=== PATIENT | female | born 1960 | race Caucasian/White ===

== ENCOUNTER → 2018-03-29 | Outpatient (CLI) | payer MEDICARE, MEDICAID | LOC: M PAIN 11:15 | DX: M54.12 Radiculopathy, cervical region (principal); G89.29 Other chronic pain; M79.1 Myalgia; R25.2 Cramp and spasm; J44.9 Chronic obstructive pulmonary disease, unspecified; I10 Essential (primary) hypertension; F41.9 Anxiety disorder, unspecified; Z79.899 Other long term (current) drug therapy; Z86.79 Personal history of other diseases of the circulatory system; Z87.891 Personal history of nicotine dependence | CPT/HCPCS: G0463 ==

== ENCOUNTER → 2018-05-30 | Outpatient (CLI) | payer MEDICARE, MEDICAID | LOC: M PAIN 13:00 | DX: M54.12 Radiculopathy, cervical region (principal); M79.1 Myalgia; R25.2 Cramp and spasm; B02.22 Postherpetic trigeminal neuralgia; J44.9 Chronic obstructive pulmonary disease, unspecified; I10 Essential (primary) hypertension; F41.9 Anxiety disorder, unspecified; Z79.899 Other long term (current) drug therapy; Z88.5 Allergy status to narcotic agent; Z86.79 Personal history of other diseases of the circulatory system; Z87.891 Personal history of nicotine dependence | CPT/HCPCS: G0463 ==

== ENCOUNTER → 2018-08-19 | Outpatient (CLI) | payer MEDICARE, MEDICAID | LOC: M PAIN 13:15 | DX: M54.12 Radiculopathy, cervical region (principal); M79.18 Myalgia, other site; R25.2 Cramp and spasm; B02.22 Postherpetic trigeminal neuralgia; I10 Essential (primary) hypertension; F41.9 Anxiety disorder, unspecified; J44.9 Chronic obstructive pulmonary disease, unspecified; Z79.899 Other long term (current) drug therapy; Z88.5 Allergy status to narcotic agent; Z86.79 Personal history of other diseases of the circulatory system; Z87.891 Personal history of nicotine dependence | CPT/HCPCS: G0463 ==

== ENCOUNTER → 2019-03-29 | Outpatient (REF) ==
[2019-03-29 14:40] LABS: ALBUMIN 3.7 GM/DL (3.2-5.2); ALT/SGPT 302 U/L (12-78); AMYLASE 108 U/L (25-115); BILIRUBIN,TOTAL 0.5 MG/DL (0.2-1.0); BLOOD UREA NITROGEN 12 MG/DL (7-18); CALCIUM LEVEL 9.1 MG/DL (8.5-10.1); CARBON DIOXIDE LEVEL 27 MEQ/L (21-32); CHLORIDE LEVEL 103 MEQ/L (98-107); GLOMERULAR FILTRATION RATE > 60.0 (>51); GLUCOSE, FASTING 79 MG/DL (70-100); LIPASE 308 U/L (73-393); POTASSIUM SERUM 4.4 MEQ/L (3.5-5.1); SODIUM LEVEL 137 MEQ/L (136-145); TOTAL PROTEIN 6.9 GM/DL (6.4-8.2)
== END ==
LOC: M LAB REF 12:02
DX: Z00.00 Encounter for general adult medical examination without abnormal findings (principal)

== ENCOUNTER 2020-08-13 21:45 | Inpatient (IN) | payer MEDICARE, MEDICAID ==
[~2020-08-13] VITALS: Ht 165.1 cm; Wt 55.9 kg
[2020-08-13] MEDS ORDERED: HYDR-3719 PO (21:58)
[2020-08-13] MEDS ORDERED: IPRA2IN NEB (21:58)
[2020-08-13] MEDS ORDERED: FURO20TA2 PO (21:58)
[2020-08-13] MEDS ORDERED: OMEP-221 PO (21:58)
[2020-08-13] MEDS ORDERED: ALPR0.25 PO (21:58)
[2020-08-13] MEDS ORDERED: TREL1AER INH (21:58)
[2020-08-13] MEDS ORDERED: AMLO2.5T3 PO (21:58)
[2020-08-13] MEDS ORDERED: ALBU83IN INH (21:58)
[2020-08-13 22:56] LABS: CK-MB VALUE MASS 1.2 NG/ML (<3.6); CPK CREATINE PHOSPHOKINASE 68 U/L (26-192); MB/CK RELATIVE INDEX 1.76 (< OR =4); TROPONIN I < 0.02 NG/ML (< 0.10)
[2020-08-13 23:03] LABS: BASO # 0.1 10^3/uL (0.0-0.2); BASO % 0.8 % (0.0-1.0); EOS % 0.1 % (0.0-3.0); HEMATOCRIT 37.9 % (36.0-47.0); HEMOGLOBIN 12.3 g/dl (12.0-15.5); LYMPH # 3.8 10^3/uL (1.5-5.0); LYMPH % 31.9 % (24.0-44.0); MEAN CORPUSCULAR HEMOGLOBIN 30.8 pg (27.0-33.0); MEAN CORPUSCULAR HGB CONC 32.5 g/dl (32.0-36.5); MEAN CORPUSCULAR VOLUME 94.8 fl (80.0-96.0); MONO % 8.5 % (0.0-5.0); NEUTROPHILS # 6.8 10^3/uL (1.5-8.5); NEUTROPHILS % 58.1 % (36.0-66.0); PLATELET COUNT, AUTOMATED 252 10^3/uL (150-450); WHITE BLOOD COUNT 11.8 10^3/uL (4.0-10.0)
[2020-08-13] MEDS ORDERED: ISOVUE-370 76% 100ML VIAL As Ordered ONE (23:05)
--- NOTE | 2020-08-13 23:05 | REPVR ---
PROCEDURE INFORMATION: Exam: XR Chest, 1 View Exam date and time: 08/13/2020 10:30 PM Age: 60 years old Clinical indication: Other: Chest pain TECHNIQUE: Imaging protocol: XR of the chest Views: 1 view. COMPARISON: No relevant prior studies available. FINDINGS: Lungs: Dependent subsegmental pulmonary atelectasis. Pleural space: Unremarkable. No pleural effusion. No pneumothorax. Heart/Mediastinum: Unremarkable. No cardiomegaly. Vasculature: Aortic calcification. Bones/joints: Unremarkable. IMPRESSION: No acute findings. Electronically signed by: Alpesh Romero On 08/13/2020 23:05:04 PM
[2020-08-13 23:19] LABS: ALBUMIN 3.3 GM/DL (3.2-5.2); ALT/SGPT 92 U/L (12-78); BILIRUBIN,DIRECT 0.2 MG/DL (0.0-0.2); BILIRUBIN,TOTAL 0.4 MG/DL (0.2-1.0); BLOOD UREA NITROGEN 16 MG/DL (7-18); CARBON DIOXIDE LEVEL 30 MEQ/L (21-32); CHLORIDE LEVEL 97 MEQ/L (98-107); GLUCOSE, FASTING 101 MG/DL (70-100); LIPASE 141 U/L (73-393); POTASSIUM SERUM 3.4 MEQ/L (3.5-5.1); SODIUM LEVEL 138 MEQ/L (136-145); TOTAL PROTEIN 7.2 GM/DL (6.4-8.2)
[2020-08-14] MEDS ORDERED: MORPHINE 2 MG/ML 1ML VIAL (J2270) IV ONE
[2020-08-14] MEDS ORDERED: POTASSIUM CHLORIDE 10 MEQ SR TABLET PO ONE
[2020-08-14] MEDS ORDERED: ACETAMINOPHEN TAB 650MG DOSE (2X325MG) PO PRN (00:30)
[2020-08-14] MEDS ORDERED: MOM 30ML SUSPENSION UDC PO PRN (00:30)
--- NOTE | 2020-08-14 01:41 | HPEPDOC ---
[facility] Medical History & Physical Date of Admission Aug 14, 2020 Date of Service: Aug 14, 2020 History and Physical CHIEF COMPLAINT: Chest pain HISTORY OF PRESENT ILLNESS: 60-year-old female past medical history of hypertension, COPD on home oxygen, and CAD. Presents with atypical chest pain. Left AMA from [place] yesterday. CT showed pericardial effusion there. Dr Messina consulted form Ed agrees to admit and do echo which hell read in the am. Initial trop negative. Admitted to medical floor on telemetry monitoring to rule out ACS and for echo in the morning. Tells me her chest pain has lasted for the past 5 days and has been slowly getting progressively worse. Says the pain is constant all day long and does not radiate. Rates the pain as 4 out of 10 and as a general discomfort in the middle of her chest. Says that the pain is alleviated by taking Gas-X and made worse with stress. States that the pain feels like a worse version of her GERD. Tells me that sometimes her pain is producible on palpation. Tells me she's had a heart attack in 2004 and underwent catheterization and they told her the clot has moved and she did not require stenting. PAST MEDICAL HISTORY: Hypertension, COPD on home oxygen, history of diverticulitis PAST SURGICAL HISTORY: Tonsillectomy, small bowel resection 7 years ago after severe bout of diverticulitis. Actual carpal tunnel relief surgery. SOCIAL HISTORY: States she drinks beer about once a week with her friends Endorses smoking tobacco for 30 years and quit 13 years ago Denies illicit drug use ALLERGIES: Please see below. REVIEW OF SYSTEMS: Constitutional: No sweating or weight loss Eyes: No eye pain or acute blurred vision HENT: No complaints of headache or sore throat Cadiovascular: See HPI Pulm: No SOB or cough Gastrointestinal: No N/V, no abdominal pain. Genitourinary: No dysuria or hematuria Musculoskeletal: No back pain or joint pain Skin: No rash or jaundice Neurological: No weakness. HOME MEDICATIONS: Please see below. PHYSICAL EXAMINATION: Constitutional: Awake and alert, in no apparent distress ENT: Sclera are clear. Mucosa is moist. Respiratory: Lungs CTA bilaterally. No respiratory distress. No use of accessory muscles. Cardiovascular: RRR S1 and S2 are normal, no murmur Gastrointestinal: Abdomen is soft, non distended, non tender, BS present. Musculoskeletal: No edema. No joint deformities. RUE 5/5, LUE 5/5, BLE 5/5 Neurologic: No focal neurological deficit. Mental Status: A&O x3, normal affect Skin: Warm, dry LABORATORY DATA: See below. IMAGING: CT from [place] on disc in chart MICROBIOLOGY: Please see below. ASSESSMENT/PLAN 60-year-old female past medical history of hypertension, COPD on home oxygen, and CAD. Presents with atypical chest pain. Left AMA from [place] yesterday. CT showed pericardial effusion there. Dr Messina consulted form Ed agrees to admit and do echo which hell read in the am. Initial trop negative. Admitted to medical floor on telemetry monitoring to rule out ACS and for echo in the morning. # Chest pain: Rule out ACS. Tele. Atypical CP. CXR ok. Initial trop ok. EKG NSR. Trend troponins and EKG. Dr. Messina consulted - rec echo which he will read in the morning. A1c, lipid panel. # CAD: Cath done in 2004 no stenting was done. Aspirin, statin, started on low- dose metoprolol. # GERD: Her chest pain does have some symptoms that resemble GERD including improvement with Gas-X as well as association with stress and food. One-time IV Protonix followed by by mouth Protonix. # HTN: Hold home antihypertensives currently normotensive. Monitor and titrate # COPD: DU nebs PRN, O2 NC # HypoK: replace. Monitor. # DVT prophylaxis: Heparin A Yousef Hospitalist Vital Signs Vital Signs Date Time Temp Pulse Resp B/P (MAP) Pulse Ox O2 Delivery O2 Flow Rate FiO2 08/14/20 00:44 18 08/14/20 00:30 82 114/63 (80) 08/14/20 00:00 91 Nasal Cannula 2.0 Laboratory Data Labs 24H Laboratory Tests 2 08/13/20 22:23: Immature Granulocyte % (Auto) 0.6, Neutrophils (%) (Auto) 58.1, Lymphocytes (%) (Auto) 31.9, Monocytes (%) (Auto) 8.5H, Eosinophils (%) (Auto) 0.1, Basophils (%) (Auto) 0.8, Neutrophils # (Auto) 6.8, Lymphocytes # (Auto) 3.8, Monocytes # (Auto) 1.0H, Eosinophils # (Auto) 0.0, Basophils # (Auto) 0.1, Nucleated Red Blood Cells % (auto) 0.0, Anion Gap 11, Glomerular Filtration Rate 60.0, Calcium Level 8.0L, Total Bilirubin 0.4, Direct Bilirubin 0.2, Aspartate Amino Transf (AST/SGOT) 69H, Alanine Aminotransferase (ALT/SGPT) 92H, Alkaline Phosphatase 102, Total Creatine Kinase 68, Creatine Kinase MB 1.2, Creatine Kinase MB Relative Index 1.76, Troponin I < 0.02, Total Protein 7.2, Albumin 3.3, Alb umin/Globulin Ratio 0.8L, Lipase 141 CBC/BMP Laboratory Tests 08/13/20 22:23 Home Medications Scheduled Albuterol Sulf (Albuterol Sulfate) 2.5 Mg/3 Ml Vial.neb, 1 NEB INH PRN Alprazolam (Alprazolam) 0.25 Mg Tablet, 0.25 MG PO DAILY Amlodipine Besylate (Amlodipine Besylate) 2.5 Mg Tablet, 2.5 MG PO DAILY Fluticasone/Umeclidin/Vilanter (Trelegy Ellipta 100-62.5-25) 1 Each Blst.w.dev, 1 PUFF INH DAILY Furosemide (Furosemide) 20 Mg Tablet, 20 MG PO DAILY Omeprazole (Omeprazole) 40 Mg Capsule.dr, 40 MG PO DAILY Scheduled PRN Hydrocodone/Acetaminophen (Hydrocodone-Acetamin 10-325 mg) 1 Each Tablet, 1 TAB PO Q4H PRN for PAIN Ipratropium [place] (Ipratropium [place]) 0.2 Mg/1 Ml Solution, 1 DOSE NEB QID PRN for SHORTNESS OF BREATH Allergies Coded Allergies: diazepam (Verified Allergy, Mild, HIVES, 08/13/20) A-FIB/CHADSVASC A-FIB History Current/History of A-Fib/PAF?: No JAVIER MCCLURE MD Aug 14, 2020 01:41
[2020-08-14] MEDS ORDERED: PANTOPRAZOLE 40MG VIAL (C9113 PER 1) IV ONE (01:45)
[2020-08-14] MEDS ORDERED: IPRATROPIUM 0.5MG/ALBUTEROL 2.5MG INH SOL UD 3ML (DUONEB) NEB PRN (01:45)
[2020-08-14 02:35] VITALS: BP 132/73
[2020-08-14 04:13] LABS: HEMATOCRIT 36.3 % (36.0-47.0); HEMOGLOBIN 11.6 g/dl (12.0-15.5); MEAN CORPUSCULAR HEMOGLOBIN 30.5 pg (27.0-33.0); MEAN CORPUSCULAR VOLUME 95.5 fl (80.0-96.0); PLATELET COUNT, AUTOMATED 214 10^3/uL (150-450); WHITE BLOOD COUNT 9.7 10^3/uL (4.0-10.0)
[2020-08-14 04:30] LABS: HEMOGLOBIN A1c 5.5 %
[2020-08-14 04:50] LABS: BLOOD UREA NITROGEN 16 MG/DL (7-18); CALCIUM LEVEL 8.3 MG/DL (8.8-10.2); CARBON DIOXIDE LEVEL 31 MEQ/L (21-32); CHLORIDE LEVEL 101 MEQ/L (98-107); CHOLESTEROL LEVEL 211 MG/DL (<200); CREATININE FOR GFR 0.76 MG/DL (0.55-1.30); GLOMERULAR FILTRATION RATE > 60.0 (>45); GLUCOSE, FASTING 106 MG/DL (70-100); HDL CHOLESTEROL 96 MG/DL (>40); POTASSIUM SERUM 3.9 MEQ/L (3.5-5.1); SODIUM LEVEL 136 MEQ/L (136-145); TRIGLYCERIDES LEVEL 74 MG/DL (<150)
[2020-08-14 04:51] LABS: CHOLESTEROL RISK RATIO 2.197 (<5); LDL CHOLESTEROL 100 MG/DL (<100); MAGNESIUM LEVEL 2.3 MG/DL (1.8-2.4); NON-HDL-C 115 MG/DL; TROPONIN I < 0.02 NG/ML (< 0.10)
[2020-08-14] MEDS: HEPARIN SOD (PORCINE) 5000UNITS/ML 1ML VIAL/SYRINGE SQ SCH ×3 (06:41→21:53)
--- NOTE | 2020-08-14 06:48 | ECGEPIP ---
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
[2020-08-14] MEDS ORDERED: MAALOX 30 ML SUSP *UDC PO PRN (08:00)
[2020-08-14] MEDS: SYMBICORT 160/4.5MCG INHALER 6GM INH SCH ×2 (08:41→19:32)
[2020-08-14] MEDS: TIOTROPIUM INHALER/CAPSULE (SPIRIVA) INH SCH (08:41)
[2020-08-14] MEDS ORDERED: PANTOPRAZOLE 40MG TAB (PROTONIX) PO SCH (09:00)
[2020-08-14] MEDS ORDERED: ENOXAPARIN 40MG/0.4ML SYRINGE (J1650 PER 10MG) SC SCH (09:00)
[2020-08-14] MEDS: ALPRAZolam 0.25 MG TAB PO SCH (10:36)
[2020-08-14] MEDS: ASPIRIN 81 MG ENTERIC TAB PO SCH (10:36)
[2020-08-14] MEDS: PANTOPRAZOLE 40MG VIAL (C9113 PER 1) IV SCH (10:36)
[2020-08-14] MEDS: ATORVASTATIN 20 MG TAB PO SCH (10:37)
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
[2020-08-14] MEDS: SUCRALFATE SUSP 1GM/10ML UD PO SCH ×3 (13:12→21:53)
[2020-08-14] MEDS: METOPROLOL SUCC *XL* 12.5MG PER 1/2 TAB (TopROL *XL*) PO SCH (13:12)
[2020-08-14 16:00] VITALS: BP 122/66
[2020-08-14 17:45] VITALS: BP 125/82
--- NOTE | 2020-08-14 21:24 | ECGEPIP ---
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
--- NOTE | 2020-08-14 21:27 | ECGEPIP ---
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
--- NOTE | 2020-08-14 21:28 | ECGEPIP ---
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
[2020-08-14 22:00] VITALS: BP 98/69
[2020-08-15] MEDS: HEPARIN SOD (PORCINE) 5000UNITS/ML 1ML VIAL/SYRINGE SQ SCH ×2 (05:44→12:27)
[2020-08-15 06:00] VITALS: BP 120/73
[2020-08-15 07:00] LABS: BLOOD UREA NITROGEN 15 MG/DL (7-18); CALCIUM LEVEL 8.3 MG/DL (8.8-10.2); CARBON DIOXIDE LEVEL 28 MEQ/L (21-32); CHLORIDE LEVEL 107 MEQ/L (98-107); CREATININE FOR GFR 0.69 MG/DL (0.55-1.30); GLOMERULAR FILTRATION RATE > 60.0 (>45); GLUCOSE, FASTING 107 MG/DL (70-100); POTASSIUM SERUM 3.7 MEQ/L (3.5-5.1); SODIUM LEVEL 141 MEQ/L (136-145)
[2020-08-15] MEDS: SYMBICORT 160/4.5MCG INHALER 6GM INH SCH (07:22)
[2020-08-15] MEDS: TIOTROPIUM INHALER/CAPSULE (SPIRIVA) INH SCH (07:22)
[2020-08-15 08:12] VITALS: BP 120/73
[2020-08-15] MEDS: ATORVASTATIN 20 MG TAB PO SCH (08:12)
[2020-08-15] MEDS: ASPIRIN 81 MG ENTERIC TAB PO SCH (08:12)
[2020-08-15] MEDS: ALPRAZolam 0.25 MG TAB PO SCH (08:12)
[2020-08-15] MEDS: SUCRALFATE SUSP 1GM/10ML UD PO SCH ×2 (08:12→12:27)
[2020-08-15] MEDS: METOPROLOL SUCC *XL* 12.5MG PER 1/2 TAB (TopROL *XL*) PO SCH (08:12)
[2020-08-15] MEDS: PANTOPRAZOLE 40MG VIAL (C9113 PER 1) IV SCH (08:12)
[2020-08-15] MEDS ORDERED: BISACODYL 10 MG SUPP PR PRN (09:00)
[2020-08-15] MEDS ORDERED: NORCO, ANEXSIA 5/325MG TABLET (HYDROcodone/ACETAMINOPHEN) PO PRN ×2 (09:00)
[2020-08-15] MEDS ORDERED: MOM 30ML SUSPENSION UDC PO PRN (09:00)
[2020-08-15] MEDS ORDERED: BISACODYL 10 MG SUPP PR ONE (09:30)
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
[2020-08-15] MEDS ORDERED: FLEET ENEMA PR PRN (14:00)
[2020-08-15] MEDS ORDERED: DULC10SU2 PR (14:38)
[2020-08-15] MEDS ORDERED: FAMO40TA3 PO (14:38)
[2020-08-15] MEDS ORDERED: SUCR1TA PO (14:38)
[2020-08-15] MEDS ORDERED: SENN8.6T58 PO (14:40)
--- NOTE | 2020-08-16 06:43 | ECHO ---
DATE OF PROCEDURE: 08/15/2020 Age: 60 Gender: Female REFERRING PROVIDER: Karen Nava MD PATIENT LOCATION: Room 4205 REASON FOR STUDY: Chest pain, pericardial effusion. 2D MEASUREMENTS: IVS 0.87 cm LV 4.7 cm LVPW 1.1 cm LA 3.6 cm Aorta 2.6 cm IVC 1.95 cm DOPPLER MEASUREMENT Peak velocity across the aortic valve 1.6 m/s Peak velocity across the LVOT 1.1 m/s Peak gradient across the aortic valve 10 mmHg Mean gradient across the aortic valve 6 mmHg Mitral E 0.75 Mitral A 1.1 with a ratio of 0.7 Maximum tricuspid valve velocity 2.1 m/s 2D COMMENTS: 1. Normal left ventricular size, wall thickness, and normal global left ventricular systolic function. The estimated left ventricular systolic ejection fraction is 60% to 65%. 2. Normal left atrium. Normal right atrium and right ventricle. 3. The atrial septum appeared to be normal without evidence of defect or shunt. 4. Normal aortic root. 5. A small pericardial effusion was noted. No evidence of cardiac tamponade. 6. There was the presence of fibrinous material in the pericardial fluid. 7. Mildly calcified aortic valve with normal leaflet excursion. Mildly calcified mitral annulus with normal anterior mitral valve leaflet motion. Normal tricuspid valve. The pulmonic valve and proximal pulmonary artery branches were not well visualized. 8. The inferior vena cava was normal in size, central venous pressure normal. Doppler with only mild mitral regurgitation and mild tricuspid regurgitation detected. The calculated pulmonary artery systolic pressure was normal. Abnormal relaxation pattern was noted across the mitral valve leaflets, as well as the mitral valve annulus consistent with features of grade 1 left ventricular diastolic dysfunction. IMPRESSION: 1. Normal global left ventricular systolic function. There are features of grade 1 left ventricular diastolic dysfunction manifested by abnormal relaxation. 2. Aortic valve sclerosis with trivial aortic stenosis. No aortic regurgitation. 3. Mitral annulus calcification with mild mitral regurgitation. 4. Mild tricuspid regurgitation with a normal calculated pulmonary artery systolic pressure. 5. A small pericardial effusion was noted, no evidence of cardiac tamponade. As mentioned above, fibrinous material noted in the pericardial fluid. I recommend a 2D echocardiogram in about three to six months for further evaluation. She also may benefit from further evaluation for malignancy. 6. Not mentioned above, global longitudinal strain/GLS was normal at -17.7%. MTDD
== END 2020-08-15 15:23 | disposition home or self-care (01) | DRG 392 ==
LOC: M ED 21:45 → M ED INP 08-14 00:23 → ENRESERV 08-14 02:02 → M PCU 08-14 02:45 → M MSPAV 08-14 17:52
PROVIDERS: ADMIT Family Medicine; ATTEND Internal Medicine Nephrology
DX: K29.00 Acute gastritis without bleeding (principal); J96.11 Chronic respiratory failure with hypoxia; I25.10 Atherosclerotic heart disease of native coronary artery without angina pectoris; K21.9 Gastro-esophageal reflux disease without esophagitis; R07.89 Other chest pain; I10 Essential (primary) hypertension; J44.9 Chronic obstructive pulmonary disease, unspecified; E87.6 Hypokalemia; G89.29 Other chronic pain; Z99.81 Dependence on supplemental oxygen; Z90.49 Acquired absence of other specified parts of digestive tract; Z79.899 Other long term (current) drug therapy; Z88.8 Allergy status to other drugs, medicaments and biological substances; Z79.891 Long term (current) use of opiate analgesic

== ENCOUNTER 2021-09-07 10:40 | Emergency (ER) | payer MEDICARE, MEDICAID ==
[~2021-09-07] VITALS: Ht 165.1 cm; Wt 60.0 kg
[~2021-09-07 10:40] MED LIST: ALBU83IN INH; ALPR0.25 PO; AMLO2.5T3 PO; DULC10SU2 PR; FAMO40TA3 PO; FURO20TA2 PO; HYDR-3719 PO; IPRA2IN NEB; OMEP-221 PO; SENN8.6T58 PO; SUCR1TA PO; TREL1AER INH
[2021-09-07 10:41] VITALS: BP 159/89
[2021-09-07] MEDS ORDERED: AMOX1SUS19 (10:48)
[2021-09-07] MEDS ORDERED: TRAZ-252 (10:48)
--- OUTSIDE RECORDS SUMMARY | 2021-09-07 10:48 | CCD | Continuity of Care Document ---
Author Author Gissel BOSTON D.O. Organization Unknown Address [address] [place] [address] Phone [phone] Care Team Providers Care Public Aid Eligibility Assistant Name Role Phone Shahbaz Tee M.D. AUTM [phone] Riley Pereira M.D. AUTM [phone] Problems Active Problems Provider Date Chronic obstructive lung disease Onset: 07/10/2001 Gastroesophageal reflux disease Freeman Reynolds M.D. Onset: 11/26/2002 Diverticular disease of colon Freeman Reynolds M.D. 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 Onset: 02/04/2013 Social History Type Date Description Comments Sex Unknown Tobacco Use Start: Unknown End: Unknown Former Cigarette Smo ker 1 Pack Daily x 35 years, quit 2007 ETOH Use Intermittent alcohol use Beer - Twice a month Tobacco Use Start: Unknown End: Unknown Patient is a former smoker quit 2007 Recreational Drug Use Never Used Drugs Smoking Status Reviewed: 04/08/21 Patient is a former smoker qu it 2007 Allergies and adverse reactions Active Allergies Criticality Reaction | Severity Comments Date Lisinopril Unable to assess criticality throat const ricture 10/28/2019 Inactive Allergies NKDA Unable to assess criticality 02/05/2002 Medications Active Medications SIG Qnty Indications Ordering Provide r Date Omeprazole 40mg Capsules DR 1 by mouth every day 90caps Dallas Boston D.O., FAAFP Lubiprostone 8mcg Capsules Take One Capsule By Mouth Twice A Day 60caps Yuliana Nance, FAAFP 04/15/2021 Moderna Covid-19 Vaccine 100mcg/0.5ML Suspension pt recieved both Dallas Boston D.O., F AAFP 03/07/2021 Xanax 0.25mg Tablets 1 tab by mouth twice a day 60tabs [facility] Valacyclovir HCL 1gm Tablets 1 tab by mouth two times a day x 7 days 14tabs Dallas Boston D.O., FAAFP 01/22/2020 Amlodipine Besylate 2.5mg Tablets take one tablet by mouth every day 90tabs Dallas Boston D.O., FAAFP 11/12/2019 Mupirocin Calcium 2% Cream apply to the nose bid 15gm Dallas Boston D.O., FAAFP Ondansetron 4mg Tablets Dispers dissolve 1 tab on the tongue every 8 hours as needed for nausea 30tabs Dallas Boston D.O., FAAFP 04/24/2019 Trelegy Ellipta 100- 62.5-25mcg/Inh Aerosol Inhale One puff By Mouth Every Day 60units Gustabo Boston D.O., FAAFP 10/02/2018 Prevnar 13 Suspension as Directed Asthma /COPD QS Dallas Boston D.O., FAAFP Lidocaine 5% Patches apply in in the morning to most painful area, remove after 12 hours dx: b02.21 30units Dallas Boston D.O., FAAFP 04/25/2018 Triamcinolone Acetonide 0.025% Cre am apply three x daily to back prn 80gm Dallas Boston D.O., FAAFP 09/18/2017 Nebulizer Compressor/Dualfilter/7' Tubin g/Aerosol T/Mthpiece Kit use for albuterol neb treatments every 4 hours as needed for sob or wheezing 1units J44.9 Dallas Boston D.O., [facility] 02/15/2015 Montelukast Sodium 10mg Tablets take one tablet by mouth every day 30tabs [facility] 01/14/2013 Saline Nasal [place] 0.65% Solution use tid 2units [facility] 02/21/2011 Albuterol Sulfate (2 .5mg/3ML) 0.083% Nebulizer inhale contents of 1 vial in nebulizer every 4 hours if need ed 540units J44.9 [facility] 12/28/2008 R06.2 Ipratropium [place] 0.02% Solution mix with albuterol and inhale contents of 1 vial in nebulizer four times a day 450ml J44.9 [facility] 12/28/2008 R06.2 Tums Smoothies 750mg Chewtabs One Or 2 Weekly Unknown Medications Administered in Office Medication SIG Qnty Indications Ordering Provider Date Injection (SC)/(Im) Injection Maite Lindsay PA 04/28/2020 Injection (SC)/(Im) Injection Dallas Boston D.O., [facility] 08/28/2016 Injection (SC)/(Im) Injection Dallas Boston D.O., [facility] 04/09/2015 Injection (SC)/(Im) Injection Berenice Coe FNP-C 02/10/2015 Injection (SC)/(Im) Injection Leslie Jenkins FNP-BC 10/12/2009 Injection Subcutaneous Or Intramuscular Injection Jonas Travis [facility] 05/11/2008 Injection Subcutaneous Or Intramuscular Injection [facility] 06/13/2007 Injection Subcutaneous Or Intramuscular Injection Freeman Reynolds M.D. 2006 Injection Subcutaneous Or Intramuscular Injection Dallas Boston D.O., [facility] 12/07/2006 Injection Subcutaneous Or Intramuscular Injection Terence Garcia, RPA 11/02 Injection (SC)/(Im) Injection Terence Garcia, RPA 07/26/2006 Injection Subcutaneous Or Intramuscular Injection Terence Garcia, RPA 07/26 Injection Subcutaneous Or Intramuscular Injection [facility] 06/04/2006 Injection (SC)/(Im) Injection [facility] 10/04/2005 Injection (SC)/(Im) Injection Dallas Boston D.O., FAAFP 04/04/2005 Injection (SC)/(Im) Injection Leslie Jenkins [facility] 04/04/2005 Injection (SC)/(Im) Injection Jack Diaz M.D. 03/11/1997 Injection (SC)/(Im) Injection Mahesh Beck R.P.A. 03/06/1997 Immunizations CPT Code Status Date Vaccine Reaction Lot # [id number] Given 09/02/2020 Influenza Virus Vaccine, Quadrivalent, Slit Virus, Im Use 3Y & Up [id number] 43447 Given 04/28/2020 Tdap Tetanus,Dip htheria Toxoids/Acellular Pertussis 7Yrs Or Older [id number] 53491 Given 09/08/2019 Influenza Virus Vaccine, Quadrivalent, Slit Virus, Im Use 3Y & Up [id number] 56542 Given 09/03/2013 Pneumococcal Immunization [id number] 72682 Given 08/14/2012 Influenza Virus Vac. Split Virus Individuals 3 Years And Above [id number] [id number] Given 07/25/2011 Influenza Vaccin e (Fluzone) 3Yrs Of Age Or Older Medicare Plans 16760 Given 07/25/2011 Influenza Virus Vac. Split Virus Individuals 3 Years And Above [id number] 23945 Given 09/14/2009 Influenza Virus Vac. Split Virus Individuals 3 Years And Above [id number] 25032 Given 09/25/2008 Influenza Virus Vac. Split Virus Individuals 3 Years And Above [id number] 10456 Given 10/04/2005 Influenza Virus Vac. Split Virus Individuals 3 Years And Above 73025 Given 09/14/2004 Influenza Virus Vac. Split Virus Individuals 3 Years And Above 90245 Given 10/08/2002 Pneumococcal Immunization 55741 Given 10/08/2002 Influenza Virus Vac. Whole Virus [id number] Refused 08/23/2020 Influenza Virus Vaccine, Quadrivalent, Slit Virus, Im Use 3Y & Up Vital Signs Date Vital Result Comment 08/30/2021 11:05am BP Systolic 130 mmHg BP Diastolic 60 mmHg Body Temperature 97.7 F Heart Rate 93 /min Respiratory Rate 16 /min Height 66 inches 5'6" Weight 130.00 lb [place] Body Weight 130 lb BMI (Body Mass Index) 21.0 kg/m2 O2 % BldC Oximetry 96 % (AT Rest), (Room Air ) 06/07/2021 10:33am BP Systolic 110 mmHg BP Diastolic 60 mmHg Body Temperature 98.4 F Heart Rate 92 /min Respiratory Rate 16 /min Height 66 inches 5'6" Weight 128.00 lb [place] Body Weight 130 lb BMI (Body Mass Index) 20.7 kg/m2 O2 % BldC Oximetry 96 % Results Test Acquired Date Facility Test Result H/L Range Note CBC W/Automated Diff 04/08/2021 [place] [id number] [phone] CBC W/Automated Diff (SEE NOTE) 1 WBC 4.9 10^3/uL 4.2 - 11.0 RBC 4.24 10^6/uL 4.20 - 5.40 Hemoglobin 13.3 g/dL 12.0 - 16.0 Hematocrit 40.7 % 37.0 - 47.0 MCV 96.0 fL 81.0 - 101 MCH 31.4 pg 27.0 - 34.0 MCHC 32.7 g/dL 31.0 - 36.0 RDW 12.5 % 11.5 - 14.5 Platelets 141 10^3/uL Low 150 - 450 MPV 11.4 fL High 7.4 - 10.4 Neut 51.9 % 37.0 - 80.0 Lymph 30.8 % 25.0 - 40.0 Dunn 14.7 % High 3.0 - 8.0 Eos 1.0 % 0.0 - 7.0 Baso 1.4 % 0.0 - 2.5 %Ig 0.2 % High 0.0 - 0.0 %NRBC 0.0 % 0.0 - 0.0 #Neut 2.55 10^3/uL 2.00 - 6.90 #Lymph 1.51 10^3/uL 0.60 - 3.40 #Dunn 0.72 10^3/uL 0.00 - 0.90 #Eos 0.05 10^3/uL 0.00 - 0.70 #Baso 0.07 10^3/uL 0.00 - 0.20 #Ig 0.01 10^3/uL 0.00 - 0.10 #NRBC 0.00 10^3/uL 0.00 - 0.00 Manual Diff NOT INDICATED RBC Morph NOT INDICATED CBC W/Automated Diff 03/16/2021 [place] [id number] [phone] CBC W/Automated Diff (SEE NOTE) 2 WBC 6.2 10^3/uL 4.2 - 11.0 RBC 4.12 10^6/uL Low 4.20 - 5.40 Hemoglobin 13.2 g/dL 12.0 - 16.0 Hematocrit 38.9 % 37.0 - 47.0 MCV 94.4 fL 81.0 - 101 MCH 32.0 pg 27.0 - 34.0 MCHC 33.9 g/dL 31.0 - 36.0 RDW 12.1 % 11.5 - 14.5 Platelets 159 10^3/uL 150 - 450 MPV 12.0 fL High 7.4 - 10.4 Neut 51.3 % 37.0 - 80.0 Lymph 36.0 % 25.0 - 40.0 Dunn 9.3 % High 3.0 - 8.0 Eos 2.1 % 0.0 - 7.0 Baso 1.1 % 0.0 - 2.5 %Ig 0.2 % High 0.0 - 0.0 %NRBC 0.0 % 0.0 - 0.0 #Neut 3.20 10^3/uL 2.00 - 6.90 #Lymph 2.24 10^3/uL 0.60 - 3.40 #Dunn 0.58 10^3/uL 0.00 - 0.90 #Eos 0.13 10^3/uL 0.00 - 0.70 #Baso 0.07 10^3/uL 0.00 - 0.20 #Ig 0.01 10^3/uL 0.00 - 0.10 #NRBC 0.00 10^3/uL 0.00 - 0.00 Manual Diff NOT INDICATED RBC Morph NOT INDICATED Sedimentation Rate 03/16/2021 [facility] [place], [place] [id number] [phone] Sed Rate 43 mm/hr High 0 - 30 Sed Rate Reenter 43 Laboratory test finding 03/16/2021 [facility] [address] [phone] CRP (High Sensitivity) 0.26 mg/L Low 1.00 - 3. 00 3 CBC W/Automated Diff 03/07/2021 [facility] [place], [place] [id number] [phone] CBC W/Automated Diff (SEE NOTE) 4, 5 WBC 5.6 10^3/uL 4.2 - 11.0 RBC 4.38 10^6/uL 4.20 - 5.40 Hemoglobin 14.0 g/dL 12.0 - 16.0 Hematocrit 41.9 % 37.0 - 47.0 MCV 95.7 fL 81.0 - 101 MCH 32.0 pg 27.0 - 34.0 MCHC 33.4 g/dL 31.0 - 36.0 RDW 12.6 % 11.5 - 14.5 Platelets 83 10^3/uL Low 150 - 450 MPV 12.6 fL High 7.4 - 10.4 Neut 60.7 % 37.0 - 80.0 Lymph 26.9 % 25.0 - 40.0 Dunn 10.4 % High 3.0 - 8.0 Eos 0.9 % 0.0 - 7.0 Baso 0.9 % 0.0 - 2.5 %Ig 0.2 % High 0.0 - 0.0 %NRBC 0.0 % 0.0 - 0.0 #Neut 3.39 10^3/uL 2.00 - 6.90 #Lymph 1.50 10^3/uL 0.60 - 3.40 #Dunn 0.58 10^3/uL 0.00 - 0.90 #Eos 0.05 10^3/uL 0.00 - 0.70 #Baso 0.05 10^3/uL 0.00 - 0.20 #Ig 0.01 10^3/uL 0.00 - 0.10 #NRBC 0.00 10^3/uL 0.00 - 0.00 Manual Diff NOT INDICATED RBC Morph NOT INDICATED Comprehensive Metabolic Panel 03/07/2021 [place] [address] [phone] Comprehensive Metabo (SEE NOTE) 6 Sodium 140 mEq/L 134 - 153 Potassium 4.3 mEq/L 3.6 - 5.0 Chloride 103 mEq/L 98 - 107 Co2 28 mEq/L 22 - 30 Glucose 99 mg/dL 70 - 99 BUN 13 mg/dL 7 - 21 Creatinine 0.6 mg/dL Low 0.7 - 1.5 BUN/Creat 22 8 - 27 Total Protein 8.3 g/dL High 6.3 - 8.2 Albumin 4.6 g/dL 3.9 - 5.0 Globulin 3.7 GM/DL High 2.4 - 3.2 A/G Ratio 1.2 0.8 - 2.0 Calcium 10.0 mg/dL 8.4 - 10.2 Total Bili <0.7 mg/dL 0.2 - 1.3 Alkaline Phos 105 U/L 38 - 126 Sgot/Ast 82 U/L High 5 - 40 SGPT/Alt 94 U/L High 7 - 56 Anion Gap 9.0 mmol/L 8.0 - 16.0 Age 60 yrs Non-Aa GFR >60 mL/min Afr Amer GFR >60 7 Laboratory test finding 03/07/2021 [place] [address] [phone] CPK 96 U/L 30 - 170 1 COMPLETE BLOOD COUNT 2 COMPLETE BLOOD COUNT 3 CDC/S HS-CRP CUT-OFF: RELATIVE RISK: <1.0 mg/L Low 1.0 - 3.0 mg/L A verage >3.0 mg/L High Optimally, the average of HS-CRP results repeated two weeks apart should be used for risk assessment. 4 Is patient fasting? Y 5 COMPLETE BLOOD COUNT 6 COMPREHENSIVE METABOLIC PANE L 7 Male GFR Interprentation 20-49 yrs >60 mL/min Normal 50-59 yrs >56 mL/min Normal 60-69 yrs >49 mL/min Normal 70-79yrs >42 mL/min Normal 80 and above >35 mL/min Normal Female GFR Interpretation 20-39 yrs >60 mL/min Normal 40-49 yrs >58 mL/min Normal 50-59 yrs >51 mL/min Normal 60-69 yrs >45 mL/min Normal 70-79 yrs >39 mL/min Normal 80 and above >32 mL/min Normal Procedures Date Code Description Status 06/07/2021 80025 Office/Outpatient Established Mo d MDM 30-39 Min Completed 04/08/2021 77865 Office/Outpatient Established Lo w MDM 20-29 Min Completed 03/16/2021 38302 Office/Outpatient Established Mo d MDM 30-39 Min Completed 03/07/2021 30570 Office/Outpatient Established Mo d MDM 30-39 Min Completed 05/23/2016 61409813 Mammogram Completed Medical Devices Description No Information Available Encounters Type Date Location Provider Dx Diagnosis Office Visit 06/07/2021 10:45a [facility] [place] Boston D.O., FAAFP I10 Essential (primary) hypertension J44.9 Chronic obstructive pulmonar y disease, unspecified K21.9 Gastro-esophageal reflux dis ease without esophagitis F41.1 Generalized anxiety disorder Office Visit 04/08/2021 11:15a [facility] Sarahi Nance, FAAFP R04.0 Epistaxis Office Visit 03/16/2021 3:45p [facility] Sarahi Nance, FAAFP D69.6 Thrombocytopenia, unspecified M79.10 Myalgia, unspecified site Office Visit 03/07/2021 11:00a [facility] Sarahi Nance, FAAFP J44.9 Chronic obstructive pulmonary disease, u nspecified K21.9 Gastro-esophageal reflux dis ease without esophagitis F41.0 Panic disorder [episodic par oxysmal anxiety] F41.1 Generalized anxiety disorder K59.00 Constipation, unspecified Assessments Date Code Description Provider 06/07/2021 I10 Essential (primary) hypertension Dallas Boston D.O., FAAFP 06/07/2021 J44.9 Chronic obstructive pulmonary di sease, unspecified Dallas Boston D.O., FAAFP 06/07/2021 K21.9 Gastro-esophageal reflux disease without esophagitis Dallas Boston D.O., FAAFP 06/07/2021 F41.1 Generalized anxiety disorder Dada dawnah J. Fish, D.O., [facility] 04/08/2021 R04.0 Epistaxis [facility] 03/16/2021 D69.6 Thrombocytopenia, unspecified Ke nuvia Boston D.O., [facility] 03/16/2021 M79.10 Myalgia, unspecified site Gustabo [facility] D[facility] 03/07/2021 J44.9 Chronic obstructive pulmonary di sease, unspecified [facility] 03/07/2021 K21.9 Gastro-esophageal reflux disease without esophagitis Dallas Boston D.O., [facility] 03/07/2021 F41.0 Panic disorder [episodic paroxys mal anxiety] Dallas Boston D.O., [facility] 03/07/2021 F41.1 Generalized anxiety disorder Dada Boston D.O., [facility] 03/07/2021 K59.00 Constipation, unspecified Gustabo Boston D.O., FAAFP Plan of Treatment Future Appointment(s):* 09/07/2021 11:15 am - [place] Boston D.O., FAAFP at [facility] Functional Status Description No Information Available Mental Status Description No Information Available Referrals Refer to Dr Reason for Referral Status Appt Date [facility] ENT FOREIGN BODY SENSATION THROA T FORMER 1 TO TWO PACKS CIGARETTES X 30 YEARS Created [address] [place] [address] [phone]
--- OUTSIDE RECORDS SUMMARY | 2021-09-07 10:48 | CCD ---
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 Activ e confirmed 83378240 Problem Spasticity R25.2 Active confirmed 761770311 ALLERGIES Allergen (clinical drug ingredient) Drug/Non Drug Allergy do cumented on EMR Reaction Allergy Type Onset Date Status VALIUM Hives Non Drug Allergy Active ENCOUNTERS from 1959 to 2021-07-19 Encounter Location Date Provider Diagnosis [address] [phone] [place] [address] Jul, Veronica Foreman IMMUNIZATIONS No Information SOCIAL HISTORY Tobacco Use: Social History Observation Description Date Details (start date - stop date) Former Smoker Sex Assigned At : Social History Observation Description Sex Assigned At Unknown Language: Question Answer Notes Languages spoken: Senegalese Jain: Question Answer Notes Jain 21 Caodaism Tobacco Use: Question Answer Notes Are you a: former smoker How long has it been since you last smoked? > 10 years REASON FOR REFERRAL No Information VITAL SIGNS No information MEDICATIONS Medication SIG (Take, Route, Frequency, Duration) Notes Start Da te End Date Status ALPRAZolam 0.25 MG 1 tablet Orally Daily NEEDED Active Albuterol-Ipratropium 2.5-0.5 MG/3ML 3 ml Inhalation four ti mes daily AND NEEDED Active Lisinopril 20 MG 1 tablet Orally Once a day Active Advair Diskus 500-50 MCG/DOSE 1 puff Inhalation Twice a day Active Montelukast Sodium 10 MG 1 tablet in the evening Orally Once a day Active PROCEDURES No Information RESULTS No Results REASON FOR VISIT No Information MEDICAL (GENERAL) HISTORY Type Description Date Medical History asthma Medical History HTN Medical History diverticular disease Medical History anxiety Medical History rhinitis Medical History GERD Medical History COPD Medical History 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 Medical History HEART ATTACK Medical History SHINGLES Surgical History COLON RESECTION 2013 Surgical History TUBAL LIGATION 1993 Surgical History TONSILLECTOMY 1974 Surgical History EXPLORATORY LAP 1981 Surgical History COLONOSCOPY Hospitalization History DIVERTICULITIS 2013 Hospitalization History HEART ATTACK / HEART CATH 2008 Goals Section No Information Health Concerns No Information MEDICAL EQUIPMENT No Information MENTAL STATUS No Information FUNCTIONAL STATUS No Information ASSESSMENTS No Information PLAN OF TREATMENT No Information Insurance Providers Payer Name Payer Address Payer Phone Insured Name Patient Relati onship to Insured Coverage Start Date Coverage End Date SELF PAY - [employer]
--- OUTSIDE RECORDS SUMMARY | 2021-09-07 10:48 | CCD | Continuity of Care Document ---
Author Author Gissel BOSTON D.O. Organization Unknown Address [address] [place] [address] Phone [phone] Care Team Providers Care Archeology Professor Name Role Phone Shahbaz Tee M.D. AUTM [phone] Riley Pereira M.D. AUTM [phone] Problems Active Problems Provider Date Chronic obstructive [...] Asthma without status asthmaticus Berenice Coe F VP RESPIRATORY-C Onset: 02/04/2013 Social History Type Date Description Comments Sex Unknown Tobacco Use Start: Unknown End: Unknown Former Cigarette Smo ker 1 Pack Daily x 35 years, quit 2007 ETOH Use Intermittent alcohol use Beer - Twice a month Tobacco Use Start: Unknown End: Unknown Patient is a former smoker quit 2008 Recreational Drug Use Never Used Drugs Smoking Status Reviewed: 04/08/21 Patient is a former smoker qu it 2008 Allergies, Adverse Reactions, Alerts Active Allergies Reaction Severity Comments Date Lisinopril throat constricture 10/28/20 19 Inactive Allergies NKDA 02/05/2002 Medications Active Medications SIG Qnty Indications Ordering Provide r Date Lubiprostone 8mcg Capsules Take One Capsule By Mouth Twice A Day 60caps Yuliana Nance, FAAFP 04/15/2021 Moderna Covid-19 Vaccine 100mcg/0.5ML Suspension pt recieved both Dallas Boston D.O., F AAFP 03/07/2021 Xanax 0.25mg Tablets 1 tab by mouth twice a day 60tabs Dallas Boston D.O., FAAFP Valacyclovir HCL 1gm Tablets 1 tab by [...] or wheezing 1units J44.9 Dallas Boston D.O., [facility] 02/15/2015 Montelukast Sodium 10mg Tablets take one tablet by mouth every day 30tabs [facility] 01/14/2013 Saline Nasal [place] 0.65% Solution use tid 2units [facility] 02/21/2011 Albuterol Sulfate (2 .5mg/3ML) 0.083% Nebulizer inhale contents of 1 vial in nebulizer every 4 hours if need ed 540units J44.9 [place] [facility]., [facility] 12/28/2008 R06.2 Ipratropium [place] 0.02% Solution mix with albuterol and inhale contents of 1 vial in nebulizer four times a day 450ml J44.9 Dalals Boston D.O., [facility] 12/28/2008 R06.2 Tums Smoothies 750mg Chewtabs One Or 2 Weekly Unknown Medications Administered in Office Medication SIG Qnty Indications Ordering Provider Date Injection (SC)/(Im) Injection Maite Lindsay PA 04/28/2020 Injection (SC)/(Im) Injection Dallas Boston D.O., [facility] 08/28/2016 Injection (SC)/(Im) Injection Dallas Boston D.O., [facility] 04/09/2015 Injection (SC)/(Im) Injection Berenice Coe HOSPICE HOME CARE COORDINATOR-C 02/10/2015 Injection (SC)/(Im) Injection Leslie Jenkins [facility] 10/12/2009 Injection Subcutaneous Or Intramuscular Injection Jonas Travis [facility] 05/11/2008 Injection Subcutaneous Or Intramuscular Injection Dallas Boston D.O., [facility] 06/13/2007 Injection Subcutaneous Or Intramuscular Injection Freeman Reynolds M.D. 2006 Injection Subcutaneous Or Intramuscular Injection Dallas Boston D.O., [facility] 12/07/2006 Injection Subcutaneous Or Intramuscular Injection Terence Garcia, RPA 11/02 Injection (SC)/(Im) Injection Terence Garcia, RPA 07/26/2006 Injection Subcutaneous Or Intramuscular Injection Terence Garcia, [facility] 07/26 Injection Subcutaneous Or Intramuscular Injection Dallas Boston D.O., [facility] 06/04/2006 Injection (SC)/(Im) Injection Dallas Boston D.O., [facility] 10/04/2005 Injection (SC)/(Im) Injection Dallas Boston D.O., [facility] 04/04/2005 Injection (SC)/(Im) Injection Leslie Jenkins, [facility] 04/04/2005 Injection (SC)/(Im) Injection Jack Diaz M.D. 03/11/1997 Injection (SC)/(Im) Injection Mahesh Beck R.P.A. 03/06/1997 Immunizations CPT Code Status Date Vaccine Reaction Lot # [id number] Given 09/02/2020 Influenza Virus Vaccine, Quadrivalent, Slit Virus, Im Use 3Y & Up [id number] 68441 Given 04/28/2020 Tdap Tetanus,Dip htheria Toxoids/Acellular Pertussis 7Yrs Or Older [id number] 88876 Given 09/08/2019 Influenza Virus Vaccine, Quadrivalent, Slit Virus, Im Use 3Y & Up [id number] 61755 Given 09/03/2013 Pneumococcal Immunization [id number] 95256 Given 08/14/2012 Influenza Virus Vac. Split Virus Individuals 3 Years And Above [facility] [address] Given 07/25/2011 Influenza Vaccin e (Fluzone) 3Yrs Of Age Or Older Medicare Plans 96817 Given 07/25/2011 Influenza Virus Vac. Split Virus Individuals 3 Years And Above [id number] 96258 Given 09/14/2009 Influenza Virus Vac. Split Virus Individuals 3 Years And Above [id number] 65811 Given 09/25/2008 Influenza Virus Vac. Split Virus Individuals 3 Years And Above [id number] 66690 Given 10/04/2005 Influenza Virus Vac. Split Virus Individuals 3 Years And Above 40012 Given 09/14/2004 Influenza Virus Vac. Split Virus Individuals 3 Years And Above 44630 Given 10/08/2002 Pneumococcal Immunization 92285 Given 10/08/2002 Influenza Virus Vac. Whole Virus [id number] Refused 08/23/2020 Influenza Virus Vaccine, Quadrivalent, Slit Virus, Im Use 3Y & Up Vital Signs Date Vital Result Comment 06/07/2021 10:33am BP Systolic 110 mmHg BP Diastolic 60 mmHg Body Temperature 98.4 F Heart Rate 92 /min Respiratory Rate 16 /min Height 66 inches 5'6" Weight 128.00 lb [place] Body Weight 130 lb BMI (Body Mass Index) 20.7 kg/m2 O2 % BldC Oximetry 96 % 04/08/2021 11:25am BP Systolic 126 mmHg BP Diastolic 76 mmHg Body Temperature 98.8 F Heart Rate 80 /min Respiratory Rate 16 /min Height 66 inches 5'6" Weight 133.00 lb [place] Body Weight 130 lb BMI (Body Mass Index) 21.5 kg/m2 O2 % BldC Oximetry 95 % Results Test Acquired Date Facility Test Result H/L Range Note CBC W/Automated Diff 04/08/2021 [place], [place] [id number] [phone] CBC W/Automated Diff (SEE NOTE) 1 WBC [...] 80.0 Lymph 30.8 % 25.0 - 40.0 [place] 14.7 % High 3.0 - 8.0 Eos 1.0 % 0.0 - 7.0 Baso 1.4 % 0.0 - 2.5 %Ig 0.2 % High 0.0 - 0.0 %NRBC 0.0 % 0.0 - 0.0 #Neut 2.55 10^3/uL 2.00 - 6.90 #Lymph 1.51 10^3/uL 0.60 - 3.40 #[place] 0.72 10^3/uL 0.00 - 0.90 #Eos 0.05 10^3/uL 0.00 - 0.70 #Baso 0.07 10^3/uL 0.00 - 0.20 #Ig 0.01 10^3/uL 0.00 - 0.10 #NRBC 0.00 10^3/uL 0.00 - 0.00 Manual Diff NOT INDICATED RBC Morph NOT INDICATED CBC W/Automated Diff 03/16/2021 [facility] [place] [address] [phone] CBC W/Automated Diff (SEE NOTE) 2 WBC [...] 80.0 Lymph 36.0 % 25.0 - 40.0 [place] 9.3 % High 3.0 - 8.0 Eos 2.1 % 0.0 - 7.0 Baso 1.1 % 0.0 - 2.5 %Ig 0.2 % High 0.0 - 0.0 %NRBC 0.0 % 0.0 - 0.0 #Neut 3.20 10^3/uL 2.00 - 6.90 #Lymph 2.24 10^3/uL 0.60 - 3.40 #[place] 0.58 10^3/uL 0.00 - 0.90 #Eos 0.13 10^3/uL 0.00 - 0.70 #Baso 0.07 10^3/uL 0.00 - 0.20 #Ig 0.01 10^3/uL 0.00 - 0.10 #NRBC 0.00 10^3/uL 0.00 - 0.00 Manual Diff NOT INDICATED RBC Morph NOT INDICATED Sedimentation Rate 03/16/2021 [place] [address] [phone] Sed Rate 43 mm/hr High 0 - 30 Sed Rate Reenter 43 Laboratory test finding 03/16/2021 [facility] [place] [address] [phone] CRP (High Sensitivity) 0.26 mg/L Low 1.00 - 3. 00 3 CBC W/Automated Diff 03/07/2021 [facility] [place] [address] [phone] CBC W/Automated Diff (SEE NOTE) 4, 5 [...] 80.0 Lymph 26.9 % 25.0 - 40.0 [place] 10.4 % High 3.0 - 8.0 Eos 0.9 % 0.0 - 7.0 Baso 0.9 % 0.0 - 2.5 %Ig 0.2 % High 0.0 - 0.0 %NRBC 0.0 % 0.0 - 0.0 #Neut 3.39 10^3/uL 2.00 - 6.90 #Lymph 1.50 10^3/uL 0.60 - 3.40 #[place] 0.58 10^3/uL 0.00 - 0.90 #Eos 0.05 10^3/uL 0.00 - 0.70 #Baso 0.05 10^3/uL 0.00 - 0.20 #Ig 0.01 10^3/uL 0.00 - 0.10 #NRBC 0.00 10^3/uL 0.00 - 0.00 Manual Diff NOT INDICATED RBC Morph NOT INDICATED Comprehensive Metabolic Panel 03/07/2021 [place] [address] [phone] Comprehensive Metabo (SEE NOTE) 6 Sodium 140 [...] GFR >60 7 Laboratory test finding 03/07/2021 [place], [place] [address] [phone] CPK 96 U/L 30 - 170 Laboratory test finding 12/14/2020 [facility] [place] Sedimentation Rate-Westergren 33 mm/hr 0-40 Rheumatoid Arthritis Factor 12/14/2020 [facility] [place] Ra Latex Turbid. <10.0 IU/mL 0.0-13.9 Laboratory test finding 12/14/2020 [facility] [place] Antinuclear Antibodies, Ifa Negative 8 C-Reactive Protein, Quant <1 mg/L 0-10 1 COMPLETE BLOOD COUNT 2 COMPLETE BLOOD [...] Normal 80 and above >32 mL/min Normal 8 Negative <1:80 Borderline 1:80 Positive >1:80 Procedures Date Code Description Status 06/07/2021 25138 Office/Outpatient Established Mo d MDM 30-39 Min Completed 04/08/2021 84979 Office/Outpatient Established Lo w MDM 20-29 Min Completed 03/16/2021 05926 Office/Outpatient Established Mo d MDM 30-39 Min Completed 03/07/2021 32891 Office/Outpatient Established Mo d MDM 30-39 Min Completed 12/14/2020 70294 Office/Outpatient Established Mo d MDM 30-39 Min Completed 05/23/2016 [id number] Mammogram Completed Medical Devices Description No Information Available Encounters Type Date Location Provider Dx Diagnosis Office Visit 06/07/2021 10:45a [facility] Yuliana NanceO., FAAFP I10 Essential (primary) hypertension J44.9 Chronic obstructive pulmonar y disease, unspecified K21.9 Gastro-esophageal reflux dis ease without esophagitis F41.1 Generalized anxiety disorder Office Visit 04/08/2021 11:15a [facility] Dallas Boston D.O ., FAAFP R04.0 Epistaxis Office Visit 03/16/2021 3:45p [facility] Dallas Boston D.O ., FAAFP D69.6 Thrombocytopenia, unspecified M79.10 Myalgia, unspecified site Office Visit 03/07/2021 11:00a [facility] Dallas Boston D.O ., FAAFP J44.9 Chronic obstructive pulmonary disease, u nspecified K21.9 Gastro-esophageal reflux dis ease without esophagitis F41.0 Panic disorder [episodic par oxysmal anxiety] F41.1 Generalized anxiety disorder K59.00 Constipation, unspecified Office Visit 12/14/2020 2:00p [facility] Dallas Boston D.O ., FAAFP M25.512 Pain in left shoulder M79.10 Myalgia, unspecified site Assessments Date Code Description Provider 06/07/2021 I10 Essential (primary) hypertension Dallas Boston D.O., [facility] 06/07/2021 J44.9 Chronic obstructive pulmonary di sease, unspecified Dallas Boston D.O., FAAFP 06/07/2021 K21.9 Gastro-esophageal reflux disease without esophagitis Dallas Boston D.O., FAAFP 06/07/2021 F41.1 Generalized anxiety disorder Dada Boston D.O., [facility] 04/08/2021 R04.0 Epistaxis Dallas Boston D.O., [facility] 03/16/2021 D69.6 Thrombocytopenia, unspecified Ke nuvia Boston D.O., [facility] 03/16/2021 M79.10 Myalgia, unspecified site Gustabo Boston D.O., [facility] 03/07/2021 J44.9 Chronic obstructive pulmonary di sease, unspecified Dallas Boston D.O., FAAFP 03/07/2021 K21.9 Gastro-esophageal reflux disease without esophagitis Dallas Boston D.O., [facility] 03/07/2021 F41.0 Panic disorder [episodic paroxys mal anxiety] Dallas Boston D.O., [facility] 03/07/2021 F41.1 Generalized anxiety disorder Dada Boston D.O., [facility] 03/07/2021 K59.00 Constipation, unspecified Gustabo Boston D.O., FAA 12/14/2020 M25.512 Pain in left shoulder Dallas Boston D.O., [facility] 12/14/2020 M79.10 Myalgia, unspecified site Gustabo Boston D.O., [facility] Plan of Treatment No Information Available Functional Status Description No Information Available Mental Status Description No Information Available Referrals Refer to Dr Reason for Referral Status Appt Date Montana Pelaez eval and treat for upper L a rm and L shoulder pain. Seen recently by orthopedic, was believed to be nerve related. Sent 12/08/2020 [facility] [address] [place] [address] [phone]
--- OUTSIDE RECORDS SUMMARY | 2021-09-07 10:48 | CCD | Continuity of Care Document ---
Author Author Gissel BOSTON D.O. Organization Unknown Address [address] [place] [address] Phone [phone] Care Team Providers Care Urban Designer Name Role Phone Shahbaz Tee M.D. AUTM [phone] Riley Pereira M.D. AUTM [phone] Problems Active Problems Provider Date Chronic obstructive [...] Asthma without status asthmaticus Berenice Coe F DIVISION HEAD-C Onset: 02/04/2013 Social History Type Date Description [...] twice a day 60tabs [facility].O., [facility] Valacyclovir HCL 1gm Tablets 1 tab [...] or wheezing 1units J44.9 Dallas Boston D.O., [facility] 02/15/2015 Montelukast Sodium 10mg Tablets take one tablet by mouth every day 30tabs Dallas Boston D.O., [facility] 01/14/2013 Saline Nasal [place] 0.65% Solution use tid 2units Dallas Boston D.O., [facility] 02/21/2011 Albuterol Sulfate (2 .5mg/3ML) 0.083% Nebulizer inhale contents of 1 vial in nebulizer every 4 hours if need ed 540units J44.9 Dallas Boston D.O., [facility] 12/28/2008 R06.2 Ipratropium [place] 0.02% Solution mix with albuterol and inhale contents of 1 vial in nebulizer four times a day 450ml J44.9 Dallas Boston D.O., [facility] 12/28/2008 R06.2 Tums Smoothies 750mg Chewtabs One Or 2 Weekly Unknown Medications Administered in Office Medication SIG Qnty Indications Ordering Provider Date Injection (SC)/(Im) Injection Maite Lindsay PA 04/28/2020 Injection (SC)/(Im) Injection Dallas Boston D.O., [facility] 08/28/2016 Injection (SC)/(Im) Injection Dallas Boston D.O., [facility] 04/09/2015 Injection (SC)/(Im) Injection Berenice Coe FNP-C 02/10/2015 Injection (SC)/(Im) Injection Leslie Jenkins FNP-BC 10/12/2009 Injection Subcutaneous Or Intramuscular Injection Jonas Travis [facility] 05/11/2008 Injection Subcutaneous Or Intramuscular Injection [place] Boston D.O., [facility] 06/13/2007 Injection Subcutaneous Or Intramuscular Injection Freeman Reynolds M.D. 2006 Injection Subcutaneous Or Intramuscular Injection Dallas Boston D.O., [facility] 12/07/2006 Injection Subcutaneous Or Intramuscular Injection Terence Garcia, RPA 11/02 Injection (SC)/(Im) Injection Terence Garcia, RPA 07/26/2006 Injection Subcutaneous Or Intramuscular Injection Terence Garcia, RPA 07/26 Injection Subcutaneous Or Intramuscular Injection Dallas Boston D.O., [facility] 06/04/2006 Injection (SC)/(Im) Injection Dallas Boston D.O., [facility] 10/04/2005 Injection (SC)/(Im) Injection Dallas Boston D.O., FAAFP 04/04/2005 Injection (SC)/(Im) Injection Leslie Jenkins [facility] 04/04/2005 Injection (SC)/(Im) Injection Jack Diaz M.D. 03/11/1997 Injection (SC)/(Im) Injection Mahesh Beck R.P.A. 03/06/1997 Immunizations CPT Code Status Date Vaccine Reaction Lot # [id number] Given 09/02/2020 Influenza Virus Vaccine, Quadrivalent, Slit Virus, Im Use 3Y & Up [id number] [id number] Given 04/28/2020 Tdap Tetanus,Dip htheria Toxoids/Acellular Pertussis 7Yrs Or Older [id number] 04210 Given 09/08/2019 Influenza Virus Vaccine, Quadrivalent, Slit Virus, Im Use 3Y & Up [id number] 52780 Given 09/03/2013 Pneumococcal Immunization [id number] 14366 Given 08/14/2012 Influenza Virus Vac. Split Virus Individuals 3 Years And Above [facility] 25433 Given 07/25/2011 Influenza Vaccin e (Fluzone) 3Yrs Of Age Or Older Medicare Plans 75719 Given 07/25/2011 Influenza Virus Vac. Split Virus Individuals 3 Years And Above [id number] 93348 Given 09/14/2009 Influenza Virus Vac. Split Virus Individuals 3 Years And Above [id number] 74330 Given 09/25/2008 Influenza Virus Vac. Split Virus Individuals 3 Years And Above [id number] 40108 Given 10/04/2005 Influenza Virus Vac. Split Virus Individuals 3 Years And Above 68495 Given 09/14/2004 Influenza Virus Vac. Split Virus Individuals 3 Years And Above 20092 Given 10/08/2002 Pneumococcal Immunization 28564 Given 10/08/2002 Influenza Virus Vac. Whole Virus [id number] Refused 08/23/2020 Influenza Virus Vaccine, Quadrivalent, Slit Virus, Im Use 3Y & Up Vital Signs Date Vital Result Comment 08/30/2021 11:05am BP Systolic 130 mmHg BP Diastolic 60 mmHg Body Temperature 97.7 F Heart Rate 93 /min Respiratory Rate 16 /min Height 66 inches 5'6" Weight 130.00 lb [place] Body Weight 130 lb BMI (Body Mass Index) 21.0 kg/m2 O2 % BldC Oximetry 96 % (AT Rest), (Room Air ) 06/07/2021 10:33am BP Systolic 110 mmHg BP Diastolic 60 mmHg Body Temperature 98.4 F Heart Rate 92 /min Respiratory Rate 16 /min Height 66 inches 5'6" Weight 128.00 lb [place] Body Weight 130 lb BMI (Body Mass Index) 20.7 kg/m2 O2 % BldC Oximetry 96 % Results Test Acquired Date Facility Test Result H/L Range Note CBC W/Automated Diff 04/08/2021 [place] [id number] [phone] CBC W/Automated Diff (SEE NOTE) 1 WBC [...] 80.0 Lymph 30.8 % 25.0 - 40.0 [place] 14.7 % High 3.0 - 8.0 Eos 1.0 % 0.0 - 7.0 Baso 1.4 % 0.0 - 2.5 %Ig 0.2 % High 0.0 - 0.0 %NRBC 0.0 % 0.0 - 0.0 #Neut 2.55 10^3/uL 2.00 - 6.90 #Lymph 1.51 10^3/uL 0.60 - 3.40 #[place] 0.72 10^3/uL 0.00 - 0.90 #Eos 0.05 10^3/uL 0.00 - 0.70 #Baso 0.07 10^3/uL 0.00 - 0.20 #Ig 0.01 10^3/uL 0.00 - 0.10 #NRBC 0.00 10^3/uL 0.00 - 0.00 Manual Diff NOT INDICATED RBC Morph NOT INDICATED CBC W/Automated Diff 03/16/2021 [place] [id number] [phone] CBC W/Automated Diff (SEE NOTE) 2 WBC [...] 80.0 Lymph 36.0 % 25.0 - 40.0 [place] 9.3 % High 3.0 - 8.0 Eos 2.1 % 0.0 - 7.0 Baso 1.1 % 0.0 - 2.5 %Ig 0.2 % High 0.0 - 0.0 %NRBC 0.0 % 0.0 - 0.0 #Neut 3.20 10^3/uL 2.00 - 6.90 #Lymph 2.24 10^3/uL 0.60 - 3.40 #[place] 0.58 10^3/uL 0.00 - 0.90 #Eos 0.13 10^3/uL 0.00 - 0.70 #Baso 0.07 10^3/uL 0.00 - 0.20 #Ig 0.01 10^3/uL 0.00 - 0.10 #NRBC 0.00 10^3/uL 0.00 - 0.00 Manual Diff NOT INDICATED RBC Morph NOT INDICATED Sedimentation Rate 03/16/2021 [facility] [place], [place] [id number] [phone] Sed Rate 43 mm/hr High 0 - 30 Sed Rate Reenter 43 Laboratory test finding 03/16/2021 [facility] [place] [address] [phone] CRP (High Sensitivity) 0.26 mg/L Low 1.00 - 3. 00 3 CBC W/Automated Diff 03/07/2021 [facility] [place], [place] [id number] [phone] CBC W/Automated Diff (SEE NOTE) 4, 5 [...] 80.0 Lymph 26.9 % 25.0 - 40.0 [place] 10.4 % High 3.0 - 8.0 Eos 0.9 % 0.0 - 7.0 Baso 0.9 % 0.0 - 2.5 %Ig 0.2 % High 0.0 - 0.0 %NRBC 0.0 % 0.0 - 0.0 #Neut 3.39 10^3/uL 2.00 - 6.90 #Lymph 1.50 10^3/uL 0.60 - 3.40 #[place] 0.58 10^3/uL 0.00 - 0.90 #Eos 0.05 10^3/uL 0.00 - 0.70 #Baso 0.05 10^3/uL 0.00 - 0.20 #Ig 0.01 10^3/uL 0.00 - 0.10 #NRBC 0.00 10^3/uL 0.00 - 0.00 Manual Diff NOT INDICATED RBC Morph NOT INDICATED Comprehensive Metabolic Panel 03/07/2021 [place] [address] [phone] Comprehensive Metabo (SEE NOTE) 6 Sodium 140 [...] GFR >60 7 Laboratory test finding 03/07/2021 [place] [address] [phone] CPK 96 U/L 30 - 170 1 [...] mL/min Normal Procedures Date Code Description Status 08/30/2021 42615 Office/Outpatient Established Mo d MDM 30-39 Min Completed 06/07/2021 32263 Office/Outpatient Established Mo d MDM 30-39 Min Completed 04/08/2021 06831 Office/Outpatient Established Lo w MDM 20-29 Min Completed 03/16/2021 37319 Office/Outpatient Established Mo d MDM 30-39 Min Completed 03/07/2021 87330 Office/Outpatient Established Mo d MDM 30-39 Min Completed 05/23/2016 [id number] Mammogram Completed Medical Devices Description No Information Available Encounters Type Date Location Provider Dx Diagnosis Office Visit 08/30/2021 11:00a [place] [facility] Sarahi Nance, FAAFP R13.10 Dysphagia, unspecified J44.9 Chronic obstructive pulmonar y disease, unspecified F41.1 Generalized anxiety disorder Office Visit 06/07/2021 10:45a [place] [facility] Dallas Boston D.O., FAAFP I10 Essential (primary) hypertension J44.9 Chronic obstructive pulmonar y disease, unspecified K21.9 Gastro-esophageal reflux dis ease without esophagitis F41.1 Generalized anxiety disorder Office Visit 04/08/2021 11:15a [place] Louis Nance.Mateo ., FAAFP R04.0 Epistaxis Office Visit 03/16/2021 3:45p [facility] Dallas Boston D.O ., FAAFP D69.6 Thrombocytopenia, unspecified M79.10 Myalgia, unspecified site Office Visit 03/07/2021 11:00a [place] [facility] Dallas Boston D.O ., FAAFP J44.9 Chronic obstructive pulmonary disease, u nspecified K21.9 Gastro-esophageal reflux dis ease without esophagitis F41.0 Panic disorder [episodic par oxysmal anxiety] F41.1 Generalized anxiety disorder K59.00 Constipation, unspecified Assessments Date Code Description Provider 08/30/2021 R13.10 Dysphagia, unspecified Dallas Boston D.O., FAAFP 08/30/2021 J44.9 Chronic obstructive pulmonary di sease, unspecified Dallas Boston D.O., FAAFP 08/30/2021 F41.1 Generalized anxiety disorder Dada Boston D.O., FAAFP 06/07/2021 I10 Essential (primary) hypertension Dallas Boston D.O., FAAFP 06/07/2021 J44.9 Chronic obstructive pulmonary di sease, unspecified Dallas Boston D.O., FAAFP 06/07/2021 K21.9 Gastro-esophageal reflux disease without esophagitis Dallas Boston D.O., FAAFP 06/07/2021 F41.1 Generalized anxiety disorder Dada Boston D.O., FAAFP 04/08/2021 R04.0 Epistaxis [facility] 03/16/2021 D69.6 Thrombocytopenia, unspecified Ke nuvia Boston D.O., FAAFP 03/16/2021 M79.10 Myalgia, unspecified site Gustabo Boston D.O., FAAFP 03/07/2021 J44.9 Chronic obstructive pulmonary di sease, unspecified Dallas Boston D.O., FAAFP 03/07/2021 K21.9 Gastro-esophageal reflux disease without esophagitis Dallas Boston D.O., FAAFP 03/07/2021 F41.0 Panic disorder [episodic paroxys mal anxiety] Dallas Boston D.O., FAAFP 03/07/2021 F41.1 Generalized anxiety disorder Dada Boston D.O., [facility] 03/07/2021 K59.00 Constipation, unspecified Gustabo Boston D.O., [facility] Plan of Treatment Future Appointment(s):* 09/07/2021 11:15 am - Dallas Boston D.O., FAAFP at [facility] Functional Status Description No Information Available Mental Status Description No Information Available Referrals Refer to Reason for Referral Status Appt Date [facility] ENT FOREIGN BODY SENSATION THROA T FORMER 1 TO TWO PACKS CIGARETTES X 30 YEARS Sent [address] [place] [address] [phone]
--- OUTSIDE RECORDS SUMMARY | 2021-09-07 10:50 | CCD ---
Author Author [facility] Address Unknown Phone Unavailable Care Team Providers Care Interventional Radiology Technologist Name Role Phone Cesar Lindsay Unavailable Unavailable Cesar Lindsay PA Unavailable Unavailable Cesar Lindsay PA Unavailable Unavailable Angélica M Maite PA Unavailable Unavailable Angélica M Maite PA Unavailable Unavailable Angélica M Maite PA Unavailable Unavailable Cesar Lindsay PA Unavailable Unavailable Heike, Louis Ballesteros SEISMIC PLOTTER Unavailable Unavailable Heike, Louis Ballesteros SEISMIC PLOTTER Unavailable Unavailable Heike, Louis Ballesteros SEISMIC PLOTTER Unavailable Unavailable Heike, Louis Ballesteros SEISMIC PLOTTER Unavailable Unavailable Heike, Louis Ballesteros SEISMIC PLOTTER Unavailable Unavailable Heike, Louis Ballesteros SEISMIC PLOTTER Unavailable Unavailable Heike, Louis Ballesteros SEISMIC PLOTTER Unavailable Unavailable Heike, D Favian SEISMIC PLOTTER Unavailable Unavailable Heike, D Favian SEISMIC PLOTTER Unavailable Unavailable Heike, D Favian SEISMIC PLOTTER Unavailable Unavailable Heike, D Favian SEISMIC PLOTTER Unavailable Unavailable Heike, D Favian SEISMIC PLOTTER Unavailable Unavailable Heike, D Favian SEISMIC PLOTTER Unavailable Unavailable Heike, D Favian SEISMIC PLOTTER Unavailable Unavailable Heike, D Favian SEISMIC PLOTTER Unavailable Unavailable Heike, D Favian SEISMIC PLOTTER Unavailable Unavailable Heike, D Favian SEISMIC PLOTTER Unavailable Unavailable Heike, D Favian SEISMIC PLOTTER Unavailable Unavailable Heike, D Favian SEISMIC PLOTTER Unavailable Unavailable Heike, D Favian SEISMIC PLOTTER Unavailable Unavailable Heike, D Favian SEISMIC PLOTTER Unavailable Unavailable Heike, D Favian SEISMIC PLOTTER Unavailable Unavailable Heike, D Favian SEISMIC PLOTTER Unavailable Unavailable Heike, D Favian SEISMIC PLOTTER Unavailable Unavailable Heiek, D Favian SEISMIC PLOTTER Unavailable Unavailable Heike, D Favian SEISMIC PLOTTER Unavailable Unavailable Heike, D Favian SEISMIC PLOTTER Unavailable Unavailable Heike, D Favian SEISMIC PLOTTER Unavailable Unavailable Heike, D Favian SEISMIC PLOTTER Unavailable Unavailable Heike, D Favian SEISMIC PLOTTER Unavailable Unavailable Heike, D Favian SEISMIC PLOTTER Unavailable Unavailable Heike, D Favian SEISMIC PLOTTER Unavailable Unavailable Heike, D Favian SEISMIC PLOTTER Unavailable Unavailable Heike, D Favian SEISMIC PLOTTER Unavailable Unavailable Heike, D Favian SEISMIC PLOTTER Unavailable Unavailable Heike, D Favian SEISMIC PLOTTER Unavailable Unavailable BUMBANAC, A STAR SEISMIC PLOTTER Unavailable Unavailable BUMBANAC, A STAR SEISMIC PLOTTER Unavailable Unavailable BUMBANAC, A STAR SEISMIC PLOTTER Unavailable Unavailable BUMBANAC, A STAR SEISMIC PLOTTER Unavailable Unavailable BUMBANAC, A STAR SEISMIC PLOTTER Unavailable Unavailable BUMBANAC, A STAR SEISMIC PLOTTER Unavailable Unavailable BUMBANAC, A STAR SEISMIC PLOTTER Unavailable Unavailable BUMBANAC, A STAR SEISMIC PLOTTER Unavailable Unavailable BUMBANAC, A STAR SEISMIC PLOTTER Unavailable Unavailable BUMBANAC, A STAR SEISMIC PLOTTER Unavailable Unavailable BUMBANAC, A STAR SEISMIC PLOTTER Unavailable Unavailable BUMBANAC, A STAR SEISMIC PLOTTER Unavailable Unavailable BUMBANAC, A STAR SEISMIC PLOTTER Unavailable Unavailable BUMBANAC, A STAR SEISMIC PLOTTER Unavailable Unavailable BUMBANAC, A STAR SEISMIC PLOTTER Unavailable Unavailable BUMBANAC, A STAR SEISMIC PLOTTER Unavailable Unavailable BUMBANAC, A STAR SEISMIC PLOTTER Unavailable Unavailable BUMBANAC, A STAR SEISMIC PLOTTER Unavailable Unavailable BUMBANAC, A STAR SEISMIC PLOTTER Unavailable Unavailable BUMBANAC, A STAR SEISMIC PLOTTER Unavailable Unavailable BUMBANAC, A STAR SEISMIC PLOTTER Unavailable Unavailable BUMBANAC, A STAR SEISMIC PLOTTER Unavailable Unavailable BUMBANAC, A STAR SEISMIC PLOTTER Unavailable Unavailable BUMBANAC, A STAR SEISMIC PLOTTER Unavailable Unavailable BUMBANAC, A STAR SEISMIC PLOTTER Unavailable Unavailable BUMBANAC, A STAR SEISMIC PLOTTER Unavailable Unavailable BUMBANAC, A STAR SEISMIC PLOTTER Unavailable Unavailable BUMBANAC, A STAR SEISMIC PLOTTER Unavailable Unavailable BUMBANAC, A STAR SEISMIC PLOTTER Unavailable Unavailable BUMBANAC, A STAR SEISMIC PLOTTER Unavailable Unavailable BUMBANAC, A STAR SEISMIC PLOTTER Unavailable Unavailable Cesar ZAPATA MD Unavailable Unavailable Cesar ZAPATA MD Unavailable Unavailable Cesar ZAPATA MD Unavailable Unavailable Cesar ZAPATA MD Unavailable Unavailable Cesar ZAPATA MD Unavailable Unavailable Cesar ZAPATA MD Unavailable Unavailable Cesar ZAPATA MD Unavailable Unavailable Cesar ZAPATA MD Unavailable Unavailable Cesar ZAPATA MD Unavailable Unavailable Cesar ZAPATA MD Unavailable Unavailable Cesar ZAPATA MD Unavailable Unavailable Cesar ZAPATA MD Unavailable Unavailable Cesar ZAPATA MD Unavailable Unavailable Cesar ZAPATA MD Unavailable Unavailable Cesar ZAPATA MD Unavailable Unavailable Cesar ZAPATA MD Unavailable Unavailable Cesar ZAPATA MD Unavailable Unavailable Cesar ZAPATA MD Unavailable Unavailable Cesar ZAPATA MD Unavailable Unavailable Cesar ZAPATA MD Unavailable Unavailable Cesar ZAPATA MD Unavailable Unavailable Cesar ZAPATA MD Unavailable Unavailable Cesar ZAPATA MD Unavailable Unavailable Cesar ZAPATA MD Unavailable Unavailable Cesar ZAPATA MD Unavailable Unavailable Cesar ZAPATA MD Unavailable Unavailable BOSTON WYATT MD Unavailable Unavailable BOSTON WYATT MD Unavailable Unavailable BOSTON WYATT MD Unavailable Unavailable BOSTON WYATT MD Unavailable Unavailable BOSTON WYATT MD Unavailable Unavailable BOSTON WYATT MD Unavailable Unavailable BOSTON WYATT MD Unavailable Unavailable BOSTON WYATT MD Unavailable Unavailable BOSTON WYATT MD Unavailable Unavailable BOSTON WYATT MD Unavailable Unavailable BOSTON WYATT MD Unavailable Unavailable BOSTON WYATT MD Unavailable Unavailable BOSTON WYATT MD Unavailable Unavailable BOSTON WYATT MD Unavailable Unavailable BOSTON WYATT MD Unavailable Unavailable BOSTON WYATT MD Unavailable Unavailable BOSTON WYATT MD Unavailable Unavailable BOSTON WYATT MD Unavailable Unavailable BOSTON WYATT MD Unavailable Unavailable BOSTON WYATT MD Unavailable Unavailable BOSTON WYATT MD Unavailable Unavailable BOSTON WYATT MD Unavailable Unavailable BOSTON WYATT MD Unavailable Unavailable BOSTON WYATT MD Unavailable Unavailable BOSTON WYATT MD Unavailable Unavailable YOSELINBOSTON MD Unavailable Unavailable YOSELINBOSTON MD Unavailable Unavailable YOSELINBOSTON MD Unavailable Unavailable YOSELIN, BOSTON SALINAS Unavailable Unavailable YOSELIN, BOSTON SALINAS Unavailable Unavailable YOSELIN, BOSTON SALINAS Unavailable Unavailable YOSELIN, BOSTON SALINAS Unavailable Unavailable YOSELIN, BOSTON SALINAS Unavailable Unavailable YOSELIN, BOSTON SALINAS Unavailable Unavailable YOSELIN, BOSTON SALINAS Unavailable Unavailable YOSELIN, BOSTON SALINAS Unavailable Unavailable YOSELIN, BOSTON SALINAS Unavailable Unavailable YOSELIN, BOSTON SALINAS Unavailable Unavailable YOSELIN, BOSTON SALINAS Unavailable Unavailable YOSELIN, BOSTON SALINAS Unavailable Unavailable YOSELIN, BOSTON SALINAS Unavailable Unavailable YOSELIN, BOSTON SALINAS Unavailable Unavailable YOSELIN, BOSTON SALINAS Unavailable Unavailable YOSELIN, BOSTON SALINAS Unavailable Unavailable YOSELIN, BOSTON SALINAS Unavailable Unavailable YOSELIN, BOSTON SALINAS Unavailable Unavailable YOSELIN, BOSTON SALINAS Unavailable Unavailable YOSELIN, BOSTON SALINAS Unavailable Unavailable YOSELIN, BOSTON SALINAS Unavailable Unavailable YOSELIN, BOSTON SALINAS Unavailable Unavailable YOSELIN, BOSTON SALINAS Unavailable Unavailable YOSELIN, BOSTON SALINAS Unavailable Unavailable YOSELIN, BOSTON SALINAS Unavailable Unavailable YOSELIN, BOSTON SALINAS Unavailable Unavailable YOSELIN, BOSTON SALINAS Unavailable Unavailable TURRIN, LETA Unavailable Unavailable TURRIN, LETA Unavailable Unavailable TURRIN, LETA Unavailable Unavailable TURRIN, LETA Unavailable Unavailable PARNES Z DIANA MD Unavailable Unavailable PARNES, Z DIANA MD Unavailable Unavailable PARNES, Z DIANA MD Unavailable Unavailable PARNES Z DIANA MD Unavailable Unavailable PARNES Z DIANA MD Unavailable Unavailable PARNES Z DIANA MD Unavailable Unavailable PARNES, Z DIANA MD Unavailable Unavailable PARNES, Z DIANA MD Unavailable Unavailable PARNES, Z DIANA MD Unavailable Unavailable PARNES, Z DIANA MD Unavailable Unavailable PARNES, Z DIANA MD Unavailable Unavailable PARNES, Z DIANA MD Unavailable Unavailable PARNES, Z DIANA MD Unavailable Unavailable PARNES, Z DIANA MD Unavailable Unavailable PARNES, Z DIANA MD Unavailable Unavailable PARNES, Z DIANA MD Unavailable Unavailable PARNES, Z DIANA MD Unavailable Unavailable PARNES, Z DIANA MD Unavailable Unavailable PARNES, Z DIANA MD Unavailable Unavailable PARNES, Z DIANA MD Unavailable Unavailable PARNES, Z DIANA MD Unavailable Unavailable PARNES, Z DIANA MD Unavailable Unavailable PARNES, Z DIANA MD Unavailable Unavailable PARNES, Z DIANA MD Unavailable Unavailable PARNES, Z DIANA MD Unavailable Unavailable PARNES, Z DIANA MD Unavailable Unavailable PARNES, Z DIANA MD Unavailable Unavailable PARNES, Z DIANA MD Unavailable Unavailable PARNES, Z DIANA MD Unavailable Unavailable PARNES, Z DIANA MD Unavailable Unavailable PARNES, Z DIANA MD Unavailable Unavailable PARNES, Z DIANA MD Unavailable Unavailable PARNES, Z DIANA MD Unavailable Unavailable PARNES, Z DIANA MD Unavailable Unavailable PARNES, Z DIANA MD Unavailable Unavailable PARNES, Z DIANA MD Unavailable Unavailable PARNES, Z DIANA MD Unavailable Unavailable PARNES, Z DIANA MD Unavailable Unavailable PARNES, Z DIANA MD Unavailable Unavailable PARNES, Z DIANA MD Unavailable Unavailable PARNES, Z DIANA MD Unavailable Unavailable PARNES, Z DIANA MD Unavailable Unavailable Fish, J Dallas Unavailable Unavailable Fish, J Dallas Unavailable Unavailable Fish, J Dallas Unavailable Unavailable Fish, J Dallas Unavailable Unavailable Fish, J Dallas Unavailable Unavailable Fish, J Dallas Unavailable Unavailable Fish, J Dallas Unavailable Unavailable Fish, J Dallas Unavailable Unavailable Fish, J Dallas Unavailable Unavailable Fish, J Dallas Unavailable Unavailable Fish, J Dallas Unavailable Unavailable Fish, J Dallas Unavailable Unavailable Fish, J Dallas Unavailable Unavailable Fish, J Dallas Unavailable Unavailable Fish, J Dallas Unavailable Unavailable Fish, J Dallas Unavailable Unavailable Fish, J Dallas Unavailable Unavailable Fish, J Dallas Unavailable Unavailable Fish, J Dallas Unavailable Unavailable Fish, J Dallas Unavailable Unavailable Fish, J Dallas Unavailable Unavailable Fish, J Dallas Unavailable Unavailable Fish, J Dallas Unavailable Unavailable Fish, J Dallas Unavailable Unavailable Fish, J Dallas Unavailable Unavailable Fish, J Dallas Unavailable Unavailable Fish, J Dallas Unavailable Unavailable Fish, J Dallas Unavailable Unavailable Fish, J Dallas Unavailable Unavailable Fish, J Dallas Unavailable Unavailable Fish, J Dallas Unavailable Unavailable Fish, J Dallas Unavailable Unavailable Fish, J Dallas Unavailable Unavailable Fish, J Dallas Unavailable Unavailable Fish, J Dallas Unavailable Unavailable Fish, J Dallas Unavailable Unavailable Fish, J Dallas Unavailable Unavailable Fish, J Dallas Unavailable Unavailable Fish, J Dallas Unavailable Unavailable Fish, J Dallas Unavailable Unavailable Fish, J Dallas Unavailable Unavailable Fish, J Dallas Unavailable Unavailable Fish, J Dallas Unavailable Unavailable Fish, J Dallas Unavailable Unavailable Fish, J Dallas Unavailable Unavailable Fish, J Dallas Unavailable Unavailable Fish, J Dallas Unavailable Unavailable Fish, J Dallas Unavailable Unavailable Fish, J Dallas Unavailable Unavailable Fish, J Dallas Unavailable Unavailable Fish, J Dallas Unavailable Unavailable Fish, J Dallas Unavailable Unavailable Fish, J Dallas Unavailable Unavailable Fish, J Dallas Unavailable Unavailable Fish, J Dallas Unavailable Unavailable Fish, J Dallas Unavailable Unavailable Fish, J Dallas Unavailable Unavailable Fish, J Dallas Unavailable Unavailable Fish, J Dallas Unavailable Unavailable Fish, J Dallas Unavailable Unavailable Fish, J Dallas Unavailable Unavailable Fish, J Dallas Unavailable Unavailable Fish, J Dallas Unavailable Unavailable Fish, J Dallas Unavailable Unavailable Fish, J Dallas Unavailable Unavailable Fish, J Dallas Unavailable Unavailable Fish, J Dallas Unavailable Unavailable Fish, J Dallas Unavailable Unavailable Fish, J Dallas Unavailable Unavailable Fish, J Dallas Unavailable Unavailable Fish, J Dallas Unavailable Unavailable Fish, J Dallas Unavailable Unavailable Fish, J Dallas Unavailable Unavailable Fish, J Dallas Unavailable Unavailable Fish, J Dallas Unavailable Unavailable Fish, J Dallas Unavailable Unavailable Fish, J Dallas Unavailable Unavailable Fish, J Dallas Unavailable Unavailable Fish, J Dallas Unavailable Unavailable Fish, J Dallas Unavailable Unavailable Fish, J Dallas Unavailable Unavailable Fish, J Dallas Unavailable Unavailable Fish, J Dallas Unavailable Unavailable Fish, J Dallas Unavailable Unavailable Warren, J Tong PA-C Unavailable Unavailable Warren, J Tong PA-C Unavailable Unavailable Warren, Reji Fortune PA-C Unavailable Unavailable Warren, J Tong PA-C Unavailable Unavailable Warren, J Tong PA-C Unavailable Unavailable Warren, J Tong PA-C Unavailable Unavailable Warren, J Tong PA-C Unavailable Unavailable Warren, J Tong PA-C Unavailable Unavailable Warren, J Tong PA-C Unavailable Unavailable Warren, J Tong PA-C Unavailable Unavailable Fish, J Dallas Unavailable Unavailable Fish, J Dallas Unavailable Unavailable Fish, J Dallas Unavailable Unavailable Fish, J Dallas Unavailable Unavailable Fish, J Dallas Unavailable Unavailable Fish, J Dallas Unavailable Unavailable Fish, J Dallas Unavailable Unavailable Fish, J Dallas Unavailable Unavailable Fish, J Dallas Unavailable Unavailable Fish, J Dallas Unavailable Unavailable Fish, J Dallas Unavailable Unavailable Fish, J Dallas Unavailable Unavailable Fish, J Dallas Unavailable Unavailable Fish, J Dallas Unavailable Unavailable Fish, J Dallas Unavailable Unavailable Fish, J Dallas Unavailable Unavailable Fish, J Dallas Unavailable Unavailable Fish, J Dallas Unavailable Unavailable Fish, J Dallas Unavailable Unavailable Fish, J Dallas Unavailable Unavailable Fish, J Dallas Unavailable Unavailable Fish, J Dallas Unavailable Unavailable Fish, J Dallas Unavailable Unavailable Fish, J Dallas Unavailable Unavailable Fish, J Dallas Unavailable Unavailable Fish, J Dallas Unavailable Unavailable Fish, J Dallas Unavailable Unavailable Fish, J Dallas Unavailable Unavailable Fish, J Dallas Unavailable Unavailable Fish, J Dallas Unavailable Unavailable Fish, J Dallas Unavailable Unavailable Fish, J Dallas Unavailable Unavailable Fish, J Dallas Unavailable Unavailable Fish, J Dallas Unavailable Unavailable Fish, J Dallas Unavailable Unavailable Fish, J Dallas Unavailable Unavailable Fish, J Dallas Unavailable Unavailable Fish, J Dallas Unavailable Unavailable Fish, J Dallas Unavailable Unavailable Fish, J Dallas Unavailable Unavailable Fish, J Dallas Unavailable Unavailable Fish, J Dallas Unavailable Unavailable Fish, J Dallas Unavailable Unavailable Fish, J Dallas Unavailable Unavailable Fish, J Dallas Unavailable Unavailable Fish, J Dallas Unavailable Unavailable Fish, J Dallas Unavailable Unavailable Fish, J Dallas Unavailable Unavailable Fish, J Dallas Unavailable Unavailable Fish, J Dallas Unavailable Unavailable Fish, J Dallas Unavailable Unavailable Fish, J Dallas Unavailable Unavailable Fish, J Dallas Unavailable Unavailable Fish, J Dallas Unavailable Unavailable Fish, J Dallas Unavailable Unavailable Fish, J Dallas Unavailable Unavailable Fish, J Dallas Unavailable Unavailable Fish, J Dallas Unavailable Unavailable Fish, J Dallas Unavailable Unavailable Fish, J Dallas Unavailable Unavailable Fish, J Dallas Unavailable Unavailable Fish, J Dallas Unavailable Unavailable Fish, J Dallas Unavailable Unavailable Fish, J Dallas Unavailable Unavailable Fish, J Dallas Unavailable Unavailable Fish, J Dallas Unavailable Unavailable Fish, J Dallas Unavailable Unavailable Fish, J Dallas Unavailable Unavailable Fish, J Dallas Unavailable Unavailable Fish, J Dallas Unavailable Unavailable Fish, J Dallas Unavailable Unavailable Fish, J Dallas Unavailable Unavailable Fish, J Dallas Unavailable Unavailable Fish, J Dallas Unavailable Unavailable Fish, J Dallas Unavailable Unavailable Fish, J Dallas Unavailable Unavailable Fish, J Dallas Unavailable Unavailable Fish, J Dallas Unavailable Unavailable Fish, J Dallas Unavailable Unavailable Fish, J Dallas Unavailable Unavailable Fish, J Dallas Unavailable Unavailable Fish, J Dallas Unavailable Unavailable Fish, J Dallas Unavailable Unavailable Fish, J Dallas Unavailable Unavailable ALEXIS, Keisha KEBEDE MD Unavailable Unavailable ALEXIS, E YANDY MD Unavailable Unavailable ALEXIS, E YANDY MD Unavailable Unavailable ALEXIS, E YANDY MD Unavailable Unavailable [facility], YCHANG Unavailable Unavailable CHANLIECCO, C STEVIE MD Unavailable Unavailable CHANLIECCO, C STEVIE MD Unavailable Unavailable CHANLIECCO, C STEVIE MD Unavailable Unavailable CHANLIECCO, C STEVIE MD Unavailable Unavailable CHANLIECCO, C STEVIE MD Unavailable Unavailable CHANLIECCO, C STEVIE MD Unavailable Unavailable CHANLIECCO, C STEVIE MD Unavailable Unavailable CHANLIECCO, C STEVIE MD Unavailable Unavailable CHANLIECCO, C STEVIE MD Unavailable Unavailable CHANLIECCO, C STEVIE MD Unavailable Unavailable CHANLIECCO, C STEVIE MD Unavailable Unavailable Re-disclosure Warning The records that you are about to access may contain information from federally-assisted alcohol or drug abuse programs. If such information is present, then the following federally mandated warning applies: This information has been disclosed to you from records protected by federal confidentiality rules (42 CFR part 2). The federal rules prohibit you from making any further disclosure of this information unless further disclosure is expressly permitted by the written consent of the person to whom it pertains or as otherwise permitted by 42 CFR part 2. A general authorization for the release of medical or other information is NOT sufficient for this purpose. The Federal rules restrict any use of the information to criminally investigate or prosecute any alcohol or drug abuse patient.The records that you are about to access may contain highly sensitive health information, the redisclosure of which is protected by Article 27-F of the [facility] Public Health law. If you continue you may have access to information: Regarding HIV / AIDS; Provided by facilities licensed or operated by the [facility] Office of Mental Health; or Provided by the [facility] Office for People With Developmental Disabilities. If such information is present, then the following [facility] mandated warning applies: This information has been disclosed to you from confidential records which are protected by state law. State law prohibits you from making any further disclosure of this information without the specific written consent of the person to whom it pertains, or as otherwise permitted by law. Any unauthorized further disclosure in violation of state law may result in a fine or penitentiary sentence or both. A general authorization for the release of medical or other information is NOT sufficient authorization for further disc losure. Allergies and Adverse Reactions Type Description Substance Reaction Status Data Source(s ) No Known Environmental Allergies No Known Environmental Al [facility] No Known Food Allergies No Known Food Allergies [facility] Drug allergy CODEINE [facility] Family History Family Member Name Family Member Gender Family Member Status Date o f Status Description Data Source(s) Unknown Male Problem [facility] ([facility]) Encounters Encounter Providers Location Date Indications Data Source(s ) Emergency Attender: STEVIE COREA MDConsultant: Sergey Chun 09/04/2021 12:23:00 PM EDT - 09/04/2021 03:49:00 PM EDT [facility] Patient discharged. Emergency Attender: LETA KELSEYConsultant: Dallas Gunnar h 08/31/2021 08:35:00 PM EDT - 08/31/2021 09:58:00 PM EDT [facility] Patient discharged. Outpatient Attender: Dallas Chun [place] [facility] 08/30/2021 11:00:0 0 AM EDT [facility] ([facility] Unknown [address] [facility] [address] 07/18/2021 12:00:00 AM EDT eCW1 ([facility]) Outpatient Attender: Dallas Chun [place] [facility] 06/07/2021 10:45:0 0 AM EDT [facility] ([facility] Outpatient Attender: Dallas FishReferrer: Dallas FishConsultant: Dallas Fish 04/08/2021 05:49:00 PM EDT - 04/08/2021 05:59:00 PM EDT [facility] Outpatient Attender: Dallas Chun [place] [facility] 04/08/2021 11:15:0 0 AM EDT [facility] ([facility] Outpatient Attender: Dallas Chun [place] [facility] 03/16/2021 03:45:0 0 PM EDT [facility] ([facility] Outpatient Attender: Dallas ChunReferrer: Dallas ChunConsultant: Dallas Chun 03/16/2021 11:34:00 AM EDT - 03/16/2021 11:44:00 AM EDT [facility] Patient discharged. Outpatient Attender: Dallas ChunReferrer: Dallas ChunConsultant: Dallas Chun 03/07/2021 05:38:00 PM EDT - 03/07/2021 05:48:00 PM EDT [facility] Outpatient Attender: Dallas Chun [place] [facility] 03/07/2021 11:00:0 0 AM EDT [facility] ([facility] ([facility]) Cosmetic Procedure [address] [place] [address] 02/15/2021 12:00:00 AM EDT eCW1 ([facility]) Outpatient [facility] [id number] 02/10/2021 12:00:00 AM EDT [facility] Unknown [address] [place] [id number] 01/31/2021 12:00:00 AM EDT [facility]CW1 [facility]) Outpatient Attender: YANDY ESPINOZA MDConsultant: Dallas Jaimee enoch 01/26/2021 03:38:38 PM EDT - 01/31/2021 10:26:00 AM EDT [facility] Patient discharged. Outpatient Attender: YANDY ESPINOZA MDConsultant: Dallas [place] enoch 01/03/2021 01:45:00 PM EST - 01/03/2021 05:13:00 PM [facility] Patient discharged. Outpatient Attender: BEULAH BERRY NP 12/31 12:22:00 PM EST - 12/31/2020 12:22:00 PM [facility] Outpatient Attender: Dallas Fish [place] [facility] 12/14/2020 01:00:0 0 PM EST [facility] ([facility] Outpatient Attender: DIANA CHE MDConsultant: Dallas Fish 12/06/2020 10:39:00 AM EST - 12/06/2020 10:39:00 AM EST [facility] Outpatient Attender: Favian Burroughs NP [facility] 12/06/2020 0 9:40:00 AM EST [facility] ([facility]) Outpatient Attender: Dallas AdielConsultant: Dallas Fish 11/22/2020 11:38:00 AM EST - 11/22/2020 12:38:00 PM EST [facility] Outpatient Attender: Dallas Chun [place] [facility] 11/22/2020 09:00:0 0 AM EST [facility] ([facility] Outpatient Attender: Dallas AdielReferrer: Dallas ChunConsultant: Dallas Fish 09/02/2020 04:50:00 PM EDT - 09/02/2020 05:00:00 PM EDT [facility] Outpatient Attender: Maite GODOY [place] [facility] 09/02/2020 11:15:00 AM EDT [facility] ([facility] Outpatient Attender: BOSTON WYATT MD [email or web address] 0 12:00:00 AM EDT - 08/27/2020 09:08:38 AM EDT [facility] Outpatient Attender: Dallas Chun [place] [facility] 08/23/2020 10:00:0 0 AM EDT [facility] ([facility] Emergency Attender: Tong URIBECConsultant: Dallas Chun 08/12/2020 11:21:00 AM EDT - 08/12/2020 03:57:00 PM EDT [facility] Patient discharged. Outpatient Attender: [facility] 07/29/2020 02:39:00 PM ED T [facility] Outpatient Attender: [facility] 07/29/2020 02:25:01 PM ED T [facility] Outpatient Attender: [facility] 07/29/2020 02:23:00 PM ED T [facility] Attender: [facility] 07/27/2020 08:01:01 AM ED T [facility] Outpatient Attender: UGODEVIN ZAPATA MDConsultant: Dallas Chun 09/01/2019 08:28:34 PM EDT [facility] Immunizations Vaccine Date Status Description Data Source(s) COVID-19 VACCINE Moderna 01/31/2021 12:00:00 AM EDT completed [facility] Vaccine Series Complete: YESThis Data wa s Submitted to [facility] Via [employer]. COVID-19 VACCINE Moderna 01/03/2021 12:00:00 AM EST completed [facility] Vaccine Series Complete: NOThis Data was Submitted to [facility] [employer]. New in 2012. IIV4 09/02/2020 12:19:00 PM EDT completed [facility] ([facility] New in 2012. IIV4 08/23/2020 12:44:00 PM EDT completed [facility] ([facility] Medications Medication Brand Name Start Date Product Form Dose Route Admi nistrative Instructions Pharmacy Instructions Status Indications Reaction Description Data Source(s) Amoxicillin 120 MG/ML / Clavulanate 8.58 MG/ML Oral Ramirez spension 600-42.9 mg/5 mL AMOXICILLIN/POTASSIUM CLAV 09/05/2021 12:00:00 AM EDT suspension for reconstitution 200 TAKE 7.3ML (875MG) B Y MOUTH TWO TIMES A DAY FOR 10 DAYS - DISCARD ANY UNUSED PORTION TAKE 7.3ML (875MG) BY MOUTH TWO TIMES A DAY FOR 10 DAYS - DISCARD ANY UNUSED PORTION SOLD: 09/05/2021 [facility] Amoxicillin 875 MG / Clavulanate 125 MG Oral Tablet 87 5-125 mg AMOXICILLIN/POTASSIUM CLAV 09/04/2021 12:00:00 AM EDT tablet 20 TAKE ONE TABLET BY MOUTH TWICE A DAY FOR 10 DAYS FOR TONSILLITIS TAKE ONE TABLET BY MOUTH TWICE A DAY FOR 10 DAYS FOR TONSILLITIS SOLD: 09/04/2021 [facility] 40 mg 08/30/2021 12:00:00 AM EDT capsule,delayed release (DR/EC) 90 TAKE ONE CAPSULE BY MOUTH EVERY DAY TAKE ONE CAPSULE BY MOUTH EVERY DAY SOLD: 08/30/2021 [facility] Omeprazole 40 MG Delayed Release Oral Capsule Omeprazole 08/30/2021 12:00:00 AM EDT ORAL active MEDENT ([facility] Alprazolam 0.25 MG Oral Tablet ALPRAZOLAM 08/17/2021 12:00:00 AM EDT tablet 60 TAKE ONE TABLET BY MOUTH TWICE A DAY - MAXIMUM DAILY D OSE = 2 TAKE ONE TABLET BY MOUTH TWICE A DAY - MAXIMUM DAILY DOSE = 2 SOLD: 08/17/2021 [facility] Acetaminophen 325 MG / Hydrocodone Bitartrate 10 MG Or al Tablet 10-325 mg HYDROCODONE/ACETAMINOPHEN 08/10/2021 12:00:00 AM EDT tablet 180 TAKE ONE TABLET BY MOUTH EVERY 4 HOURS - MAXIMUM DAILY DOSE = 6 TAKE ONE TABLET BY MOUTH EVERY 4 HOURS - MAXIMUM DAILY DOSE = 6 SOLD: 08/10/2021 [facility] Alprazolam 0.25 MG Oral Tablet ALPRAZOLAM 07/18/2021 12:00:00 AM EDT tablet 60 TAKE ONE TABLET BY MOUTH TWICE A DAY MAXIMUM DAILY DOS E = 2 TAKE ONE TABLET BY MOUTH TWICE A DAY MAXIMUM DAILY DOSE = 2 SOLD: 07/18/2021 [facility] Alprazolam 0.25 MG Oral Tablet ALPRAZOLAM 06/19/2021 12:00:00 AM EDT tablet 60 TAKE ONE TABLET BY MOUTH TWICE A DAY MAXIMUM DAILY DOS E = 2 TAKE ONE TABLET BY MOUTH TWICE A DAY MAXIMUM DAILY DOSE = 2 SOLD: 06/19/2021 [facility] Alprazolam 0.25 MG Oral Tablet ALPRAZOLAM 05/21/2021 12:00:00 AM EDT tablet 60 TAKE ONE TABLET BY MOUTH TWICE A DAY - MAXIMUM DAILY D OSE = 2 TAKE ONE TABLET BY MOUTH TWICE A DAY - MAXIMUM DAILY DOSE = 2 SOLD: 05/21/2021 [facility] 30 ACTUAT fluticasone furoate 0.1 MG/ACT UAT / umeclidinium 0.0625 MG/ACTUAT / vilanterol 0.025 MG/ACTUAT Dry Powder Inhaler [Trelegy] 100-62.5-25 mcg FLUTICASONE/UMECLIDIN/VILANTER 05/12/2021 12:00:00 AM EDT blister with device 60 INHALE ONE PUFF BY MOUTH EVERY DAY INHALE ONE PU FF BY MOUTH EVERY DAY SOLD: 05/13/2021 [facility] 30 ACTUAT fluticasone furoate 0.1 MG/ACT UAT / umeclidinium 0.0625 MG/ACTUAT / vilanterol 0.025 MG/ACTUAT Dry Powder Inhaler [Trelegy] 100-62.5-25 mcg FLUTICASONE/UMECLIDIN/VILANTER 05/12/2021 12:00:00 AM EDT blister with device 60 INHALE ONE PUFF BY MOUTH EVERY DAY INHALE ONE PU FF BY MOUTH EVERY DAY SOLD: 07/12/2021 [facility] 30 ACTUAT fluticasone furoate 0.1 MG/ACT UAT / umeclidinium 0.0625 MG/ACTUAT / vilanterol 0.025 MG/ACTUAT Dry Powder Inhaler [Trelegy] 100-62.5-25 mcg FLUTICASONE/UMECLIDIN/VILANTER 05/12/2021 12:00:00 AM EDT blister with device 60 INHALE ONE PUFF BY MOUTH EVERY DAY INHALE ONE PU FF BY MOUTH EVERY DAY SOLD: 08/10/2021 [facility] 30 ACTUAT fluticasone furoate 0.1 MG/ACT UAT / umeclidinium 0.0625 MG/ACTUAT / vilanterol 0.025 MG/ACTUAT Dry Powder Inhaler [Trelegy] 100-62.5-25 mcg FLUTICASONE/UMECLIDIN/VILANTER 05/12/2021 12:00:00 AM EDT blister with device 60 INHALE ONE PUFF BY MOUTH EVERY DAY INHALE ONE PU FF BY MOUTH EVERY DAY SOLD: 06/10/2021 [facility] Alprazolam 0.25 MG Oral Tablet ALPRAZOLAM 04/20/2021 12:00:00 AM EDT tablet 60 TAKE ONE TABLET BY MOUTH TWICE A DAY MAXIMUM DAILY DOS E = 2 TAKE ONE TABLET BY MOUTH TWICE A DAY MAXIMUM DAILY DOSE = 2 SOLD: 04/20/2021 [facility] 8 mcg 04/15/2021 12:00:00 AM EDT capsule 60 TAKE ONE CAPSULE BY MOUTH TWICE A DAY * MAXIMUM DAILY DOSE = 2 TAKE ONE CAPSULE BY MOUTH TWICE A DAY * MAXIMUM DAILY DOSE = 2 SOLD: 04/16/2021 [facility] lubiprostone 0.008 MG Oral Capsule Lubiprostone 04/15/2021 12:00:00 A M EDT active MEDENT ([facility] 8 mcg 04/15/2021 12:00:00 AM EDT capsule 60 TAKE ONE CAPSULE BY MOUTH TWICE A DAY * MAXIMUM DAILY DOSE = 2 TAKE ONE CAPSULE BY MOUTH TWICE A DAY * MAXIMUM DAILY DOSE = 2 SOLD: 05/17/2021 [facility] 50 mg 04/14/2021 12:00:00 AM EDT tablet 60 TAKE TWO TABLETS BY MOUTH AT BEDTIME MAXIMUM DAILY DOSE = 2 TABLETS TAKE TWO TABLETS BY MOUTH AT BEDTIME MAXIMUM DAILY DOSE = 2 TABLETS SOLD: 07/12/2021 [facility] 50 mg 04/14/2021 12:00:00 AM EDT tablet 60 TAKE TWO TABLETS BY MOUTH AT BEDTIME MAXIMUM DAILY DOSE = 2 TABLETS TAKE TWO TABLETS BY MOUTH AT BEDTIME MAXIMUM DAILY DOSE = 2 TABLETS SOLD: 05/12/2021 [facility] Acetaminophen 325 MG / Hydrocodone Bitartrate 10 MG Or al Tablet 10-325 mg HYDROCODONE/ACETAMINOPHEN 04/14/2021 12:00:00 AM EDT tablet 180 TAKE ONE TABLET BY MOUTH EVERY 4 HOURS MAXIMUM DAILY DOSE = 6 TABLETS TAKE ONE TABLET BY MOUTH EVERY 4 HOURS MAXIMUM DAILY DOSE = 6 TABLETS SOLD: 04/14/2021 [facility] 50 mg 04/14/2021 12:00:00 AM EDT tablet 60 TAKE TWO TABLETS BY MOUTH AT BEDTIME MAXIMUM DAILY DOSE = 2 TABLETS TAKE TWO TABLETS BY MOUTH AT BEDTIME MAXIMUM DAILY DOSE = 2 TABLETS SOLD: 04/14/2021 [facility] 50 mg 04/14/2021 12:00:00 AM EDT tablet 60 TAKE TWO TABLETS BY MOUTH AT BEDTIME MAXIMUM DAILY DOSE = 2 TABLETS TAKE TWO TABLETS BY MOUTH AT BEDTIME MAXIMUM DAILY DOSE = 2 TABLETS SOLD: 06/10/2021 [facility] 50 mg 04/14/2021 12:00:00 AM EDT tablet 60 TAKE TWO TABLETS BY MOUTH AT BEDTIME MAXIMUM DAILY DOSE = 2 TABLETS TAKE TWO TABLETS BY MOUTH AT BEDTIME MAXIMUM DAILY DOSE = 2 TABLETS SOLD: 08/10/2021 [facility] 2.5 mg 03/28/2021 12:00:00 AM EDT tablet 90 TAKE ONE TABLET BY MOUTH ONCE DAILY TAKE ONE TABLET BY MOUTH ONCE DAILY SOLD: 03/28/2021 [facility] Alprazolam 0.25 MG Oral Tablet ALPRAZOLAM 03/18/2021 12:00:00 AM EDT tablet 60 TAKE ONE TABLET BY MOUTH TWICE A DAY MAXIMUM DAILY DOS E = 2 TAKE ONE TABLET BY MOUTH TWICE A DAY MAXIMUM DAILY DOSE = 2 SOLD: 03/19/2021 [facility] Acetaminophen 325 MG / Hydrocodone Bitartrate 10 MG Or al Tablet 10-325 mg HYDROCODONE/ACETAMINOPHEN 03/17/2021 12:00:00 AM EDT tablet 180 TAKE ONE TABLET BY MOUTH EVERY 4 HOURS - MAXIMUM DAILY DOSE = 6 TAKE ONE TABLET BY MOUTH EVERY 4 HOURS - MAXIMUM DAILY DOSE = 6 SOLD: 03/17/2021 [facility] Ondansetron 4 MG Disintegrating Oral Tablet ONDANSETRON 03/09/2021 12:00:00 AM EDT tablet,disintegrating 30 DISSOLVE 1 TABLET ON THE TONGUE EVERY 8 HOURS NEEDED FOR NAUSEA DISSOLVE 1 TABLET ON THE TONGUE EVERY 8 HOURS NEEDED FOR NAUSEA SOLD: 03/10/2021 [facility] Moderna Covid-19 Vaccine Moderna Covid-19 Vaccine 03/07/2021 12:00: 00 AM EDT active [facility] 8 mcg 02/18/2021 12:00:00 AM EDT capsule 60 TAKE ONE CAPSULE BY MOUTH TWICE A DAY TAKE ONE CAPSULE BY MOUTH TWICE A DAY SOLD: 03/19/2021 [facility] 8 mcg 02/18/2021 12:00:00 AM EDT capsule 60 TAKE ONE CAPSULE BY MOUTH TWICE A DAY TAKE ONE CAPSULE BY MOUTH TWICE A DAY SOLD: 02/18/2021 [facility] Acetaminophen 325 MG / Hydrocodone Bitartrate 10 MG Or al Tablet 10-325 mg HYDROCODONE/ACETAMINOPHEN 02/17/2021 12:00:00 AM EDT tablet 180 TAKE ONE TABLET BY MOUTH EVERY 4 HOURS - MAXIMUM DAILY DOSE = 6 TAKE ONE TABLET BY MOUTH EVERY 4 HOURS - MAXIMUM DAILY DOSE = 6 SOLD: 02/17/2021 [facility] Alprazolam 0.25 MG Oral Tablet ALPRAZOLAM 02/17/2021 12:00:00 AM EDT tablet 60 TAKE ONE TABLET BY MOUTH TWICE A DAY - M AXIMUM DAILY DOSE = 2 - (NEED TO MAKE AN APPOINTMENT) TAKE ONE TABLET BY MOUTH TWICE A DAY - M AXIMUM DAILY DOSE = 2 - (NEED TO MAKE AN APPOINTMENT) SOLD: 02/17/2021 [facility] 10-325 mg 01/18/2021 12:00:00 AM EDT tablet 180 TAKE ONE TABLET BY MOUTH EVERY 4 HOURS MAXIMUM DAILY DOSE = 6 TAKE ONE TABLET BY MOUTH EVERY 4 HOURS MAXIMUM DAILY DOSE = 6 SOLD: 01/18/2021 [facility] Alprazolam 0.25 MG Oral Tablet ALPRAZOLAM 01/18/2021 12:00:00 AM EDT tablet 60 TAKE ONE TABLET BY MOUTH TWICE A DAY, MAXIMUM DAILY DO SE = TWO TABLETS TAKE ONE TABLET BY MOUTH TWICE A DAY, MAXIMUM DAILY DOSE = TWO TABLETS SOLD: 01/18/2021 [facility] 300 mg 12/31/2020 12:00:00 AM EST capsule 30 TAKE ONE CAPSULE BY MOUTH THREE TIMES A DAY TAKE ONE CAPSULE BY MOUTH THREE TIMES A DAY SOLD: 12/31/2020 [facility] 10-325 mg 12/22/2020 12:00:00 AM EST tablet 180 TAKE ONE TABLET BY MOUTH EVERY 4 HOURS - MAXIMUM DAILY DOSE = 6 TAKE ONE TABLET BY MOUTH EVERY 4 HOURS - MAXIMUM DAILY DOSE = 6 SOLD: 12/22/2020 [facility] 30 ACTUAT fluticasone furoate 0.1 MG/ACT UAT / umeclidinium 0.0625 MG/ACTUAT / vilanterol 0.025 MG/ACTUAT Dry Powder Inhaler [Trelegy] 100-62.5-25 mcg FLUTICASONE/UMECLIDIN/VILANTER 12/22/2020 12:00:00 AM EST blister with device 60 INHALE ONE PUFF BY MOUTH EVERY DAY INHALE ONE PU FF BY MOUTH EVERY DAY SOLD: 03/10/2021 [facility] 100-62.5-25 mcg 12/22/2020 12:00:00 AM EST blister with braeden ce 60 INHALE ONE PUFF BY MOUTH EVERY DAY INHALE ONE PUFF BY MOUTH EVERY DAY SOLD: 02/08/2021 [facility] 30 ACTUAT fluticasone furoate 0.1 MG/ACT UAT / umeclidinium 0.0625 MG/ACTUAT / vilanterol 0.025 MG/ACTUAT Dry Powder Inhaler [Trelegy] 100-62.5-25 mcg FLUTICASONE/UMECLIDIN/VILANTER 12/22/2020 12:00:00 AM EST blister with device 60 INHALE ONE PUFF BY MOUTH EVERY DAY INHALE ONE PU FF BY MOUTH EVERY DAY SOLD: 04/14/2021 [facility] 100-62.5-25 mcg 12/22/2020 12:00:00 AM EST blister with braeden ce 60 INHALE ONE PUFF BY MOUTH EVERY DAY INHALE ONE PUFF BY MOUTH EVERY DAY SOLD: 12/25/2020 [facility] Alprazolam 0.25 MG Oral Tablet ALPRAZOLAM 12/21/2020 12:00:00 AM EST tablet 60 TAKE ONE TABLET BY MOUTH TWICE A DAY MAXIMUM DAILY DOS E = 2 TAKE ONE TABLET BY MOUTH TWICE A DAY MAXIMUM DAILY DOSE = 2 SOLD: 12/21/2020 [facility] 2.5 mg 11/29/2020 12:00:00 AM EST tablet 90 TAKE ONE TABLET BY MOUTH EVERY DAY TAKE ONE TABLET BY MOUTH EVERY DAY SOLD: 12/06/2020 [facility] Alprazolam 0.25 MG Oral Tablet ALPRAZOLAM 11/22/2020 12:00:00 AM EST tablet 60 TAKE ONE TABLET BY MOUTH TWICE A DAY MAXIMUM DAILY DOS E = 2 TAKE ONE TABLET BY MOUTH TWICE A DAY MAXIMUM DAILY DOSE = 2 SOLD: 11/22/2020 [facility] 10-325 mg 11/22/2020 12:00:00 AM EST tablet 180 TAKE ONE TABLET BY MOUTH EVERY 4 HOURS NEEDED FOR PAIN MAXIMUM DAILY DOSE = 6 TAKE ONE TABLET BY MOUTH EVERY 4 HOURS NEEDED FOR PAIN MAXIMUM DAILY DOSE = 6 SOLD: 11/22/2020 [facility] 4 mg 11/21/2020 12:00:00 AM EST tablet,disintegrating 3 0 DISSOVLE 1 TABLET ON THE TONGUE EVERY 8 HOURS NEEDED FOR NAUSEA DISSOVLE 1 TABLET ON THE TONGUE EVERY 8 HOURS NEEDED FOR NAUSEA SOLD: 11/22/2020 [facility] Alprazolam 0.25 MG Oral Tablet ALPRAZOLAM 10/22/2020 12:00:00 AM EST tablet 60 TAKE ONE TABLET BY MOUTH TWICE A DAY MAXIMUM DAILY DOS E = 2 TAKE ONE TABLET BY MOUTH TWICE A DAY MAXIMUM DAILY DOSE = 2 SOLD: 10/22/2020 [facility] 10-325 mg 10/22/2020 12:00:00 AM EST tablet 180 TAKE ONE TABLET BY MOUTH EVERY 4 HOURS MAXIMUM DAILY DOSE = 6 TAKE ONE TABLET BY MOUTH EVERY 4 HOURS MAXIMUM DAILY DOSE = 6 SOLD: 10/22/2020 [facility] Alprazolam 0.25 MG Oral Tablet ALPRAZOLAM 09/22/2020 12:00:00 AM EST tablet 60 TAKE ONE TABLET BY MOUTH TWICE A DAY, MAXIMUM DAILY DO SE = TWO TABLETS TAKE ONE TABLET BY MOUTH TWICE A DAY, MAXIMUM DAILY DOSE = TWO TABLETS SOLD: 09/23/2020 [facility] 8 mcg 09/14/2020 12:00:00 AM EST capsule 60 TAKE ONE CAPSULE BY MOUTH TWICE A DAY TAKE ONE CAPSULE BY MOUTH TWICE A DAY SOLD: 09/17/2020 [facility] 8 mcg 09/14/2020 12:00:00 AM EST capsule 60 TAKE ONE CAPSULE BY MOUTH TWICE A DAY TAKE ONE CAPSULE BY MOUTH TWICE A DAY SOLD: 10/22/2020 [facility] 8 mcg 09/02/2020 12:00:00 AM EDT capsule 30 TAKE ONE CAPSULE BY MOUTH TWICE A DAY MAXIMUM DAILY DOSE = 2 TAKE ONE CAPSULE BY MOUTH TWICE A DAY MA XIMUM DAILY DOSE = 2 SOLD: 09/02/2020 [facility] lubiprostone 0.008 MG Oral Capsule [Amitiza] Amitiza 12:00:00 AM EDT ORAL active [facility] ( [facility] 10-325 mg 08/27/2020 12:00:00 AM EDT tablet 180 TAKE ONE TABLET BY MOUTH EVERY 4 HOURS MAXIMUM DAILY DOSE = 6 TAKE ONE TABLET BY MOUTH EVERY 4 HOURS MAXIMUM DAILY DOSE = 6 SOLD: 08/27/2020 [facility] Alprazolam 0.25 MG Oral Tablet [Xanax] Xanax 08/23/2020 12:00:00 AM EDT ORAL active [facility] ([facility] 4 mg 08/23/2020 12:00:00 AM EDT tablet,disintegrating 3 0 DISSOLVE ONE TABLET ON TONGUE EVERY 8 HOURS NEEDED FOR NAUSEA DISSOLVE ONE TABLET ON TONGUE EVERY 8 HOURS NEEDED FOR NAUSEA SOLD: 08/23/2020 [facility] Alprazolam 0.25 MG Oral Tablet ALPRAZOLAM 08/23/2020 12:00:00 AM EDT tablet 60 TAKE ONE TABLET BY MOUTH TWICE A DAY - MAXIMUM DAILY D OSE = 2 TAKE ONE TABLET BY MOUTH TWICE A DAY - MAXIMUM DAILY DOSE = 2 SOLD: 08/23/2020 [facility] 40 mg 08/15/2020 12:00:00 AM EDT tablet 15 TAKE ONE TABLET BY MOUTH AT BEDTIME TAKE ONE TABLET BY MOUTH AT BEDTIME SOLD: 08/15/2020 [facility] 1 gram 08/15/2020 12:00:00 AM EDT tablet 42 TAKE ONE TABLET BY MOUTH BEFORE MEALS AT BEDTIME TAKE ONE TABLET BY MOUTH BEFORE MEALS AT BEDTIME SOLD: 08/15/2020 [facility] 20 mg 08/12/2020 12:00:00 AM EDT tablet 3 TAKE ONE TABLET BY MOUTH EVERY DAY TAKE ONE TABLET BY MOUTH EVERY DAY SOLD: 08/12/2020 [facility] Alprazolam 0.25 MG Oral Tablet ALPRAZOLAM 07/29/2020 12:00:00 AM EDT tablet 30 TAKE ONE TABLET BY MOUTH TWICE A DAY NEEDED MAXIMUM DAILY DOSE = 2 TABLETS TAKE ONE TABLET BY MOUTH TWICE A DAY NEEDED MAXIMUM DAILY DOSE = 2 TABLETS SOLD: 07/29/2020 [facility] 500 mg 07/29/2020 12:00:00 AM EDT tablet 28 TAKE ONE TABLET BY MOUTH FOUR TIMES A DAY UNTIL GONE TAKE ONE TABLET BY MOUTH FOUR TIMES A DAY UNTIL GONE SOLD: 07/29/2020 [facility] 10-325 mg 07/29/2020 12:00:00 AM EDT tablet 180 TAKE ONE TABLET BY MOUTH EVERY 4 HOURS - MAXIMUM DAILY DOSE = 6 TAKE ONE TABLET BY MOUTH EVERY 4 HOURS - MAXIMUM DAILY DOSE = 6 SOLD: 07/29/2020 [facility] 2.5 mg 06/03/2020 12:00:00 AM EDT tablet 90 TAKE ONE TABLET BY MOUTH EVERY DAY TAKE ONE TABLET BY MOUTH EVERY DAY SOLD: 09/02/2020 [facility] 100-62.5-25 mcg 05/27/2020 12:00:00 AM EDT blister with braeden ce 60 INHALE ONE PUFF BY MOUTH EVERY DAY INHALE ONE PUFF BY MOUTH EVERY DAY SOLD: 08/05/2020 [facility] 100-62.5-25 mcg 05/27/2020 12:00:00 AM EDT blister with braeden ce 60 INHALE ONE PUFF BY MOUTH EVERY DAY INHALE ONE PUFF BY MOUTH EVERY DAY SOLD: 09/02/2020 [facility] 50 mg 04/30/2020 12:00:00 AM EDT tablet 60 TAKE TWO TABLETS BY MOUTH EVERY DAY AT BEDTIME MAXIMUM DAILY DOSE = 2 TAKE TWO TABLETS BY MOUTH EVERY DAY AT BEDTIME MAXIMUM DAILY DOSE = 2 SOLD: 08/05/2020 [facility] 50 mg 04/30/2020 12:00:00 AM EDT tablet 60 TAKE TWO TABLETS BY MOUTH EVERY DAY AT BEDTIME MAXIMUM DAILY DOSE = 2 TAKE TWO TABLETS BY MOUTH EVERY DAY AT BEDTIME MAXIMUM DAILY DOSE = 2 SOLD: 10/22/2020 [facility] 50 mg 04/30/2020 12:00:00 AM EDT tablet 60 TAKE TWO TABLETS BY MOUTH EVERY DAY AT BEDTIME MAXIMUM DAILY DOSE = 2 TAKE TWO TABLETS BY MOUTH EVERY DAY AT BEDTIME MAXIMUM DAILY DOSE = 2 SOLD: 09/02/2020 [facility] Insurance Providers Payer name Policy type / Coverage type Policy ID Covered constitution party ID Covered constitution party's relationship to lopes Policy Lopes Plan Information Medicare Medicare Primary [id number] Self [id number] Medicare Medicare Primary [id number] Self [id number] Medicare Medicare Primary [id number] Self [id number] MEDICARE A [id number] Self [id number] A Medicare Medicare Primary [id number] Self [id number] Medicare Medicare Primary [id number] Self Medicare Medicare Primary [id number] Self [id number] MEDICARE A [id number] Self [id number] Medicare Medicare Primary [id number] Self [id number] MEDICARE [id number] SP [id number] A Medicare Medicare Primary [id number] Self [id number] Medicare [facility] Medigap Part B [id number] Self [id number] [place] Med[place] [id number] Self [id number] [place] E [id number] Self [id number] [place] [employer] [id number] Self MEDICAID [id number] Self [id number] Medicare Part A [place] Medicare Primary [id number] Self MEDICARE PART A [facility] [id number] 18 [id number] [facility] [id number] Self [id number] UHC UNITED MEDICARE DUAL [id number] Self [id number] Uhc Medicare Dual Complet Commercial [id number] Self [id number] UHC MEDICARE [id number] Sadie [id number] [facility] [id number] Self [id number] ANSI-Medicaid [id number] ANSI-Not a Secondary Insurance [id number] ANSI-Medicare Part B [id number] ANSI-Medicare Part B [id number] ANSI-Medicaid [id number] ANSI-Not a Secondary Insurance [id number] Medicaid [facility] Part B [id number] Self [id number] ANSI-Not a Secondary Insurance [id number] ANSI-Medicare Part B [id number] ANSI-Medicaid [id number] ANSI-Medicaid [id number] ANSI-Not a Secondary Insurance [id number] ANSI-Medicare Part B [id number] MEDICARE C [id number] S [id number] A ANSI-Medicaid [id number] ANSI-Medicare Part B [id number] ANSI-Not a Secondary Insurance [id number] ANSI-Medicaid [id number] ANSI-Medicare Part B [id number] ANSI-Not a Secondary Insurance [id number] [facility] DUAL COMP - FACILITY [id number] 18 [id number] ANSI-Medicaid [id number] ANSI-Medicare Part B [id number] ANSI-Not a Secondary Insurance [id number] MEDICARE PART A -O/P [id number] 18 [id number] ANSI-Not a Secondary Insurance [id number] ANSI-Medicaid [id number] ANSI-Medicare Part B [id number] [employer] MEDICARE O/P [id number] 18 [id number] [employer] MEDICARE O/P [id number] 18 [id number] [employer] MEDICARE O/P UNAVAILABLE UNAVAILABLE [facility] Susu/MCR Medigap Part B [id number] Self [id number] Medicare [place]/[facility] Medicare Primary [id number] Self [id number] Medicaid Medigap Part B [id number] Self [id number] [facility] DUAL COMPLET [place] [id number] S [id number] [facility] DUAL COMPLET [place] [id number] S [id number] [facility] DUAL COMPLET [place] [id number] S [id number] [facility] DUAL COMPLETE O [id number] S [id number] MEDICAID -RECURRING [id number] 1 [id number] MEDICARE -RECURRING [id number] 18 [id number] Medicaid Medigap Part B [id number] Self MEDICAID-O/P [id number] 18 [id number] MEDICARE -O/P [id number] 18 [id number] MEDICAID -CLINIC [id number] 18 [id number] MEDICARE PART A -CLINIC [id number] 18 [id number] [place] [id number] [place] [id number] 01 [id number] [place] E 1960 Self 1960 MEDICARE PART B -PHYSICIAN [id number] 18 [id number] Medicaid Medigap Part B [id number] Self [id number] MEDICAID-O/P [id number] 18 [id number] MEDICAID - O/P EMERGENCY ROOM [id number] 18 [id number] [facility] COMMUNTY PLAN [id number] 18 [id number] UN COMMUNITY PLAN XIX [id number] 18 [id number] MEDICARE [id number] SP [id number] EMED[place] [id number] SP [id number] [facility] [id number] SP [id number] [facility] Secure Horizons P [id number] S [id number] D [facility] Medicare Dental S [id number] S [id number] Managed Care - [facility] Community Plan P UNAVAILABLE S UNAVAILABLE UNHC CP DUAL COMP -PHYSICIAN [id number] 18 [id number] MEDICAID -PHYSICIAN [id number] 1 8 [id number] Medicaid Medigap Part B [id number] Self [id number] [facility] Commercial [id number] Self [id number] Medicaid Medigap Part B [id number] Self [id number] Medicaid Medigap Part B [id number] Self [id number] [facility](MCAID) O [id number] S [id number] MEDICAID M [id number] S [id number] MEDICAID [id number] SP [id number] MEDICARE [id number] SP [id number] A Problems, Conditions, and Diagnoses Code Display Name Description Problem Type Effective Dates Data Source(s) M46668 Personal history of nicotine dependence Personal history of nicotine dependence Diagnosis 08/31/2021 08:35:00 PM EDT [facility] Z955 Presence of coronary angioplasty implant and graft Presence of coronary angioplasty implant and graft Diagnosis 08/31/2021 08:35:00 PM EDT Health system I252 Old myocardial infarction Old myocardial infarction Di agnosis 08/31/2021 08:35:00 PM EDT [facility] I10 Essential (primary) hypertension Essential (primary) h ypertension Diagnosis 08/31/2021 08:35:00 PM EDT [facility] J439 Emphysema, unspecified Emphysema, unspecified Diagnosi s 08/31/2021 08:35:00 PM EDT [facility] F411 Generalized anxiety disorder Generalized anxiety disor alfredito Diagnosis 08/31/2021 08:35:00 PM EDT [facility] 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 Diagnosis 08/31/2021 08:35:00 PM EDT [facility] R0989 Other specified symptoms and signs involving the circulatory and respiratory systems Other specified symptoms and signs invol ving the circulatory and respiratory systems Diagnosis 08/31/2021 08:35:00 PM EDT [facility] J312 Chronic pharyngitis Chronic pharyngitis Diagnosis 1 08:35:00 PM EDT [facility] J029 Acute pharyngitis, unspecified Acute pharyngitis, unsp ecified Diagnosis 08/31/2021 08:35:00 PM EDT [facility] R040 Epistaxis Epistaxis Diagnosis 04/08/2021 05:49:00 PM ED T [facility] K219 Gastro-esophageal reflux disease without esophagitis Gastro-esophageal reflux disease without esophagitis Diagnosis 03/16/2021 11:34:00 AM ED T [facility] J449 Chronic obstructive pulmonary disease, u nspecified Chronic obstructive pulmonary disease, unspecified Diagnosis 03/16/2021 11:34:00 AM EDT [facility] K5900 Constipation, unspecified Constipation, unspecified Di agnosis 03/07/2021 05:38:00 PM EDT [facility] F410 Panic disorder [episodic paroxysmal anxi ety] Panic disorder [episodic paroxysmal anxiety] Diagnosis 03/07/2021 05:38:00 PM EDT [facility] Z23 Encounter for immunization Encounter for immunization Diagnosis 01/31/2021 10:02:00 AM EDT [facility] M5412 Radiculopathy, cervical region Radiculopathy, cervical region Diagnosis 12/06/2020 10:39:00 AM [facility] [id number] Pain in left shoulder Pain in left shoulder Diagnosis 11/22/2020 11:38:00 AM [facility] [id number] Pain in left upper arm Pain in left upper arm Diagnosi s 11/22/2020 11:38:00 AM [facility] R109 Unspecified abdominal pain Unspecified abdominal pain Diagnosis 09/02/2020 04:50:00 PM EDT [facility] M19.90 Unspecified osteoarthritis, unspecified site Unspecified osteoarthritis, unspecified Diagnosis 08/27/2020 08:12:08 AM EDT [facility] K21.9 Gastro-esophageal reflux disease without esophagitis Gastro-esophageal reflux disease without Diagnosis 08/27/2020 08:12:[address] 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 J9811 Atelectasis Atelectasis Diagnosis 08/12/2020 11:21:00 AM EDT [facility] R160 Hepatomegaly, not elsewhere classified H epatomegaly, not elsewhere classified Diagnosis 08/12/2020 11:21:00 AM EDT [facility] K760 Fatty (change of) liver, not elsewhere c lassified Fatty (change of) liver, not elsewhere classified Diagnosis 08/12/2020 11:21:00 AM EDT [facility] I313 Pericardial effusion (noninflammatory) P ericardial effusion (noninflammatory) Diagnosis 08/12/2020 11:21:00 AM EDT [facility] R0789 Other chest pain Other chest pain Diagnosis 08/12/2020 11 :21:00 AM EDT [facility] M54.2 Neck pain Neck pain Problem 12/06/2020 12:00:00 AM ES T [facility] ([facility]) Surgeries/Procedures Procedure Description Date Indications Data Source(s) OFFICE OUTPATIENT VISIT 25 MINUTES 08/30/2021 12:00:00 AM EDT [facility] ([facility] OFFICE OUTPATIENT VISIT 25 MINUTES 06/07/2021 12:00:00 AM EDT [facility] ([facility] OFFICE OUTPATIENT VISIT 15 MINUTES 04/08/2021 12:00:00 AM EDT [facility] ([facility] OFFICE OUTPATIENT VISIT 25 MINUTES 03/16/2021 12:00:00 AM EDT [facility] ([facility] OFFICE OUTPATIENT VISIT 25 MINUTES 03/07/2021 12:00:00 AM EDT [facility] ([facility] Medication: Botox Cosmetic IM 02/15/2021 12:00:00 AM E DT eCW1 ([facility]) OFFICE OUTPATIENT VISIT 25 MINUTES 12/14/2020 12:00:00 AM EST [facility] ([facility] Results ID Date Data Source [id number] 09/05/2021 11:46:00 PM EDT [facility] [address] [place] [address] PHONE: [phone] FAX: [phone] Name .................. : GRSI Valdes Acct Number.................. : [id number] ROOM. ................. : VA-10 MR Number ................... : [id number] Stay type ............. : E/R Discharge Date......... ... : 09/04/21 Admit Date .... ..... : 09/04/21 [facility] ....... : 1960 Family Phys ................... : [place] Phone .................. : [phone] Age ................................ : 61 Film# .................. .:[id number] Sex ................................. : F Unsigned transcriptions are preliminary reports and do not represent a medical or legal document CT ST NECK W/CONTRAST [id number] COMPLETE:09/04/21 18:23 MISSY [id number] Reason(s): worsening FB s ensation with swallowing CT NECK WITH IV CONTRAST INDICATION: Worsening foreign body sensation when swallowing COMPARISON: Radiograph 08/31/21. Cervical spine CT 05/02/2018. CONTRAST: Dose not specified Preliminary report for this exam was provided by [facility] . FINDINGS: BRAIN/POSTERIOR FOSSA: Posterior fossa structures are within normal limits. To the extent included orbits and supratentorial brain are within normal limits. SALIVARY/THYROID: Normal parotid and submandibular glands. Thyroid gland is within normal limits. PHARYNX/LARYNX: Preliminary report questions enlarged palatine tonsil with central hypo- attenuating area 10 x 7 mm. The precise volume of palatine tonsil is difficult to assess as it is in contact with the lingual tissues. It does not appear definitively larger than the prior CT. It is possible that the central low-attenuation area could represent infection in the appropriate clinical scenario such as phlegmon or developing abscess but there is no rim enhancement or soft tissue gas. Neoplastic etiology cannot be excluded definitively although the lack of interval enlargement is atypical. Correlate clinically for location of symptoms of foreign body swallowing sensation. No laryngeal mass is identified. LYMPH NODES: No cervical adenopathy. SPINE/SOFT TISSUES: Mild degenerative disc change C5-6 and anterior C1-C2 articulation. Sinuses are clear. Page 1 of 2 [facility] [address] [place] [address] PHONE: [phone] FAX: [phone] Name ........ .......... : GRIS Valdes Acct Number.................. : [id number] [facility] Number [facility]... : [id number] Stay type ............. : E/R Discharge Date......... ... : 09/04/21 Admit Date ......... : 09/04/21 Admit Phys .................... : NAHOMY Date of ....... : 1960 Family Phys ................... : ADIEL QUILES Phone .................. : [phone] Age ................................ : 61 Film# .................. .:[id number] Sex ................................. : F Unsigned transcriptions are preliminary reports and do not represent a medical or legal document CT ST NECK W/CONTRAST [id number] COMPLETE:09/04/21 18:23 MISSY 21097 Reason(s): worsening FB sensation with swallowing Punctate right and left upper lobe nodules unchanged in CT chest 08/12/2020 IMPRESSION: Slight prominence to palatine tonsillar tissues with ill-defined central low- attenuation. Infection not excluded but the volume does not appear definitively increased from prior cervical spine CT. Consider whether direct visualization is warranted clinically to exclude any underlying lesion in the absence of infectious symptoms. Correlate clinically for any infectious symptoms. No foreig n body is identified. Potential neoplastic etiology is a change from preliminary report. Report placed in result notification protocol. Electronically Reviewed and Signed By Devin Albert MD , 09/05/21 23:46, SCB Transcribe Initials: JUVE , Transcribe Date: 09/04/21 20:27, Dictation Date: Copy for: WARREN Mendoza via fax Copy for: ADIEL NEGRON via fax Copy for: EMERGENCY DEPT via modem Copy for: 710 MED REC DISCHARGED Page 2 of 2 Name Value Range Interpretation Code Description Data Mona rce(s) Supporting Document(s) ID Date Data Source [id number] 09/04/2021 12:23:00 PM EDT [facility] 1 OrderSheet [facility] Emergency Department [address] [place] [address] Phone #: ext- [phone] 09/04/2021 12:23 Patient: ZOILA HOLGUIN Sex: F : 1960 Age: 61yWEIGHT:59.8 kg (S) HEIGHT:65 inches (S) BMI:22.0ALLERGIES: ValiumDIAGNOSIS: Tonsillitis, Peritonsillar abscess, Liver function tests abnormal, HypokalemiaLAB ORDERSOrder Description Priority Entered Acknowledged InitialedCBC w Diff STAT 12:53 09/04/2021 13:00 Tong Hinojosa; Farida reagan R.N.CMP STAT 12:53 09/04/2021 13:00 Tong Hinojosa; Zoraida rWightDIAGNOSTIC STUDY ORDERSOrder Description Priority Entered Acknowledged InitialedCT Neck Soft STAT 12:53 09/04/2021 14:20 Ashish,Tissue W/ Cont Tong GODOY; Zoraida Wright(Oxygen? (Yes))(IV?(Yes)) Reason for Study: worsening FB sensation with swallowingMEDICATION/IV/DRIP/FLUID ORDERSOrder Description Priority Entered Acknowledged InitialedAtropine IVP 1 mg 12:51 09/04/2021 Cancelled: Other 12:53 Tong GODOY; PABenadryl IVP 25 mg 12:51 09/04/2021 12:59 Tong Hinojosa; Zoraida WrightNS IV : Bolus 1000 12:53 09/04/2021 13:00 Ashish,mL, then 100 mL/hr Tong GODOY; Zoraida Wright(NOW x1)Ativan IVP 1 mg 12:53 09/04/2021 13:00 Ashish,(NOW x1, HIGH Tong GODOY; Zoraida WrightALERTMEDICATION) Reason for ordering with alerts: Clinical consideration given -- 12:53 09/04/2021 Tong Kelley PARocephin 14:54 09/04/2021 15:04 Ashish,(1gm/50mL) IVPB Tong GODOY; Zoraida Wright1000 mg withDextrose 50 mlspike bag (D5W) 2 OrderSheet [facility] Emergency Department [address] [place] [address] Phone #: ext- [phone] 09/04/2021 12:23 Patient: ZOILA HOLGUIN Sex: F : 1960 Age: 61yPotassium Chloride 14:55 09/04/2021 15:04 Arianna Hinojosa PO 30 meq Tong GODOY; Zoraida Wright(NOW x1)GENERAL ORDERSOrder Description Priority Entered Acknowledged Initialed[Electronically signed by Zoraida Hinojosa R.N. (15:49 09/04/2021)][Electronically signed by Tong Kelley (16:06 09/04/2021)][Electronically locked by Zoraida Hinojosa R.N. (15:49 09/04/2021)] Name Value Range Interpretation Code Description Data Mona rce(s) Supporting Document(s) ID Date Data Source [id number] 09/04/2021 12:23:00 PM EDT [facility] 1 Medication Reconciliation Report [facility] Emergency Department [address] [place] [address] Phone #: ext- [phone] 09/04/2021 12:23 Patient: ZOILA HOLGUIN Sex: F : 1960 Age: 61yWeight: 59.8 kgHeight/Length: 65 in.BMI: 22.0ALLERGIES: ValiumThe patient's Home Medications are listed below:CONTINUE TAKING THE FOLLOWING MEDICATIONS: BP medication DuoNeb Spiriva HandiHaler Inhalation Xanax OralThe source(s) of the original Home Medication information:patientThe following Medications were given to the patient in the Emergency Department:Benadryl [IVP] IVP 25 mg, administered: 12:59 1Ativan [IVP] IVP 1 mg, administered: 13:00 09/04/2021NS [IV] IV Fluids bolus 1000 mL wide open, administered: 13:00 1ROCEPHIN (1GM/50ML) [IVPB] IVPB bolus 0, then 1 gm 100 mL/hr, administered: 15:04 09/04/2021OTASSIUM CHLORIDE LIQUID PO PO 30 meq, administered: 15:04 09/04/2021The following Medications were prescribed to the patient:Augmentin 875 mg-125 mg tablet Take 1 tablet twice a day as directed for 10 days -- for tonsillitis.Dispense 20 tablet. Refills: 0. Substitution permitted.Pharmacy - [id number] [phone] [facility] ; [place], [place] [id number]. . -- JAYNE Lim 2 Medication Reconciliation Report [facility] Emergency Department [address] [place] [address] Phone #: ext- [phone] 09/04/2021 12:23 Patient: ZOILA HOLGUIN Sex: F : 1960 Age: 61y Name Value Range Interpretation Code Description Data Mona rce(s) Supporting Document(s) ID Date Data Source [id number] 09/04/2021 12:23:00 PM EDT [facility] 1 Medication Administration Record [facility] Emergency Department [address] [place] [address] Phone #: [phone]- [phone] 09/04/2021 12:23 Patient: ZOILA HOLGUIN Sex: F : 1960 Age: 61yWeight: 59.8 kgHeight/Length: 65 inBMI: 22ALLERGIES: Valium Date/Time Medication Administered Medication OrderedGiven BENADRYL [IVP] (DIPHENHYDRAMINE Benadryl IVP 25 mg12:59 09/04/2021 HCL)Zoraida Hinojosa R.N. Dose: 25 mg IVP Site: #1 right ACStart NS [IV] NS IV : Bolus 1000 mL, then 43160:00 09/04/2021 Dose: IV Fluids mL/hr (NOW x1)Zoraida Hinojosa R.N. Bolus: 1000 mL wide open---- Dispensed: 1000 mL bagStop Site: #1 right AC14:10 09/04/2021Zoraida Hinojosa R.N.Given ATIVAN [IVP] (LORAZEPAM) Ativan IVP 1 mg (NOW x1, HIGH13:00 09/04/2021 Dose: 1 mg IVP ALERT MEDICATION)Zoraida Hinojosa R.N. Site: #1 right ACStart ROCEPHIN (1GM/50ML) [IVPB] Rocephin (1gm/50mL) IVPB 305051:04 09/04/2021 (CEFTRIAXONE SODIUM) mg with Dextrose 50 ml spike bagZoraida Hinojosa R.N. Dose: 1 gm IVPB (D5W)---- Rate: 100 mL/hr over 30 minute(s)Stop Dispensed: 50 mL bag15:47 09/04/2021 Site: #1 right ACZoraida Hinojosa R.N.Given POTASSIUM CHLORIDE LIQUID PO Potassium Chloride Liquid PO 3015:04 09/04/2021 Dose: 30 meq PO meq (NOW x1)Zoraida Hinojosa R.N. Name Value Range Interpretation Code Description Data Mona rce(s) Supporting Document(s) ID Date Data Source [id number] 09/04/2021 12:23:00 PM EDT [facility] 1 General Instructions [facility] Emergency Department [address] [place] [address] Phone #: ext- [phone] 09/04/2021 12:23 [id number] Sex: F : 1960 Age: 61yAcute tonsillitis.Peritonsillar abscess. No airway obstruction.Abnormal liver function test: AST/SGOT and ALT/SGPT.Hypokalemia.INSTRUCTIONSNo strenuous activity until better. Do not work for three days. Rest at home today.Drink plenty of fluids for the next 48 hours. Do not smoke. No alcohol.(eat 1/2 of a banana a day for 5 days for low potassium).Warnings: Further evaluation is necessary in order to conduct further tests. It is very important to follow upwith a healthcare provider.SEDATIVE MEDICATION: You were given sedative medication during your visit. Do not drive or operatedangerous machinery for 12 hours.GENERAL WARNINGS: Return or contact your physician immediately if your condition worsens orchanges unexpectedly, if not improving as expected, or if other problems arise. Specifically return if pain,vomiting, bleeding, breathing difficulty or fever.Your Current Medications: Your current home medications have been reviewed.CONTINUE TAKING THE FOLLOWING MEDICATIONS:BP medication*.DuoNeb*.Spiriva HandiHaler Inhalation.Xanax Oral.Prescription Medications:Augmentin 875 mg-125 mg tablet Take 1 tablet twice a day as directed for 10 days -- for tonsillitis.Dispense 20 tablet. Refills: 0. Substitution permitted.Pharmacy - [phone] - [phone] [facility] ; [place], [place] [id number]. .Follow-up:Follow up with your healthcare provider in three days even if well. Call for the next available appointment.Reason for referral: evaluation and recommend contrast enhanced MRI neck and ENT referral for FBsenstaion with swallowing and ? peritonsillar abscess on CT soft tissue neck. Recommend repeatLFT's/potassium level x 2 weeks.. Summary of care provided to patient via paper. 2 General Instructions [facility] Emergency Department [address] [place] [address] Phone #: ext- [phone] 09/04/2021 12:23 Patient: ZOILA HOLGUIN Sex: F : 1960 Age: 61yUnderstanding of the discharge instructions verbalized by patient. Expected course of illness, dischargeinstructions, activity level, prescriptions x1, follow-up appointment and risks and benefits of treatmentreviewed with patient and understanding verbalized. Agrees to plan of care. ADDITIONAL INFORMATIONPeritonsillar AbscessYou (or your child) has an abscess (collection of pus) around the tonsils. This abscess can causesevere sore throat, pain with swallowing, fever, drooling, and trouble opening the mouth.The abscess is treated with antibiotics. These may be started using an IV (intravenous line), thencontinued by mouth. In most cases, the abscess will also be drained.Home care All of the antibiotics should be taken as prescribed until they are gone. This is true even if symp toms start to get better. This is very important to ensure that the infection goes away. This infection can lead to serious complications. Pain medicines should be taken as directed. To help ease pain, children older than 6 years and adults can gargle with warm salt water four times a day for the first 2 days. Dissolve 1/2 teaspoon of salt in 1 glass of hot water. Gargle with the solution then spit it out. (Ensure that children do not swallow the salt water.) Cool liquids and soft foods may make eating easier for the first few days.Follow-up careFollow up with a healthcare provider or as advised within 1-2 days.When to seek medical adviceCall the healthcare provider right away if any of the following occur: Fever of 100.4F (38C) or higher after 3 days of treatment Symptoms that get worse Symptoms that go away and come back Trouble swallowing liquids or taking medicine Trouble breathing 3 General Instructions [facility] Emergency Department [address] [place] [address] Phone #: [phone]- [phone] 09/04/2021 12:23 Patient: ZOILA HOLGUIN Sex: F : 1960 Age: 61y Neck stiffness Bleeding Rash Swelling or bumps in the neck [employer]. [address] [place] [address], [place] [address]. All rights reserved. This information is not intended as asubstitute for professional medical care. Always follow your healthcare professional's instructions. You have been given the following additional information: Peritonsillar Abscess No strenuous activity until b francisco. Do not work for three days. Rest at home today.(Electronically signed by JAYNE Lim 09/04/2021 16:06) Name Value Range Interpretation Code Description Data Mona rce(s) Supporting Document(s) ID Date Data Source [id number] 09/04/2021 12:23:00 PM EDT [facility] 1 Clinical Report - Nurses [facility] Emergency Department [address] [place] [address] Phone #: ext- [phone] 09/04/2021 12:23 Patient: ZOILA HOLGUIN Sex: F : 1960 Age: 61yTRIAGEArrived by private vehicle. Historian: patient. ( presents with c/o throat feeling like its closing off, difficultto swallow but breathing is ok, recently seen here for same thing. started this am).Triage time: 12:30 09/04/2021. Acuity: LEVEL 3.Chief Complaint: (throat tighting).Alert. No acute distress.This started today.Treatment DATA EXAMINATION CLERK:Took Benadryl. Seen within the last 30 days in a medical facility; seen for similar symptoms. (hour ago).SEPSIS SCREEN: SIRS SCREEN NEGATIVE. SEPSIS SCREEN NEGATIVE. No suspected or confirmedsigns of infection present. --12:36 09/04/21 Tiff Stone RN12:30 09/04/21. BP: 158/108. MAP: 124. HR: 109. RR: 20. O2 saturation: 98%. Pain level now: 04/14.--12:36 09/04/21 Tiff Stone RN15:48 09/04/21. Temp: 98.7 F. --15:48 09/04/21 Zoraida Hinojosa R.N.Weight: 59.8 kg stated. Height/Length: 65 inches Per Patient. BMI: 22. --12:31 09/04/21 Tiff Stone RN.MedicationsBP medication. DuoNeb. Spiriva HandiHaler Inhalation. Xanax Oral. --12:32 09/04/21 Tiff Stone RN.AllergiesValium. --12:32 09/04/21 Tiff Stone RN.PROBLEMS:Chest Wall Pain.Bowel Obstruction.Anxiety Reaction.Myocardial Infarction: Onset 2004.Sepsis (disorder).Heart Disease. 2 [facility] [address] [place] [address] Phone #: ext- [phone] 09/04/2021 12:23 [facility]: [id number] Sex: F : 1960 Age: 61y Gastroesophageal Reflux Disease. Emphysema. --12:33 09/04/21 Tiff Stone RN The following entry was modified by Tiff Stone RN, 12:33 09/04/21 Asthma. --12:33 09/04/21 Tiff Stone RN The following entry was modified by Tiff Stone RN, 12:33 09/04/21 COPD - Chronic Obstructive Pulmonary Disease. --12:33 09/04/21 Tiff Stone RN The following entry was modified by Tiff Stone RN, 12:33 09/04/21 Hypertension. --12:32 09/04/21 Tiff Stone RN. Medication/allergy information source: the patient. --12:36 09/04/21 Tiff Stone RN. ADDITIONAL SURGERIES: Bowel Surgery. Carpal Tunnel Surgery (Bilateral). Tonsillectomy. Tubal Ligation. --12:33 09/04/21 Tiff Stone RN. History PAST MEDICAL HX: Immunizations: (covid vaccine). SOCIAL HX: Former smoker. Occasional alcohol use. No drug use. She was offered HIV testing but declined and hepatitis C testing but declined. She has not traveled outside the [place] Infectious disease exposure: No infectious disease exposure. SELF HARM ASSESSMENT: Self harm assessment was performed. The patient answered "no" to the question(s) "Have you recently felt down, depressed, or hopeless?". ABUSE ASSESSMENT: No report of abuse. NUTRITIONAL RISK ASSESSMENT: The nutritional risk assessment revealed no deficiencies. FUNCTIONAL ASSESSMENT: Functional assessment: no impairments noted. LEARNING NEEDS ASSESSMENT: The learning needs assessment revealed no barriers. FALL RISK ASSESSMENT: Fall risk assessment completed. No risk factors identified. SKIN INTEGRITY ASSESSMENT: Skin integrity risk assessment completed. No skin integrity risk identified. --12:36 09/04/21 Tiff Stone RN.PHYSICAL ASSESSMENTAmbulatory to room.GENERAL / NEURO / PSYCH: Alert. Oriented X 4. Appears anxious.HEENT: Pupils equal, round and reactive to light. No facial asymmetry noted. Mucous membranes are 3 Clinical Report - Nurses [facility] Emergency Department [address] [place] [address] Phone #: ext- [phone] 09/04/2021 12:23 Patient: ZOILA HOLGUIN Sex: F : 1960 Age: 61y pink. RESPIRATORY: Respirations not labored. Chest nontender. Breath sounds within normal limits. ( Pt reports feeling like there is a lump in her throat.). CVS: Capillary refill less than 2 seconds. Pulses within normal limits. GI / : Abdomen soft and nontender and normal bowel sounds. SKIN: Skin intact. Skin is warm and dry. Normal skin turgor. --13:04 09/04/21 Zoraida Hinojosa R.N.NURSING PROGRESS NOTES12:49 09/04/2021 Site #1 started via IV in the right antecubital space with an 20g angiocath; one attempt.Saline lock flushed with 5 mL saline. --12:59 09/04/21 Zoraida Hinojosa R.N. 12:59 09/04/2021 Benadryl (diphenhydrAMINE HCl) IVP 25 mg given via site #1. Allergies verified and confirmed 5 rights. IV patency established. IV site checked: no pain, redness, or swelling. IV flushed thoroughly pre- and post- medication administration. IVP given by RN. Information reviewed with patient including reason for taking this medication and sedative warning. Verbalizes understanding. --12:59 09/04/21 Zoraida Hinojosa R.N. 13:00 09/04/2021 Ativan (LORazepam) IVP 1 mg given via site #1. Allergies verified and confirmed 5 rights. IV patency established. IV site checked: no pain, redness, or swelling. IV flushed thoroughly pre- and post-medication administration. IVP given by RN. Information reviewed with patient including reason for taking this medication and sedative warning. Verbalizes understanding. --13:00 09/04/21 Zoraida Hinojosa R.N. 13:00 09/04/2021 Started bag #1 1000 mL IV Fluids NS; bolus of 1000 mL wide open via site #1 via IV pump. Allergies verified and confirmed 5 rights. IV patency established. IV site checked: no pain, redness, or swelling. IV flushed thoroughly pre- and post-medication administration. Information reviewed with patient including reason for taking this medication. Verbalizes understanding. --13:00 09/04/21 Zoraida Hinojosa R.N. 14:10 09/04/2021 IV Fluids NS via IV site #1 Discontinued: bag #1 infused. Total amount infused: 1000 mL. IV patency established. IV site checked: no pain, redness, or swelling. IV flushed thoroughly. --14:10 09/04/21 Zoraida Hinojosa R.N. Reassessment after medication administered. Respiratory distress gone now. Two patient identifiers checked. --14:10 09/04/21 Zoraida Hinojosa R.N. 15:04 09/04/2021 Started 1 gm of ROCEPHIN (1GM/50ML) (cefTRIAXone Sodium) IVPB in bag #1 50 mL; at 100 mL/hr over 30 minute(s) via site #1. via IV pump. Allergies verified and confirmed 5 rights. IV patency established. IV site checked: no pain, redness, or swelling. IV flushed thoroughly pre- and post-medication administration. Information reviewed with patient including reason for taking this medication. Verbalizes understanding. --15:04 09/04/21 Zoraida Hinojosa R.N. 15:04 09/04/2021 POTASSIUM CHLORIDE LIQUID PO PO 30 meq given. Allergies verified and confirmed 5 rights. Information reviewed with patient including reason for taking this medication. Verbalizes 4 Clinical Report - Nurses [facility] Emergency Department [address] [place] [address] Phone #: ext- [phone] 09/04/2021 12:23 Patient: ZOILA HOLGUIN Sex: F : 1960 Age: 61y understanding. --15:04 09/04/21 Zoraida Hinojosa R.N. 15:47 09/04/2021 Site #1 removed upon discharge. Catheter intact. Manual pressure and bandage applied. --15:47 09/04/21 Zoraida Hinojosa R.N. 15:47 09/04/2021 ROCEPHIN (1GM/50ML) IVPB via IV site #1 Discontinued: bag #1 completed. Total amount infused: 50 mL. IV patency established. IV site checked: no pain, redness, or swelling. IV flushed thoroughly. --15:47 09/04/21 Zoraida Hinojosa R.N.DISPOSITION / DISCHARGE 15:29 09/04/21. BP: 144/85. MAP: 104. HR: 77. RR: 16. O2 saturation: 96%. Temp: 98.7 F. --15:30 09/04/21 [place] Condition at departure: improved and stable. No learning barriers present. Discharge instructions provided and reviewed with the patient. Reviewed medication(s) information. Prescription(s) sent electronically to pharmacy. Work note given. Patient verbalized understanding. Written instructions provided in [place]. The patient was discharged by the physician assistant office manager. She was discharged home and accompanied by family. She left ambulatory and via private vehicle. Family member driving. --15:48 09/04/21 Zoraida Hinojosa R.N. 15:48 09/04/21. Pain level now 0/10. --15:48 09/04/21 Zoraida Hinojosa R.N.Locked/Released at 09/04/2021 15:49 by Zoraida Hinojosa R.N. Name Value Range Interpretation Code Description Data Mona rce(s) Supporting Document(s) ID Date Data Source [id number] 09/04/2021 12:23:00 PM EDT [facility] 1 Clinical Report - Physicians/Mid Levels [facility] Emergency Department [address] [place] [address] Phone #: ext- [phone] 09/04/2021 12:23 [id number] Sex: F : 1960 Age: 61y Time Seen: 12:40 09/04/2021. Arrived- By private vehicle. Historian- patient. RETURN VISIT: recently seen in this ED by another ED physician within past 72 hours. Disposition decision: 15:25 09/04/2021.HISTORY OF PRESENT ILLNESS Chief Complaint: FB sensation in throat. This started today Pt states she feels like "something is stuck" in her throat, has had same FB sensation several times over past yr, seen here AUG 25 and given ativan and decadron and had normal cxr and soft tissue neck x-ray done. Chromo better after meds but today sensation started today again. Has upcoming appt with Dr Alanis for ? upper endoscopy. No difficulty breathing, no SOB, no facial tongue or throat swelling. Pain described as moderate. The patient has had a sore throat (FB sensation). No mouth sores, nasal discharge or congestion, ear pain or toothache. No swollen jaw, jaw pain or facial pain. Similar symptoms previously. Patient has had similar symptoms several times. Recent medical care: The patient was seen recently at this facility in the emergency department.REVIEW OF SYSTEMSNo fever, eye discomfort, cough, difficulty breathing or chest pain. No abnormal bleeding, nausea,diarrhea, abdominal pain or difficulty with urination. No headache, fainting episodes, joint pain, skin rashor enlarged lymph nodes. No vomiting.PAST HISTORYSee nurses notes. Problems: Abnormal Test. Contusion. Abnormal Liver Function Test. Asthma. COPD - Chronic Obstructive Pulmonary Disease. Pharyngitis. Recent Travel. Pneumonia. Hypertension. Herpes Zoster. Chest Wall Pain. Bowel Obstruction. Anxiety Reaction. Myocardial Infarction. 2 Clinical Report - Physicians/Mid [facility] Emergency Department [address] [place] [address] Phone #: ext- [phone] 09/04/2021 12:23 Patient: ZOILA HOLGUIN Sex: F : 1960 Age: 61y Sepsis (disorder). Heart Disease. Gastroesophageal Reflux Disease. Emphysema. Angioedema [RuleOut]. Pharyngitis [RuleOut]. Additional Surgeries: Bowel resection. Bowel Surgery. Carpal Tunnel Surgery. (Bilateral) Laparoscopy. PTCA - Percutaneous Transluminal Coronary Angioplasty [2005]. Tonsillectomy. Tubal Ligation. Medications: BP medication. DuoNeb. Spiriva HandiHaler Inhalation. Xanax Oral. Allergies: Valium.SOCIAL HISTORYFormer smoker. Alcohol use. No drug use. No recent travel.ADDITIONAL NOTESThe nursing notes have been reviewed with agreement regarding the chief complaint, HPI, ROS, PMH andpatient medications and allergies.PHYSICAL EXAMVital Signs: 09/04/2021 12:30 BP: 158/108. MAP: 124. HR: 109. RR: 20. O2 saturation: 98%. Pain levelnow: 6/10. Have been reviewed as abnormal. Hypertensive. Mean arterial pressure- high.Tachycardic. Respiratory rate normal. Temperature normal. Oxygen saturation normal.Appearance: Alert. No acute distress.Head: Normal external inspection.Eyes: Pupils equal, round and reactive to light. Conjunctivae and eyelids normal.ENT: Ears normal. Nose normal. Pharynx normal. Lips normal. Gums normal. No trismus present.Uvula midline.Neck: Normal inspection. Trachea midline. No adenopathy. Thyroid normal. Neck supple.CVS: Normal heart rate and rhythm. Heart sounds normal. Pulses normal.Respiratory: No respiratory distress. Breath sounds normal. Chest nontender.Abdomen: Soft and nontender. No organomegaly. 3 Clinical Report - Physicians/Mid Levels [facility] Emergency Department [address] [place] [address] Phone #: ext- [phone] 09/04/2021 12:23 Patient: ZOILA HOLGUIN Sex: F : 1960 Age: 61y Skin: Normal skin color. No rash. Normal skin turgor. Extremities: Extremities exhibit normal ROM. Extremities nontender. Neuro: Oriented X 3. No motor deficit. No sensory deficit. Reflexes normal.LABS, X- RAYS, AND EKGCT Neck - Soft Tissue: (enlarged palatine tonsillar tissue within the oropharynx c/w tonsillitis. Potentialsmall abscess forming near the midline. could consider contrast enhanced MRI for for further assessment ifindicated clinic.). Neck CT (soft tissue) performed with contrast. The study was independently viewed byme and interpreted by the radiologist and contemporaneously by me. Interpretation time: 14:5509/04/2021.Laboratory Tests: Laboratory tests have been ordered, with results reviewed and considered in themedical decision making process. CBC w Diff: (ANUP: 09/04/2021 12:59) ( MsgRcvd 09/04/2021 13:09) Final results Test Result Flag Units (Reference) CBC W/AUTOMATED DIFF COMPLETE BLOOD COUNT WBC 5.7 10/uL (4.2 - 11.0) RBC 4.61 10/uL (4.20 - 5.40) HEMOGLOBIN 14.7 g/dL (12.0 - 16.0) HEMATOCRIT 43.8 % (37.0 - 47.0) MCV 95.0 fL (81.0 - 101) MCH 31.9 pg (27.0 - 34.0) MCHC 33.6 g/dL (31.0 - 36.0) RDW 12.3 % (11.5 - 14.5) PLATELETS 187 10/uL (150 - 450) MPV 9.5 fL (7.4 - 10.4) NEUT 59.4 % (37.0 - 80.0) LYMPH 27.7 % (25.0 - 40.0) MONO 8.8 H % (3.0 - 8.0) EOS 2.8 % (0.0 - 7.0) BASO 1.1 % (0.0 - 2.5) %IG 0.2 H % (0.0 - 0.0) %NRBC 0.0 % (0.0 - 0.0) #NEUT 3.37 10/uL (2.00 - 6.90) #LYMPH 1.57 10/uL (0.60 - 3.40) #MONO 0.50 10/uL (0.00 - 0.90) #EOS 0.16 10/uL (0.00 - 0.70) #BASO 0.06 10/uL (0.00 - 0.20) #IG 0.01 10/uL (0.00 - 0.10) #NRBC 0.00 10/uL (0.00 - 0.00) MANUAL DIFF NOT INDICATED RBC MORPH NOT INDICATED CMP: (ANUP: 09/04/2021 12:59) ( MsgRcvd 09/04/2021 13:33) Final results Test Result Flag Units (Reference) COMPREHENSIVE METABOLIC PANEL COMPREHENSIVE METABOLIC PANEL SODIUM 145 mEq/L (134 - 153) POTASSIUM 3.2 L mEq/L (3.6 - 5.0) CHLORIDE 106 mEq/L (98 - 107) CO2 25 MEQ/L (22 - 30) GLUCOSE 102 H MG/DL (70 - 99) BUN 12 MG/DL (7 - 21) 4 Clinical Report - Physicians/Mid Levels [facility] Emergency Department [address] [place] [address] Phone #: ext- [phone] 09/04/2021 12:23 Patient: ZOILA HOLGUIN Sex: F : 1960 Age: 61y CREATININE 0.7 MG/DL (0.7 - 1.5) BUN/CREAT 17 (8 - 27) TOTAL PROTEIN 8.1 G/DL (6.3 - 8.2) ALBUMIN 4.3 G/DL (3.9 - 5.0) GLOBULIN 3.8 H GM/DL (2.4 - 3.2) A/G RATIO 1.1 (0.8 - 2.0) CALCIUM 9.3 MG/DL (8.4 - 10.2) TOTAL BILI <0.7 MG/DL (0.2 - 1.3) ALKALINE PHOS 98 U/L (38 - 126) SGOT/AST 100 H U/L (5 - 40) SGPT/ALT 117 H U/L (7 - 56) ANION GAP 14.0 mmol/L (8.0 - 16.0) AGE 61 yrs NON-AA GFR >60 mL/min AFR AMER GFR >60 Male GFR Interprentation 20-49 yrs >60 mL/min Normal 50-59 yrs >56 mL/min Normal 60-69 yrs >49 mL/min Normal 70-79yrs >42 mL/min Normal 80 and above >35 mL/min Normal Female GFR Interpretation 20-39 yrs >60 mL/min Normal 40-49 yrs >58 mL/min Normal 50-59 yrs >51 mL/min Normal 60-69 yrs >45 mL/min Normal 70-79 yrs >39 mL/min Normal 80 and above >32 mL/min Normal.PROGRESS AND PROCEDURESCourse of Care: 13:11 Sep [address] soft tissue neck results. Disposition: Discharged home in good and improved condition. Discharge decision based on the following: patient's condition is stable; patient is ambulatory; patient is active; patient's exam is stable; moderately abnormal test results; stable condition on repeat evaluation; social support is adequate; transportation is available; follow-up is available; clinical impression is consistent with outpatient treatment.CLINICAL IMPRESSION Acute tonsillitis. Peritonsillar abscess. No airway obstruction. Abnormal liver function test: AST/SGOT and ALT/SGPT. Hypokalemia.INSTRUCTIONS No strenuous activity until better. Do not work for three days. Rest at home today. Drink plenty of fluids for the next 48 hours. Do not smoke. No alcohol. (eat 1/2 of a banana a day for 5 days for low potassium). Warnings: Further evaluation is necessary in order to conduct further tests. It is very important to follow up 5 Clinical Report - Physicians/Mid Levels [facility] Emergency Department [address] [place] [address] Phone #: ext- [phone] 09/04/2021 12:23 Patient: [id number] Sex: F : 1960 Age: 61y with a healthcare provider. SEDATIVE MEDICATION: You were given sedative medication during your visit. Do not drive or operate dangerous machinery for 12 hours. GENERAL WARNINGS: Return or contact your physician immediately if your condition worsens or changes unexpectedly, if not improving as expected, or if other problems arise. Specifically return if pain, vomiting, bleeding, breathing difficulty or fever. Your Current Medications: Your current home medications have been reviewed. CONTINUE TAKING THE FOLLOWING MEDICATIONS: BP medication*. DuoNeb*. Spiriva HandiHaler Inhalation. Xanax Oral. Prescription Medications: Augmentin 875 mg-125 mg tablet Take 1 tablet twice a day as directed for 10 days -- for tonsillitis. Dispense 20 tablet. Refills: 0. Substitution permitted. Pharmacy - [id number] - [address] [facility] ; [place], [place] [id number]. . Follow-up: Follow up with your healthcare provider in three days even if well. Call for the next available appointment. Reason for referral: evaluation and recommend contrast enhanced MRI neck and ENT referral for FB senstaion with swallowing and ? peritonsillar abscess on CT soft tissue neck. Recommend repeat LFT's/potassium level x 2 weeks.. Summary of care provided to patient via paper. Understanding of the discharge instructions verbalized by patient. Expected course of illness, discharge instructions, activity level, prescriptions x1, follow-up appointment and risks and benefits of treatment reviewed with patient and understanding verbalized. Agrees to plan of care.(Electronically signed by JAYNE Lim 09/04/2021 16:06) Name Value Range Interpretation Code Description Data Mona rce(s) Supporting Document(s) ID Date Data Source [id number] 09/04/2021 01:33:00 PM EDT [facility] Name Value Range Interpretation Code Description Data Mona rce(s) Supporting Document(s) COMPREHENSIVE METABOLIC PANEL [facility] COMPREHENSIVE METABOLIC PANEL Sodium [Moles/volume] in Serum or Plasma 145 mEq/L 134 - 153 [facility] Potassium [Moles/volume] in Serum or Plasma 3.2 mEq/L 3.6 - 5.0 L [facility] Chloride [Moles/volume] in Serum or Plasma 106 mEq/L 98 - 107 [facility] Carbon dioxide, total [Moles/volume] in Serum or Plasma 25 MEQ/L 22 - 30 [facility] Glucose [Mass/volume] in Serum or Plasma 102 MG/DL 70 - 99 H [facility] BUN 12 MG/DL 7 - 21 [facility] al Creatinine [Mass/volume] in Serum or Plasma 0.7 MG/DL 0.7 - 1.5 [facility] BUN/CREAT 17 8 - 27 [facility] al Protein [Mass/volume] in Serum or Plasma 8.1 G/DL 6.3 - 8.2 [facility] Albumin [Mass/volume] in Serum or Plasma 4.3 G/DL 3.9 - 5.0 [facility] Globulin [Mass/volume] in Serum by calculation 3.8 GM/DL 2.4 - 3.2 H [facility] A/G RATIO 1.1 0.8 - 2.0 [facility] Calcium [Mass/volume] in Serum or Plasma 9.3 MG/DL 8.4 - 10.2 [facility] Bilirubin.total [Mass/volume] in Serum or Plasma <0.7 MG/DL 0.2 - 1.3 [facility] Alkaline phosphatase [Enzymatic activity/volume] in Serum or Plasma 98 U/L 38 - 126 [facility] Aspartate aminotransferase [Enzymatic activity/volume] in Serum or Plasma 100 U/L 5 - 40 H [facility] Alanine aminotransferase [Enzymatic activity/volume] in Seru m or Plasma 117 U/L 7 - 56 H [facility] Anion gap 3 in Serum or Plasma 14.0 mmol/L 8.0 - 16.0 [facility] AGE 61 yrs [facility] al NON-AA GFR >60 mL/min [facility] ital AFR AMER GFR >60 [facility] Male GFR In terprentation 20-49 yrs >60 mL/min Normal 50-59 yrs >56 mL/min Normal 60-69 yrs >49 mL/min Normal 70-79yrs >42 mL/min Normal 80 and above >35 mL/min Normal Female GFR Interpretation 20-39 yrs >60 mL/min Normal 40-49 yrs >58 mL/min Normal 50-59 yrs >51 mL/min Normal 60-69 yrs >45 mL/min Normal 70-79 yrs >39 mL/min Normal 80 and above >32 mL/min Normal ID Date Data Source [id number] 09/04/2021 01:09:00 PM EDT [facility] Name Value Range Interpretation Code Description Data Mona rce(s) Supporting Document(s) CBC W/AUTOMATED DIFF [facility] COMPLETE BLOOD COUNT Leukocytes [#/volume] in Blood by Automated count 5.7 10^3/uL 4.2 - 1 1.0 [facility] Erythrocytes [#/volume] in Blood by Automated count 4.61 10^6/uL 4. 20 - 5.40 [facility] Hemoglobin [Mass/volume] in Blood 14.7 g/dL 12.0 - 16.0 [facility] Hematocrit [Volume Fraction] of Blood by Automated count 43.8 % 3 7.0 - 47.0 [facility] Erythrocyte mean corpuscular volume [Entitic volume] by Auto mated count 95.0 fL 81.0 - 101 [facility] Erythrocyte mean corpuscular hemoglobin [Entitic mass] by Automated count 31.9 pg 27.0 - 34.0 [facility] Erythrocyte mean corpuscular hemoglobin concentration [Mass/volume] by Automated count 33.6 g/dL 31.0 - 36.0 [facility] Erythrocyte distribution width [Ratio] by Automated count 12.3 % 11.5 - 14.5 [facility] Platelets [#/volume] in Blood by Automated count 187 10^3/uL 150 - 45 0 [facility] Platelet mean volume [Entitic volume] in Blood by Automated count 9.5 fL 7.4 - 10.4 [facility] Neutrophils/100 leukocytes in Blood by Automated count 59.4 % 37. 0 - 80.0 [facility] Lymphocytes/100 leukocytes in Blood by Manual count 27.7 % 25.0 - 40.0 [facility] Monocytes/100 leukocytes in Blood by Automated count 8.8 % 3.0 - 8.0 H [facility] Eosinophils/100 leukocytes in Blood by Automated count 2.8 % 0.0 - 7.0 [facility] Basophils/100 leukocytes in Blood by Automated count 1.1 % 0.0 - 2.5 [facility] %IG 0.2 % 0.0 - 0.0 [facility] %NRBC 0.0 % 0.0 - 0.0 [facility] Neutrophils [#/volume] in Blood by Automated count 3.37 10^3/uL 2.00 - 6.90 [facility] Lymphocytes [#/volume] in Blood by Automated count 1.57 10^3/uL 0.60 - 3.40 [facility] Monocytes [#/volume] in Blood by Automated count 0.50 10^3/uL 0.00 - 0.90 [facility] Eosinophils [#/volume] in Blood by Automated count 0.16 10^3/uL 0.00 - 0.70 [facility] Basophils [#/volume] in Blood by Automated count 0.06 10^3/uL 0.00 - 0.20 [facility] #IG 0.01 10^3/uL 0.00 - 0.10 [facility] #NRBC 0.00 10^3/uL 0.00 - 0.00 [facility] MANUAL DIFF NOT INDICATED [facility] RBC MORPH NOT INDICATED [facility] spital ID Date Data Source [id number] 09/01/2021 11:19:00 AM EDT [facility] [address] [place] [address] PHONE: [phone] FAX: [phone] Name .................. : GRIS CUMMINGS Keisha Acct Number.................. : [id number] ROOM. ................. : VT-26 Number ................... : [id number] Stay type ............. : E/R Discharge Date......... ... : 08/31/21 Admit Date ......... : 08/31/21 Admit Phys .................... : LOW PATE Date of ....... : 1960 Family Phys ................... : ADIEL QUILES Phone .................. : [phone] Age ................................ : 61 Film# .................. .:[id number] Sex ................................. : F Unsigned transcriptions are preliminary reports and do not represent a medical or legal document CHEST 2 VIEWS [id number] COMPLETE:09/01/21 02:58 AML [id number] Reason(s): foreign body sensation in throat x 4 weeks FRONTAL AND LATERAL CHEST 2 VIEWS INDICATION: Foreign body sensation in the throat 4 weeks COMPARISON: 03/29/2019 FINDINGS: Mediastinal and hilar structures are normal. Cardiac silhouette is unremarkable. The lungs are mildly hyperinflated, unchanged. Lung volumes are symmetric. No focal consolidation. No pleural effusions or pneumothorax. Skeletal structures appear intact. No radiopaque foreign bodies. IMPRESSION: COPD. No acute disease. Electronically Reviewed and Signed By Fareed Salter MD , 09/01/21 11:19, JWS Transcribe Initials: JUVE , Transcribe Date: 09/01/21 10:12, Dictation Date: Copy for: ADIEL NEGRON via fax Copy for: EMERGENCY DEPT via modem Copy for: 710 MED REC DISCHARGED Page 1 of 1 Name Value Range Interpretation Code Description Data Mona rce(s) Supporting Document(s) ID Date Data Source [id number] 09/01/2021 11:19:00 AM EDT [facility] [address] [place] [address] PHONE: [phone] FAX: [phone] Name .................. : GRIS Valdes Acct Number.................. : [id number] ROOM. ................. : [facility] MR Number ................... : [id number] Stay type ............. : E/R Discharge Date......... ... : 08/31/21 Admit Date ......... : 08/31/21 Admit Phys .................... : LOW JOLLY Date of ....... : 1960 Family Phys ................... : Waddle Phone . ................. : [phone] Age ................................ : 61 Film# .................. .:[id number] Sex ................................. : F Unsigned transcriptions are preliminary reports and do not represent a medical or legal document NECK SOFT TISSUE [id number] COMPLETE:09/01/21 02:58 [facility] [id number] Reason(s): Pain RADIOGRAPHS SOFT TISSUE OF THE NECK 2 VIEWS HISTORY: Pain. Patient feels something stuck in her throat. COMPARISON: 10/27/2019 FINDINGS: No radiopaque foreign body. No prevertebral soft tissue swelling. No swelling of the epiglottis. Subglottic trachea appears normal. Moderately extensive carotid calcification. Mild disc space narrowing and endplate osteophytes C5-6. IMPRESSION: 1. No foreign body identified. 2. Moderately extensive carotid calcification unchanged. 3. Mild degenerative disc disease C5-6 unchanged. Electronically Reviewed and Signed By Fareed Salter MD , 09/01/21 11:19, JWCatherine Transcribe Initials: JUVE , Transcribe Date: 09/01/21 10:10, Dictation Date: Copy for: ADIEL NEGRON via fax Copy for: EMERGENCY DEPT via modem Copy for: 710 MED REC DISCHARGED Page 1 of 1 Name Value Range Interpretation Code Description Data Mona rce(s) Supporting Document(s) ID Date Data Source [id number] 08/31/2021 08:35:00 PM EDT [facility] 1 OrderSheet [facility] Emergency Department [address] [place] [address] Phone #: [phone] ktk- [phone] 08/31/2021 20:33 Patient: ZOILA HOLGUIN Sex: F : 1960 Age: 61yWEIGHT:59.8 kg HEIGHT:65 inches BMI:22.0ALLERGIES: ValiumCHIEF COMPLAINT: sore throatDIAGNOSIS: Pharyngitis, AnxietyLAB ORDERSOrder Description Priority Entered Acknowledged InitialedDIAGNOSTIC STUDY ORDERSOrder Description Priority Entered Acknowledged InitialedNeck Soft Tissue STAT 21:04 08/31/2021 Ack'd: 21:10 21:25 Alfredo(Oxygen?(No)) Leta Kelsey Ryan Ryan M.D.; Reason for Study: PainChest 2 View STAT 21:04 08/31/2021 Ack'd: 21:10 21:25 Alfredo(Oxygen?(No)) Leta Kelsey Ryan Ryan M.D.; Reason for Study: foreign body sensation in throat x 4 weeksMEDICATION/IV/DRIP/FLUID ORDERSOrder Description Priority Entered Acknowledged InitialedDexamethasone IM 21:04 08/31/2021 21:25 Alfredo10 mg Leta Kelsey M.D.; Reason for ordering with alerts: Clinical consideration given -- 21:04 08/31/2021 Leta Kelsey M.D.Ativan IM 1 mg 21:36 08/31/2021 21:55 Alfredo(HIGH ALERT Leta KelseyMEDICATDIONTE Sandoval; Reason for ordering with alerts: Clinical consideration given -- 21:36 08/31/2021 Leta Kelsey M.D.GENERAL ORDERSOrder Description Priority Entered Acknowledged Initialed[Electronically signed by Jean Fuentes (21:58 08/31/2021)][Electronically signed by Leta Kelsey M.D. (22:42 08/31/2021)][Electronically locked by Jean Fuentes (21:58 08/31/2021)] 2 OrderSheet [facility] Emergency Department [address] [place] [address] Phone #: ext- [phone] 08/31/2021 20:33 Patient: ZOILA HOLGUIN Sex: F : 0 1960 Age: 61y Name Value Range Interpretation Code Description Data Mona rce(s) Supporting Document(s) ID Date Data Source [id number] 08/31/2021 08:35:00 PM EDT [facility] 1 Medication Reconciliation Report [facility] Emergency Department [address] [place] [address] Phone #: ext- [phone] 08/31/2021 20:33 Patient: ZOILA HOLGUIN Sex: F : 1960 Age: 61yWeight: 59.8 kgHeight/Length: 65 in.BMI: 22.0ALLERGIES: ValiumThe patient's Home Medications are listed below:CONTINUE TAKING THE FOLLOWING MEDICATIONS: BP medication DuoNeb Spiriva HandiHaler Inhalation Xanax OralThe source(s) of the original Home Medication information:Not obtained.The following Medications were given to the patient in the Emergency Department:Dexamethasone [IM] IM 10 mg, administered: 21:25 08/31/2021tivan [IM] IM 1 mg, administered: 21:55 08/31/2021The following Medications were prescribed to the patient:None. Name Value Range Interpretation Code Description Data Mona rce(s) Supporting Document(s) ID Date Data Source [id number] 08/31/2021 08:35:00 PM EDT [place] [address] Medication Administration Record [facility] Emergency Department [address] [place] [address] Phone #: ext- [phone] 08/31/2021 20:33 Patient: ZOILA HOLGUIN Sex: F : 1960 Age: 61yWeight: 59.8 kgHeight/Length: 65 inBMI: 22ALLERGIES: Valium Date/Time Medication Administered Medication OrderedGiven DEXAMETHASONE [IM] Dexamethasone IM 10 mg21:25 08/31/2021 Dose: 10 mg Jean Spencer,Given ATIVAN [IM] (LORAZEPAM) Ativan IM 1 mg (HIGH ALERT21:55 08/31/2021 Dose: 1 mg IM MEDICATION)Jean Fuentes, Name Value Range Interpretation Code Description Data Mona rce(s) Supporting Document(s) ID Date Data Source [id number] 08/31/2021 08:35:00 PM EDT [facility] 1 General Instructions [facility] Emergency Department [address] [place] [address] Phone #: ext- [phone] 08/31/2021 20:33 Patient: ZOILA HOLGUIN Sex: F : 1960 Age: 61yChronic pharyngitis.No streptococcal pharyngitis or viral pharyngitis.Anxiety reaction with hyperventilation.Chronic foreign body sensation in throat.INSTRUCTIONS Drink plenty of fluids. Do not smoke. No alcohol. (PLEASE CALL [facility] ENT TOMORROW TO BE SEEN FOR ENDOSCOPY KENNY; MEANWHILE GARGLE WITH SALT WATER OR LISTERINE OR CEPACOL AND USE COOL MIST OFTEN).Warnings: Further evaluation is necessary in order to conduct further tests (ENT).CONTROLLED SUBSTANCE WARNINGS.GENERAL WARNINGS: Return or contact your physician immediately if your condition worsens orchanges unexpectedly, if not improving as expected, or if other problems arise. Specifically return if pa in,vomiting, bleeding, breathing difficulty or fever greater than 102 degrees F and not controlled byacetaminophen or ibuprofen.Your Current Medications: Your current home medications have been reviewed.CONTINUE TAKING THE FOLLOWING MEDICATIONS:BP medication*.DuoNeb*.Spiriva HandiHaler Inhalation.Xanax Oral.Follow-up:Return to the emergency department as needed. Follow up with an ear, nose and throat physician (anotolaryngologist) in two days. Call for an appointment. Reason for referral: evaluation and treatment.Summary of care provided to patient via paper.Understanding of the discharge instructions verbalized by patient. Expected course of illness, dischargeinstructions, activity level, diet, follow-up appointment and risks and benefits of treatment reviewed withpatient and understanding verbalized. Agrees to plan of care.Follow-up with: E[facility], , [id number], [address] [place] [address], ,[place], [address] Follow up in three days even if well. Call for an appointment. Reason for referral: evaluation andtreatment. Summary of care provided to patient via paper. 2 General Instructions [facility] Emergency Department [address] [place] [address] Phone #: ext- [phone] 08/31/2021 20:33 Patient: ZOILA HOLGUIN Sex: F : 1960 Age: 61y ADDITIONAL INFORMATIONAnxiety ReactionAnxiety is the feeling we all get when we think something bad might happen. It is a normal responseto stress and usual ly causes only a mild reaction. When anxiety becomes more severe, itcan interfere with daily life. In some cases, you may not even be aware of what it is you're anxiousabout. There may also be a genetic link or it may be a learned behavior in the home.Both psychological and physical triggers cause stress reaction. It's often a response to fear oremotional stress, real or imagined. This stress may come from home, family, work, or socialrelationships.During an anxiety reaction, you may feel: Helpless Nervous Depressed IrritableYour body may show signs of anxiety in many ways. You may experience: Dry mouth Shakiness Dizziness Weakness Trouble breathing Breathing fast (hyperventilating) Chest pressure Sweating Headache Nausea Diarrhea Tiredness 3 General Instructions [facility] Emergency Department [address] [place] [address] Phone #: ext- [phone] 08/31/2021 20:33 Patient: ZOILA HOLGUIN Sex: F : 1960 Age: 61y Inability to sleep Sexual problemsHome care Try to locate the sources of stress in your life. They may not be obvious. These may include: o Daily hassles of life (such as traffic jams, missed appointments, or car troubles) o Major life changes, both good (new baby or job promotion) and bad (loss of job or loss of loved one) o Overload: feeling that you have too many responsibilities and can't take care of all of them at once o Feeling helpless or feeling that your problems are beyond what you're able to solve Notice how your body reacts to stress. Learn to listen to your body signals. This will help you take action before the stress becomes severe. When you can, do something about the source of your stress. (Avoid hassles, limit the amount of change that happens in your life at one time and take a break when you feel overloaded). Unfortunately, many stressful situations can't be avoided. It is necessary to learn how to better manage stress. There are many proven methods that will reduce your anxiety. These include simple things like exercise, good nutrition, and adequate rest. Also, there are certain techniques that are helpful: o Relaxation o Breathing exercises o Visualization o Biofeedback o MeditationFor more information about this, consult your healthcare provider or go to a local bookstore andreview the many books and tapes available on this subject.Follow-up careIf you feel that your anxiety is not responding to self-help measures, contact your healthcare provideror make an appointment with a counselor. You may need short- term psychological counseling andtemporary medicine to help you manage stress. 4 General Instructions [facility] Emergency Department [address] [place] [address] Phone #: ext- [phone] 08/31/2021 20:33 Patient: ZOILA HOLGUIN Sex: F : 1960 Age: 61yCall 911Call 911 if any of these happen: Trouble breathing Confusion Drowsiness or trouble wakening Fainting or loss of consciousness Rapid heart rate Seizure New chest pain that becomes more severe, lasts longer, or spreads into your shoulder, arm, neck, jaw, or backWhen to seek medical adviceCall your healthcare provider right away if any of these happen: Your symptoms get worse Severe headache not relieved by rest and mild pain reliever [phone] [employer]. [address] [place] [address], [place] [address]. All rights reserved. This information is not intended as asubstitute for professional medical care. Always follow your healthcare professional's instructions. You have been given the following additional information: Anxiety Reaction(Electronically signed by Leta Kelsey M.D. 08/31/2021 22:42) Name Value Range Interpretation Code Description Data Mona rce(s) Supporting Document(s) ID Date Data Source [id number] 08/31/2021 08:35:00 PM EDT [facility] 1 Clinical Report - Nurses [facility] Emergency Department [address] [place] [address] Phone #: ext- [phone] 08/31/2021 20:33 Patient: ZOILA HOLGUIN Sex: F : 1960 Age: 61yTRIAGEArrived by private vehicle. Historian: patient.Acuity: LEVEL 4.Chief Complaint: FORIEGN BODY SENSATION IN THROAT.Onset. (4 weeks). ( Saw PCP Dr. Chun yesterday for FB sensation in throat x4 weeks. Hasn't seen ENTyet.). She has had sinus pain. No enlarged lymph nodes. --20:44 08/31/21 Queta Roe R.N.20:44 08/31/21. BP: 156/94. MAP: 114. HR: 95. RR: 20. O2 saturation: 96%. Temp: 98.5 F. Pain levelnow: 0/10. --20:45 08/31/21 Queta Roe R.N.Weight: 59.8 kg. Height/Length: 65 inches. BMI: 22. --20:42 08/31/21 Queta Roe R.N.MedicationsDuoNeb. --20:43 08/31/21 Queta Roe R.N. Spiriva HandiHaler Inhalation. --20:43 08/31/21 Queta Roe R.N. BP medication. --20:43 08/31/21 Queta Roe R.N. Xanax Oral. --21:37 08/31/21 Leta Kelsey M.D.AllergiesValium. --20:41 08/31/21 Queta Roe R.N.PROBLEMS:Emphysema.Herpes Zoster.Anxiety Reaction.Pneumonia.Heart Disease.Gastroesophageal Reflux Disease. --20:43 08/31/21 Queta Roe R.N.The following entry was modified by Queta Roe R.N., 20:43 08/31/21Asthma. --20:42 08/31/21 Queta Roe R.N.The following entry was modified by Queta Roe R.N., 20:43 08/31/21Hypertension. --20:42 08/31/21 Queta Roe R.N.The following entry was modified by Queta Roe R.N., 20:43 08/31/21COPD - Chronic Obstructive Pulmonary Disease. --20:41 08/31/21 Queta Roe R.N..ADDITIONAL SURGERIES:Bowel resection. 2 Clinical Report - Nurses [facility] Emergency Department [address] [place] [address] Phone #: ext- [phone] 08/31/2021 20:33 Patient: ZOILA HOLGUIN Sex: F : 1960 Age: 61y Bowel Surgery. Carpal Tunnel Surgery (Bilateral). Laparoscopy. Tonsillectomy. Tubal Ligation. --20:43 08/31/21 Queta Roe R.N. History SOCIAL HX: Former smoker. Occasional alcohol use. No drug use. Recent travel- ([place] 2 weeks ago). She was offered HIV testing but declined and hepatitis C testing but declined. She has not traveled outside the [place] Infectious disease exposure: No infectious disease exposure. The patient was not exposed to Coronavirus. SELF HARM ASSESSMENT: Self harm assessment was performed. The patient answered "no" to the question(s) "Have you recently felt down, depressed, or hopeless?" and "Have you recently had thoughts about harming or killing others?". ABUSE ASSESSMENT: Abuse history: reports abuse. NUTRITIONAL RISK ASSESSMENT: The nutritional risk assessment revealed no deficiencies. FUNCTIONAL ASSESSMENT: Functional assessment: no impairments noted. LEARNING NEEDS ASSESSMENT: The learning needs assessment revealed no barriers. FALL RISK ASSESSMENT: Fall risk assessment completed. No risk factors identified. SKIN INTEGRITY ASSESSMENT: Skin integrity risk assessment completed. No skin integrity risk identified. --20:08/31/21 Queta Roe, RPhuN. Interventions Identification band on patient. To treatment room. --:08/31/21 Queta Roe RPhuNPhuPHYSICAL ASSESSMENTGENERAL / NEURO / PSYCH: Alert. Oriented X 4. Appears anxious.HEENT: Generalized pharyngeal erythema. Voice within normal limits. No tonsillar exudate. No troublehandling secretions. Mouth within normal limits upon inspection. No dental injury noted. Mucousmembranes are pink.RESPIRATORY: Respirations not labored.CVS: Capillary refill less than 2 seconds.SKIN: Skin is warm and dry. Normal skin turgor. --21:03 08/31/21 Jean Fuentes.NURSING PROGRESS NOTES21:25 08/31/2021 Dexamethasone IM 10 mg given. Given in the right ventral gluteus. --21:25 08/31/21Jean Fuentes 3 Clinical Report - Nurses [facility] Emergency Department [address] [place] [address] Phone #: ext- [phone] 08/31/2021 20:33 Patient: ZOILA HOLGUIN Sex: F : 1960 Age: 61y 21:55 08/31/2021 Ativan (LORazepam) IM 1 mg given. Given in the right ventral gluteus. Allergies verified and confirmed 5 rights. Information reviewed with jayne lees including reason for taking this medication, signs of allergic reaction, precautions and sedative warning. Verbalizes understanding. --21:55 08/31/21 Jean Fuentes.DISPOSITION / DISCHARGE Departure time: 21:58 08/31/2021. Condition at departure: unchanged and stable. No learning barriers present. Discharge instructions provided and reviewed with the patient. Reviewed referral to an ear, nose, and throat specialist (administrative law judge) and a primary care physician for followup. Reviewed need for increased fluid intake. Patient verbalized understanding. Written instructions provided in [place]. No warning instructions, medication instructions, treatment instructions, activity restrictions or note given. No follow up contact number given or stop smoking instructions. The patient was discharged by the physician. She was discharged home and accompanied by family. She left ambulatory and via private vehicle. Family member driving. --21:58 08/31/21 Jean Fuentes 21:57 08/31/21. BP: deferred. HR: deferred. RR: deferred. O2 saturation: deferred. Temp: deferred. Pain level now deferred. --21:58 08/31/21 Jean Fuentes.Locked/Released at 08/31/2021 21:58 by Jean Fuentes Name Value Range Interpretation Code Description Data Mona rce(s) Supporting Document(s) ID Date Data Source [id number] 08/31/2021 08:35:00 PM EDT [facility] 1 Clinical Report - Physicians/Mid Levels [facility] Emergency Department [address] [place] [address] Phone #: ext- [phone] 08/31/2021 20:33 Patient: ZOILA HOLGUIN Sex: F : 1960 Age: 61y Time Seen: 20:49 08/31/2021; initial patient contact. Arrived- By private vehicle. Historian- patient. Disposition decision: 21:41 08/31/2021.HISTORY OF PRESENT ILLNESS Chief Complaint: SORE THROAT. foreign body sensation in throat. This started x 3-4 weeks and is still present. It was gradual in onset and has been constant. Pain described as moderate. The patient has had a sore throat. No mouth sores, nasal discharge or congestion, ear pain or toothache. No swollen jaw or face, jaw pain or facial pain. (pt had foreign body sensation in throat 3-4 weeks ago while in [place]; went to local ER; pt has been taking benadryl every day; pt saw her [employer] SUPERVISOR today and has referral to ENT; pt requesting imaging studies and is convinced she has cancer; pt has no voice change; pt points to the trachea as source of problem). Similar symptoms previously. Recent medical care: The patient was seen recently in the office. ( today).REVIEW OF SYSTEMSNo fever, eye discomfort, cough, difficulty breathing or chest pain. No nausea, diarrhea, abdominal pain,difficulty with urination or headache. No fainting episodes, joint pain, skin rash, enlarged lymph nodes orvomiting. All other systems reviewed and are negative.PAST HISTORYSee nurses notes. Problems: Myocardial Infarction. Asthma. Hypertension. Recent Travel. Emphysema. Herpes Zoster. Anxiety Reaction. Pneumonia. Heart Disease. Gastroesophageal Reflux Disease. 2 Clinical Report - Physicians/Mid Levels [facility] Emergency Department [address] [place] [address] Phone #: ext- [phone] 08/31/2021 20:33 Patient: ZOILA HOLGUIN Sex: F : 1960 Age: 61y Additional Surgeries: Bowel resection. Bowel Surgery. Carpal Tunnel Surgery. (Bilateral) Laparoscopy. PTCA - Percutaneous Transluminal Coronary Angioplasty [2005]. Tonsillectomy. Tubal Ligation. Medications: Xanax Oral. BP medication. Spiriva HandiHaler Inhalation. DuoNeb. Allergies: Valium.SOCIAL HISTORYFormer smoker, end date 2004. Occasional alcohol use. No drug use. No recent travel.ADDITIONAL NOTESThe nursing notes have been reviewed with agreement regarding the chief complaint, HPI, ROS, PMH andpatient medications and allergies.PHYSICAL EXAMVital Signs: 08/31/2021 20:44 BP: 156/94. MAP: 114. HR: 95. RR: 20. O2 saturation: 96%. Temp: 98.5 F.Pain level now: 0/10. Have been reviewed. Oxygen saturation normal.Appearance: Alert. No acute distress. Anxious.Head: Normal external inspection.Eyes: Pupils equal, round and reactive to light. Conjunctivae and eyelids normal.ENT: Ears normal. Nose normal. Pharynx normal. Lips normal. Gums normal. No trismus present.Uvula midline.Neck: Normal inspection. Trachea midline. No adenopathy. Thyroid normal. Neck supple. Nolymphadenopathy.CVS: Normal heart rate and rhythm. Heart sounds normal. Pulses normal.Respiratory: No respiratory distress. Painless inspiration. Breath sounds normal. Chest nontender.Abdomen: Soft and nontender. No organomegaly.Skin: Normal skin color. No rash. Normal skin turgor.Extremities: Extremities exhibit normal ROM. Extremities nontender.Neuro: Oriented X 3. No motor deficit. No sensory deficit.LABS, X-RAYS, AND EKGSoft Tissue Neck X-rays: No acute findings. Views: lateral and bev-posterior. Technique: good. 3 Clinical Report - Physicians/Mid Levels [facility] Emergency Department [address] [place] [address] Phone #: ext- [phone] 08/31/2021 20:33 Patient: ZOILA HOLGUIN Sex: F : 1960 Age: 61y The X-rays were interpreted contemporaneously by me. Interpretation time: 21:38 08/31/2021. Chest X-ray: No acute disease. (COPD). Views: PA and lateral. Technique: good. The X-rays were interpreted contemporaneously by me. Interpretation time: 21:37 08/31/2021.PROGRESS AND PROCEDURESCourse of Care: 21:38 08/31/21. CXR and ST neck x-rays are nml, no mass noted; pt has had this throatirritation, FB sensation x 4 weeks, pt is very anxious, will give dexamethasone and ativan im in ER; ptknows she needs to see ENT KENNY for endoscopy; pt will call tomorrow; d/c instructions given, ptunderstands and agrees. Patient counseled in person regarding the patient's stable condition, test results, diagnosis and need for follow-up. Patient agrees with plan of care. Disposition: Condition: good and stable. Discharge decision based on the following: patient's condition is stable; patient's condition is improved; patient is ambulatory; patient is active; patient drinking fluids; patient eating; patient's pain is controlled; patient's exam is improved; improving condition on repeat evaluation; social support is good; transportation is available; follow-up is available; clinical impression is consistent with outpatient treatment.CLINICAL IMPRESSION Chronic pharyngitis.No streptococcal pharyngitis or viral pharyngitis. Anxiety reaction with hyperventilation. Chronic foreign body sensation in throat.INSTRUCTIONS Drink plenty of fluids. Do not smoke. No alcohol. (PLEASE CALL [facility] ENT TOMORROW TO BE SEEN FOR ENDOSCOPY KENNY; MEANWHILE GARGLE WITH SALT WATER OR LISTERINE OR CEPACOL AND USE COOL MIST OFTEN). Warnings: Further evaluation is necessary in order to conduct further tests (ENT). CONTROLLED SUBSTANCE WARNINGS. GENERAL WARNINGS: Return or contact your physician immediately if your condition worsens or changes unexpectedly, if not improving as expected, or if other problems arise. Specifically return if pain, vomiting, bleeding, breathing difficulty or fever greater than 102 degrees F and not controlled by acetaminophen or ibuprofen. Your Current Medications: Your current home medications have been reviewed. CONTINUE TAKING THE FOLLOWING MEDICATIONS: BP medication*. 4 Clinical Report - Physicians/Mid Levels [facility] Emergency Department [address] [place] [address] Phone #: ext- [phone] 08/31/2021 20:33 Patient: ZOILA HOLGUIN [facility]#: [id number] Sex: F : 1960 Age: 61y DuoNeb*. Spiriva HandiHaler Inhalation. Xanax Oral. Follow-up: Return to the emergency department as needed. Follow up with an ear, nose and throat physician (an administrative law judge) in two days. Call for an appointment. Reason for referral: evaluation and treatment. Summary of care provided to patient via paper. Understanding of the discharge instructions verbalized by patient. Expected course of illness, discharge instructions, activity level, diet, follow-up appointment and risks and benefits of treatment reviewed with patient and understanding verbalized. Agrees to plan of care. Follow-up with: [facility], , [id number], [address] [place] [address], [id number] Follow up in three days even if well. Call for an appointment. Reason for referral: evaluation and treatment. Summary of care provided to patient via paper.(Electronically signed by Leta Kelsey M.D. 08/31/2021 22:42) Name Value Range Interpretation Code Description Data [facility](s) Supporting Document(s) ID Date Data Source [id number] 04/08/2021 11:52:00 AM EDT [facility] Name Value Range Interpretation Code Description Data [facility](s) Supporting Document(s) RBC 4.24 10^6/uL 4.20-5.40 [facility] CBC W/Automated Diff Laboratory test result [facility] ([facility] COMPLETE BLOOD COUNT WBC 4.9 10^3/uL 4.2-11.0 [facility] Hematocrit 40.7 % 37.0-47.0 [facility] ([facility] Hemoglobin 13.3 g/dL 12.0-16.0 [facility] MCH 31.4 pg 27.0-34.0 [facility] MCV 96.0 fL 81.0-101 [facility] RDW 12.5 % 11.5-14.5 [facility] MCHC 32.7 g/dL 31.0-36.0 [facility] Neut 51.9 % 37.0-80.0 [facility] Platelets 141 10^3/uL 150-450 Below low normal [facility] MPV 11.4 fL 7.4-10.4 Above high normal [facility] ([facility] Eos 1.0 % 0.0-7.0 [facility] Lymph 30.8 % 25.0-40.0 [facility] [place] 14.7 % 3.0-8.0 Above high normal [facility] ([facility] Baso 1.4 % 0.0-2.5 [facility] %Ig 0.2 % 0.0-0.0 Above high normal [facility] ([facility] #Lymph 1.51 10^3/uL 0.60-3.40 [facility] %NRBC 0.0 % 0.0-0.0 [facility] #Neut 2.55 10^3/uL 2.00-6.90 [facility] #Eos 0.05 10^3/uL 0.00-0.70 [facility] #Baso 0.07 10^3/uL 0.00-0.20 [facility] #[place] 0.72 10^3/uL 0.00-0.90 [facility] ([facility] #Ig 0.01 10^3/uL 0.00-0.10 [facility] ([facility] #NRBC 0.00 10^3/uL 0.00-0.00 [facility] ([facility] Manual Diff Laboratory test result M JUAN C ([facility] RBC Morph Laboratory test result ME DORY ([facility] ID Date Data Source [id number] 04/08/2021 06:46:00 PM EDT [facility] Name Value Range Interpretation Code Description Data Mona rce(s) Supporting Document(s) CBC W/AUTOMATED DIFF [facility] COMPLETE BLOOD COUNT Leukocytes [#/volume] in Blood by Automated count 4.9 10^3/uL 4.2 - 1 1.0 [facility] Erythrocytes [#/volume] in Blood by Automated count 4.24 10^6/uL 4. 20 - 5.40 [facility] Hemoglobin [Mass/volume] in Blood 13.3 g/dL 12.0 - 16.0 [facility] Hematocrit [Volume Fraction] of Blood by Automated count 40.7 % 3 7.0 - 47.0 [facility] Erythrocyte mean corpuscular volume [Entitic volume] by Auto mated count 96.0 fL 81.0 - 101 [facility] Erythrocyte mean corpuscular hemoglobin [Entitic mass] by Automated count 31.4 pg 27.0 - 34.0 [facility] Erythrocyte mean corpuscular hemoglobin concentration [Mass/volume] by Automated count 32.7 g/dL 31.0 - 36.0 [facility] Erythrocyte distribution width [Ratio] by Automated count 12.5 % 11.5 - 14.5 [facility] Platelets [#/volume] in Blood by Automated count 141 10^3/uL 150 - 45 0 L [facility] Platelet mean volume [Entitic volume] in Blood by Automated count 11.4 fL 7.4 - 10.4 H [facility] Neutrophils/100 leukocytes in Blood by Automated count 51.9 % 37. 0 - 80.0 [facility] Lymphocytes/100 leukocytes in Blood by Manual count 30.8 % 25.0 - 40.0 [facility] Monocytes/100 leukocytes in Blood by Automated count 14.7 % 3.0 - 8.0 H [facility] Eosinophils/100 leukocytes in Blood by Automated count 1.0 % 0.0 - 7.0 [facility] Basophils/100 leukocytes in Blood by Automated count 1.4 % 0.0 - 2.5 [facility] %IG 0.2 % 0.0 - 0.0 H [facility] %NRBC 0.0 % 0.0 - 0.0 [facility] Neutrophils [#/volume] in Blood by Automated count 2.55 10^3/uL 2.00 - 6.90 [facility] Lymphocytes [#/volume] in Blood by Automated count 1.51 10^3/uL 0.60 - 3.40 [facility] Monocytes [#/volume] in Blood by Automated count 0.72 10^3/uL 0.00 - 0.90 [facility] Eosinophils [#/volume] in Blood by Automated count 0.05 10^3/uL 0.00 - 0.70 [facility] Basophils [#/volume] in Blood by Automated count 0.07 10^3/uL 0.00 - 0.20 [facility] #IG 0.01 10^3/uL 0.00 - 0.10 [facility] #NRBC 0.00 10^3/uL 0.00 - 0.00 [facility] MANUAL DIFF NOT INDICATED [facility] RBC MORPH NOT INDICATED [facility] spital ID Date Data Source [id number] 03/16/2021 04:21:00 PM EDT [facility] ([facility] Name Value Range Interpretation Code Description Data Mona rce(s) Supporting Document(s) CRP (High Sensitivity) 0.26 mg/L 1.00-3.00 Below low normal [facility] ([facility] <content>CDC/S HS-CRP CUT-OFF: RELATIVE RISK:</content>
<content><1.0 mg/L Low</content>
<content>1.0 - 3.0 mg/L Average</karlie nt>
<content>>3.0 mg/L High</content>
<content>Optimally, the average of HS-CRP results repeated</content>
<content>two weeks apart should be used for risk assessment.</content>
<content></content> ID Date Data Source [id number] 03/16/2021 04:21:00 PM EDT [facility] ([facility] Name Value Range Interpretation Code Description Data Mona rce(s) Supporting Document(s) Sed Rate 43 mm/hr 0-30 Above high normal [facility] ([facility] Sed Rate Reenter 43 [facility] ([facility] ID Date Data Source [id number] 03/16/2021 04:21:00 PM EDT [facility] ([facility] Name Value Range Interpretation Code Description Data Mona rce(s) Supporting Document(s) CBC W/Automated Diff Laboratory test result [facility] ([facility] COMPLETE BLOOD COUNT WBC 6.2 10^3/uL 4.2-11.0 [facility] (Count includes the [facility] RBC 4.12 10^6/uL 4.20-5.40 Below low normal [facility] ([facility] Hemoglobin 13.2 g/dL 12.0-16.0 [facility] ([facility] Hematocrit 38.9 % 37.0-47.0 [facility] ([facility] MCV 94.4 fL 81.0-101 [facility] ([facility] RDW 12.1 % 11.5-14.5 [facility] ([facility] MCH 32.0 pg 27.0-34.0 [facility] ([facility] MCHC 33.9 g/dL 31.0-36.0 [facility] ([facility] MPV 12.0 fL 7.4-10.4 Above high normal [facility] ([facility] Platelets 159 10^3/uL 150-450 [facility] Lymph 36.0 % 25.0-40.0 [facility] Neut 51.3 % 37.0-80.0 [facility] Baso 1.1 % 0.0-2.5 [facility] [place] 9.3 % 3.0-8.0 Above high normal [facility] ([facility] Eos 2.1 % 0.0-7.0 [facility] ([facility] %NRBC 0.0 % 0.0-0.0 [facility] %Ig 0.2 % 0.0-0.0 Above high normal [facility] ([facility] #Neut 3.20 10^3/uL 2.00-6.90 [facility] #[place] 0.58 10^3/uL 0.00-0.90 [facility] #Eos 0.13 10^3/uL 0.00-0.70 [facility] #Lymph 2.24 10^3/uL 0.60-3.40 [facility] ([facility] #NRBC 0.00 10^3/uL 0.00-0.00 [facility] #Baso 0.07 10^3/uL 0.00-0.20 [facility] ([facility] #Ig 0.01 10^3/uL 0.00-0.10 [facility] Manual Diff Laboratory test result M JUAN C ([facility] RBC Morph Laboratory test result ME DORY ([facility] ID Date Data Source [id number] 03/17/2021 01:00:00 PM EDT [facility] Name Value Range Interpretation Code Description Data Mona rce(s) Supporting Document(s) C reactive protein [Mass/volume] in Serum or Plasma by High sensitivity method 0.26 MG/L 1.00 - 3.00 L [facility]/S HS-CRP CUT-OFF: RELATIVE RISK: <1.0 mg/L Low 1.0 - 3.0 mg/L Average >3.0 mg/L High Optimally, the average of HS-CRP results repeated two weeks apart should be used for risk assessment. ID Date Data Source [id number] 03/17/2021 12:56:00 PM EDT [facility] Name Value Range Interpretation Code Description Data Mona rce(s) Supporting Document(s) Erythrocyte sedimentation rate by Westergren method 43 mm/hr 0 - 30 H [facility] SED RATE REENTER 43 [facility] ID Date Data Source [id number] 03/17/2021 12:25:00 PM EDT [facility] Name Value Range Interpretation Code Description Data Mona rce(s) Supporting Document(s) CBC W/AUTOMATED DIFF [facility] COMPLETE BLOOD COUNT Leukocytes [#/volume] in Blood by Automated count 6.2 10^3/uL 4.2 - 1 1.0 [facility] Erythrocytes [#/volume] in Blood by Automated count 4.12 10^6/uL 4. 20 - 5.40 L [facility] Hemoglobin [Mass/volume] in Blood 13.2 g/dL 12.0 - 16.0 [facility] Hematocrit [Volume Fraction] of Blood by Automated count 38.9 % 3 7.0 - 47.0 [facility] Erythrocyte mean corpuscular volume [Entitic volume] by Auto mated count 94.4 fL 81.0 - 101 [facility] Erythrocyte mean corpuscular hemoglobin [Entitic mass] by Automated count 32.0 pg 27.0 - 34.0 [facility] Erythrocyte mean corpuscular hemoglobin concentration [Mass/volume] by Automated count 33.9 g/dL 31.0 - 36.0 [facility] Erythrocyte distribution width [Ratio] by Automated count 12.1 % 11.5 - 14.5 [facility] Platelets [#/volume] in Blood by Automated count 159 10^3/uL 150 - 45 0 [facility] Platelet mean volume [Entitic volume] in Blood by Automated count 12.0 fL 7.4 - 10.4 H [facility] Neutrophils/100 leukocytes in Blood by Automated count 51.3 % 37. 0 - 80.0 [facility] Lymphocytes/100 leukocytes in Blood by Manual count 36.0 % 25.0 - 40.0 [facility] Monocytes/100 leukocytes in Blood by Automated count 9.3 % 3.0 - 8.0 H [facility] Eosinophils/100 leukocytes in Blood by Automated count 2.1 % 0.0 - 7.0 [facility] Basophils/100 leukocytes in Blood by Automated count 1.1 % 0.0 - 2.5 [facility] %IG 0.2 % 0.0 - 0.0 H [facility] %NRBC 0.0 % 0.0 - 0.0 [facility] al Neutrophils [#/volume] in Blood by Automated count 3.20 10^3/uL 2.00 - 6.90 [facility] Lymphocytes [#/volume] in Blood by Automated count 2.24 10^3/uL 0.60 - 3.40 [facility] Monocytes [#/volume] in Blood by Automated count 0.58 10^3/uL 0.00 - 0.90 [facility] Eosinophils [#/volume] in Blood by Automated count 0.13 10^3/uL 0.00 - 0.70 [facility] Basophils [#/volume] in Blood by Automated count 0.07 10^3/uL 0.00 - 0.20 [facility] #IG 0.01 10^3/uL 0.00 - 0.10 [facility] #NRBC 0.00 10^3/uL 0.00 - 0.00 [facility] MANUAL DIFF NOT INDICATED [facility] RBC MORPH NOT INDICATED [facility] spital ID Date Data Source [id number] 03/16/2021 04:21:00 PM EDT [facility] ([facility] Name Value Range Interpretation Code Description Data Mona rce(s) Supporting Document(s) Erythrocyte sedimentation rate by Westergren method Laboratory test result [facility] ([facility] C reactive protein [Mass/volume] in Serum or Plasma Laboratory test result [facility] ([facility] ID Date Data Source [id number] 03/07/2021 11:20:00 AM EDT [facility] ([facility] Name Value Range Interpretation Code Description Data Mona rce(s) Supporting Document(s) Creatine kinase [Enzymatic activity/volume] in Serum or Plasma 96 U /L 30-170 [facility] ([facility] Is patient fasting? Y ID Date Data Source [id number] 03/07/2021 11:20:00 AM EDT [facility] ([facility] Name Value Range Interpretation Code Description Data Mona rce(s) Supporting Document(s) Comprehensive Metabo Laboratory test result [facility] ([facility] Is patient fasting? Y Sodium 140 meq/L 134-153 [facility] ([facility] Is patient fasting? Y Potassium 4.3 meq/L 3.6-5.0 [facility] ([facility] Is patient fasting? Y Glucose 99 mg/dL 70-99 [facility] ([facility] Is patient fasting? Y Co2 28 meq/L 22-30 [facility] ([facility] Is patient fasting? Y Chloride 103 meq/L 98-107 [facility] Is patient fasting? Y Creatinine 0.6 mg/dL 0.7-1.5 Below low normal [facility] ( [facility] Is patient fasting? Y BUN 13 mg/dL 7-21 [facility] ([facility] Is patient fasting? Y Total Protein 8.3 g/dL 6.3-8.2 Above high normal MEDE NT ([facility] Is patient fasting? Y Albumin 4.6 g/dL 3.9-5.0 [facility] ([facility] Is patient fasting? Y BUN/Creat 22 8-27 [facility] ([facility] Is patient fasting? Y A/G Ratio 1.2 0.8-2.0 [facility] ([facility] Is patient fasting? Y Calcium 10.0 mg/dL 8.4-10.2 [facility] ([facility] Is patient fasting? Y Globulin 3.7 GM/DL 2.4-3.2 Above high normal [facility] ([facility] Is patient fasting? Y Alkaline Phos 105 U/L 38-126 [facility] Is patient fasting? Y Sgot/Ast 82 U/L 5-40 Above high normal [facility] ([facility] Is patient fasting? Y Total Bili Laboratory test result 0.2-1.3 ME CONNORS ([facility] Is patient fasting? Y SGPT/Alt 94 U/L 7-56 Above high normal [facility] ([facility] Is patient fasting? Y Anion Gap 9.0 mmol/L 8.0-16.0 [facility] ([facility] Is patient fasting? Y Age 60 yrs [facility] ([facility] Is patient fasting? Y Non-Aa GFR Laboratory test result ME DENT ([facility] Is patient fasting? Y Afr Amer GFR Laboratory test result [facility] ([facility] Is patient fasting? Y ID Date Data Source [id number] 03/07/2021 11:20:00 AM EDT [facility] ([facility] Name Value Range Interpretation Code Description Data Mona rce(s) Supporting Document(s) CBC W/Automated Diff Laboratory test result [facility] ([facility] Is patient fasting? Y WBC 5.6 10^3/uL 4.2-11.0 [facility] Is patient fasting? Y RBC 4.38 10^6/uL 4.20-5.40 [facility] ([facility] Is patient fasting? Y Hemoglobin 14.0 g/dL 12.0-16.0 [facility] ([facility] Is patient fasting? Y Hematocrit 41.9 % 37.0-47.0 [facility] ([facility] Is patient fasting? Y MCV 95.7 fL 81.0-101 [facility] ([facility] Is patient fasting? Y MCH 32.0 pg 27.0-34.0 [facility] ([facility] Is patient fasting? Y MCHC 33.4 g/dL 31.0-36.0 [facility] ([facility] Is patient fasting? Y RDW 12.6 % 11.5-14.5 [facility] ([facility] Is patient fasting? Y MPV 12.6 fL 7.4-10.4 Above high normal [facility] ([facility] Is patient fasting? Y Neut 60.7 % 37.0-80.0 [facility] ([facility] Is patient fasting? Y Platelets 83 10^3/uL 150-450 Below low normal [facility] ( [facility] Is patient fasting? Y [place] 10.4 % 3.0-8.0 Above high normal [facility] ([facility] Is patient fasting? Y Eos 0.9 % 0.0-7.0 [facility] ([facility] Is patient fasting? Y Lymph 26.9 % 25.0-40.0 [facility] ([facility] Is patient fasting? Y Baso 0.9 % 0.0-2.5 [facility] ([facility] Is patient fasting? Y %Ig 0.2 % 0.0-0.0 Above high normal [facility] ([facility] Is patient fasting? Y #Neut 3.39 10^3/uL 2.00-6.90 [facility] Is patient fasting? Y #Lymph 1.50 10^3/uL 0.60-3.40 [facility] Is patient fasting? Y %NRBC 0.0 % 0.0-0.0 [facility] Is patient fasting? Y #Eos 0.05 10^3/uL 0.00-0.70 [facility] ([facility] Is patient fasting? Y #[place] 0.58 10^3/uL 0.00-0.90 [facility] ([facility] Is patient fasting? Y #Baso 0.05 10^3/uL 0.00-0.20 [facility] Is patient fasting? Y #NRBC 0.00 10^3/uL 0.00-0.00 [facility] ([facility] Is patient fasting? Y #Ig 0.01 10^3/uL 0.00-0.10 [facility] Is patient fasting? Y Manual Diff Laboratory test result M EDENT ([facility] Is patient fasting? Y RBC Morph Laboratory test result ME DENT ([facility] Is patient fasting? Y ID Date Data Source [id number] 03/07/2021 06:45:00 PM EDT [facility] Name Value Range Interpretation Code Description Data Mona rce(s) Supporting Document(s) COMPREHENSIVE METABOLIC PANEL [facility] COMPREHENSIVE METABOLIC PANEL Sodium [Moles/volume] in Serum or Plasma 140 mEq/L 134 - 153 [facility] Potassium [Moles/volume] in Serum or Plasma 4.3 mEq/L 3.6 - 5.0 [facility] Chloride [Moles/volume] in Serum or Plasma 103 mEq/L 98 - 107 [facility] Carbon dioxide, total [Moles/volume] in Serum or Plasma 28 MEQ/L 22 - 30 [facility] Glucose [Mass/volume] in Serum or Plasma 99 MG/DL 70 - 99 [facility] BUN 13 MG/DL 7 - 21 [facility] Creatinine [Mass/volume] in Serum or Plasma 0.6 MG/DL 0.7 - 1.5 L [facility] BUN/CREAT 22 8 - 27 [facility] al Protein [Mass/volume] in Serum or Plasma 8.3 G/DL 6.3 - 8.2 H [facility] Albumin [Mass/volume] in Serum or Plasma 4.6 G/DL 3.9 - 5.0 [facility] Globulin [Mass/volume] in Serum by calculation 3.7 GM/DL 2.4 - 3.2 H [facility] A/G RATIO 1.2 0.8 - 2.0 [facility] Calcium [Mass/volume] in Serum or Plasma 10.0 MG/DL 8.4 - 10.2 [facility] Bilirubin.total [Mass/volume] in Serum or Plasma <0.7 MG/DL 0.2 - 1.3 [facility] Alkaline phosphatase [Enzymatic activity/volume] in Serum or Plasma 105 U/L 38 - 126 [facility] Aspartate aminotransferase [Enzymatic activity/volume] in Serum or Plasma 82 U/L 5 - 40 H [facility] Alanine aminotransferase [Enzymatic activity/volume] in Seru m or Plasma 94 U/L 7 - 56 H [facility] Anion gap 3 in Serum or Plasma 9.0 mmol/L 8.0 - 16.0 [facility] AGE 60 yrs [facility] al NON-AA GFR >60 mL/min [facility] ital AFR AMER GFR >60 [facility] Male GFR In terprentation 20-49 yrs >60 mL/min Normal 50-59 yrs >56 mL/min Normal 60-69 yrs >49 mL/min Normal 70-79yrs >42 mL/min Normal 80 and above >35 mL/min Normal Female GFR Interpretation 20-39 yrs >60 mL/min Normal 40-49 yrs >58 mL/min Normal 50-59 yrs >51 mL/min Normal 60-69 yrs >45 mL/min Normal 70-79 yrs >39 mL/min Normal 80 and above >32 mL/min Normal ID Date Data Source [id number] 03/07/2021 06:43:00 PM EDT [facility] Name Value Range Interpretation Code Description Data Mona rce(s) Supporting Document(s) CBC W/AUTOMATED DIFF [facility] COMPLETE BLOOD COUNT Leukocytes [#/volume] in Blood by Automated count 5.6 10^3/uL 4.2 - 1 1.0 [facility] Erythrocytes [#/volume] in Blood by Automated count 4.38 10^6/uL 4. 20 - 5.40 [facility] Hemoglobin [Mass/volume] in Blood 14.0 g/dL 12.0 - 16.0 [facility] Hematocrit [Volume Fraction] of Blood by Automated count 41.9 % 3 7.0 - 47.0 [facility] Erythrocyte mean corpuscular volume [Entitic volume] by Auto mated count 95.7 fL 81.0 - 101 [facility] Erythrocyte mean corpuscular hemoglobin [Entitic mass] by Automated count 32.0 pg 27.0 - 34.0 [facility] Erythrocyte mean corpuscular hemoglobin concentration [Mass/volume] by Automated count 33.4 g/dL 31.0 - 36.0 [facility] Erythrocyte distribution width [Ratio] by Automated count 12.6 % 11.5 - 14.5 [facility] Platelets [#/volume] in Blood by Automated count 83 10^3/uL 150 - 450 L [facility] Platelet mean volume [Entitic volume] in Blood by Automated count 12.6 fL 7.4 - 10.4 H [facility] Neutrophils/100 leukocytes in Blood by Automated count 60.7 % 37. 0 - 80.0 [facility] Lymphocytes/100 leukocytes in Blood by Manual count 26.9 % 25.0 - 40.0 [facility] Monocytes/100 leukocytes in Blood by Automated count 10.4 % 3.0 - 8.0 H [facility] Eosinophils/100 leukocytes in Blood by Automated count 0.9 % 0.0 - 7.0 [facility] Basophils/100 leukocytes in Blood by Automated count 0.9 % 0.0 - 2.5 [facility] %IG 0.2 % 0.0 - 0.0 [facility] %[facility] 0.0 % 0.0 - 0.0 [facility] al Neutrophils [#/volume] in Blood by Automated count 3.39 10^3/uL 2.00 - 6.90 [facility] Lymphocytes [#/volume] in Blood by Automated count 1.50 10^3/uL 0.60 - 3.40 [facility] Monocytes [#/volume] in Blood by Automated count 0.58 10^3/uL 0.00 - 0.90 [facility] Eosinophils [#/volume] in Blood by Automated count 0.05 10^3/uL 0.00 - 0.70 [facility] Basophils [#/volume] in Blood by Automated count 0.05 10^3/uL 0.00 - 0.20 [facility] #IG 0.01 10^3/uL 0.00 - 0.10 [facility] #NRBC 0.00 10^3/uL 0.00 - 0.00 [facility] MANUAL DIFF NOT INDICATED [facility] RBC MORPH NOT INDICATED [facility] spital ID Date Data Source [id number] 03/07/2021 06:38:00 PM EDT [facility] Name Value Range Interpretation Code Description Data Mona rce(s) Supporting Document(s) Creatine kinase [Enzymatic activity/volume] in Serum or Plasma 9 6 U/L 30 - 170 [facility] ID Date Data Source [id number] 12/14/2020 02:41:00 PM EST [facility] ([facility] Name Value Range Interpretation Code Description Data Mona rce(s) Supporting Document(s) Nuclear Ab [Titer] in Serum by Immunofluorescence Laboratory test res ult [facility] ([facility] <content>Negative <1:80</content>
<content>Borderline 1:80</content>
<content>Positive >1:80</content>
<content></content> C reactive protein [Mass/volume] in Serum or Plasma Laboratory t est result 0-10 [facility] ([facility] ID Date Data Source [id number] 12/14/2020 02:41:00 PM EST [facility] Name Value Range Interpretation Code Description Data Mona rce(s) Supporting Document(s) Rheumatoid factor [Units/volume] in Serum or Plasma Laborato ry test result 0.0-13.9 [facility] ID Date Data Source [id number] 12/14/2020 02:41:00 PM EST [facility] ([facility] Name Value Range Interpretation Code Description Data Mona rce(s) Supporting Document(s) Erythrocyte sedimentation rate by Westergren method 33 mm/hr 0-40 [facility] ([facility] ID Date Data Source [id number] 11/23/2020 09:13:00 [place] [address] PHONE: [phone] FAX: [phone] Name .................. : HOLGUIN ZOILA Valdes Acct Number.................. : [id number] ROOM. ................. : MR Number ................... : [id number] Stay type ............. : O/P Discharge Date......... ... : 11/22/20 Admit Date ......... : 11/22/20 Admit Phys .................... : ADIEL QUILES Date of ....... : 1960 Family Phys ................... : ADIEL QUILES Phone .................. : [phone] Age ................................ : 60 Film# .................. .:[id number] Sex ................................. : F Unsigned transcriptions are preliminary reports and do not represent a medical or legal document SHOULDER COMP-2 OR MORE [facility] L [id number] COMPLETE:11/22/20 11:43 2440 (REASON FOR PROCESS: PAIN LEFT SHOULDER THREE VIEWS, 11/22/20: INDICATION: Pain. FINDINGS: There is normal alignment and position of the bones of the left shoulder. No evidence for acute bony injury is identified. The soft tissues also appear normal. IMPRESSION: Negative left shoulder. Electronically Reviewed and Signed By Daniel Dick MD , 11/23/20 09:13, SHARLENE Transcribe Initials: GLORIA, Transcribe Date: 11/22/20 14:46, Dictation Date: Copy for: ADIEL NEGRON via fax Copy for: [address] [place] [address] REC Page 1 of 1 Name Value Range Interpretation Code Description Data Mona rce(s) Supporting Document(s) ID Date Data Source [id number] 11/23/2020 09:12:00 [place] [address] PHONE: [phone] FAX: [phone] Name .................. : GRIS Valdes Acct Number.................. : [id number] ROOM. ................. : MR Number ................... : [id number] Stay type ............. : O/P Discharge Date......... ... : 11/22/20 Admit Date ......... : 11/22/20 Admit Phys .................... : ADIEL QUILES Date of ....... : 1960 Family Phys ................... : ADIEL QUILES Phone . ................. : [phone] Age ................................ : 60 Film# .................. .:[id number] Sex ................................. : F Unsigned transcriptions are preliminary reports and do not represent a medical or legal document [facility] [place] [id number] COMPLETE:11/22/20 11:43 2439 (REASON FOR PROCESS: PAIN LEFT HUMERUS, 11/22/20: INDICATION: Pain. FINDINGS: There is normal alignment and position of the bones of the left arm. No evidence for fracture or any other abnormalities are noted. IMPRESSION: Negative left humerus. Electronically Reviewed and Signed By Daniel Dick MD , 11/23/20 09:12, SHARLENE Transcribe Initials: SSR, Transcribe Date: 11/22/20 14:42, Dictation Date: Copy for: ADIEL NEGRON via fax Copy for: 710 MED REC Page 1 of 1 Name Value Range Interpretation Code Description Data Mona rce(s) Supporting Document(s) ID Date Data Source [id number] 11/22/2020 10:23:00 AM EST [facility] ([facility] Name Value Range Interpretation Code Description Data Mona rce(s) Supporting Document(s) Protein [Mass/volume] in Serum or Plasma 7.8 g/dL 6.0-8.5 [facility] ([facility] Albumin [Mass/volume] in Serum or Plasma 4.3 g/dL 3.8-4.8 [facility] ([facility] Alkaline phosphatase [Enzymatic activity/volume] in Serum or Plasma 92 IU/L 39-117 [facility] Bilirubin.total [Mass/volume] in Serum or Plasma 0.4 mg/dL 0.0-1.2 [facility] ([facility] Bilirubin.conjugated [Mass/volume] in Serum or Plasma 0.13 mg/dL 0.00 -0.40 [facility] ([facility] Alanine aminotransferase [Enzymatic activity/volume] in Seru m or Plasma 58 IU/L 0-32 Above high normal [facility] ([facility] Aspartate aminotransferase [Enzymatic activity/volume] in Serum or Plasma 59 IU/L 0-40 Above high normal [facility] ([facility] ID Date Data Source [id number] 11/22/2020 10:23:00 AM EST [facility] ([facility] Name Value Range Interpretation Code Description Data Mona rce(s) Supporting Document(s) BUN 12 mg/dL 8-27 [facility] ([facility] Creatinine [Mass/volume] in Serum or Plasma 0.70 mg/dL 0.57-1.00 [facility] ([facility] Glucose [Mass/volume] in Serum or Plasma 110 mg/dL 65-99 Above high normal [facility] ([facility] eGFR If NonAfricn Am 94 mL/min/1.73 [facility] ([facility] eGFR If Africn Am 108 mL/min/1.73 ME DENT ([facility] Potassium [Moles/volume] in Serum or Plasma 3.9 mmol/L 3.5-5.2 [facility] ([facility] [facility] Urea nitrogen/Creatinine [Mass Ratio] in Serum or Plasma 17 1 2-28 [facility] ([facility] Sodium [Moles/volume] in Serum or Plasma 142 mmol/L 134-144 [facility] ([facility] Carbon dioxide, total [Moles/volume] in Serum or Plasma 22 mmol/L 20 -29 [facility] ([facility] Calcium [Mass/volume] in Serum or Plasma 9.4 mg/dL 8.7-10.3 [facility] ([facility] Chloride [Moles/volume] in Serum or Plasma 104 mmol/L 96-106 [facility] ([facility] ID Date Data Source [id number] 11/22/2020 10:23:00 AM EST [facility] Name Value Range Interpretation Code Description Data Mona rce(s) Supporting Document(s) Leukocytes [#/volume] in Blood by Automated count 5.3 x10E3/uL 3.4-10 .8 [facility] ([facility] Erythrocytes [#/volume] in Blood by Automated count 4.43 x10E6/uL 3.7 7-5.28 [facility] ([facility] Hemoglobin [Mass/volume] in Blood 13.7 g/dL 11.1-15.9 [facility] ([facility] Hematocrit [Volume Fraction] of Blood by Automated count 40.7 % 3 4.0-46.6 [facility] ([facility] Erythrocyte mean corpuscular hemoglobin [Entitic mass] by Automated count 30.9 pg 26.6-33.0 [facility] Erythrocyte mean corpuscular volume [Entitic volume] by Auto mated count 92 fL 79-97 [facility] ([facility] Erythrocyte mean corpuscular hemoglobin concentration [Mass/volume] by Automated count 33.7 g/dL 31.5-35.7 [facility] ([facility] Erythrocyte distribution width [Ratio] by Automated count 12.1 % 11.7-15.4 [facility] ([facility] Neutrophils 55 % [facility] ([facility] Lymphs 32 % [facility] ([facility] Platelets [#/volume] in Blood by Automated count 175 x10E3/uL 150-450 [facility] ([facility] Monocytes/100 leukocytes in Blood by Automated count 12 % [facility] ([facility] Eosinophils/100 leukocytes in Blood by Automated count 0 % [facility] ([facility] Basophils/100 leukocytes in Blood by Automated count 1 % [facility] ([facility] Neutrophils [#/volume] in Blood by Automated count 2.9 x10E3/uL 1.4-7 .0 [facility] ([facility] Immature cells [#/volume] in Blood Laboratory test result [facility] ([facility] Monocytes [#/volume] in Blood 0.7 x10E3/uL 0.1-0.9 [facility] ([facility] Lymphocytes [#/volume] in Blood 1.7 x10E3/uL 0.7-3.1 [facility] ([facility] Eosinophils [#/volume] in Blood by Automated count 0.0 x10E3/uL 0.0-0 .4 [facility] ([facility] Immature granulocytes/100 leukocytes in Blood by Automated count 0 % [facility] ([facility] Basophils [#/volume] in Blood by Automated count 0.1 x10E3/uL 0.0-0.2 [facility] ([facility] Immature granulocytes [#/volume] in Blood by Automated count 0.0 x10E3/uL 0.0-0.1 [facility] ([facility] Morphology [Interpretation] in Blood Narrative Laboratory test result [facility] ([facility] Nucleated erythrocytes/100 leukocytes [Ratio] in Blood by Automated count Laboratory test result [facility] ID Date Data Source [id number] 09/02/2020 12:28:00 PM EDT [facility] ([facility] Name Value Range Interpretation Code Description Data Mona rce(s) Supporting Document(s) Sodium 142 meq/L 134-153 [facility] Is patient fasting? N Comprehensive Metabo Laboratory test result [facility] ([facility] Is patient fasting? N Potassium 4.2 meq/L 3.6-5.0 [facility] Is patient fasting? N Chloride 104 meq/L 98-107 [facility] ([facility] Is patient fasting? N Co2 28 meq/L 22-30 [facility] ([facility] Is patient fasting? N Creatinine 0.7 mg/dL 0.7-1.5 [facility] ([facility] Is patient fasting? N BUN 11 mg/dL 7-21 [facility] ([facility] Is patient fasting? N Glucose 108 mg/dL 65-110 [facility] ([facility] Is patient fasting? N Total Protein 8.2 g/dL 6.3-8.2 [facility] ([facility] Is patient fasting? N Albumin 4.6 g/dL 3.9-5.0 [facility] ([facility] Is patient fasting? N BUN/Creat 16 8-27 [facility] ([facility] Is patient fasting? N Globulin 3.6 GM/DL 2.4-3.2 Above high normal [facility] ([facility] Is patient fasting? N Calcium 10.0 mg/dL 8.4-10.2 [facility] ([facility] Is patient fasting? N A/G Ratio 1.3 0.8-2.0 [facility] ([facility] Is patient fasting? N Alkaline Phos 96 U/L 38-126 [facility] ([facility] Is patient fasting? N Total Bili Laboratory test result 0.2-1.3 ME DENT ([facility] Is patient fasting? N SGPT/Alt 69 U/L 7-56 Above high normal [facility] ([facility] Is patient fasting? N Anion Gap 10.0 mmol/L 8.0-16.0 [facility] ([facility] Is patient fasting? N Sgot/Ast 79 U/L 5-40 Above high normal [facility] ([facility] Is patient fasting? N Age 60 yrs [facility] ([facility] Is patient fasting? N Afr Amer GFR Laboratory test result [facility] ([facility] Is patient fasting? N Non-Aa GFR Laboratory test result ME DENT ([facility] Is patient fasting? N ID Date Data Source [id number] 09/02/2020 12:28:00 PM EDT [facility] ([facility] Name Value Range Interpretation Code Description Data Mona rce(s) Supporting Document(s) WBC 5.6 10^3/uL 4.2-11.0 [facility] ([facility] Is patient fasting? N CBC W/Automated Diff Laboratory test result [facility] ([facility] Is patient fasting? N Hemoglobin 13.9 g/dL 12.0-16.0 [facility] ([facility] Is patient fasting? N RBC 4.39 10^6/uL 4.20-5.40 [facility] ([facility] Is patient fasting? N Hematocrit 42.5 % 37.0-47.0 [facility] ([facility] Is patient fasting? N MCH 31.7 pg 27.0-34.0 [facility] ([facility] Is patient fasting? N MCHC 32.7 g/dL 31.0-36.0 [facility] ([facility] Is patient fasting? N MCV 96.8 fL 81.0-101 [facility] ([facility] Is patient fasting? N Platelets 265 10^3/uL 150-450 [facility] ([facility] Is patient fasting? N RDW 13.0 % 11.5-14.5 [facility] ([facility] Is patient fasting? N Neut 64.2 % 37.0-80.0 [facility] ([facility] Is patient fasting? N Lymph 22.1 % 25.0-40.0 Below low normal [facility] ( [facility] Is patient fasting? N MPV 11.1 fL 7.4-10.4 Above high normal [facility] ([facility] Is patient fasting? N [place] 9.6 % 3.0-8.0 Above high normal [facility] ([facility] Is patient fasting? N Eos 2.8 % 0.0-7.0 [facility] ([facility] Is patient fasting? N Baso 0.9 % 0.0-2.5 [facility] ([facility] Is patient fasting? N #Neut 3.61 10^3/uL 2.00-6.90 [facility] ([facility] Is patient fasting? N %Ig 0.4 % 0.0-0.0 Above high normal [facility] ([facility] Is patient fasting? N %NRBC 0.0 % 0.0-0.0 [facility] ([facility] Is patient fasting? N #[place] 0.54 10^3/uL 0.00-0.90 [facility] ([facility] Is patient fasting? N #Lymph 1.24 10^3/uL 0.60-3.40 [facility] ([facility] Is patient fasting? N #Eos 0.16 10^3/uL 0.00-0.70 [facility] ([facility] Is patient fasting? N #Baso 0.05 10^3/uL 0.00-0.20 [facility] ([facility] Is patient fasting? N #Ig 0.02 10^3/uL 0.00-0.10 [facility] ([facility] Is patient fasting? N #NRBC 0.00 10^3/uL 0.00-0.00 [facility] ([facility] Is patient fasting? N RBC Morph Laboratory test result ME DENT ([facility] Is patient fasting? N Manual Diff Laboratory test result M EDENT ([facility] Is patient fasting? N ID Date Data Source [id number] 09/02/2020 06:04:00 PM EDT [facility] Name Value Range Interpretation Code Description Data Mona rce(s) Supporting Document(s) COMPREHENSIVE METABOLIC PANEL [facility] COMPREHENSIVE METABOLIC PANEL Sodium [Moles/volume] in Serum or Plasma 142 mEq/L 134 - 153 [facility] Potassium [Moles/volume] in Serum or Plasma 4.2 mEq/L 3.6 - 5.0 [facility] Chloride [Moles/volume] in Serum or Plasma 104 mEq/L 98 - 107 [facility] Carbon dioxide, total [Moles/volume] in Serum or Plasma 28 MEQ/L 22 - 30 [facility] Glucose [Mass/volume] in Serum or Plasma 108 MG/DL 65 - 110 [facility] BUN 11 MG/DL 7 - 21 [facility] al Creatinine [Mass/volume] in Serum or Plasma 0.7 MG/DL 0.7 - 1.5 [facility] BUN/CREAT 16 8 - 27 [facility] Protein [Mass/volume] in Serum or Plasma 8.2 G/DL 6.3 - 8.2 [facility] Albumin [Mass/volume] in Serum or Plasma 4.6 G/DL 3.9 - 5.0 [facility] Globulin [Mass/volume] in Serum by calculation 3.6 GM/DL 2.4 - 3.2 H [facility] A/G RATIO 1.3 0.8 - 2.0 [facility] Calcium [Mass/volume] in Serum or Plasma 10.0 MG/DL 8.4 - 10.2 [facility] Bilirubin.total [Mass/volume] in Serum or Plasma <0.7 MG/DL 0.2 - 1.3 [facility] Alkaline phosphatase [Enzymatic activity/volume] in Serum or Plasma 96 U/L 38 - 126 [facility] Aspartate aminotransferase [Enzymatic activity/volume] in Serum or Plasma 79 U/L 5 - 40 H [facility] Alanine aminotransferase [Enzymatic activity/volume] in Seru m or Plasma 69 U/L 7 - 56 H [facility] Anion gap 3 in Serum or Plasma 10.0 mmol/L 8.0 - 16.0 [facility] 60 [facility]60 [facility]/min [facility] ital AFR AMER GFR >60 [facility] Male GFR In terprentation 20-49 yrs >60 mL/min Normal 50-59 yrs >56 mL/min Normal 60-69 yrs >49 mL/min Normal 70-79yrs >42 mL/min Normal 80 and above >35 mL/min Normal Female GFR Interpretation 20-39 yrs >60 mL/min Normal 40-49 yrs >58 mL/min Normal 50-59 yrs >51 mL/min Normal 60-69 yrs >45 mL/min Normal 70-79 yrs >39 mL/min Normal 80 and above >32 mL/min Normal ID Date Data Source [id number] 09/02/2020 05:28:00 PM EDT [facility] Name Value Range Interpretation Code Description Data Mona rce(s) Supporting Document(s) CBC W/AUTOMATED DIFF [facility] COMPLETE BLOOD COUNT Leukocytes [#/volume] in Blood by Automated count 5.6 10^3/uL 4.2 - 1 1.0 [facility] Erythrocytes [#/volume] in Blood by Automated count 4.39 10^6/uL 4. 20 - 5.40 [facility] Hemoglobin [Mass/volume] in Blood 13.9 g/dL 12.0 - 16.0 [facility] Hematocrit [Volume Fraction] of Blood by Automated count 42.5 % 3 7.0 - 47.0 [facility] Erythrocyte mean corpuscular volume [Entitic volume] by Auto mated count 96.8 fL 81.0 - 101 [facility] Erythrocyte mean corpuscular hemoglobin [Entitic mass] by Automated count 31.7 pg 27.0 - 34.0 [facility] Erythrocyte mean corpuscular hemoglobin concentration [Mass/volume] by Automated count 32.7 g/dL 31.0 - 36.0 [facility] Erythrocyte distribution width [Ratio] by Automated count 13.0 % 11.5 - 14.5 [facility] Platelets [#/volume] in Blood by Automated count 265 10^3/uL 150 - 45 0 [facility] Platelet mean volume [Entitic volume] in Blood by Automated count 11.1 fL 7.4 - 10.4 H [facility] Neutrophils/100 leukocytes in Blood by Automated count 64.2 % 37. 0 - 80.0 [facility] Lymphocytes/100 leukocytes in Blood by Manual count 22.1 % 25.0 - 40.0 L [facility] Monocytes/100 leukocytes in Blood by Automated count 9.6 % 3.0 - 8.0 H [facility] Eosinophils/100 leukocytes in Blood by Automated count 2.8 % 0.0 - 7.0 [facility] Basophils/100 leukocytes in Blood by Automated count 0.9 % 0.0 - 2.5 [facility] %IG 0.4 % 0.0 - 0.0 H [facility] %NRBC 0.0 % 0.0 - 0.0 [facility] al Neutrophils [#/volume] in Blood by Automated count 3.61 10^3/uL 2.00 - 6.90 [facility] Lymphocytes [#/volume] in Blood by Automated count 1.24 10^3/uL 0.60 - 3.40 [facility] Monocytes [#/volume] in Blood by Automated count 0.54 10^3/uL 0.00 - 0.90 [facility] Eosinophils [#/volume] in Blood by Automated count 0.16 10^3/uL 0.00 - 0.70 [facility] Basophils [#/volume] in Blood by Automated count 0.05 10^3/uL 0.00 - 0.20 [facility] #IG 0.02 10^3/uL 0.00 - 0.10 [facility] #NRBC 0.00 10^3/uL 0.00 - 0.00 [facility] MANUAL DIFF NOT INDICATED [facility] RBC MORPH NOT INDICATED [facility] ID Date Data Source [id number] 08/13/2020 10:23:00 PM EDT RA[facility] ([facility] Name Value Range Interpretation Code Description Data Mona rce(s) Supporting Document(s) CPK Creatine Phosphokinase 68 U/L 26-192 Yoli l (applies to non-numeric results) [facility] ([facility] CK-MB Value Mass 1.2 ng/mL Normal (applies to non-numeric results) [facility] ([facility] MB/CK Relative Index 1.76 Normal (applies to non-num arley results) [facility] ([facility] <content>DIAGNOSIS CRITERIA</content>
<content>MMB ng/ml Relative Index (RI)</content>
<content>NON-AMI < or = 5 N/A</content>
<content>DAILEY ZONE > 5 < or = 4</content>
<content>AMI > 5 > 4</content>
<content></content> Troponin I Laboratory test result Normal (applies to non-n umeric results) [facility] <content>Troponin I Reference Interval f or Siemens Curran LOCI:</content>
<content></content>
<content>99th Percentile= 0.00-0.045 ng/ml</content>
<content></content>
<content>Risk Stratification:</content>
<content><= 0.10 ng/ml Decreased Risk for Adverse Clinical</content>
<content>Events.</content>
<content>0.10-1.50 ng/ml Increased Risk for Adverse Clinical</content>
<content>Events. Evaluation of additional</content>
<content>criterion and/or repeat testing in 2-6</content>
<content>hours is suggested to rule out myocardial</content>
<content>damage.</content>
<content>>= 1.50 ng/ml Indicative of Myocardial Injury.</content>
<content></content> ID Date Data Source [id number] 08/13/2020 10:23:00 PM EDT [facility] ([facility] Name Value Range Interpretation Code Description Data Mona rce(s) Supporting Document(s) White Blood Count 11.8 10 4.0-10.0 Above high normal [facility] ( [facility] Red Blood Count 4.00 10 4.00-5.40 Normal (applies to non-numeric results) [facility] ([facility] Hemoglobin 12.3 g/dL 12.0-15.5 Normal (applies to non-numeric resul ts) [facility] ([facility] Mean Corpuscular Volume 94.8 fl 80.0-96.0 Normal ( applies to non-numeric results) [facility] ([facility] Mean Corpuscular Hemoglobin 30.8 pg 27.0-33.0 Norm al (applies to non-numeric results) [facility] ([facility] Hematocrit 37.9 % 36.0-47.0 Normal (applies to non-numeric resul ts) [facility] ([facility] Red Cell Distribution Width 12.6 % 11.5-14.5 Norm al (applies to non-numeric results) [facility] ([facility] Mean Corpuscular HGB Conc 32.5 g/dL 32.0-36.5 Normal (applies to non-numeric results) [facility] ([facility] Platelet Count, Automated 252 10 150-450 Normal (applies to non-numeric results) [facility] ([facility] Neutrophils % 58.1 % 36.0-66.0 Normal (applies to non-numeric re sults) [facility] ([facility] Lymph % 31.9 % 24.0-44.0 Normal (applies to non-numeric resul ts) [facility] ([facility] [place] % 8.5 % 0.0-5.0 Above high normal [facility] ([facility] Baso % 0.8 % 0.0-1.0 Normal (applies to non-numeric resul ts) [facility] ([facility] Eos % 0.1 % 0.0-3.0 Normal (applies to non-numeric resul ts) [facility] ([facility] Immature Granulocyte % 0.6 % 0-3.0 Normal (applies to non-n umeric results) [facility] ([facility] Nucleated Red Blood Cell % 0.0 % 0-0 Normal (applies to n on-numeric results) [facility] ([facility] Lymph # 3.8 10 1.5-5.0 Normal (applies to non-numeric resul ts) [facility] ([facility] [place] # 1.0 10 0.0-0.8 Above high normal [facility] ([facility] Neutrophils # 6.8 10 1.5-8.5 Normal (applies to non-numeric re sults) [facility] ([facility] Eos # 0.0 10 0.0-0.5 Normal (applies to non-numeric resul ts) [facility] ([facility] Baso # 0.1 10 0.0-0.2 Normal (applies to non-numeric resul ts) [facility] ([facility] ID Date Data Source [id number] 08/13/2020 10:23:00 PM EDT [facility] ([facility] Name Value Range Interpretation Code Description Data Mona rce(s) Supporting Document(s) Ast/Sgot 69 U/L 7-37 Above high normal [facility] ([facility] Alkaline Phosphatase 102 U/L 45-117 Normal (applies to non-num arley results) [facility] ([facility] Alt/SGPT 92 U/L 12-78 Above high normal [facility] ([facility] Bilirubin,Total 0.4 mg/dL 0.2-1.0 Normal (applies to non-numeric results) [facility] ([facility] Total Protein 7.2 GM/DL 6.4-8.2 Normal (applies to non-numeric re sults) [facility] ([facility] Bilirubin,Direct 0.2 mg/dL 0.0-0.2 Normal (applies to non-numeric results) [facility] ([facility] Albumin 3.3 GM/DL 3.2-5.2 Normal (applies to non-numeric resul ts) [facility] ([facility] Albumin/Globulin Ratio 0.8 1.2-2.2 Below low normal [facility] ([facility] ID Date Data Source [id number] 08/13/2020 10:23:00 PM EDT [facility] ([facility] Name Value Range Interpretation Code Description Data Mona rce(s) Supporting Document(s) Blood Urea Nitrogen 16 mg/dL 7-18 Normal (applies to non-nume jolly results) [facility] ([facility] Glucose, Fasting 101 mg/dL 70-100 Above high normal M EDENT ([facility] Sodium Level 138 meq/L 136-145 Normal (applies to non-numeric res ults) [facility] ([facility] Creatinine For GFR 1.00 mg/dL 0.55-1.30 Normal (applies to non -numeric results) [facility] ([facility] Glomerular Filtration Rate 60.0 Normal (applies to n on-numeric results) [facility] <content>Units are mL/min/1.73 m2</content>
<content></content>
<content>Chronic Kidney Disease Staging per NKF:</content>
<content></content>
<content>Stage I & II GFR >=60 Normal to Mildly Decreased</content>
<content>Stage III GFR 30- 59 Moderately Decreased</content>
<content>Stage IV GFR 15-29 Severely Decreased</content>
<content>Stage V GFR <15 Very Little GFR Left</content>
<content>ESRD GFR <15 on STRIP CATCHER</content>
<content></content> Carbon Dioxide Level 30 meq/L 21-32 Normal (applies to non-num arley results) [facility] ([facility] Chloride Level 97 meq/L 98-107 Below low normal [facility] ([facility] Potassium Serum 3.4 meq/L 3.5-5.1 Below low normal [facility] ([facility] Anion Gap 11 meq/L 8-16 Normal (applies to non-numeric resul ts) [facility] ([facility] Calcium Level 8.0 mg/dL 8.8-10.2 Below low normal [facility] ([facility] ID Date Data Source [id number] 08/13/2020 10:23:00 PM EDT [facility] ([facility] Name Value Range Interpretation Code Description Data Mona rce(s) Supporting Document(s) Lipoprotein lipase [Enzymatic activity/volume] in Serum or P lasma 141 U/L 73-393 Normal (applies to non-numeric results) [facility] <content>note:<nlbl:demographic_changed> </content>
<content></content> ID Date Data Source [id number] 08/13/2020 01:55:00 [place] [address] PHONE: [phone] FAX: [phone] Name .................. : GRIS Valdes Acct Number.................. : [id number] ROOM. ................. : TR-03 MR Number ................... : [id number] Stay type ............. : E/R Discharge Date......... ... : 08/12/20 Admit Date .... ..... : 08/12/20 Admit Phys .................... : WARREN DAWOOD Date of ....... : 1960 Family Phys ................... : ADIEL QUILES Phone .................. : [phone] Age ................................ : 60 Film# .................. .:[id number] Sex ................................. : F Unsigned transcriptions are preliminary reports and do not represent a medical or legal document CT ABD & PELVIS W/ IV ONLY [id number] COMPLETE:08/12/20 13:24 MISSY [id number] Reason(s): abd pain CT OF THE ABDOMEN AND PELVIS WITH CONTRAST: FINDINGS: Fatty infiltration of the liver and hepatomegaly are noted. Hepatic mass or biliary dilatation is not seen. The aorta is normal in caliber. There is no aortic dissection. The spleen is homogeneous and not enlarged. Pancreatic mass or pancreatitis is not seen. The gallbladder and adrenal glands are unremarkable. A cystic structure is seen in the left kidney that has maximal dimensions of 3.5 x 3.0 cm. Renal mass or hydronephrosis is not seen. The aorta is normal in caliber. There is no acute bowel pathology, abscess, ascites or pneumoperitoneum. The uterus, adnexa and urinary bladder are unremarkable. There is no acute osseous abnormality. IMPRESSION: Fatty liver. Hepatomegaly. Cystic structure in the left kidney. Otherwise unremarkable CT scan of the abdomen and pelvis with IV contrast. While performing the above CT examination, radiation dose reduction was accomplished utilizing automated exposure control, adjusting of the mA and kV based on the patient's body size and/or the use of imperative reconstructive techniques. CT dose: 525.6 mGycm Contrast agent in mL: 75 Isovue 370 Method of administration: Intravenous Electronically Reviewed and Signed By Howard Justice MD , 08/13/20 13:55, [facility] [address] [place] [address] PHONE: [phone] FAX: [phone] Name .................. : GRIS Valdes Acct Number.................. : [id number] ROOM. ................. : TR-03 MR Number ................... : [id number] Stay type ............. : E/R Discharge Date......... ... : 08/12/20 Admit Date ......... : 08/12/20 Admit Phys .................... : WARREN DAWOOD Date of ....... : 1960 Family Phys ................... : ADIEL QUILES Phone .................. : [phone] Age ................................ : 60 Film# .................. .:[id number] Sex ................................. : F Unsigned transcriptions are preliminary reports and do not represent a medical or legal document CT ABD & PELVIS W/ IV ONLY 32500 COMPLETE:08/12/20 13:24 MISSY [id number] Reason(s): abd pain Transcribe Initials: JUVE , Transcribe Date: 08/12/20 22:38, Dictation Date: Copy for: MONISHA FLORES via fax Copy for: WARREN Mendoza via fax Copy for: ADIEL NEGRON via fax Copy for: EMERGENCY DEPT via mode Copy for: 710 MED REC DISCHARGED Page 2 of 2 Name Value Range Interpretation Code Description Data Mona rce(s) Supporting Document(s) ID Date Data Source [id number] 08/13/2020 01:53:00 PM EDT [facility] [address] [place] [address] PHONE: [phone] FAX: [phone] Name .................. : GRIS Valdes Acct Number.................. : [id number] ROOM. ................. : TR-03 MR Number ................... : [id number] Stay type ............. : E/R Discharge Date......... ... : 08/12/20 Admit Date .... ..... : 08/12/20 Admit Phys .................... : WARREN DAWOOD Date of ....... : 1960 Family Phys ................... : ADIEL QUILES Phone .................. : [phone] Age ................................ : 60 Film# .................. .:[id number] Sex ................................. : F Unsigned transcriptions are preliminary reports and do not represent a medical or legal document CT CTA CHEST NON-CORONARY W C 30136 COMPLETE:08/12/20 13:24 MISSY [id number] Reason(s): PENDING CMP: lower ch est pain w/ elevated d-dimer CTA CHEST WITH CONTRAST: COMPARISON: None. FINDINGS: Pulmonary embolism, aortic aneurysm or aortic dissection is not seen. A medium-side pericardial effusion is seen. There is no pleural effusion. There is no hilar or mediastinal lymphadenopathy. There is bibasilar platelike atelectasis. IMPRESSION: Pulmonary embolism, aortic aneurysm or aortic dissection is not seen. Hyperinflated lung arreaga suggest emphysematous changes. Bibasilar atelectasis. Pneumonic infiltrate or pulmonic mass is not seen. The heart is not enlarged, however there is a moderate size pericardial effusion. Pericardial effusion is of indeterminant clinical significance. While performing the above CT examination, radiation dose reduction was accomplished utilizing automated exposure control, adjusting of the mA and kV based on the patient's body size and/or the use of imperative reconstructive techniques. CT dose: 322.7 mGycm Contrast agent in mL: 75 Isovue 370 Method of administration : Intravenous Electronically Reviewed and Signed By Howard Justice MD , 08/13/20 13:53, KGG Page 1 of 2 [facility] [address] [place] [address] [place] [address] PHONE: [phone] FAX: [phone] Name .................. : GRIS Valdes Acct Number.................. : [id number] ROOM. ................. : TR-03 MR Number ................... : [id number] Stay type ............. : E/R Discharge Date......... ... : 08/12/20 Admit Date ......... : 08/12/20 Admit Phys .................... : WARREN DAWOOD Date of ....... : 1960 Family Phys ................... : ADIEL QUILES Phone .................. : [phone] Age ................................ : 60 Film# .................. .:[id number] Sex .......... ....................... : F Unsigned transcriptions are preliminary reports and do not represent a medical or legal document CT CTA CHEST NON-CORONARY W C 38382 COMPLETE:08/12/20 13:24 MISSY [id number] Reason(s): PENDING CMP: lower chest pain w/ elevated d-dimer Transcribe Initials: JUVE , Transcribe Date: 08/12/20 22:35, Dictation Date: Copy for: MONISHA FLORES via fax Copy for: WARREN Mendoza via fax Copy for: ADIEL NEGRON via fax Copy for: EMERGENCY DEPT via modem Copy for: 710 MED REC DISCHARGED Page 2 of 2 Name Value Range Interpretation Code Description Data Mona rce(s) Supporting Document(s) ID Date Data Source [id number] 08/13/2020 01:49:00 PM EDT [facility] [address] [place] [address] PHONE: [phone] FAX: [phone] Name .................. : GRIS CUMMINGS Keisha Acct Number.................. : [id number] ROOM. ................. : TR-03 MR Number ................... : [id number] Stay type ............. : E/R Discharge Date......... ... : Admit Date ......... : 1 Admit Phys .................... : WARREN DAWOOD Date of ....... : 1960 Family Phys ................... : ADIEL QUILES Phone .................. : [phone] Age ................................ : 60 Film# .................. .:[id number] Sex ................................. : F Unsigned transcriptions are preliminary reports and do not represent a medical or legal document CHEST PORTABLE 13945 COMPLETE:08/12/20 11:46 16165 Reason(s): Chest Pain PORTABLE CHEST X-RAY: INDICATION: Chest pain. COMPARISON: Prior study from 09/01/19. FINDINGS: Lung arreaga are hyperinflated. Mild atelectasis is identified at the bases. No focal infiltrate or consolidation is identified. The previously noted infiltrates at the right lung base are now resolved. The cardiac silhouette appears unremarkable. Atherosclerotic disease is identified in the aorta. The osseous structures show degenerative changes. IMPRESSION: Hyperinflation and no acute pulmonary findings. Examination dictated by JAYNE Monae. Examination was reviewed with Howard Justice MD, radiologist at the time of this dictation. Electronically Reviewed and Signed By Howard Justice MD , 08/13/20 13:49, KGG Transcribe Initials: DZ , Transcribe Date: 08/12/20 13:49, Dictation Date: Copy for: MONISHA FLORES via fax Copy for: WARREN Mendoza via fax Copy for: ADIEL NEGRON via fax Copy for: EMERGENCY DEPT via modem Copy for: 710 MED REC DISCHARGED Page 1 of 1 Name Value Range Interpretation Code Description Data Mona rce(s) Supporting Document(s) ID Date Data Source [id number] 08/13/2020 09:42:00 AM EDT [address] [place] [address] RESPIRATORY CARE REPORT ==== ---------NAME------- NUMBER SEX AGE ADMIT DISC. XRAY# F/C NIKOLE Valdes [id number] F 60 08/12/20 08/12/20 [id number] MBZ E/R DATE OF : 1960 M/R# [id number] PH#: [phone] TR-03 LOCATION: EMERGENCY DEPT EKG 75851 COMPLE TE:08/13/20 00:10 [place] [address] PHYSICIAN: WARREN LINDSEY CH Name Value Range Interpretation Code Description Data Mona rce(s) Supporting Document(s) ID Date Data Source [id number] 08/12/2020 11:21:00 AM EDT [facility] 1 OrderSheet [facility] Emergency Department [address] [place] [address] Phone #: ext- [phone] 08/12/2020 11:19 Patient: ZOILA HOLGUIN Sex: F : 1960 Age: 60yWEIGHT:55.6 kg (S)ALLERGIES: Codeine Sulfate, Seasonal, ValiumCHIEF COMPLAINT: chest pain, discomfortDIAGNOSIS: Atypical chest pain, ProblemLAB ORDERSOrder Description Priority Entered Acknowledged InitialedCBC w Diff STAT 11:46 08/12/2020 11:54 Jatin Langston R.N., P.A.-C; Reason for ordering with alerts: Benefits outweigh risks -- 11:46 08/12/2020 Jatin Palmer-CCMP STAT 11:46 08/12/2020 11:54 Jatin Langston R.N., P.A.-C; Reason for ordering with alerts: Benefits outweigh risks -- 11:46 08/12/2020 Jatin Palmer-CLipase STAT 11:46 08/12/2020 11:54 Jatin Langston R.N.; Reason for ordering with alerts: Benefits outweigh risks -- 11:46 08/12/2020 Jatin Palmer-CPT/PTT STAT 11:46 08/12/2020 11:54 Jatin Langston R.N., P.A.-C; Reason for ordering with alerts: Benefits outweigh risks -- 11:46 08/12/2020 Jatin Palmer-CTroponin-T STAT 11:46 08/12/2020 11:54 Jatin Langston R.N., P.A.-C; Reason for ordering with alerts: Benefits outweigh risks -- 11:46 08/12/2020 Jatin Palmer-CBNP STAT 11:46 08/12/2020 11:54 Jatin Langston R.N., P.A.-C; Reason for ordering with alerts: Benefits outweigh risks -- 11:46 08/12/2020 Jatin Palmer-CMagnesium STAT 11:46 08/12/2020 11:54 Kian, 2 OrderSheet [facility] Emergency Department [address] [place] [address] Phone #: ext- [phone] 08/12/2020 11:19 Patient: ZOILA HOLGUIN Sex: F : 1960 Age: 60y Jatin Iniguez R.N., P.A.-C; Reason for ordering with alerts: Benefits outweigh risks -- 11:46 08/12/2020 Jatin Palmer-CTSH STAT 11:46 08/12/2020 11:54 Jatin Langston R.N., P.A.-C; Reason for ordering with alerts: Benefits outweigh risks -- 11:46 08/12/2020 Jatin Palmer-CUrinalysis (Clean STAT 11:46 08/12/2020CatchHumberto Lindsey P.A.-C; Reason for ordering with alerts: Benefits outweigh risks -- 11:46 08/12/2020 Jatin Palmer-CLactic Acid STAT 11:46 08/12/2020 11:54 Jatin Langston R.N.A.-C; Reason for ordering with alerts: Benefits outweigh risks -- 11:46 08/12/2020 Jatin Palmer-CD-Dimer STAT 11:46 08/12/2020 11:54 Jatin Langston R.N.A.-C; Reason for ordering with alerts: Benefits outweigh risks -- 11:46 08/12/2020 Jatin Palmer-CHCG Serum Qual STAT 11:47 08/12/2020 11:54 Jatin Langston R.N.APhu-C;Troponin-T STAT 14:40 08/12/2020 14:57 Jatin Langston R.N.A.- C; NOTES: 3hr REPEATDIAGNOSTIC STUDY ORDERSOrder Description Priority Entered Acknowledged InitialedChest Portable 1 STAT 11:46 08/12/2020 11:54 Ryder Langston R.N.(Oxygen?(No)) P.APhu-C; Reason for ordering with alerts: Benefits outweigh risks -- 11:46 08/12/2020 Jatin AngelaA.-C Reason for Study: Chest PainCT CTA CHEST STAT 12:44 08/12/2020 13:30 Kian(NONCOR) Ga Iniguez R.N.INC PP P.A.-C; 3 OrderSheet [facility] Emergency Department [address] [place] [address] Phone #: udn- [phone] 08/12/2020 11:19 Patient: ZOILA HOLGUIN Sex: F : 1960 Age: 60y(Oxygen?(No))(IV?(Yes)) Reason for St udy: PENDING CMP: lower chest pain w/ elevated d-dimerCT Abd PEL W/ IV STAT 12:44 08/12/2020 13:30 Kian,Contrast Only Jatin Iniguez R.N.(Oxygen?(No)) P.A.-C;(IV?(Yes)) Reason for Study: abd painMEDICATION/IV/DRIP/FLUID ORDERSOrder Description Priority Entered Acknowledged InitialedAspirin PO 11:46 08/12/2020 11:57 Lurdes Gibbonswable 81 mg Jatin Lindsey R.N.324 mg P.A.-C; Reason for ordering with alerts: Benefits outweigh risks -- 11:46 08/12/2020 Jatin Palmer-CNitroGLYCERIN 11:46 08/12/2020 11:57 Tam GibbonsieTopical Ointment Jatin JudgeNPhu0.5 in. P.A.-C; Reason for ordering with alerts: Benefits outweigh risks -- 11:46 08/12/2020 Jatin Palmer-CIV NS : Bolus 500 11:46 08/12/2020 11:57 Zelda Gibbons, then 75 mL/hr Jatin JudgeN. P.A.- C; Reason for ordering with alerts: Benefits outweigh risks -- 11:46 08/12/2020 Jatin Palmer-CMaalox PO 30 mL 14:37 08/12/2020 14:41 Jatin Langston R.N. P.A.-C;GENERAL ORDERSOrder Desc ription Priority Entered Acknowledged InitialedBlood Pressure 11:46 08/12/2020 11:54 Kian,Monitor Jatin Iniguez R.N. P.A.-C; Reason for ordering with alerts: Benefits outweigh risks -- 11:46 08/12/2020 Jatin Palmer-CCardiac Monitor 11:46 08/12/2020 11:54 Kian,(continuous) Jatin Iniguez R.N. P.A.-C; Reason for ordering with alerts: Benefits outweigh risks -- 11:46 08/12/2020 Jatin Palmer-CEKG 11:46 08/12/2020 11:54 Kian, Gretchen OrderSheet [facility] Emergency Department [address] [place] [address] Phone #: ext- [phone] 08/12/2020 11:19 Patient: ZOILA HOLGUIN Sex: F : 1960 Age: 60y Jatin Iniguez R.N., P.A.-C; Reason for ordering with alerts: Benefits outweigh risks -- 11:46 08/12/2020 Jatin HainesCNPO 11:46 08/12/2020 11:54 Jatin Langston R.N., P.A.-C; Reason for ordering with alerts: Benefits outweigh risks -- 11:46 08/12/2020 Jatin Palmer-COblaila Old EKG 11:46 12:30 Jatin Langston R.N., P.A.-C; Reason for ordering with alerts: Benefits outweigh risks -- 11:46 08/12/2020 Jatin HainesCObtain Old Records 11:46 08/12/2020 12:30 Jatin Langston R.N., P.A.-C; Reason for ordering with alerts: Benefits outweigh risks -- 11:46 08/12/2020 Jatin HainesCPulse oximeter 11:46 08/12/2020 11:54 Kian(Continuous) Jatin Iniguez R.N., P.A.-C; Reason for ordering with alerts: Benefits outweigh risks -- 11:46 08/12/2020 Jatin Palmer-CSaline Lock 11:46 08/12/2020 11:54 Jatin Langston R.N., P.A.-C; Reason for ordering with alerts: Benefits outweigh risks -- 11:46 08/12/2020 Jatin YUENitals 11:46 08/12/2020 11:54 Jatin Langston R.N., P.A.-C; Reason for ordering with alerts: Benefits outweigh risks -- 11:46 08/12/2020 Jatin Lindsey P.A.-C[Electronically signed by Hira Langston R.N. (15:57 08/12/2020)][Electronically signed by Jatin Lindsey P.A.-C (21:28 08/12/2020)][Electronically locked by Hira Langston R.N. (15:57 08/12/2020)] Name Value Range Interpretation Code Description Data Mona rce(s) Supporting Document(s) ID Date Data Source [id number] 08/12/2020 11:21:00 AM EDT [facility] 1 Medication Reconciliation Report [facility] Emergency Department [address] [place] [address] Phone #: ext- [phone] 08/12/2020 11:19 Patient: ZOILA HOLGUIN Sex: F : 1960 Age: 60yWeight: 55.6 kgHeight/Length: 65 in.BMI: 20.4ALLERGIES: Codeine Sulfate, Seasonal, ValiumThe patient's Home Medications are listed below:THE FOLLOWING MEDICATIONS NEED TO BE RECONCILED: aMILoride HCl Oral Ipratropium-Albuterol Inhalation, prn Mucinex nasal spray Omeprazole Oral 40 mg, daily predniSONE Oral Singulair Oral 10 mg, daily Trelegy Ellipta Inhalation (100-62.5-25 mcg/inh) 1 puff, daily Vicodin Oral Xanax Oral, prnThe source(s) of the original Home Medication information:Not obtained.The following Medications were given to the patient in the Emergency Department:ASPIRIN CHEWABLE 81 MG [PO] PO 324 mg, administered: 08/12/2020 11:57:00 AMNITROGLYCERIN [TOPICAL OINTMENT] Topical 0.5 in., administered: 08/12/2020 11:57:00 AMIV NS IV Fluids bolus 500 mL over 1 hour(s), then 75 mL/hr, administered: 08/12/2020 11:57:00 AM 2 Medication Reconciliation Report [facility] Emergency Department [address] [place] [address] Phone #: ext- [phone] 08/12/2020 11:19 Patient: ZOILA HOLGUIN Sex: F : 1960 Age: 60yMaalox [PO] PO 30 mL, administered: 08/12/2020 2:41:00 PMThe following Medications were prescribed to the patient:Lasix 20 mg tablet Take 1 tablet once a day for 3 days -- Dispense 3 tablet. Refills: 0. Substitutionpermitted.Pharmacy - [id number] - [address] [place] [address] ; [place], [place] [id number]. . -- Jatin Lindsey P.A.-C Name Value Range Interpretation Code Description Data Mona rce(s) Supporting Document(s) ID Date Data Source [id number] 08/12/2020 11:21:00 AM EDT [facility] 1 Medication Administration Record [facility] Emergency Department [address] [place] [address] Phone #: ext- [phone] 08/12/2020 11:19 Patient: ZOILA HOLGUIN Sex: F : 1960 Age: 60yWeight: 55.6 kgHeight/Length: 65 inBMI: 20.4ALLERGIES: Codeine Sulfate, Valium, Seasonal Date/Time Medication Administered Medication OrderedGiven ASPIRIN CHEWABLE 81 MG [PO] Aspirin PO Chewable 81 mg 52641:57 08/12/2020 Dose: 324 mg Tablets PO mgSuly Gibbons R.N.Given NITROGLYCERIN [TOPICAL OINTMENT] NitroGLYCERIN Rzbpuhv31:57 08/12/2020 Dose: 0.5 in. Ointment Topical Ointment 0.5 in.ShaiSuly villafana R.N.Start IV NS IV NS : Bolus 500 mL, then 7511:57 08/12/2020 Dose: IV Fluids mL/hrSuly Gibbons R.N. Rate: 75 mL/hr over 4 hour(s)---- Bolus: 500 mL over 1 hour(s)Stop Dispensed: 1000 mL bag15:50 08/12/2020 Site: #1 Hira Blackburn R.N.Given MAALOX [PO] (CALCIUM CARBONATE Maalox PO 30 mL14:41 08/12/2020 ANTACID)Hira Langston R.N. Dose: 30 mL Oral Suspension PO Name Value Range Interpretation Code Description Data Mona rce(s) Supporting Document(s) ID Date Data Source [id number] 08/12/2020 11:21:00 AM EDT [facility] 1 General Instructions [facility] Emergency Department [address] [place] [address] Phone #: ext- [phone] 08/12/2020 11:19 Patient: ZOILA HOLGUIN Sex: F : 1960 Age: 60yAtypical chest pain ;abnormal CT of the abdomen and pelvis. (Fatty liver with mild hepatomegaly).(Bibasilar atelectasis).(Pericardial effusion).INSTRUCTIONS(Recommend to utilize OTC Motrin and Tylenol to control inflammation and pain management.Recommend to follow the instructions on the bottle and not to exceed.).Prescription Medications:Lasix 20 mg tablet Take 1 tablet once a day for 3 days -- Dispense 3 tablet. Refills: 0. Substitutionpermitted.Pharmacy - [id number] - [address] [facility] ; [place], [place] [id number]. .Follow-up:Return to the emergency department as needed. Follow up with your healthcare provider today. Followup with a energy operations vice president. Call for the next available appointment.AMA warnings: Oriented to person, place, and time. Gives appropriate answers and rational explanationof refusal of care. Speaks coherently. No signs of psychosis, auditory hallucinations, delusional thinking,suicidal ideations or slurred speech. No tangential thinking, visual hallucinations or homicidal ideations.Clinical Impression: the patient has the capacity to make decisions regarding the medical care offered.Relevant issues reviewed and discussed with the patient. The suspected diagnosis, based upon theinitiated medical screening exam, is Atypical Chest pain, pericardial effusion. Acknowledgesunderstanding of the reasons for recommendations regarding medical treatment, admission to facility andfurther observation. The recommended medical care being refused is Admission for eval and has beendiscussed with the patient. The risks of refusing recommended care that were disclosed are .Discharge instructions were provided. Patient refused discharge instructions.REFUSAL OF CARE STATEMENT (patient to review and sign in discharge instructions):I have read this paragraph. I understand that a doctor at this hospital wants to give me certain medicalcare. The doctor explained that care to me, and I understand what that care is. The doctor also explainedto me what could happen to me if I leave here without having that care, and I unde rstand what he said. Iwant to leave this hospital without receiving the recommended care. I know that I am welcome to return [facility] at any time to receive the recommended care or any other care that I may need at any time,regardless of my ability to pay for such care. 2 General Instructions [facility] Emergency Department [address] [place] [address] Phone #: ext- [phone] 08/12/2020 11:19 Patient: ZOILA HOLGUIN Sex: F : 1960 Age: 60y ADDITIONAL INFORMATIONUncertain Causes of Chest PainChest pain can happen for a number of reasons. Sometimes the cause can't be determined. Ifyour condition does not seem serious, and your pain does not appear to be coming from your heart,your healthcare provider may recommend watching it closely. Sometimes the signs of a seriousproblem take more time to appear. Many problems not related to your heart can cause chest pain.These include: Musculoskeletal. Costochondritis is an inflammation of the tissues around the ribs that can occur from trauma or overuse injuries, or a strain of the muscles of the chest wall Respiratory. Pneumonia, collapsed lung (pneumothorax), or inflammation of the lining of the chest and lungs (pleurisy) Gastrointestinal. Esophageal reflux, heartburn, ulcers, or gallbladder disease Anxiety and panic disorders Nerve compression and inflammation Rare miscellaneous problems such as aortic aneurysm (a swelling of the large artery coming 3 [facility] Emergency Department [address] [place] [address] Phone #: ext- [phone] 08/12/2020 11:19 Patient: ZOILA HOLGUIN Sex: F : 1960 Age: 60y out of the heart) or pulmonary embolism (a blood clot in the lungs)Home careAfter your visit, follow these recommendations: Rest today and avoid strenuous activity. Take any prescribed medicine as directed. Be aware of any recurrent chest pain and notice any changesFollow-up careFollow up with your healthcare provider if you do not start to feel better within 24 hours, or as advised.Call [phone] if any of these occur: A change in the type of pain: if it feels different, becomes more severe, lasts longer, or begins to spread into your shoulder, arm, neck, jaw or back Shortness of breath or increased pain with breathing Weakness, dizziness, or fainting Rapid heart beat Crushing sensation in your chestWhen to seek medical adviceCall your healthcare provider right away if any of the following occur: Cough with dark colored sputum (phlegm) or blood Fever of 100.4F (38C) or higher, or as directed by your healthcare provider Swelling, pain or redness in one leg [phone] [employer]. [address] [place] [address]. All rights reserved. This information is not intended as asubstitute for professional medical care. Always follow your healthcare professional's instructions. You have been given the following additional information: Chest Pain, Uncertain Cause 4 General Instructions [facility] Emergency Department [address] [place] [address] Phone #: ext- [phone] 08/12/2020 11:19 Patient: ZOILA HOLGUIN Sex: F : 1960 Age: 60y(Electronically signed by Jatin Lindsey P.A.-C 08/12/2020 21:28) Name Value Range Interpretation Code Description Data Mona rce(s) Supporting Document(s) ID Date Data Source [id number] 08/12/2020 11:21:00 AM EDT [facility] 1 Clinical Report - Nurses [facility] Emergency Department [address] [place] [address] Phone #: ext- [phone] 08/12/2020 11:19 Patient: ZOILA HOLGUIN Sex: F : 1960 Age: 60yTRIAGEArrived by private vehicle. Historian: patient. ( c/o heart pain).Triage time: 11:22 08/12/2020. Acuity: LEVEL 3.Chief Complaint: CHEST PAIN.Alert. No acute distress.Onset. (4 days ago). No difficulty breathing, nausea or vomiting.Treatment DATA EXAMINATION CLERK:Seen within the last 90 days in the office. --11:29 08/12/20 Freeman Clifton R.N.11:22 08/12/20. BP: 149/94. MAP: 112. HR: 97. RR: 16. O2 saturation: 97%. Temp: 98.7 F. Pain levelnow: 07/15. --11:29 08/12/20 Freeman Clifton R.N.Height/Length: 65 inches Per Patient. --11:21 08/12/20 Freeman Clifton R.N.. Weight: 58.9 kg stated. BMI: 21.6. Correction --11:08/12/20 Freeman Clifton R.N..Weight: 55.6 kg stated. BMI: 20.4. --11:21 08/12/20 Freeman Clifton R.N.MedicationsIpratropium-Albuterol Inhalation, as needed. Mucinex nasal spray. Omeprazole Oral 40 mg, daily. Singulair Oral 10 mg, daily. Trelegy Ellipta Inhalation (Aerosol Powder Breath A ctivated 100-62.5-25 mcg/inh) 1 puff, daily. Xanax Oral, as needed. --11:26 08/12/20 Freeman Clifton R.N. predniSONE Oral. --11:46 08/12/20 Hira Langston R.N. aMILoride HCl Oral. --11:47 08/12/20 Hira Langston R.N. Vicodin Oral. --11:47 08/12/20 Hira Langston R.N.The following entry was struck by Hira Langston R.N., 11:45 (08/12/20) Reason - wrong value. Lisinopril Oral 5 mg, daily. --11:26 08/12/20 Sorbero, Freeman, R.N. .AllergiesSeasonal. --1108/12/20 Freeman Clifton R.N.Codeine Sulfate.Valium. --08/12/20 Freeman Clifton R.N.PROBLEMS:Chest Wall Pain.Bowel Obstruction. 2 Clinical Report - Nurses [facility] Emergency Department [address] [place] [address] Phone #: ext- [phone] 08/12/2020 11:19 Patient: ZOILA HOLGUIN Sex: F : 1960 Age: 60yContusion.Abnormal Test.Abnormal Liver Function Test.Asthma.Anxiety Reaction.Sepsis (disorder).Pneumonia.Emphysema.Gastroesophageal Reflux Disease.Herpes Zoster.Heart Disease. --08/12/20 Freeman Clifton R.N.The following entry was modified by Freeman Clifton R.N., 08/12/20Hypertension. --08/12/20 Freeman Clifton R.N.The following entry was modified by Freeman Clifton R.N., 08/12/20COPD - Chronic Obstructive Pulmonary Disease. --08/12/20 Freeman Clifton R.N..ADDITIONAL SURGERIES:Bowel resection.Bowel Surgery.Carpal Tunnel Surgery (Bilateral).Laparoscopy.Tonsillectomy.Tubal Ligation. --08/12/20 Freeman Clifton R.N.HistorySOCIAL HX: Former smoker, end date 2007. Occasional alcohol use; consumes beer occasionally. Shewas offered HIV testing but declined and hepatitis C testing but declined. She has not traveled outside the.[place]Infectious disease exposure: No infectious disease exposure. Mask placed on patient. Precautions taken.Patient is not a known carrier of tuberculosis, hepatitis, HIV, MRSA or VRE. Patient is not a known carrierof CRE.SELF HARM ASSESSMENT: Self harm assessment was performed. The patient answered "no" to thequestion(s) "Have you recently felt down, depressed, or hopeless?", "Do you have thoughts of harming orkilling yourself?", "Do you have a plan for harming or killing yourself?" and "Have you recently had thoughtsabout harming or killing others?".ABUSE ASSESSMENT: No report of abuse.NUTRITIONAL RISK ASSESSMENT: The nutritional risk assessment revealed no deficiencies.FUNCTIONAL ASSESSMENT: Functional assessment: no impairments noted. 3 Clinical Report - Nurses [facility] Emergency Department [address] [place] [address] Phone #: ext- [phone] 08/12/2020 11:19 Patient: ZOILA HOLGUIN Sex: F : 1960 Age: 60y LEARNING NEEDS ASSESSMENT: The learning needs assessment revealed no barriers. FALL RISK ASSESSMENT: Fall risk assessment completed. No risk factors identified. SKIN INTEGRITY ASSESSMENT: Skin integrity risk assessment completed. No skin integrity risk identified. --11:08/12/20 Freeman Clifton R.N. Assessment The patient states feels the same. --08/12/20 Freeman Clifton R.N. Interventions Identification band on patient. To treatment room. --11:08/12/20 Freeman Clifton R.N.PHYSICAL [id number]:08/12/20. Ambulatory to room.GENERAL / NEURO / PSYCH: Alert. Oriented X 4. Appears anxious.HEENT: Mucous membranes are pink.RESPIRATORY: Respirations not labored. Lower sternal tenderness. The tenderness reproduces thepatient's subjective complaint. Breath sounds within normal limits.CVS: Cardiac rhythm: normal sinus rhythm. Heart sounds within normal limits. Pulses within normallimits. Capillary refill less than 2 seconds.GI / : Abdomen soft and nontender. ( hx of GERD).EXTREMITIES: No lower extremity edema.SKIN: Skin is warm and dry. Normal skin turgor. Skin is non-tender. --14:30 08/12/20 Hira Langston R.N.NURSING PROGRESS NOTES11:30 08/12/20. conveyor monitor, NIBP monitor and pulse oximeter placed on patient; monitor alarms on;monitor strip added to paper chart. Patient gowned. Head of bed elevated 45 degrees. Reassurancegiven. Two patient identifiers checked. Call light placed in reach. Safety measures: (refused rails up).Bed placed in lowest position. Brakes of bed on. Patient ready for evaluation- PA notified. --11: Freeman Clifton R.N. 11:51 08/12/2020 Site #1 started via IV in the left with an 20g angiocath, with aseptic technique and good blood return; three attempts. Blood drawn: rainbow set and green tube(s). Labeled in the presence of the patient and sent to the lab. Saline lock flushed with 10 mL saline. --11:51 08/12/20 Hira Langston R.N. Cardiac rhythm: normal sinus rhythm. Checked patient name, birthdate and medical record number. Blood samples drawn from the left forearm peripheral IV site with Vacutainer by nurse per protocol: rainbow set and green top; cardiac enzymes (1st set). Line flushed with with (10 units / mL) heparin post blood draw. Reassessment acuity: LEVEL 3. The patient reports no complaints, she is resting quietly and she has had no adverse reaction. Overall patient status is t he same- she states feels the same. RESPIRATORY: No respiratory distress. Breath sounds normal. CVS: The patient reports central chest pain is still present and currently moderate in severity and described 4 Clinical Report - Nurses [facility] Emergency Department [address] [place] [address] Phone #: ext- [phone] 08/12/2020 11:19 Patient: ZOILA HOLGUIN Sex: F : 1960 Age: 60yas pressure-like. Normal sinus rhythm noted.SKIN: Skin is warm and dry. Skin color within normal limits. Two patient identifiers checked. Call lightplaced in reach. Side rails up x 2. Bed placed in lowest position. Brakes of bed on. --11:53 08/12/20Hira zarco R.N.11:50 08/12/20. BP: 149/94. MAP: 112. HR: 85. RR: 20. O2 saturation: 94%. Temp: 98.4 F. Pain levelnow: 08/14. --11:53 08/12/20 Hira Langston R.N.11:57 08/12/2020 ASPIRIN CHEWABLE 81 MG PO Tablets 324 mg given. Allergies verified and confirmed5 rights. Information reviewed with patient including reason for taking this medication, signs of allergicreaction and precautions. Verbalizes understanding. --11:57 08/12/20 Suly Gibbons R.N.11:57 08/12/2020 NITROGLYCERIN Topical Ointment 0.5 inch given. Applied to the affected area.Allergies verified and confirmed 5 rights. Information reviewed with patient including reason for taking thismedication, signs of allergic reaction and precautions. Verbalizes understanding. --11:57 08/12/20 Suly Gibbons R.N.11:57 08/12/2020 Started bag #1 1000 mL IV Fluids IV NS; bolus of 500 mL over 1 hour(s) then at 75mL/hr over 4 hour(s) via site #1 via IV pump. Allergies verified and confirmed 5 rights. IV patencyestablished. IV site checked: no pain, redness, or swelling. IV flushed thoroughly pre- and post- medicationadministration. Information reviewed with patient including reason for taking this medication, signs ofallergic reaction and precautions. Verbalizes understanding. --11:57 08/12/20 Suly Gibbons R.N.12:23 08/12/2020 NITROGLYCERIN Topical Response: no adverse reaction pain is improving. Symptomshave improved the patient feels better. --12:23 08/12/20 Hira Langston R.N.Two patient id entifiers checked. Call light placed in reach. Side rails up x 2. --12:23 08/12/20 Hira Langston R.N.12:28 08/12/20. BP: 128/78. MAP: 94. HR: 65. RR: 13. O2 saturation: 98%. Temp: 98.4 F. Pain level now:03/14. Describes the quality as pressure. --12:29 08/12/20 Hira Langston R.N.Cardiac rhythm: normal sinus rhythm. Reassessment acuity: LEVEL 3. The patient reports nocomplaints, she is calm and resting quietly and she has had no adverse reaction. Overall patient status isimproved- she states feels better.RESPIRATORY: No respiratory distress. Breath sounds normal.CVS: The patient reports central chest pain is still present but improving and currently mild in severity anddescribed as pressure- like. Normal sinus rhythm noted.SKIN: Skin is warm and dry. Skin color within normal limits. Two patient identifiers checked. Call lightplaced in reach. Side rails up x 2. Bed placed in lowest position. Brakes of bed on. --12:08/12/20Hira zarco R.N.12:32 08/12/20. Call light placed in reach. --14:33 08/12/20 Hira Langston R.N. 5 Clinical Report - Nurses [facility] Emergency Department [address] [place] [address] Phone #: ext- [phone] 08/12/2020 11:19 Patient: ZOILA HOLGUIN [facility]#: [id number] Sex: F : 1960 Age: 60y 14:32 08/12/20. BP: 142/85. MAP: 104. HR: 65. RR: 16. O2 saturation: 99%. Temp: 98.4 F. Pain level now: 03/14. --14:33 08/12/20 Hira Langston R.N. 14:00 08/12/20. BP: 160/93. MAP: 115. HR: 66. RR: 16. O2 saturation: 97%. Temp: 98.3 F . Pain level now: 04/14. --14:40 08/12/20 Hira Langston R.N. Two patient identifiers checked. Call light placed in reach. Side rails up x 2. Bed placed in lowest position. Brakes of bed on. --14:40 08/12/20 Hira Langston R.N. 14:41 08/12/2020 Maalox (Calcium Carbonate Antacid) PO Oral Suspension 30 mL given. Allergies verified and confirmed 5 rights. Information reviewed with patient including reason for taking this medication, signs of allergic reaction and precautions. Verbalizes understanding. --14:41 08/12/20 Hira Langston R.N.DISPOSITION / DISCHARGE 15:50 08/12/2020 Site #1 removed upon discharge. Pressure dressing and bandaid applied. --15:50 08/12/20 Hira Langston R.N. 15:50 08/12/2020 IV Fluids IV NS via IV site #1 Discontinued: bag #1 infused upon discharge. Total amount infused: 650 mL. IV patency established. IV site checked: no pain, redness, or swelling. IV flushed thoroughly. --15:50 08/12/20 Hira Langston R.N. 15:51 08/12/2020 Maalox PO Response: no adverse reaction pain is gone now. Symptoms have improved the patient feels better. Physician assistant office manager notified. --15:51 08/12/20 Hira Langston R.N. Condition at departure: improved. No learning barriers present. Discharge instructions provided and reviewed with the patient. Reviewed warnings. Reviewed medication(s). Treatments reviewed. Reviewed referrals. Patient verbalized understanding. Written instructions provided in [place]. The patient left the Emergency Department against medical advice and without completion of treatment; patient was unaccompanied. The patient appears to be alert, oriented x4 and in no acute distress. The patient notified staff prior to leaving the department and stated is leaving due to personal reasons and to go to their primary care physician. Notified the ED physician of patient departure. Prior to leaving, she was advised to stay for completion of treatment and return if needed. She was informed of the risks of leaving and verbalized understanding of these risks. Patient signed form prior to leaving. She left the Emergency Department ambulatory and via private vehicle. The patient was discharged by the physician assistant office manager. She was discharged home. She left ambulatory and via private vehicle. Patient driving. Patient has no belongings. --15:57 08/12/20 Hira Langston R.N. 15:47 08/12/20. BP: 148/95. MAP: 112. HR: 66. RR: 16. O2 saturation: 97% on room air. Temp: 98.4 F. Pain level now: 02/12. --15:57 08/12/20 Hira Langston R.N. Departure time: 15:57 08/12/2020. --15:57 08/12/20 Hira Langston R.N. 6 Clinical Report - Nurses [facility] Emergency Department [address] [place] [address] Phone #: ext- [phone] 08/12/2020 11:19 Patient: ZOILA HOLGUIN Sex: F : 1960 Age: 60yLoc ked/Released at 08/12/2020 15:57 by Hira Langston R.N. Name Value Range Interpretation Code Description Data Mona rce(s) Supporting Document(s) ID Date Data Source [id number] 0001 08/12/2020 11:21:00 AM EDT [facility] 1 Clinical Report - Physicians/Mid Levels [facility] Emergency Department [address] [place] [address] Phone #: ext- [phone] 08/12/2020 11:19 Patient: ZOILA HOLGUIN Sex: F : 1960 Age: 60y Time Seen: 11:44 08/12/2020; initial patient contact, initial documentation. Arrived- By private vehicle. Historian- patient.HISTORY OF PRESENT ILLNESS Chief Complaint: CHEST PAIN and DISCOMFORT. This started about 2 days ago. It is described as pressure, indigestion and dull and it is described as located in other area and the epigastric area. No nausea, vomiting, difficulty breathing or diaphoresis. (Pt sts taht she noted the CP on sunday, called her PCP and was infomred to come to the ER; she chose not too. Sts that the pain has improved, but still present and decided to come to the ER today for further eval. Pt has a hx of UT (2004), but no stents. Has hx of SBO that resulted in resection. Sts she ahd "fluid around heart" and discovered last year. Saw a energy operations vice president, but feels she was being treated wrong, asked PCP for new cardiology referral and then COVID hit and has not had a f/u. Sts she completed a prednisone taper today from a old rx. Pt wanted to be checked out as the pain has not improved.). Similar symptoms previously. None. Recent medical care: Not recently seen/assessed.REVIEW OF SYSTEMSNo fever, chills, cough, pedal edema or calf pain. No abnormal bleeding, fainting episodes, headache,sore throat or blurred vision. No abdominal pain, black stools, difficulty with urination, skin rash orenlarged lymph nodes. No joint pain or bloody stools. All other systems reviewed and are negative.PAST HISTORYSee nurses notes. Problems: Hypertension. Chest Wall Pain. Bowel Obstruction. Contusion. COPD - Chronic Obstructive Pulmonary Disease. Abnormal Test. Abnormal Liver Function Test. Asthma. Anxiety Reaction. Sepsis (disorder). Pneumonia. Emphysema. Gastroesophageal Reflux Disease. 2 Clinical Report - Physicians/Mid Levels [facility] Emergency Department [address] [place] [address] Phone #: ext- [phone] 08/12/2020 11:19 Patient: ZOILA HOLGUIN Sex: F : 1960 Age: 60y Herpes Zoster. Heart Disease. Pharyngitis [RuleOut]. Angioedema [RuleOut]. Additional Surgeries: Bowel resection. Bowel Surgery. Carpal Tunnel Surgery. Laparoscopy. Tonsillectomy. Tubal Ligation. Medications: Vicodin Oral. aMILoride HCl Oral. predniSONE Oral. Ipratropium-Albuterol Inhalation, as needed. Mucinex nasal spray. Omeprazole Oral 40 mg, daily. Singulair Oral 10 mg, daily. Trelegy Ellipta Inhalation (Aerosol Powder Breath Activated 100-62.5-25 mcg/inh) 1 puff, daily. Xanax Oral, as needed. Allergies: Codeine Sulfate. Seasonal. Valium.SOCIAL HISTORYFormer smoker. Occasional alcohol use. No drug use.ADDITIONAL NOTESThe nursing notes have been reviewed.PHYSICAL EXAMVital Signs: 08/12/2020 11:22 BP: 149/94. MAP: 112. HR: 97. RR: 16. O2 saturation: 97%. Temp: 98.7 F.Pain level now: 07/15. Have been reviewed. Oxygen saturation normal.Appearance: Alert. Oriented X3. No acute distress.ENT: Normal ENT inspection. Airway intact. TM's normal. Ears normal. Nose normal. Nares normal.Pharynx normal. Moist mucous membranes. Uvula midline. Voice normal.Neck: Normal inspection. Neck supple.CVS: Normal heart rate and rhythm. No JVD present. Pulses normal. Capillary refill normal. Strongperipheral pulses. Heart sounds normal. Pulses: right radial 2+; left radial 2+; right dorsalis pedis 2+; leftdorsalis pedis 2+; right posterior tibial 2+; left posterior tibial 2+. 3 Clinical Report - Physicians/Mid Levels [facility] Emergency Department [address] [place] [address] Phone #: ext- [phone] 08/12/2020 11:19 Patient: ZOILA HOLGUIN Sex: F : 1960 Age: 60y Respiratory: Chest normal on inspection. No respiratory distress. Unla bored respirations. Mild rhonchi present bilaterally. Good chest movement. Breath sounds equal. Chest nontender. Abdomen: Normal inspection. Soft and nontender. Bowel sounds normal. No distention. Skin: Skin warm and dry. Extremities: Extremities exhibit normal ROM. No lower extremity edema. No calf tenderness. No lower extremity edema. Neuro: Awake. Alert. Oriented X 3. Mood/affect normal. Speech normal. No motor deficit. No sensory deficit. Psych: Cognition normal. Thought process and content normal. Insight and judgement normal.LABS, X-RAYS, AND EKGEKG: Normal sinus rhythm. Rate: 84. NSR; Nonspecific ST abnormality, abnormal ecg. Discussed and reviewed with/by attending. Chest X-ray: (PORTABLE: Cesar howard Mike - 08/12/2020 12:05:13 PM hyperinflation, nad ella/debbie). The X-rays were interpreted by the radiologist. CT Abdomen - Pelvis: Ella judd Kirwin - 08/12/2020 2:39:29 PM fatty liver an mild hepatomegaly.. bibasilar atel. o/w nad. CTA Pulmonary Arteries: bostonElla graff Kirwin - 08/12/2020 2:42:53 PM Pulmonary embolism, aortic aneurysm aortic dissection not seen. Heart not enlarged. Moderate-sized pericardial effusion is seen of indeterminate clinical significance. Emphysematous changes. Bibasilar atelectasis. Otherwise unremarkable CTA chest. The study was interpreted by the radiologist. Laboratory Tests: Beta-HCG, Qual Serum: (ANUP: 08/12/2020 11:43) ( [facility] 08/12/2020 12:22) Final results Test Result Flag Units (Reference) HCG SERUM QUAL NEGATIVE (NORMAL: NEGAT HCG SERUM QL REENTER NEGATIVE (NORMAL: NEGAT { KIT LOT # [id number] ){ KIT EXP DATE 08.10.21 ){ PROCEDURAL CONTROL VALID ) CBC w Diff: (ANUP: 08/12/2020 11:43) ( KsgRcvd 08/12/2020 12:05) Final results Test Result Flag Units (Reference) CBC W/AUTOMATED DIFF COMPLETE BLOOD COUNT WBC 9.5 10/uL (4.2 - 11.0) RBC 4.07 L 10/uL (4.20 - 5.40) HEMOGLOBIN 12.6 g/dL (12.0 - 16.0) HEMATOCRIT 37.8 % (37.0 - 47.0) MCV 92.9 fL (81.0 - 101) MCH 31.0 pg (27.0 - 34.0) MCHC 33.3 g/dL (31.0 - 36.0) RDW 12.9 % (11.5 - 14.5) PLATELETS 240 10/uL (150 - 450) MPV 9.8 fL (7.4 - 10.4) NEUT 71.2 % (37.0 - 80.0) LYMPH 19.8 L % (25.0 - 40.0) 4 Clinical Report - Physicians/Mid Levels [facility] Emergency Department [address] [place] [address] Phone #: ext- [phone] 08/12/2020 11:19 Patient: ZOILA HOLGUIN Sex: F : 1960 Age: 60y MONO 7.8 % (3.0 - 8.0) EOS 0.0 % (0.0 - 7.0) BASO 0.4 % (0.0 - 2.5) %IG 0.8 H % (0.0 - 0.0) %NRBC 0.0 % (0.0 - 0.0) #NEUT 6.78 10/uL (2.00 - 6.90) #LYMPH 1.89 10/uL (0.60 - 3.40) #MONO 0.74 10/uL (0.00 - 0.90) #EOS 0.00 10/uL (0.00 - 0.70) #BASO 0.04 10/uL (0.00 - 0.20) #IG 0.08 10/uL (0.00 - 0.10) #NRBC 0.00 10/uL (0.00 - 0.00) MANUAL DIFF NOT INDICATED RBC MORPH NOT INDICATEDCMP: (ANUP: 08/12/2020 11:43) ( MsgRcvd 08/12/2020 12:43) Final results Test Result Flag Units (Reference) COMPREHENSIVE METABOLIC PANEL COMPREHENSIVE METABOLIC PANEL SODIUM 140 mEq/L (134 - 153) POTASSIUM 3.8 mEq/L (3.6 - 5.0) CHLORIDE 101 mEq/L (98 - 107) CO2 29 MEQ/L (22 - 30) GLUCOSE 145 H MG/DL (65 - 110) BUN 16 MG/DL (7 - 21) CREATININE 0.6 L MG/DL (0.7 - 1.5) BUN/CREAT 27 (8 - 27) TOTAL PROTEIN 7.4 G/DL (6.3 - 8.2) ALBUMIN 4.4 G/DL (3.9 - 5.0) GLOBULIN 3.0 GM/DL (2.4 - 3.2) A/G RATIO 1.5 (0.8 - 2.0) CALCIUM 9.5 MG/DL (8.4 - 10.2) TOTAL BILI <0.7 MG/DL (0.2 - 1.3) ALKALINE PHOS 106 U/L (38 - 126) SGOT/AST 63 H U/L (5 - 40) SGPT/ALT 72 H U/L (7 - 56) ANION GAP 10.0 mmol/L (8.0 - 16.0) AGE 60 yrs NON-AA GFR >60 mL/min AFR AMER GFR >60 Male GFR Interprentation 20-49 yrs >60 mL/min [id number] yrs >56 mL/min Normal 60-69 yrs >49 mL/min Normal 70-79yrs>42 mL/min Normal 80 and above >35 mL/min Normal Female GFRInterpretation 20-39 yrs >60 mL/min Normal 40-49 yrs >58 mL/minNormal 50-59 yrs >51 mL/min Normal 60-69 yrs >45 mL/min Hddygt09-47 yrs >39 mL/min Normal 80 and above >32 mL/min NormalLipase: (ANUP: 08/12/2020 11:43) ( [facility] 08/12/2020 12:38) Final results Test Result Flag Units (Reference) LIPASE 35 U/L (13 - 60)PT/PTT: (ANUP: 08/12/2020 11:43) ( [facility] 08/12/2020 12:19) Final results Test Result Flag Units (Reference) PROTIME 11.9 SECONDS (11.0 - 15.5) INR 0.87 L (0.93 - 1.23) PTT 25.8 SECONDS (24.8 - 36.7) \\BLDo\\INR INTERPRETATION\\BLDx\\ Therapeutic range for Coumadin and 5 Clinical Report - Physicians/Mid Levels [facility] Emergency Department [address] [place] [address] Phone #: ext- [phone] 08/12/2020 11:19 Patient: ZOILA HOLGUIN Sex: F : 1960 Age: 60y related oral anticoagulants. -International Normalized Ratio (INR): 2.0 - 3.0 for Venous Thrombosis, Pulmonary Embolus, Tissue heart valves, Acute UT Atrial Fibrillation, Valvular heart dis ease and recurrent Systemic Embolism. -International Normalized Ratio (INR): 2.5 - 3.5 for Mechanical Prosthetic valve. Troponin-T: (ANUP: 08/12/2020 11:43) ( [facility] 08/12/2020 12:24) Final results Test Result Flag Units (Reference) TROPONIN T <0.01 NG/ML (0.00 - 0.10) TROPONIN T0.1 ng/ml Recommended as the clinical threshold value forTroponin T. BNP: (ANUP: 08/12/2020 11:43) ( [facility] 08/12/2020 12:43) Final results Test Result Flag Units (Reference) BNP 285 H PG/ML (0 - 125) Magnesium: (ANUP: 08/12/2020 11:43) ( [facility] 08/12/2020 12:38) Final results Test Result Flag Units (Reference) MAGNESIUM 2.1 MG/DL (1.7 - 2.2) TSH: (ANUP: 08/12/2020 11:43) ( MsgRcvd 08/12/2020 12:38) Final results Test Result Flag Units (Reference) TSH 1.40 uIU/mL (0.47 - 5.01) Lactic Acid: (ANUP: 08/12/2020 11:43) ( [facility] 08/12/2020 12:04) Final results Test Result Flag Units (Reference) LACTIC ACID 1.6 MMOL/L (0.2 - 2.2) D-Dimer: (ANUP: 08/12/2020 11:43) ( [facility] 08/12/2020 12:19) Final results Test Result Flag Units (Reference) D-DIMER QUANT 2.08 H ug/mL (0.27 - 0.50).PROGRESS AND PROCEDURESCourse of Care: VSS, NAD, AOx3, interacting well and appropriately, no use of accessory muscle, able tospeak full sentences, stable, non-toxic looking. Enter room and pt lying peacefully in bed in NAD. Patient stable. Denies any new issues, concerns, or complaints. PE dmeos NV intact b/l UE and LE. Pt has cardiac hx and abd hx. Will obtian labs and imaigng for furhter eval. PEnding results. Nurse informs me that pts chest pain improved with nitro paste. ? cardiac etiology due to improvement with nitro. Initial troponin was negative. Reviewed results. Noted pericardial effusion, this is chronic, but not followed in 2020. Enter room and patient lying peacefully in bed in NAD. Patient stable. Denies any new issues, concerns, or complaints. 6 Clinical Report - Physicians/Mid Levels [facility] Emergency Department [address] [place] [address] Phone #: ext- [phone] 08/12/2020 11:19 Patient: ZOILA HOLGUIN Sex: F : 1960 Age: 60y Infomred pt to be admitted for further eval/observation. Pt denies mulitple times. Sts he will not be admitted and will f/u with PCP and new caridolgoy. Stressed negative outcomes, but pt deneis and wants to elave. Discussed results with pt. Discussed tx plan with pt. Discussed importance of a f/u with PCP. Discussed return to ER criteria. Answered their questions. Indicates and verbalizes that they understand, agree, and will comply with above. Denies any new questions or concerns. Patient has capacity to understand. Pt sts that this was maintained with observation and medicaiton, but due to COVID not seen new energy operations vice president. Pt wishes to leave and not be admited. Pt agrees to AMA. Feel that pain is 2/2 pericardial effusion and nitro helped but feel it will return. Pt will need to f/u with PCP and cardiolgoy. Discussed of OTC Motrin and Tylenol to control inflammation and pain management. Informed to follow directions on bottle that are appropriate for age and/or weight. Discussed case with health care provider (Warren).CLINICAL IMPRESSION Atypical chest pain ; abnormal CT of the abdomen and pelvis. (Fatty liver with mild hepatomegaly). (Bibasilar atelectasis). (Pericardial effusion).INSTRUCTIONS (Recommend to utilize OTC Motrin and Tylenol to control inflammation and pain management. Recommend to follow the instructions on the bottle and not to exceed.). Prescription Medications: Lasix 20 mg tablet Take 1 tablet once a day for 3 days -- Dispense 3 tablet. Refills: 0. Substitution permitted. Pharmacy - [id number] [id number] [facility] ; [place], [place] [id number]. . Follow-up: Return to the emergency department as needed. Follow up with your healthcare provider today. Follow up with a energy operations vice president. Call for the next available appointment. 7 Clinical Report - Physicians/Mid Levels [facility] Emergency Department [address] [place] [id number] Phone #: ext- [phone] 08/12/2020 11:19 Patient: ZOILA HOLGUIN Sex: F : 1960 Age: 60y AMA warnings: Oriented to person, place, and time. Gives appropriate answers and rational explanation of refusal of care. Speaks coherently. No signs of psychosis, auditory hallucinations, delusional thinking, suicidal ideations or slurred speech. No tangential thinking, visual hallucinations or homicidal ideations. Clinical Impression: the patient has the capacity to make decisions regarding the medical care offered. Relevant issues reviewed and discussed with the patient. The suspected diagnosis, based upon the initiated medical screening exam, is Atypical Chest pain, pericardial effusion. Acknowledges understanding of the reasons for recommendations regarding medical treatment, admission to facility and further observation. The recommended medical care being refused is Admission for eval and has been discussed with the patient. The risks of refusing recommended care that were disclosed are . Discharge instructions were provided. Patient refused discharge instructions. REFUSAL OF CARE STATEMENT (patient to review and sign in discharge instructions): I have read this paragraph. I understand that a doctor at this hospital wants to give me certain medical care. The doctor explained that care to me, and I understand what that care is. The doctor also explained to me what could happen to me if I leave here without having that care, and I understand what he said. I want to leave this hospital without receiving the recommended care. I know that I am welcome to return to this hospital at any time to receive the recommended care or any other care that I may need at any time, regardless of my ability to pay for such care.(Electronically signed by Jatin Lindsey P.A.-C 08/12/2020 21:28) Name Value Range Interpretation Code Description Data Mona rce(s) Supporting Document(s) ID Date Data Source [id number] 08/12/2020 02:46:00 PM EDT [facility] ([facility] Name Value Range Interpretation Code Description Data Mona rce(s) Supporting Document(s) Troponin T.cardiac [Mass/volume] in Serum or Plasma Laborato ry test result 0.00-0.10 [facility] CMTS: 3hr REPEAT ID Date Data Source [id number] 08/12/2020 03:17:00 PM EDT [facility] Name Value Range Interpretation Code Description Data Mona rce(s) Supporting Document(s) TROPONIN T <0.01 NG/ML 0.00 - 0.10 [facility] TROPONIN T0.1 ng/ml Recommended as the c linical threshold value forTroponin T. ID Date Data Source [id number] 08/12/2020 11:43:00 AM EDT MEDENT ([facility] Name Value Range Interpretation Code Description Data Mona rce(s) Supporting Document(s) Natriuretic peptide.B prohormone N-Terminal [Mass/volu me] in Serum or Plasma 285 pg/mL 0-125 Above high normal MEDENT ([facility] ID Date Data Source [id number] 08/12/2020 11:43:00 AM EDT MEDENT ([facility] Name Value Range Interpretation Code Description Data Mona rce(s) Supporting Document(s) Sodium 140 meq/L 134-153 [facility] ([facility] Comprehensive Metabo Laboratory test result MEDENT ([facility] COMPREHENSIVE METABOLIC PANEL Potassium 3.8 meq/L 3.6-5.0 [facility] ([facility] Chloride 101 meq/L 98-107 MED[facility] ([facility] Co2 29 meq/L 22-30 [facility] BUN 16 mg/dL 7-21 MEDENT ([facility] Glucose 145 mg/dL 65-110 Above high normal MEDENT ([facility] Creatinine 0.6 mg/dL 0.7-1.5 Below low normal MEDENT ( [facility] BUN/Creat 27 8-27 MEDENT ([facility] Albumin 4.4 g/dL 3.9-5.0 MEDENT ([facility] Total Protein 7.4 g/dL 6.3-8.2 MEDENT ([facility] A/G Ratio 1.5 0.8-2.0 MEDENT ([facility] Globulin 3.0 GM/DL 2.4-3.2 MEDENT ([facility] Total Bili Laboratory test result 0.2-1.3 ME DENT ([facility] Calcium 9.5 mg/dL 8.4-10.2 MEDENT ([facility] Alkaline Phos 106 U/L 38-126 [facility] SGPT/Alt 72 U/L 7-56 Above high normal MEDENT ([facility] Sgot/Ast 63 U/L 5-40 Above high normal MEDENT ([facility] Anion Gap 10.0 mmol/L 8.0-16.0 MEDENT (Count includes the [facility] Age 60 yrs MEDENT ([facility] Non-Aa GFR Laboratory test result ME DENT ([facility] Afr Amer GFR Laboratory test result MEDENT ([facility] Male GFR Interprentation 20-49 yrs >60 mL/min Normal 50-59 yrs >56 mL/min Normal 60-69 yrs >49 mL/min Normal 70-79yrs >42 mL/min Normal 80 and above >35 mL/min Normal Female GFR Interpretation 20-39 yrs >60 mL/min Normal 40-49 yrs >58 mL/min Normal 50-59 yrs >51 mL/min Normal 60-69 yrs >45 mL/min Normal 70-79 yrs >39 mL/min Normal 80 and above >32 mL/min Normal ID Date Data Source [id number] 08/12/2020 11:43:00 AM EDT MEDENT ([facility] Name Value Range Interpretation Code Description Data Mona rce(s) Supporting Document(s) Troponin T.cardiac [Mass/volume] in Serum or Plasma Laborato ry test result 0.00-0.10 [facility] TROPONIN T 0.1 ng/ml Recommended as the clinical th reshold value for Troponin T. Lipoprotein lipase [Enzymatic activity/volume] in Serum or Plasm a 35 U/L 13-60 MEDENT ([facility] ) Magnesium [Mass/volume] in Serum or Plasma 2.1 mg/dL 1.7-2.2 MED[facility] ([facility] Thyrotropin [Units/volume] in Serum or Plasma 1.40 uIU/mL 0.47-5.01 MED[facility] ([facility] ID Date Data Source [id number] 08/12/2020 11:43:00 AM EDT MED[facility] ([facility] Name Value Range Interpretation Code Description Data Mona rce(s) Supporting Document(s) HCG Serum Qual Laboratory test result MEDENT ([facility] HCG Serum QL Reenter Laboratory test result MEDENT ([facility] { KIT LOT # [id number] ) { KIT EXP DATE 08.10.21 ) { PROCEDURAL CONTROL VALID ) ID Date Data Source [id number] 08/12/2020 11:43:00 AM EDT MEDENT ([facility] Name Value Range Interpretation Code Description Data Mona rce(s) Supporting Document(s) Fibrin D-dimer [Presence] in Platelet poor plasma 2.08 ug/mL 0.27-0.50 Above high normal MEDENT ([facility] ) ID Date Data Source [id number] 08/12/2020 11:43:00 AM EDT [facility] Name Value Range Interpretation Code Description Data Mona rce(s) Supporting Document(s) Inr 0.87 0.93-1.23 Below low normal MEDENT ( [facility] Protime 11.9 s 11.0-15.5 MEDENT ([facility] PTT 25.8 s 24.8-36.7 MEDENT ([facility] \\BLDo\\INR INTERPRETATION\\BLDx\\ Therapeutic range for Coumadin and related oral anticoagulants. -International Normalized Ratio (INR): 2 .0 - 3.0 for Venous Thrombosis, Pulmonary Embolus, Tissue heart valves, Acute [place] Atrial Fibrillation, Valvular heart disease and recurrent Systemic Embolism. -International Normalized Ratio (INR): 2 .5 - 3.5 for Mechanical Prosthetic valve. ID Date Data Source [id number] 08/12/2020 11:43:00 AM EDT MEDENT ([facility] Name Value Range Interpretation Code Description Data Mona e(s) Supporting Document(s) CBC W/Automated Diff Laboratory test result MEDENT ([facility] COMPLETE BLOOD COUNT RBC 4.07 10^6/uL 4.20-5.40 Below low normal MEDENT ([facility] WBC 9.5 10^3/uL 4.2-11.0 MED[facility] ([facility] Hemoglobin 12.6 g/dL 12.0-16.0 MED[facility] ([facility] MCV 92.9 fL 81.0-101 MEDENT ([facility] Hematocrit 37.8 % 37.0-47.0 [facility] ([facility] MCH 31.0 pg 27.0-34.0 MED[facility] ([facility] MCHC 33.3 g/dL 31.0-36.0 MED[facility] ([facility] RDW 12.9 % 11.5-14.5 MED[facility] ([facility] Platelets 240 10^3/uL 150-450 [facility] MPV 9.8 fL 7.4-10.4 [facility] ([facility] Neut 71.2 % 37.0-80.0 [facility] ([facility] [place] 7.8 % 3.0-8.0 [facility] ([facility] Lymph 19.8 % 25.0-40.0 Below low normal [facility] ( [facility] Eos 0.0 % 0.0-7.0 [facility] ([facility] Baso 0.4 % 0.0-2.5 [facility] ([facility] %Ig 0.8 % 0.0-0.0 Above high normal [facility] ([facility] %NRBC 0.0 % 0.0-0.0 [facility] ([facility] #Neut 6.78 10^3/uL 2.00-6.90 [facility] ([facility] #[place] 0.74 10^3/uL 0.00-0.90 [facility] ([facility] #Lymph 1.89 10^3/uL 0.60-3.40 [facility] ([facility] #Baso 0.04 10^3/uL 0.00-0.20 [facility] ([facility] #Eos 0.00 10^3/uL 0.00-0.70 [facility] ([facility] #Ig 0.08 10^3/uL 0.00-0.10 [facility] ([facility] #NRBC 0.00 10^3/uL 0.00-0.00 [facility] ([facility] Manual Diff Laboratory test result M EDJADYN ([facility] RBC Morph Laboratory test result ME DORY ([facility] ID Date Data Source [id number] 08/12/2020 11:43:00 AM EDT [facility] ([facility] Name Value Range Interpretation Code Description Data Mona rce(s) Supporting Document(s) Lactate [Mass/volume] in Serum or Plasma 1.6 mmol/L 0.2-2.2 [facility] ([facility] ID Date Data Source [id number] 08/12/2020 12:43:00 PM EDT [facility] Name Value Range Interpretation Code Description Data Mona rce(s) Supporting Document(s) BNP 285 PG/ML 0 - 125 H [facility] ID Date Data Source [id number] 08/12/2020 12:43:00 PM EDT [facility] Name Value Range Interpretation Code Description Data Mona rce(s) Supporting Document(s) COMPREHENSIVE METABOLIC PANEL [facility] COMPREHENSIVE METABOLIC PANEL Sodium [Moles/volume] in Serum or Plasma 140 mEq/L 134 - 153 [facility] Potassium [Moles/volume] in Serum or Plasma 3.8 mEq/L 3.6 - 5.0 [facility] Chloride [Moles/volume] in Serum or Plasma 101 mEq/L 98 - 107 [facility] Carbon dioxide, total [Moles/volume] in Serum or Plasma 29 MEQ/L 22 - 30 [facility] Glucose [Mass/volume] in Serum or Plasma 145 MG/DL 65 - 110 H [facility] BUN 16 MG/DL 7 - 21 [facility] Creatinine [Mass/volume] in Serum or Plasma 0.6 MG/DL 0.7 - 1.5 L [facility] BUN/CREAT 27 8 - 27 [facility] Protein [Mass/volume] in Serum or Plasma 7.4 G/DL 6.3 - 8.2 [facility] Albumin [Mass/volume] in Serum or Plasma 4.4 G/DL 3.9 - 5.0 [facility] Globulin [Mass/volume] in Serum by calculation 3.0 GM/DL 2.4 - 3.2 [facility] A/G RATIO 1.5 0.8 - 2.0 [facility] Calcium [Mass/volume] in Serum or Plasma 9.5 MG/DL 8.4 - 10.2 [facility] Bilirubin.total [Mass/volume] in Serum or Plasma <0.7 MG/DL 0.2 - 1.3 [facility] Alkaline phosphatase [Enzymatic activity/volume] in Serum or Plasma 106 U/L 38 - 126 [facility] Aspartate aminotransferase [Enzymatic activity/volume] in Serum or Plasma 63 U/L 5 - 40 H [facility] Alanine aminotransferase [Enzymatic activity/volume] in Seru m or Plasma 72 U/L 7 - 56 H [facility] Anion gap 3 in Serum or Plasma 10.0 mmol/L 8.0 - 16.0 [facility] AGE 60 yrs [facility] NON-AA GFR >60 mL/min [facility] AFR AMER GFR >60 [facility] Male GFR In terprentation 20-49 yrs >60 mL/min Normal 50-59 yrs >56 mL/min Normal 60-69 yrs >49 mL/min Normal 70-79yrs >42 mL/min Normal 80 and above >35 mL/min Normal Female GFR Interpretation 20-39 yrs >60 mL/min Normal 40-49 yrs >58 mL/min Normal 50-59 yrs >51 mL/min Normal 60-69 yrs >45 mL/min Normal 70-79 yrs >39 mL/min Normal 80 and above >32 mL/min Normal ID Date Data Source [id number] 08/12/2020 12:38:00 PM EDT [facility] Name Value Range Interpretation Code Description Data Mona rce(s) Supporting Document(s) Thyrotropin [Units/volume] in Serum or Plasma by Detec tion limit <= 0.05 mIU/L 1.40 uIU/mL 0.47 - 5.01 [facility] ID Date Data Source [id number] 08/12/2020 12:38:00 PM EDT [facility] Name Value Range Interpretation Code Description Data Mona rce(s) Supporting Document(s) Magnesium [Mass/volume] in Serum or Plasma 2.1 MG/DL 1.7 - 2.2 [facility] ID Date Data Source [id number] 08/12/2020 12:38:00 PM EDT [facility] Name Value Range Interpretation Code Description Data Mona rce(s) Supporting Document(s) Lipase [Enzymatic activity/volume] in Serum or Plasma 35 U/L 13 - 60 [facility] ID Date Data Source [id number] 08/12/2020 12:24:00 PM EDT [facility] Name Value Range Interpretation Code Description Data Mona rce(s) Supporting Document(s) TROPONIN T <0.01 NG/ML 0.00 - 0.10 [facility] TROPONIN T0.1 ng/ml Recommended as the c linical threshold value forTroponin T. ID Date Data Source [id number] 08/12/2020 12:22:00 PM EDT [facility] Name Value Range Interpretation Code Description Data Mona rce(s) Supporting Document(s) HCG SERUM QUAL NEGATIVE NORMAL: NEGATIVE [facility] HCG SERUM QL REENTER NEGATIVE NORMAL: NEGATIVE [facility] { KIT LOT # [id number] ){ KIT EXP DATE 08.10.21 ){ PROCEDURAL CONTROL VALID ) ID Date Data Source [id number] 08/12/2020 12:19:00 PM EDT [facility] Name Value Range Interpretation Code Description Data Mona rce(s) Supporting Document(s) Fibrin D-dimer FEU [Mass/volume] in Platelet poor plasma 2.08 ug /mL 0.27 - 0.50 H [facility] ID Date Data Source [id number] 08/12/2020 12:19:00 PM EDT [facility] Name Value Range Interpretation Code Description Data Mona rce(s) Supporting Document(s) Prothrombin time (PT) 11.9 SECONDS 11.0 - 15.5 Health system INR in Platelet poor plasma by Coagulation assay 0.87 0.93 - 1. 23 L [facility] aPTT in Blood by Coagulation assay 25.8 SECONDS 24.8 - 36.7 [facility] \\BLDo\\INR INTERPRETATION\\BLDx\\ Therapeutic range for Coumadin and related oral anticoagulants. - International Normalized Ratio (INR): 2.0 - 3.0 for Venous Thrombosis, Pulmonary Embolus, Tissue heart valves, Acute [place] Atrial Fibrillation, Valvular heart disease and recurrent Systemic Embolism. - International Normalized Ratio (INR): 2.5 - 3.5 for Mechanical Prosthetic valve. ID Date Data Source [id number] 08/12/2020 12:05:00 PM EDT [facility] Name Value Range Interpretation Code Description Data Mona rce(s) Supporting Document(s) CBC W/AUTOMATED DIFF [facility] COMPLETE BLOOD COUNT Leukocytes [#/volume] in Blood by Automated count 9.5 10^3/uL 4.2 - 1 1.0 [facility] Erythrocytes [#/volume] in Blood by Automated count 4.07 10^6/uL 4. 20 - 5.40 L [facility] Hemoglobin [Mass/volume] in Blood 12.6 g/dL 12.0 - 16.0 [facility] Hematocrit [Volume Fraction] of Blood by Automated count 37.8 % 3 7.0 - 47.0 [facility] Erythrocyte mean corpuscular volume [Entitic volume] by Auto mated count 92.9 fL 81.0 - 101 [facility] Erythrocyte mean corpuscular hemoglobin [Entitic mass] by Automated count 31.0 pg 27.0 - 34.0 [facility] Erythrocyte mean corpuscular hemoglobin concentration [Mass/volume] by Automated count 33.3 g/dL 31.0 - 36.0 [facility] Erythrocyte distribution width [Ratio] by Automated count 12.9 % 11.5 - 14.5 [facility] Platelets [#/volume] in Blood by Automated count 240 10^3/uL 150 - 45 0 [facility] Platelet mean volume [Entitic volume] in Blood by Automated count 9.8 fL 7.4 - 10.4 [facility] Neutrophils/100 leukocytes in Blood by Automated count 71.2 % 37. 0 - 80.0 [facility] Lymphocytes/100 leukocytes in Blood by Manual count 19.8 % 25.0 - 40.0 L [facility] Monocytes/100 leukocytes in Blood by Automated count 7.8 % 3.0 - 8.0 [facility] Eosinophils/100 leukocytes in Blood by Automated count 0.0 % 0.0 - 7.0 [facility] Basophils/100 leukocytes in Blood by Automated count 0.4 % 0.0 - 2.5 [facility] %IG 0.8 % 0.0 - 0.0 H [facility] %NRBC 0.0 % 0.0 - 0.0 [facility] Neutrophils [#/volume] in Blood by Automated count 6.78 10^3/uL 2.00 - 6.90 [facility] Lymphocytes [#/volume] in Blood by Automated count 1.89 10^3/uL 0.60 - 3.40 [facility] Monocytes [#/volume] in Blood by Automated count 0.74 10^3/uL 0.00 - 0.90 [facility] Eosinophils [#/volume] in Blood by Automated count 0.00 10^3/uL 0.00 - 0.70 [facility] Basophils [#/volume] in Blood by Automated count 0.04 10^3/uL 0.00 - 0.20 [facility] #IG 0.08 10^3/uL 0.00 - 0.10 [facility] #NRBC 0.00 10^3/uL 0.00 - 0.00 [facility] MANUAL DIFF NOT INDICATED [facility] RBC MORPH NOT INDICATED [facility] ID Date Data Source [id number] 08/12/2020 12:04:00 PM EDT [facility] Name Value Range Interpretation Code Description Data Mona rce(s) Supporting Document(s) Lactate [Moles/volume] in Serum or Plasma 1.6 MMOL/L 0.2 - 2.2 [facility] ID Date Data Source [id number] 08/02/2020 12:00:00 AM EDT [facility] Name Value Range Interpretation Code Description Data Mona rce(s) Supporting Document(s) SARS coronavirus 2 RNA [facility] This lab was ordered by [facility] [employer] [facility] and rep orted by [facility]. ID Date Data Source [id number] 07/29/2020 02:00:38 PM EDT [facility] Vital SignsBlood Pressure: 142/89 Patient History Medical History:Surgical History:Family History:Social/Personal History: Current Problems: Dental caries (ICD-521.00) (PJD73-W77.9)Problem list reviewed during this update.Current Medications: PENICILLIN V POTASSIUM 500 MG TABS (PENICILLIN V POTASSIUM) Take 1 QID until gone; Route: ORALHYDROCODONE-ACETAMINOPHEN 5-325 MG ORAL TABLET (HYDROCODONE-ACETAMINOPHEN) 1 tab q8h prn; Route: ORALTRELEGY ELLIPTA AEROSOL POWDER BREATH ACTIVATED ([id number] AEPB) ALPRAZOLAM TABLET (ALPRAZOLAM TABS) CEPHALEXIN 500 MG ORAL TABLET (CEPHALEXIN) ; Route: ORALMedication list reviewed during this update.Current Allergies: * LISINOPRIL (Critical)Allergy list reviewed during this update. Dental Chart: Procedures:Type - CDT Code - Description B - (D0140) Limited oral evaluation - problem focused on Tooth # 6 (Performed by ELY Rasmussen, Manjinder) Chart Alert:[facility] in the file cabinetPANO taken 2017EW03/04/2019 Chart Notes:olya (Jul 29 2020 2:18PM): [facility](-)Limited exam on #6Exam with pt states #6 is bothering her. Pt states that she took some left over antibiotic and it is feeling a little betterPatient was cooperative. BP was 142/89Pt is a non-smoker.NV-6 months recall, exo, and restoAdditional PPE requirements due to COVID-19 in the dental setting, N95, surgical mask, hair covering, gown, face shield. Venita Dimas RDH by olya (07/29/2020 2:18 PM): ; silke (Jul 29 2020 2:38PM): Limited exam #6cc: this tooth (#6) hurt so much I started taking some left over amoxi cillinHPI - severe pain and swelling from #6Med hx - reviewedEO - WNLIO - #6 with caries to pulp, mild buccal vestibular swelling adjacent to #6Dx - #6 abscessTx - extRx - PenVk 500mg, disp 28 tabs, sig 1 tab q6h until goneDisp - will attempt #11,12 baptism - if not restorable - will ext along with #6 and send preauth for URPDNV - attempt #11/12 and if restorable send preauth for URP - if not temporize and schedule for ext and TAKE PANVenita Dimas RDH by silke (07/29/2020 2:36 PM): Tooth Notes and Watches:- Tooth 20 Watch: Desi Hook RDH by john (01/13/2020 10:34 AM): - Tooth 21 Watch: buccalDesi Ocasio RDH by john (01/13/2020 10:34 AM): - Tooth 29 Watch: distalNinfa CANDELARIO Desi by john (01/13/2020 10:29 AM): - Tooth 6 Note: Tx plan is to wait until all fillings are done, then extract tooth then get a partial.Ocasio CANDELARIO Desi by john (01/13/2020 10:41 AM): Assessment & Plan Medications:PENICILLIN V POTASSIUM 500 MG TABSHYDROCODONE-ACETAMINOPHEN 5-325 MG ORAL TABLETTRELEGY ELLIPTA AEROSOL POWDER BREATH ACTIVATEDALPRAZOLAM TABLETCEPHALEXIN 500 MG ORAL TABLETMedication Changes:New Prescription:PENICILLIN V POTASSIUM 500 MG TABS- Take 1 QID until gone Qty: 28[Tablet] Refills: 0 Method: ElectronicAllergies:* LISINOPRIL (Critical) Name Value Range Interpretation Code Description Data Mona rce(s) Supporting Document(s) Procedure Social History Code Duration Value Status Description Data Source(s ) Smoking 04/08/2021 12:00:00 AM EDT Patient is a former smoker completed Patient is a former smoker RAÚL ([facility] Smoking 02/15/2021 12:00:00 AM EDT Former Smoker completed Former Smoker [email or web address] ([facility]) Smoking 02/15/2021 12:00:00 AM EDT Former Smoker completed Former Smoker [email or web address] ([facility]) Smoking 02/10/2021 12:00:00 AM EDT Former Smoker completed Former Smoker [email or web address] ([facility]) Vital Signs ID Date Data Source UNK Name Value Range Interpretation Code Description Data Source(s) Systolic blood pressure 130 mm[Hg] 130 mm[Hg] M EDENT ([facility] Diastolic blood pressure 60 mm[Hg] 60 mm[Hg] MEDENT ([facility] Body temperature 97.7 [degF] 97.7 [degF] MED[facility] ([facility] Heart rate 93 /min 93 /min MED[facility] ([facility] Respiratory rate 16 /min 16 /min MEDENT ( [facility] Body height 66 [in_i] 66 [in_i] [facility] 5'6" Body weight 130.00 [lb_av] 130.00 [lb_av] MEDEN T ([facility] [place] body weight 130 [lb_av] 130 [lb_av] MEDEN T ([facility] Body mass index (BMI) [Ratio] 21.0 kg/m2 21.0 k g/m2 MEDENT ([facility] Oxygen saturation in Arterial blood by Pulse oximetry 96 % 96 % MEDENT ([facility] (AT Rest), (Room Air) Body weight 128.00 [lb_av] 128.00 [lb_av] MEDEN T ([facility] Systolic blood pressure 110 mm[Hg] 110 mm[Hg] M EDENT ([facility] Diastolic blood pressure 60 mm[Hg] 60 mm[Hg] MEDENT ([facility] Body temperature 98.4 [degF] 98.4 [degF] MEDENT ([facility] Heart rate 92 /min 92 /min MED[facility] ([facility] Respiratory rate 16 /min 16 /min MEDENT ( [facility] Body height 66 [in_i] 66 [in_i] MEDENT ([facility] 5'6" [place] body weight 130 [lb_av] 130 [lb_av] MEDEN T ([facility] Body mass index (BMI) [Ratio] 20.7 kg/m2 20.7 k g/m2 MEDENT ([facility] Oxygen saturation in Arterial blood by Pulse oximetry 96 % 96 % MEDENT ([facility] Body temperature 98.8 [degF] 98.8 [degF] MEDENT ([facility] Respiratory rate 16 /min 16 /min MEDENT ( [facility] Heart rate 80 /min 80 /min MEDENT ([facility] Oxygen saturation in Arterial blood by Pulse oximetry 95 % 95 % MEDENT ([facility] Systolic blood pressure 126 mm[Hg] 126 mm[Hg] M EDENT ([facility] Diastolic blood pressure 76 mm[Hg] 76 mm[Hg] MEDENT ([facility] Body height 66 [in_i] 66 [in_i] MEDENT ([facility] 5'6" Body weight 133.00 [lb_av] 133.00 [lb_av] MEDEN T ([facility] [place] body weight 130 [lb_av] 130 [lb_av] MEDEN T ([facility] Body mass index (BMI) [Ratio] 21.5 kg/m2 21.5 k g/m2 MEDENT ([facility] Systolic blood pressure 150 mm[Hg] 150 mm[Hg] M EDENT ([facility] Diastolic blood pressure 90 mm[Hg] 90 mm[Hg] MEDENT ([facility] [place] body weight 130 [lb_av] 130 [lb_av] MEDEN T ([facility] Body mass index (BMI) [Ratio] 22.1 kg/m2 22.1 k g/m2 MED[facility] ([facility] Oxygen saturation in Arterial blood by Pulse oximetry 92 % 92 % MED[facility] ([facility] Body temperature 98.0 [degF] 98.0 [degF] MEDENT ([facility] Heart rate 108 /min 108 /min MED[facility] ([facility] Respiratory rate 17 /min 17 /min MED[facility] ( [facility] Body height 66 [in_i] 66 [in_i] MED[facility] ([facility] 5'6" Body weight 137.00 [lb_av] 137.00 [lb_av] MEDEN T ([facility] Body temperature 97.5 [degF] 97.5 [degF] MEDENT ([facility] Diastolic blood pressure 70 mm[Hg] 70 mm[Hg] MEDENT ([facility] Heart rate 69 /min 69 /min MEDENT ([facility] Body mass index (BMI) [Ratio] 21.5 kg/m2 21.5 k g/m2 MEDENT ([facility] Oxygen saturation in Arterial blood by Pulse oximetry 97 % 97 % MEDENT ([facility] Systolic blood pressure 120 mm[Hg] 120 mm[Hg] M EDENT ([facility] Respiratory rate 17 /min 17 /min MEDENT ( [facility] Body height 66 [in_i] 66 [in_i] MEDENT ([facility] 5'6" Body weight 133.00 [lb_av] 133.00 [lb_av] MEDEN T ([facility] [place] body weight 130 [lb_av] 130 [lb_av] MEDEN T ([facility] Body weight 133.0 [lb_av] 133.0 [lb_av] eCW1 ([facility]) Body height 66 [in_i] 66 [in_i] eCW1 ([facility], 1928–1983) Body mass index (BMI) [Ratio] 21.46 kg/m2 21.46 kg/m2 eCW1 ([facility]) Systolic blood pressure 124 mm[Hg] 124 mm[Hg] e CW1 ([facility]) Diastolic blood pressure 76 mm[Hg] 76 mm[Hg] eCW1 ([facility]) Body weight 134.0 [lb_av] 134.0 [lb_av] eCW1 ([facility]) Body height 66 [in_i] 66 [in_i] eCW1 ([facility], 1928–1983) Body mass index (BMI) [Ratio] 21.63 kg/m2 21.63 kg/m2 eCW1 ([facility]) Systolic blood pressure 122 mm[Hg] 122 mm[Hg] e CW1 ([facility]) Diastolic blood pressure 72 mm[Hg] 72 mm[Hg] eCW1 ([facility]) Systolic blood pressure 130 mm[Hg] 130 mm[Hg] M EDENT ([facility]) Diastolic blood pressure 96 mm[Hg] 96 mm[Hg] MEDENT ([facility]) Heart rate 87 /min 87 /min MEDENT ([facility]) Body temperature 98.3 [degF] 98.3 [degF] MEDENT ([facility]) Oxygen saturation in Arterial blood by Pulse oximetry 96 % 96 % MEDENT ([facility]) Body weight 134.00 [lb_av] 134.00 [lb_av] MEDEN T ([facility] [place] body weight 130 [lb_av] 130 [lb_av] MEDEN T ([facility] Body mass index (BMI) [Ratio] 21.6 kg/m2 21.6 k g/m2 MEDENT ([facility] Respiratory rate 16 /min 16 /min MEDENT ( [facility] Systolic blood pressure 122 mm[Hg] 122 mm[Hg] M EDENT ([facility] Diastolic blood pressure 76 mm[Hg] 76 mm[Hg] MEDENT ([facility] Body temperature 98.9 [degF] 98.9 [degF] MEDENT ([facility] Heart rate 84 /min 84 /min MEDENT ([facility] Body height 66 [in_i] 66 [in_i] MEDENT ([facility] 5'6" Oxygen saturation in Arterial blood by Pulse oximetry 96 % 96 % MEDENT ([facility] Body temperature 97.1 [degF] 97.1 [degF] MEDENT ([facility]) Oxygen saturation in Arterial blood by Pulse oximetry 96 % 96 % MEDENT ([facility] Systolic blood pressure 140 mm[Hg] 140 mm[Hg] M EDENT ([facility] Diastolic blood pressure 80 mm[Hg] 80 mm[Hg] MEDENT ([facility] Body temperature 97.8 [degF] 97.8 [degF] MEDENT ([facility] Body height 66 [in_i] 66 [in_i] MEDENT ([facility] 5'6" Body weight 113.00 [lb_av] 113.00 [lb_av] MEDEN T ([facility] [place] body weight 130 [lb_av] 130 [lb_av] MEDEN T ([facility] Heart rate 90 /min 90 /min MEDENT ([facility] Respiratory rate 18 /min 18 /min MEDENT ( [facility] Body mass index (BMI) [Ratio] 18.2 kg/m2 18.2 k g/m2 MEDENT ([facility] Body weight 125.00 [lb_av] 125.00 [lb_av] MEDEN T ([facility] [place] body weight 130 [lb_av] 130 [lb_av] MEDEN T ([facility] Body mass index (BMI) [Ratio] 20.2 kg/m2 20.2 k g/m2 MEDENT ([facility] Systolic blood pressure 124 mm[Hg] 124 mm[Hg] M EDENT ([facility] Diastolic blood pressure 76 mm[Hg] 76 mm[Hg] MEDENT ([facility] Body temperature 97.7 [degF] 97.7 [degF] MEDENT ([facility] Heart rate 100 /min 100 /min MEDENT ([facility] Respiratory rate 16 /min 16 /min MEDENT ( [facility] Body height 66 [in_i] 66 [in_i] MEDENT ([facility] 5'6" Oxygen saturation in Arterial blood by Pulse oximetry 99 % 99 % RAÚL ([facility] ([place]), ([place]) Systolic blood pressure 130 mm[Hg] 130 mm[Hg] M EDENT ([facility] Diastolic blood pressure 78 mm[Hg] 78 mm[Hg] MEDENT ([facility] Body temperature 97.6 [degF] 97.6 [degF] MEDENT ([facility] Heart rate 96 /min 96 /min MEDENT ([facility] Body weight 128.00 [lb_av] 128.00 [lb_av] MEDEN T ([facility] Body mass index (BMI) [Ratio] 20.7 kg/m2 20.7 k g/m2 MEDJADYN ([facility] Oxygen saturation in Arterial blood by Pulse oximetry 94 % 94 % RAÚL ([facility] Respiratory rate 18 /min 18 /min MEDENT ( [facility] Body height 66 [in_i] 66 [in_i] MEDENT ([facility] 5'6" [place] body weight 130 [lb_av] 130 [lb_av] MEDEN T ([facility] ID Date Data Source [id number] 01/31/2021 02:27:03 PM EDT [facility] Name Value Range Interpretation Code Description Data Source(s) WEIGHT RECORDED 127.00 pounds 127.00 pounds Health system Height 66 Inches 066 Inches [facility] ID Date Data Source [id number] 01/04/2021 12:56:24 PM EST [facility] Name Value Range Interpretation Code Description Data Source(s) WEIGHT RECORDED 127.00 pounds 127.00 pounds Health system Height 66 Inches 066 Inches [facility]
--- OUTSIDE RECORDS SUMMARY | 2021-09-07 12:25 | CCD ---
Author Author [facility] Address Unknown Phone Unavailable Care Team Providers Care Child Specialist Name Role Phone Cesar Lindsay Unavailable Unavailable Cesar Lindsay PA Unavailable Unavailable Cesar Lindsay PA Unavailable Unavailable Angélica M Maite PA Unavailable Unavailable Angélica M Maite PA Unavailable Unavailable Angélica M Maite PA Unavailable Unavailable Cesar Lindsay PA Unavailable Unavailable Heike, Louis Ballesteros SPACE CONTROL SUPERVISOR Unavailable Unavailable Heike, Louis Ballesteros SPACE CONTROL SUPERVISOR Unavailable Unavailable Heike, Louis Ballesteros SPACE CONTROL SUPERVISOR Unavailable Unavailable Heike, Louis Ballesteros SPACE CONTROL SUPERVISOR Unavailable Unavailable Heike, Louis Ballesteros SPACE CONTROL SUPERVISOR Unavailable Unavailable Heike, Louis Ballesteros SPACE CONTROL SUPERVISOR Unavailable Unavailable Heike, Louis Ballesteros SPACE CONTROL SUPERVISOR Unavailable Unavailable Heike, D Favian SPACE CONTROL SUPERVISOR Unavailable Unavailable Heike, D Favian SPACE CONTROL SUPERVISOR Unavailable Unavailable Heike, D Favian SPACE CONTROL SUPERVISOR Unavailable Unavailable Heike, D Favian SPACE CONTROL SUPERVISOR Unavailable Unavailable Heike, D Favian SPACE CONTROL SUPERVISOR Unavailable Unavailable Heike, D Favian SPACE CONTROL SUPERVISOR Unavailable Unavailable Heike, D Favian SPACE CONTROL SUPERVISOR Unavailable Unavailable Heike, D Favian SPACE CONTROL SUPERVISOR Unavailable Unavailable Heike, D Favian SPACE CONTROL SUPERVISOR Unavailable Unavailable Heike, D Favian SPACE CONTROL SUPERVISOR Unavailable Unavailable Heike, D Favian SPACE CONTROL SUPERVISOR Unavailable Unavailable Heike, D Favian SPACE CONTROL SUPERVISOR Unavailable Unavailable Heike, D Favian SPACE CONTROL SUPERVISOR Unavailable Unavailable Heike, D Favian SPACE CONTROL SUPERVISOR Unavailable Unavailable Heike, D Favian SPACE CONTROL SUPERVISOR Unavailable Unavailable Heike, D Favian SPACE CONTROL SUPERVISOR Unavailable Unavailable Heike, D Favian SPACE CONTROL SUPERVISOR Unavailable Unavailable Heike, D Favian SPACE CONTROL SUPERVISOR Unavailable Unavailable Heike, D Favian SPACE CONTROL SUPERVISOR Unavailable Unavailable Heike, D Favian SPACE CONTROL SUPERVISOR Unavailable Unavailable Heike, D Favian SPACE CONTROL SUPERVISOR Unavailable Unavailable Heike, D Favian SPACE CONTROL SUPERVISOR Unavailable Unavailable Heike, D Favian SPACE CONTROL SUPERVISOR Unavailable Unavailable Heike, D Favian SPACE CONTROL SUPERVISOR Unavailable Unavailable Heike, D Favian SPACE CONTROL SUPERVISOR Unavailable Unavailable Heike, D Favian SPACE CONTROL SUPERVISOR Unavailable Unavailable Heike, D Favian SPACE CONTROL SUPERVISOR Unavailable Unavailable Heike, D Favian SPACE CONTROL SUPERVISOR Unavailable Unavailable Heike, D Favian SPACE CONTROL SUPERVISOR Unavailable Unavailable BUMBANAC, A STAR SPACE CONTROL SUPERVISOR Unavailable Unavailable BUMBANAC, A STAR SPACE CONTROL SUPERVISOR Unavailable Unavailable BUMBANAC, A STAR SPACE CONTROL SUPERVISOR Unavailable Unavailable BUMBANAC, A STAR SPACE CONTROL SUPERVISOR Unavailable Unavailable BUMBANAC, A STAR SPACE CONTROL SUPERVISOR Unavailable Unavailable BUMBANAC, A STAR SPACE CONTROL SUPERVISOR Unavailable Unavailable BUMBANAC, A STAR SPACE CONTROL SUPERVISOR Unavailable Unavailable BUMBANAC, A STAR SPACE CONTROL SUPERVISOR Unavailable Unavailable BUMBANAC, A STAR SPACE CONTROL SUPERVISOR Unavailable Unavailable BUMBANAC, A STAR SPACE CONTROL SUPERVISOR Unavailable Unavailable BUMBANAC, A STAR SPACE CONTROL SUPERVISOR Unavailable Unavailable BUMBANAC, A STAR SPACE CONTROL SUPERVISOR Unavailable Unavailable BUMBANAC, A STAR SPACE CONTROL SUPERVISOR Unavailable Unavailable BUMBANAC, A STAR SPACE CONTROL SUPERVISOR Unavailable Unavailable BUMBANAC, A STAR SPACE CONTROL SUPERVISOR Unavailable Unavailable BUMBANAC, A STAR SPACE CONTROL SUPERVISOR Unavailable Unavailable BUMBANAC, A STAR SPACE CONTROL SUPERVISOR Unavailable Unavailable BUMBANAC, A STAR SPACE CONTROL SUPERVISOR Unavailable Unavailable BUMBANAC, A STAR SPACE CONTROL SUPERVISOR Unavailable Unavailable BUMBANAC, A STAR SPACE CONTROL SUPERVISOR Unavailable Unavailable BUMBANAC, A STAR SPACE CONTROL SUPERVISOR Unavailable Unavailable BUMBANAC, A STAR SPACE CONTROL SUPERVISOR Unavailable Unavailable BUMBANAC, A STAR SPACE CONTROL SUPERVISOR Unavailable Unavailable BUMBANAC, A STAR SPACE CONTROL SUPERVISOR Unavailable Unavailable BUMBANAC, A STAR SPACE CONTROL SUPERVISOR Unavailable Unavailable BUMBANAC, A STAR SPACE CONTROL SUPERVISOR Unavailable Unavailable BUMBANAC, A STAR SPACE CONTROL SUPERVISOR Unavailable Unavailable BUMBANAC, A STAR SPACE CONTROL SUPERVISOR Unavailable Unavailable BUMBANAC, A STAR SPACE CONTROL SUPERVISOR Unavailable Unavailable BUMBANAC, A STAR SPACE CONTROL SUPERVISOR Unavailable Unavailable BUMBANAC, A STAR SPACE CONTROL SUPERVISOR Unavailable Unavailable Cesar ZAPATA MD Unavailable Unavailable [...] YOSELIN, BOSTON SALINAS Unavailable Unavailable YOSELIN, BOSTON SALINSA Unavailable Unavailable YOSELIN, BOSTON SALINAS Unavailable Unavailable YOSELIN, BOSTON SALINAS Unavailable Unavailable YOSELIN, BOSTON SALINAS Unavailable Unavailable YOSELIN, BOSTON SALINAS Unavailable Unavailable YOSELIN, BOSTON SALINAS Unavailable Unavailable YOSELIN, BOSTON SALINAS Unavailable Unavailable YOSELIN, BOSTON SALIANS Unavailable Unavailable YOSELIN, BOSTON SALINAS Unavailable Unavailable [...] Unavailable Unavailable TURRIN, LETA Unavailable Unavailable TURRIN, LEAT Unavailable Unavailable TURRIN, LETA Unavailable Unavailable TURRIN, [...] Fish, J Dallas Unavailable Unavailable Fish, J Adllas Unavailable Unavailable Fish, J Dallas Unavailable Unavailable [...] Unavailable ALEXIS, E YANDY MD Unavailable Unavailable AELXIS, E YANDY MD Unavailable Unavailable ALEXIS, E [...] is protected by Article 27-F of the [facility] Public Health law. If you continue you may have access to information: Regarding HIV / AIDS; Provided by facilities licensed or operated by the [facility] Office of Mental Health; or Provided by the [facility] Office for People With Developmental Disabilities. If such information is present, then the following [facility] mandated warning applies: This information [...] law may result in a fine or alf sentence or both. A general authorization for the release of medical or other information is NOT sufficient authorization for further disc losure. Allergies and Adverse Reactions Type Description Substance Reaction Status Data Source(s ) No Known Environmental Allergies No Known Environmental [facility] No Known Food Allergies No Known Food Allergies [facility] Drug allergy CODEINE [facility] Family History Family Member Name Family Member Gender Family Member Status Date o f Status Description Data Source(s) Unknown Male Problem MEDENT ([facility]) Encounters Encounter Providers Location Date Indications Data Source(s ) Emergency Attender: STEVIE COREA MDConsultant: Sergey Chun 09/04/2021 12:23:00 PM EDT - 09/04/2021 03:49:00 PM EDT [facility] Patient discharged. Emergency Attender: LETA KELSEYConsultant: Dallas Gunnar h 08/31/2021 08:35:00 PM EDT - 08/31/2021 09:58:00 PM EDT [facility] Patient discharged. Outpatient Attender: Dallas Chun [facility] 08/30/2021 11:00:0 0 AM EDT MED[facility] ([facility] Unknown [address] [facility] [place] [address] 07/18/2021 12:00:00 AM EDT eCW1 ([facility]) Outpatient Attender: Dallas Chun [facility] 06/07/2021 10:45:0 0 AM EDT MED[facility] ([facility] Outpatient Attender: Dallas FishReferrer: Dallas FishConsultant: Dallas Fish 04/08/2021 05:49:00 PM EDT - 04/08/2021 05:59:00 PM EDT [facility] Outpatient Attender: Dallas Chun [facility] 04/08/2021 11:15:0 0 AM EDT MED[facility] ([facility] Outpatient Attender: Dallas Chun [facility] 03/16/2021 03:45:0 0 PM EDT MED[facility] ([facility] Outpatient Attender: Dallas ChunReferrer: Dallas ChunConsultant: Dallas Chun 03/16/2021 11:34:00 AM EDT - 03/16/2021 11:44:00 AM EDT [facility] Patient discharged. Outpatient Attender: Dallas ChunReferrer: Dallas ChunConsultant: Dallas Chun 03/07/2021 05:38:00 PM EDT - 03/07/2021 05:48:00 PM EDT [facility] Outpatient Attender: Dallas Chun [facility] 03/07/2021 11:00:0 0 AM EDT MEDENT ([facility] (CSM30) Cosmetic Procedure [address] [place] [address] 02/15/2021 12:00:00 AM EDT eCW1 ([facility]) Outpatient [facility] [address] 02/10/2021 12:00:00 AM EDT eCW1 ([facility] Unknown [address] [place] [address] 01/31/2021 12:00:00 AM EDT eCW1 ([facility]) Outpatient Attender: YANDY ESPINOZA MDConsultant: Dallas Jaimee enoch 01/26/2021 03:38:38 PM EDT - 01/31/2021 10:26:00 AM EDT [facility] Patient discharged. Outpatient Attender: YANDY ESPINOZA MDConsultant: Dallas Hermosillo enoch 01/03/2021 01:45:00 PM EST - 01/03/2021 05:13:00 PM [facility] Patient discharged. Outpatient Attender: BEULAH BERRY NP 12/31 12:22:00 PM EST - 12/31/2020 12:22:00 PM [facility] Outpatient Attender: Dallas Fish [facility] 12/14/2020 01:00:0 0 PM EST MED[facility] ([facility] Outpatient Attender: DIANA CHE MDConsultant: Dallas Fish 12/06/2020 10:39:00 AM EST - 12/06/2020 10:39:00 AM EST [facility] Outpatient Attender: Favian Burroughs NP Family Practice 12/06/2020 0 9:40:00 AM EST MEDENT ([facility]) Outpatient Attender: Dallas AdielConsultant: Dallas Fish 11/22/2020 11:38:00 AM EST - 11/22/2020 12:38:00 PM EST [facility] Outpatient Attender: Dallas Chun [place] [facility] 11/22/2020 09:00:0 0 AM EST MED[facility] ([facility] Outpatient Attender: Dallas AdielReferrer: Dallas ChunConsultant: Dallas Fish 09/02/2020 04:50:00 PM EDT - 09/02/2020 05:00:00 PM EDT [facility] Outpatient Attender: Maite GODOY [facility] 09/02/2020 11:15:00 AM EDT MEDENT ([facility] Outpatient Attender: BOSTON WYATT MD SJParag.SARA-SJP.SARA 0 12:00:00 AM EDT - 08/27/2020 09:08:38 AM EDT [facility] Outpatient Attender: Dallas Chun [place] [facility] 08/23/2020 10:00:0 0 AM EDT MED[facility] ([facility] Emergency Attender: Tong URIBECConsultant: Dallas Chun 08/12/2020 11:21:00 AM EDT - 08/12/2020 03:57:00 PM EDT [facility] Patient discharged. Outpatient Attender: CRISTAL [facility] 07/29/2020 02:39:00 PM ED T [facility] Outpatient Attender: [facility] 07/29/2020 02:25:01 PM ED T [facility] Outpatient Attender: CRISTAL [facility] 07/29/2020 02:23:00 PM ED T [facility] Outpatient Attender: SILKE [facility] 07/27/2020 08:01:01 AM ED T [facility] Outpatient Attender: UGODEVIN ZAPATA MDConsultant: Dallas Chun 09/01/2019 08:28:34 PM EDT [facility] Immunizations Vaccine Date Status Description Data Source(s) COVID-19 VACCINE Moderna 01/31/2021 12:00:00 AM EDT completed [facility] Vaccine Series Complete: YESThis Data wa s Submitted to [facility] Via [facility]. COVID-19 VACCINE Moderna 01/03/2021 12:00:00 AM EST completed [facility] Vaccine Series Complete: NOThis Data was Submitted to [facility]. New in 2012. IIV4 09/02/2020 12:19:00 PM [...] CAPSULE BY MOUTH EVERY DAY SOLD: 08/30/2021 [facility] Omeprazole 40 MG Delayed Release Oral Capsule Omeprazole 08/30/2021 12:00:00 AM EDT ORAL active MEDENT ([facility] Alprazolam 0.25 MG Oral Tablet [...] MAXIMUM DAILY DOSE = 6 SOLD: 08/10/2021 [facility] Alprazolam 0.25 MG Oral Tablet ALPRAZOLAM 07/18/2021 12:00:00 AM EDT tablet 60 TAKE ONE TABLET BY MOUTH TWICE A DAY MAXIMUM DAILY DOS E = 2 TAKE ONE TABLET BY MOUTH TWICE A DAY MAXIMUM DAILY DOSE = 2 SOLD: 07/18/2021 [facility] Alprazolam 0.25 MG Oral Tablet ALPRAZOLAM 06/19/2021 12:00:00 AM EDT tablet 60 TAKE ONE TABLET BY MOUTH TWICE A DAY MAXIMUM DAILY DOS E = 2 TAKE ONE TABLET BY MOUTH TWICE A DAY MAXIMUM DAILY DOSE = 2 SOLD: 06/19/2021 [facility] Alprazolam 0.25 MG Oral Tablet ALPRAZOLAM 05/21/2021 12:00:00 AM EDT tablet 60 TAKE ONE TABLET BY MOUTH TWICE A DAY - MAXIMUM DAILY D OSE = 2 TAKE ONE TABLET BY MOUTH TWICE A DAY - MAXIMUM DAILY DOSE = 2 SOLD: 05/21/2021 [facility] 30 ACTUAT fluticasone furoate 0.1 MG/ACT [...] FF BY MOUTH EVERY DAY SOLD: 06/10/2021 [facility] Alprazolam 0.25 MG Oral Tablet ALPRAZOLAM 04/20/2021 12:00:00 AM EDT tablet 60 TAKE ONE TABLET BY MOUTH TWICE A DAY MAXIMUM DAILY DOS E = 2 TAKE ONE TABLET BY MOUTH TWICE A DAY MAXIMUM DAILY DOSE = 2 SOLD: 04/20/2021 [facility] 8 mcg 04/15/2021 12:00:00 AM EDT capsule 60 TAKE ONE CAPSULE BY MOUTH TWICE A DAY * MAXIMUM DAILY DOSE = 2 TAKE ONE CAPSULE BY MOUTH TWICE A DAY * MAXIMUM DAILY DOSE = 2 SOLD: 04/16/2021 [facility] lubiprostone 0.008 MG Oral Capsule Lubiprostone 04/15/2021 12:00:00 A M EDT active MED[facility] ([facility] 8 mcg 04/15/2021 12:00:00 AM [...] 00 AM EDT active [facility] 8 mcg 02/18/2021 12:00:00 AM [...] DAILY DOSE = 6 SOLD: 01/18/2021 [facility] Alprazolam 0.25 MG Oral Tablet ALPRAZOLAM [...] TABLET BY MOUTH EVERY DAY SOLD: 12/06/2020 [employer] Alprazolam 0.25 MG Oral Tablet ALPRAZOLAM 11/22/2020 12:00:00 AM EST tablet 60 TAKE ONE TABLET BY MOUTH TWICE A DAY MAXIMUM DAILY DOS E = 2 TAKE ONE TABLET BY MOUTH TWICE A DAY MAXIMUM DAILY DOSE = 2 SOLD: 11/22/2020 [facility] 10-325 mg 11/22/2020 12:00:00 AM EST [...] 8 HOURS NEEDED FOR NAUSEA SOLD: 11/22/2020 [employer] Alprazolam 0.25 MG Oral Tablet ALPRAZOLAM 10/22/2020 [...] 12:00:00 AM EDT ORAL active MEDENT ( [facility] 10-325 mg 08/27/2020 12:00:00 AM EDT tablet 180 TAKE ONE TABLET BY MOUTH EVERY 4 HOURS MAXIMUM DAILY DOSE = 6 TAKE ONE TABLET BY MOUTH EVERY 4 HOURS MAXIMUM DAILY DOSE = 6 SOLD: 08/27/2020 [facility] Alprazolam 0.25 MG Oral Tablet [Xanax] Xanax 08/23/2020 12:00:00 AM EDT ORAL active MEDENT ([facility] 4 mg 08/23/2020 [...] type / Coverage type Policy ID Covered libertarian ID Covered libertarian's relationship to lopes Policy Lopes Plan Information Medicare Medicare Primary [id number] Self [id number] Medicare Medicare Primary [id number] Self [id number] Medicare Medicare Primary [id number] Self [id number] MEDICARE A [id number] Self [id number] A Medicare Medicare Primary [id number] Self [id number] Medicare Medicare Primary [id number] Self Medicare Medicare Primary [id number] Self [id number] MEDICARE A [id number] Self [id number] Medicare Medicare Primary [id number] Self [id number] MEDICARE [id number] SP [id number] A Medicare Medicare Primary [id number] Self [id number] Medicare [facility] Medigap Part B [id number] Self [id number] [place] Med[place] Part B [id number] Self [id number] [place] [id number] Self [id number] [place] [employer] [id number] Self MEDICAID [id number] Self [id number] Medicare Part A [place] Primary [id number] Self MEDICARE PART A [facility] [id number] 18 [id number] [facility] [id number] Self [id number] UHC UNITED MEDICARE DUAL [id number] Self [id number] Uhc Medicare Dual Complet Commercial [id number] Self [id number] UHC MEDICARE [id number] Sadie [id number] 08 [facility] [id number] Self [id number] ANSI-Medicaid [id number] ANSI-Not a Secondary Insurance [id number] ANSI-Medicare Part B [id number] ANSI-Medicare Part B [id number] ANSI-Medicaid [id number] ANSI-Not a Secondary Insurance [id number] Medicaid [facility] Part B [id number] Self [id number] ANSI-Not a Secondary Insurance [id number] ANSI-Medicare Part B [id number] ANSI-Medicaid [id number] ANSI-Medicaid [id number] ANSI-Not a Secondary Insurance [id number] ANSI-Medicare Part B [id number] MEDICARE C [id number] S [id number] A ANSI-Medicaid [id number] ANSI-Medicare Part B [id number] ANSI-Not a Secondary Insurance [id number] ANSI-Medicaid [id number] ANSI-Medicare Part B [id number] ANSI-Not a Secondary Insurance [id number] [facility] DUAL COMP - FACILITY [id number] 18 [id number] ANSI-Medicaid [id number] ANSI-Medicare Part B [id number] ANSI-Not a Secondary Insurance [id number] MEDICARE PART A -O/P [id number] 18 [id number] ANSI-Not a Secondary Insurance [id number] ANSI-Medicaid [id number] ANSI-Medicare Part B [id number] [employer] MEDICARE O/P [id number] 18 [id number] [employer] MEDICARE O/P [id number] 18 [id number] [employer] MEDICARE O/P UNAVAILABLE UNAVAILABLE [facility] Susu/MCR Medigap Part B [id number] Self [id number] Medicare [facility] Medicare Primary [id number] Self [id number] Medicaid Medigap Part B [id number] Self [id number] [facility]UAL [facility] [place] [id number] S [id number] [facility] [place] [id number] S [id number] [facility]UAL [facility] [place] [id number] S [id number] [facility] DUAL COMPLETE O [id number] S [id number] MEDICAID -RECURRING [id number] MEDICARE -RECURRING [id number] 18 [id number] Medicaid Medigap Part B [id number] Self MEDICAID-O/P [id number] MEDICARE -O/P [id number] 18 [id number] MEDICAID -CLINIC [id number] MEDICARE PART A -CLINIC [id number] 18 [id number] [place] [id number] 01 [id number] [place] [id number] 01 [id number] [place] E 1960 Self 1960 MEDICARE PART B -PHYSICIAN [id number] 18 [id number] Medicaid Medigap Part B [id number] Self [id number] MEDICAID-O/P [id number] MEDICAID - O/P EMERGENCY ROOM [id number] [facility] COMMUNTY PLAN [id number] 18 [id number] UN COMMUNITY PLAN XIX [id number] 18 [id number] MEDICARE [id number] SP [id number] [facility] [id number] SP [id number] [facility] [id number] SP [id number] [facility] Secure Horizons P [id number] S [id number] [facility] Medicare Dental S [id number] S [id number] Managed Care - [facility] Community Plan P UNAVAILABLE S UNAVAILABLE UNHC CP DUAL COMP -PHYSICIAN [id number] 18 [id number] MEDICAID -PHYSICIAN [id number] Medicaid Medigap Part B [id number] Self [id number] [facility] Commercial [id number] Self [id number] Medicaid Medigap Part B [id number] Self [id number] Medicaid Medigap Part B [id number] Self [id number] [facility]) O [id number] S [id number] MEDICAID M [id number] S [id number] MEDICAID [id number] SP [id number] MEDICARE [id number] SP [id number] A Problems, Conditions, and Diagnoses Code Display Name Description Problem Type Effective Dates Data Source(s) N36452 Personal history of nicotine dependence Personal history of nicotine dependence Diagnosis 08/31/2021 08:35:00 PM EDT [facility] Z955 Presence of coronary angioplasty implant and graft Presence of coronary angioplasty implant and graft Diagnosis 08/31/2021 08:35:00 PM EDT [facility] I252 Old myocardial infarction Old myocardial infarction Di agnosis 08/31/2021 08:35:00 PM EDT [facility] I10 Essential (primary) hypertension Essential (primary) h ypertension Diagnosis 08/31/2021 08:35:00 PM EDT [facility] J439 Emphysema, unspecified Emphysema, unspecified Diagnosi s 08/31/2021 08:35:00 PM EDT [facility] F411 Generalized anxiety disorder Generalized anxiety disor alfredito Diagnosis 08/31/2021 08:35:00 PM EDT [facility] 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 Diagnosis 08/31/2021 08:35:00 PM EDT [facility] R0989 Other specified symptoms and signs involving the circulatory and respiratory systems Other specified symptoms and signs invol ving the circulatory and respiratory systems Diagnosis 08/31/2021 08:35:00 PM EDT [facility] J312 Chronic pharyngitis Chronic pharyngitis Diagnosis 1 08:35:00 PM EDT [facility] J029 Acute pharyngitis, unspecified Acute pharyngitis, unsp ecified Diagnosis 08/31/2021 08:35:00 PM EDT [facility] R040 Epistaxis Epistaxis Diagnosis 04/08/2021 05:49:00 PM ED T [facility] K219 Gastro-esophageal reflux disease without esophagitis Gastro-esophageal reflux disease without esophagitis Diagnosis 03/16/2021 11:34:00 AM ED T [facility] J449 Chronic obstructive pulmonary disease, u nspecified Chronic obstructive pulmonary disease, unspecified Diagnosis 03/16/2021 11:34:00 AM EDT [facility] [id number] Constipation, unspecified Constipation, unspecified Di agnosis 03/07/2021 05:38:00 PM EDT [facility] F410 Panic disorder [episodic paroxysmal anxi ety] Panic disorder [episodic paroxysmal anxiety] Diagnosis 03/07/2021 05:38:00 PM EDT [facility] Z23 Encounter for immunization Encounter for immunization Diagnosis 01/31/2021 10:02:00 AM EDT [facility] [id number] Radiculopathy, cervical region Radiculopathy, cervical region Diagnosis 12/06/2020 10:39:00 AM [facility] [id number] Pain in left shoulder Pain in left shoulder Diagnosis 11/22/2020 11:38:00 AM [facility] W90307 Pain in left upper arm Pain in left upper arm Diagnosi s 11/22/2020 11:38:00 AM [facility] R109 Unspecified abdominal pain Unspecified abdominal pain Diagnosis 09/02/2020 04:50:00 PM EDT [facility] M19.90 Unspecified osteoarthritis, unspecified site Unspecified osteoarthritis, unspecified Diagnosis 08/27/2020 08:12:08 AM EDT [facility] K21.9 Gastro-esophageal reflux disease without esophagitis Gastro-esophageal reflux disease without Diagnosis 08/27/2020 08:12:08 AM EDT [facility] I10 Essential (primary) hypertension Essential (primary) h ypertension Diagnosis 08/27/2020 08:12:08 AM EDT [facility] J44.9 Chronic obstructive pulmonary disease, u nspecified Chronic obstructive pulmonary disease, u Diagnosis 08/27/2020 08:12:08 AM EDT [facility] I31.3 Pericardial effusion (noninflammatory) P ericardial effusion (noninflammatory) Diagnosis 08/27/2020 08:12:08 AM EDT [facility] R07.2 Precordial pain Precordial pain Diagnosis 08/27/2020 08:1 2:08 AM EDT [facility] [id number] Other rn geriatric (current) drug therapy O ther rn geriatric (current) drug therapy Diagnosis 08/12/2020 11:21:00 AM EDT [facility] I119 Hypertensive heart disease without heart failure Hypertensive heart disease without heart failure Diagnosis 08/12/2020 11:21:00 AM EDT [facility] J9811 Atelectasis Atelectasis Diagnosis 08/12/2020 11:21:00 AM EDT [facility] R160 Hepatomegaly, not elsewhere classified H epatomegaly, not elsewhere classified Diagnosis 08/12/2020 11:21:00 AM EDT [facility] K760 Fatty (change of) liver, not elsewhere c lassified Fatty (change of) liver, not elsewhere classified Diagnosis 08/12/2020 11:21:00 AM EDT [facility] I313 Pericardial effusion (noninflammatory) P ericardial effusion (noninflammatory) Diagnosis 08/12/2020 11:21:00 AM EDT [facility] R0789 Other chest pain Other chest pain Diagnosis 08/12/2020 11 :21:00 AM EDT [facility] M54.2 Neck pain Neck pain Problem 12/06/2020 12:00:00 AM ES T [facility] ([facility]) Surgeries/Procedures Procedure Description Date Indications Data [...] IM 02/15/2021 12:00:00 AM E DT eCW1 ([facility]) OFFICE OUTPATIENT VISIT 25 MINUTES 12/14/2020 12:00:00 AM EST [facility] ([facility] Results ID Date Data Source [id number] 09/05/2021 11:46:00 PM EDT [facility] [address] [place] [address] PHONE: [phone] FAX: [phone] Name .................. : GRIS Valdes Acct Number.................. : [id number] ROOM. ................. : OR-10 MR Number ................... : [id number] Stay type ............. : E/R Discharge Date......... ... : 09/04/21 Admit Date .... ..... : 09/04/21 [facility] Date of ....... : 1960 Family Phys ................... : [place] Phone .................. : [phone] Age ................................ : 61 Film# .................. .:[id number] Sex ................................. : F Unsigned transcriptions are preliminary reports and do not represent a medical or legal document CT ST NECK W/CONTRAST 00420 COMPLETE:09/04/21 18:23 MISSY 81541 Reason(s): worsening FB s ensation with swallowing CT NECK WITH IV CONTRAST INDICATION: Worsening foreign body sensation when swallowing COMPARISON: Radiograph 08/31/21. Cervical spine CT 05/02/2018. CONTRAST: Dose not specified Preliminary report for this exam was provided by [facility] . FINDINGS: BRAIN/POSTERIOR FOSSA: Posterior fossa structures [...] Sinuses are clear. Page 1 of 2 [facility] [address] [place] [address] PHONE: [phone] FAX: [phone] Name ........ .......... : GRIS Valdes Acct Number.................. : [id number] [facility] Number [facility]... : [id number] Stay type ............. : E/R Discharge Date......... ... : 09/04/21 Admit Date ......... : 09/04/21 Admit Phys .................... : NAHOMY Date of ....... : 1960 Family Phys ................... : ADIEL QUILES Phone .................. : [phone] Age ................................ : 61 Film# .................. .:[id number] Sex ................................. : F Unsigned transcriptions are preliminary reports and do not represent a medical or legal document CT ST NECK W/CONTRAST 98047 COMPLETE:09/04/21 18:23 MISSY 21868 Reason(s): worsening FB sensation with swallowing Punctate [...] rce(s) Supporting Document(s) ID Date Data Source [id number] 09/04/2021 12:23:00 PM EDT [facility] 1 OrderSheet [facility] Emergency Department [address] [place] [address] Phone #: ext- [phone] 09/04/2021 12:23 Patient: ZOILA HOLGUIN Sex: F : 1960 Age: 61yWEIGHT:59.8 kg (S) HEIGHT:65 inches (S) BMI:22.0ALLERGIES: ValiumDIAGNOSIS: Tonsillitis, Peritonsillar abscess, Liver function tests abnormal, HypokalemiaLAB ORDERSOrder Description Priority Entered Acknowledged InitialedCBC w Diff STAT 12:53 09/04/2021 13:00 Tong Hinojosa; Farida reagan R.N.CMP STAT 12:53 09/04/2021 13:00 Tong Hinojosa; Zoraida WrightDIAGNOSTIC STUDY ORDERSOrder Description Priority Entered Acknowledged InitialedCT [...] withDextrose 50 mlspike bag (D5W) 2 OrderSheet [facility] Emergency Department [address] [place] [address] Phone #: ext- [phone] 09/04/2021 12:23 Patient: [...] rce(s) Supporting Document(s) ID Date Data Source [id number] 09/04/2021 12:23:00 PM EDT [facility] 1 Medication Reconciliation Report [facility] Emergency Department [address] [place] [address] Phone #: ext- [phone] 09/04/2021 12:23 Patient: [...] 20 tablet. Refills: 0. Substitution permitted.Pharmacy - [facility] - [address] [facility] ; [place], [place] [id number]. . -- JAYNE Lim 2 Medication Reconciliation Report [facility] Emergency Department [address] [place] [address] Phone #: ext- [phone] 09/04/2021 12:23 Patient: ZOILA HOLGUIN Sex: F : 1960 Age: 61y Name Value Range Interpretation Code Description Data Mona rce(s) Supporting Document(s) ID Date Data Source [id number] 09/04/2021 12:23:00 PM EDT [facility] 1 Medication Administration Record [facility] Emergency Department [address] [place] [address] Phone #: [phone]- [phone] 09/04/2021 12:23 Patient: ZOILA HOLGUIN Sex: F : 1960 Age: 61yWeight: 59.8 kgHeight/Length: 65 inBMI: 22ALLERGIES: Valium Date/Time Medication Administered Medication OrderedGiven BENADRYL [IVP] (DIPHENHYDRAMINE Benadryl IVP 25 mg12:59 09/04/2021 HCL)Zoraida Hinojosa R.N. Dose: 25 mg IVP Site: #1 right ACStart NS [IV] NS IV : Bolus 1000 mL, then 29349:00 09/04/2021 Dose: IV Fluids mL/hr (NOW x1)Zoraida Hinojosa R.N. Bolus: 1000 mL wide open---- Dispensed: 1000 mL bagStop Site: #1 right AC14:10 09/04/2021Zoraida Hinojosa R.N.Given ATIVAN [IVP] (LORAZEPAM) Ativan IVP 1 mg (NOW x1, HIGH13:00 09/04/2021 Dose: 1 mg IVP ALERT MEDICATION)Zoraida Hinojosa R.N. Site: #1 right ACStart ROCEPHIN (1GM/50ML) [IVPB] Rocephin (1gm/50mL) IVPB 877572:04 09/04/2021 (CEFTRIAXONE SODIUM) mg with Dextrose 50 [...] rce(s) Supporting Document(s) ID Date Data Source [id number] 09/04/2021 12:23:00 PM EDT [facility] 1 General Instructions [facility] Emergency Department [address] [place] [address] Phone #: ext- [phone] 09/04/2021 12:23 [facility]: [id number] Sex: F : 1960 Age: 61yAcute tonsillitis.Peritonsillar [...] 20 tablet. Refills: 0. Substitution permitted.Pharmacy - [facility] - [address] [facility] ; [place], [place] [id number]. .Follow-up:Follow up with your healthcare provider in three days even if well. Call for the next available appointment.Reason for referral: evaluation and recommend contrast enhanced MRI neck and ENT referral for FBsenstaion with swallowing and ? peritonsillar abscess on CT soft tissue neck. Recommend repeatLFT's/potassium level x 2 weeks.. Summary of care provided to patient via paper. 2 General Instructions [facility] Emergency Department [address] [place] [address] Phone #: ext- [phone] 09/04/2021 12:23 Patient: ZOILA HOLGUIN Sex: F [...] taking medicine Trouble breathing 3 General Instructions [facility] Emergency Department [address] [place] [address] Phone #: [phone]- [phone] 09/04/2021 12:23 Patient: ZOILA HOLGUIN Sex: F : 1960 Age: 61y Neck stiffness Bleeding Rash Swelling or bumps in the neck [employer]. [address] [place] [address], [place] [address]. All rights reserved. This information is not [...] rce(s) Supporting Document(s) ID Date Data Source [id number] 09/04/2021 12:23:00 PM EDT [facility] 1 Clinical Report - Nurses [facility] Emergency Department [address] [place] [address] Phone #: ext- [phone] 09/04/2021 12:23 Patient: ZOILA HOLGUIN Sex: F : 1960 Age: 61yTRIAGEArrived by private vehicle. Historian: patient. ( presents with c/o throat feeling like its closing off, difficultto swallow but breathing is ok, recently seen here for same thing. started this am).Triage time: 12:30 09/04/2021. Acuity: LEVEL 3.Chief Complaint: (throat tighting).Alert. 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 Seen within the last 30 days [...] (disorder).Heart Disease. 2 [facility] [address] [place] [address] Phone #: ext- [phone] 09/04/2021 12:23 Patient: [id number] Sex: F : 1960 Age: 61y Gastroesophageal [...] membranes are 3 Clinical Report - Nurses [facility] Emergency Department [address] [place] [address] Phone #: ext- [phone] 09/04/2021 12:23 Patient: ZOILA HOLGUIN Sex: F [...] medication. Verbalizes 4 Clinical Report - Nurses [facility] Emergency Department [address] [place] [address] Phone #: ext- [phone] 09/04/2021 12:23 Patient: [...] Patient verbalized understanding. Written instructions provided in Georgian. The patient was discharged by the physician special event assistant. She was discharged home and accompanied by family. She left ambulatory and via private vehicle. Family member driving. --15:48 09/04/21 Zoraida Hinojosa R.N. 15:48 09/04/21. Pain level now 0/10. --15:48 09/04/21 Zoraida Hinojosa R.N.Locked/Released at 09/04/2021 15:49 by Zoraida Hinojosa R.N. Name Value Range Interpretation Code Description Data Mona rce(s) Supporting Document(s) ID Date Data Source [id number] 09/04/2021 12:23:00 PM EDT [facility] 1 Clinical Report - Physicians/Mid Levels [facility] Emergency Department [address] [place] [address] Phone #: ext- [phone] 09/04/2021 12:23 Patient: [facility]OIL[facility]OLGU[id number] Sex: F : 1960 Age: 61y Time [...] cxr and soft tissue neck x-ray done. [place] better after meds but today sensation started [...] Myocardial Infarction. 2 Clinical Report - Physicians/Mid [facility] Emergency Department [address] [place] [address] Phone #: ext- [phone] 09/04/2021 12:23 Patient: ZOILA HOLGUIN Sex: F [...] organomegaly. 3 Clinical Report - Physicians/Mid Levels [facility] Department [address] [place] [address] Phone #: ext- [phone] 09/04/2021 12:23 Patient: ZOILA HOLGUIN Sex: F [...] 21) 4 Clinical Report - Physicians/Mid Levels [facility] Emergency Department [address] [place] [address] Phone #: ext- [phone] 09/04/2021 12:23 Patient: [...] up 5 Clinical Report - Physicians/Mid Levels [facility] Emergency Department [address] [place] [address] Phone #: ext- [phone] 09/04/2021 12:23 Patient: [facility]OIL[facility]OLGU[id number] Sex: F : 1960 Age: 61y with [...] tablet. Refills: 0. Substitution permitted. Pharmacy - [facility] [address] [facility] ; [place], [place] [id number]. . Follow-up: Follow up with your healthcare [...] rce(s) Supporting Document(s) ID Date Data Source [id number] 09/04/2021 01:33:00 PM EDT [facility] Name Value Range Interpretation Code Description Data Mona rce(s) Supporting Document(s) COMPREHENSIVE METABOLIC PANEL [facility] COMPREHENSIVE METABOLIC PANEL Sodium [Moles/volume] in Serum or Plasma 145 mEq/L 134 - 153 [facility] Potassium [Moles/volume] in Serum or Plasma 3.2 mEq/L 3.6 - 5.0 L [facility] Chloride [Moles/volume] in Serum or Plasma 106 mEq/L 98 - 107 [facility] Carbon dioxide, total [Moles/volume] in Serum or Plasma 25 MEQ/L 22 - 30 [facility] Glucose [Mass/volume] in Serum or Plasma 102 MG/DL 70 - 99 H [facility] BUN 12 MG/DL 7 - 21 [facility] al Creatinine [Mass/volume] in Serum or Plasma 0.7 MG/DL 0.7 - 1.5 [facility] BUN/CREAT 17 8 - 27 [facility] al Protein [Mass/volume] in Serum or Plasma 8.1 G/DL 6.3 - 8.2 [facility] Albumin [Mass/volume] in Serum or Plasma 4.3 G/DL 3.9 - 5.0 [facility] Globulin [Mass/volume] in Serum by calculation 3.8 GM/DL 2.4 - 3.2 H [facility] A/G RATIO 1.1 0.8 - 2.0 [facility] Calcium [Mass/volume] in Serum or Plasma 9.3 MG/DL 8.4 - 10.2 [facility] Bilirubin.total [Mass/volume] in Serum or Plasma <0.7 MG/DL 0.2 - 1.3 [facility] Alkaline phosphatase [Enzymatic activity/volume] in Serum or Plasma 98 U/L 38 - 126 [facility] Aspartate aminotransferase [Enzymatic activity/volume] in Serum or Plasma 100 U/L 5 - 40 H [facility] Alanine aminotransferase [Enzymatic activity/volume] in Seru m or Plasma 117 U/L 7 - 56 H [facility] Anion gap 3 in Serum or Plasma 14.0 mmol/L 8.0 - 16.0 [facility] AGE 61 yrs [facility] al NON-AA GFR >60 mL/min [facility] ital AFR AMER GFR >60 [facility] Male GFR In terprentation 20-49 [...] >32 mL/min Normal ID Date Data Source [id number] 09/04/2021 01:09:00 PM EDT [facility] Name Value Range Interpretation Code Description Data Mona rce(s) Supporting Document(s) CBC W/AUTOMATED DIFF [facility] COMPLETE BLOOD COUNT Leukocytes [#/volume] in Blood by Automated count 5.7 10^3/uL 4.2 - 1 1.0 [facility] Erythrocytes [#/volume] in Blood by Automated count 4.61 10^6/uL 4. 20 - 5.40 [facility] Hemoglobin [Mass/volume] in Blood 14.7 g/dL 12.0 - 16.0 [facility] Hematocrit [Volume Fraction] of Blood by Automated count 43.8 % 3 7.0 - 47.0 [facility] Erythrocyte mean corpuscular volume [Entitic volume] by Auto mated count 95.0 fL 81.0 - 101 [facility] Erythrocyte mean corpuscular hemoglobin [Entitic mass] by Automated count 31.9 pg 27.0 - 34.0 [facility] Erythrocyte mean corpuscular hemoglobin concentration [Mass/volume] by Automated count 33.6 g/dL 31.0 - 36.0 [facility] Erythrocyte distribution width [Ratio] by Automated count 12.3 % 11.5 - 14.5 [facility] Platelets [#/volume] in Blood by Automated count 187 10^3/uL 150 - 45 0 [facility] Platelet mean volume [Entitic volume] in Blood by Automated count 9.5 fL 7.4 - 10.4 [facility] Neutrophils/100 leukocytes in Blood by Automated count 59.4 % 37. 0 - 80.0 [facility] Lymphocytes/100 leukocytes in Blood by Manual count 27.7 % 25.0 - 40.0 [facility] Monocytes/100 leukocytes in Blood by Automated count 8.8 % 3.0 - 8.0 H [facility] Eosinophils/100 leukocytes in Blood by Automated count 2.8 % 0.0 - 7.0 [facility] Basophils/100 leukocytes in Blood by Automated count 1.1 % 0.0 - 2.5 [facility] %IG 0.2 % 0.0 - 0.0 H [facility] %NRBC 0.0 % 0.0 - 0.0 [facility] Neutrophils [#/volume] in Blood by Automated count 3.37 10^3/uL 2.00 - 6.90 [facility] Lymphocytes [#/volume] in Blood by Automated count 1.57 10^3/uL 0.60 - 3.40 [facility] Monocytes [#/volume] in Blood by Automated count 0.50 10^3/uL 0.00 - 0.90 [facility] Eosinophils [#/volume] in Blood by Automated count 0.16 10^3/uL 0.00 - 0.70 [facility] Basophils [#/volume] in Blood by Automated count 0.06 10^3/uL 0.00 - 0.20 [facility] #IG 0.01 10^3/uL 0.00 - 0.10 [facility] #NRBC 0.00 10^3/uL 0.00 - 0.00 [facility] MANUAL DIFF NOT INDICATED [facility] RBC MORPH NOT INDICATED [facility] spital ID Date Data Source [id number] 09/01/2021 11:19:00 AM EDT [facility] [address] [place] [address] PHONE: [phone] FAX: [phone] Name .................. : GRIS CUMMINGS Keisha Acct Number.................. : [id number] ROOM. ................. : VT-26 Number ................... : [id number] Stay type ............. : E/R Discharge Date......... ... : 08/31/21 Admit Date ......... : 08/31/21 Admit Phys .................... : LOW PATE Date of ....... : 1960 Family Phys ................... : ADIEL QUILES Phone .................. : [phone] Age ................................ : 61 Film# .................. .:[id number] Sex ................................. : F Unsigned transcriptions are preliminary reports and do not represent a medical or legal document CHEST 2 VIEWS 36647 COMPLETE:09/01/21 02:58 AML 65313 Reason(s): foreign body sensation in throat x [...] rce(s) Supporting Document(s) ID Date Data Source [id number] 09/01/2021 11:19:00 AM EDT [facility] [address] [place] [address] PHONE: [phone] FAX: [phone] Name .................. : GRIS Valdes Acct Number.................. : [id number] ROOM. ................. : [facility] MR Number ................... : [id number] Stay type ............. : E/R Discharge Date......... ... : 08/31/21 Admit Date ......... : 08/31/21 Admit Phys .................... : LOW JOLLY Date of ....... : 1960 Family Phys ................... : [place] Phone . ................. : [phone] Age ................................ : 61 Film# .................. .:[id number] Sex ................................. : F Unsigned transcriptions are preliminary reports and do not represent a medical or legal document NECK SOFT TISSUE 55075 COMPLETE:09/01/21 02:58 [facility] 82817 Reason(s): Pain RADIOGRAPHS SOFT TISSUE OF THE [...] rce(s) Supporting Document(s) ID Date Data Source [id number] 08/31/2021 08:35:00 PM EDT [facility] 1 OrderSheet [facility] Emergency Department [address] [place] [address] Phone #: [phone] 08/31/2021 20:33 Patient: ZOILA HOLGUIN Sex: F [...] by Jean Fuentes (21:58 08/31/2021)] 2 OrderSheet [facility] Emergency Department [address] [place] [address] Phone #: ext- [phone] 08/31/2021 20:33 Patient: ZOILA HOLGUIN Sex: F : 0 1960 Age: 61y Name Value Range Interpretation Code Description Data Mona rce(s) Supporting Document(s) ID Date Data Source [id number] 08/31/2021 08:35:00 PM EDT [facility] 1 Medication Reconciliation Report [facility] Emergency Department [address] [place] [address] Phone #: ext- [phone] 08/31/2021 20:33 Patient: ZOILA HOLGUIN Sex: F [...] rce(s) Supporting Document(s) ID Date Data Source [id number] 08/31/2021 08:35:00 PM EDT [place] [address] Medication Administration Record [facility] Department [address] [place] [address] Phone #: ext- [phone] 08/31/2021 20:33 Patient: [...] rce(s) Supporting Document(s) ID Date Data Source [id number] 08/31/2021 08:35:00 PM EDT [facility] 1 General Instructions [facility] Emergency Department [address] [place] [address] Phone #: ext- [phone] 08/31/2021 20:33 Patient: ZOILA HOLGUIN Sex: F : 1960 Age: 61yChronic pharyngitis.No streptococcal pharyngitis or viral pharyngitis.Anxiety reaction with hyperventilation.Chronic foreign body sensation in throat.INSTRUCTIONS Drink plenty of fluids. Do not smoke. No alcohol. (PLEASE CALL [facility] TOMOR[facility] TO BE SEEN FOR [...] Agrees to plan of care.Follow-up with: [facility], , [id number], [address] [place] [address], ,[place], [address] Follow up in three days even if well. Call for an appointment. Reason for referral: evaluation andtreatment. Summary of care provided to patient via paper. 2 General Instructions [facility] Emergency Department [address] [place] [address] Phone #: ext- [phone] 08/31/2021 20:33 Patient: [...] Headache Nausea Diarrhea Tiredness 3 General Instructions [facility] Emergency Department [address] [place] [address] Phone #: ext- [phone] 08/31/2021 20:33 Patient: [...] help you manage stress. 4 General Instructions [facility] Emergency Department [address] [place] [address] Phone #: ext- [phone] 08/31/2021 20:33 Patient: ZOILA HOLGUIN Sex: F [...] relieved by rest and mild pain reliever [id number] [employer]. [address] [place] [address], [place] [address]. All rights reserved. This information is not intended as asubstitute for professional medical care. Always follow your healthcare professional's instructions. You have been given the following additional information: Anxiety Reaction(Electronically signed by Leta Kelsey M.D. 08/31/2021 22:42) Name Value Range Interpretation Code Description Data Mona rce(s) Supporting Document(s) ID Date Data Source [id number] 08/31/2021 08:35:00 PM EDT [facility] 1 Clinical Report - Nurses [facility] Emergency Department [address] [place] [address] Phone #: ext- [phone] 08/31/2021 20:33 Patient: [...] SURGERIES:Bowel resection. 2 Clinical Report - Nurses [facility] Emergency Department [address] [place] [address] Phone #: ext- [phone] 08/31/2021 20:33 Patient: ZOILA HOLGUIN Sex: F : 1960 Age: 61y Bowel Surgery. Carpal Tunnel Surgery (Bilateral). Laparoscopy. Tonsillectomy. Tubal Ligation. --20:43 08/31/21 Queta Roe R.N. History SOCIAL HX: Former smoker. Occasional alcohol use. No drug use. Recent travel- ([place] 2 weeks ago). She was offered HIV [...] 08/31/21Jean Fuentes 3 Clinical Report - Nurses [facility] Emergency Department [address] [place] [address] Phone #: ext- [phone] 08/31/2021 20:33 Patient: ZOILA HOLGUIN Sex: F [...] to an ear, nose, and throat specialist (eligibility consultant) and a primary care physician for followup. Reviewed need for increased fluid intake. Patient verbalized understanding. Written instructions provided in Georgian. 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 2 Clinical Report - Physicians/Mid Levels [facility] Emergency Department [address] [place] [address] Phone #: ext- [phone] 08/31/2021 20:33 Patient: ZOILA HOLGUIN Sex: F [...] good. 3 Clinical Report - Physicians/Mid Levels [facility] Emergency Department [address] [place] [address] Phone #: [phone] 08/31/2021 20:33 Patient: ZOILA HOLGUIN Sex: F [...] Do not smoke. No alcohol. (PLEASE CALL [facility] TO BE SEEN FOR [...] medication*. 4 Clinical Report - Physicians/Mid Levels [facility] Emergency Department [address] [place] [address] Phone #: [phone]- [phone] 08/31/2021 20:33 Patient: ZOILA HOLGUIN [facility]#: [id number] Sex: F : 1960 Age: 61y DuoNeb*. Spiriva HandiHaler Inhalation. Xanax Oral. Follow-up: Return to the emergency department as needed. Follow up with an ear, nose and throat physician (an eligibility consultant) in two days. Call for an appointment. Reason for referral: evaluation and treatment. Summary of care provided to patient via paper. Understanding of the discharge instructions verbalized by patient. Expected course of illness, discharge instructions, activity level, diet, follow-up appointment and risks and benefits of treatment reviewed with patient and understanding verbalized. Agrees to plan of care. Follow-up with: [facility], , [id number], [address] [place] [address], [phone] Follow up in three days even if well. Call for an appointment. Reason for referral: evaluation and treatment. Summary of care provided to patient via paper.(Electronically signed by Leta Kelsey M.D. 08/31/2021 22:42) Name Value Range Interpretation Code Description Data [facility](s) Supporting Document(s) ID Date Data Source [id number] 04/08/2021 11:52:00 AM EDT [facility] ([facility] Name Value Range Interpretation Code Description Data [facility](s) Supporting Document(s) RBC 4.24 10^6/uL 4.20-5.40 [facility] [...] 11.4 fL 7.4-10.4 Above high normal [facility] ([facility] Eos 1.0 % 0.0-7.0 [facility] Lymph 30.8 % 25.0-40.0 [facility] Reynolds 14.7 % 3.0-8.0 Above high normal [facility] ([facility] Baso 1.4 % 0.0-2.5 [facility] ([facility] %Ig 0.2 % 0.0-0.0 Above high normal [facility] ([facility] #Lymph 1.51 10^3/uL 0.60-3.40 [facility] ([facility] %NRBC 0.0 % 0.0-0.0 [facility] ([facility] #Neut 2.55 10^3/uL 2.00-6.90 [facility] ([facility] #Eos 0.05 10^3/uL 0.00-0.70 [facility] ([facility] #Baso 0.07 10^3/uL 0.00-0.20 [facility] ([facility] #Reynolds 0.72 10^3/uL 0.00-0.90 [facility] ([facility] #Ig 0.01 10^3/uL 0.00-0.10 [facility] ([facility] #NRBC 0.00 10^3/uL 0.00-0.00 [facility] ([facility] Manual Diff Laboratory test result M JUAN C ([facility] RBC Morph Laboratory test result ME DORY ([facility] ID Date Data Source [id number] 04/08/2021 06:46:00 PM EDT [facility] Name Value Range Interpretation Code Description Data Mona rce(s) Supporting Document(s) CBC W/AUTOMATED DIFF [facility] COMPLETE BLOOD COUNT Leukocytes [#/volume] in Blood by Automated count 4.9 10^3/uL 4.2 - 1 1.0 [facility] Erythrocytes [#/volume] in Blood by Automated count 4.24 10^6/uL 4. 20 - 5.40 [facility] Hemoglobin [Mass/volume] in Blood 13.3 g/dL 12.0 - 16.0 [facility] Hematocrit [Volume Fraction] of Blood by Automated count 40.7 % 3 7.0 - 47.0 [facility] Erythrocyte mean corpuscular volume [Entitic volume] by Auto mated count 96.0 fL 81.0 - 101 [facility] Erythrocyte mean corpuscular hemoglobin [Entitic mass] by Automated count 31.4 pg 27.0 - 34.0 [facility] Erythrocyte mean corpuscular hemoglobin concentration [Mass/volume] by Automated count 32.7 g/dL 31.0 - 36.0 [facility] Erythrocyte distribution width [Ratio] by Automated count 12.5 % 11.5 - 14.5 [facility] Platelets [#/volume] in Blood by Automated count 141 10^3/uL 150 - 45 0 L [facility] Platelet mean volume [Entitic volume] in Blood by Automated count 11.4 fL 7.4 - 10.4 H [facility] Neutrophils/100 leukocytes in Blood by Automated count 51.9 % 37. 0 - 80.0 [facility] Lymphocytes/100 leukocytes in Blood by Manual count 30.8 % 25.0 - 40.0 [facility] Monocytes/100 leukocytes in Blood by Automated count 14.7 % 3.0 - 8.0 H [facility] Eosinophils/100 leukocytes in Blood by Automated count 1.0 % 0.0 - 7.0 [facility] Basophils/100 leukocytes in Blood by Automated count 1.4 % 0.0 - 2.5 [facility] %IG 0.2 % 0.0 - 0.0 H [facility] %NRBC 0.0 % 0.0 - 0.0 [facility] al Neutrophils [#/volume] in Blood by Automated count 2.55 10^3/uL 2.00 - 6.90 [facility] Lymphocytes [#/volume] in Blood by Automated count 1.51 10^3/uL 0.60 - 3.40 [facility] Monocytes [#/volume] in Blood by Automated count 0.72 10^3/uL 0.00 - 0.90 [facility] Eosinophils [#/volume] in Blood by Automated count 0.05 10^3/uL 0.00 - 0.70 [facility] Basophils [#/volume] in Blood by Automated count 0.07 10^3/uL 0.00 - 0.20 [facility] #IG 0.01 10^3/uL 0.00 - 0.10 [facility]ital #NRBC 0.00 10^3/uL 0.00 - 0.00 [facility] MANUAL DIFF NOT INDICATED [facility] RBC MORPH NOT INDICATED [facility] spital ID Date Data Source [id number] 03/16/2021 04:21:00 PM EDT [facility] ([facility] Name Value Range Interpretation Code Description Data Mona rce(s) Supporting Document(s) CRP (High Sensitivity) 0.26 mg/L 1.00-3.00 Below low normal [facility] ([facility] <content>CDC/S HS-CRP CUT-OFF: RELATIVE RISK:</content>
<content><1.0 mg/L Low</content>
<content>1.0 - 3.0 mg/L Average</karlie nt>
<content>>3.0 mg/L High</content>
<content>Optimally, the average of HS-CRP results repeated</content>
<content>two weeks apart should be used for risk assessment.</content>
<content></content> ID Date Data Source [id number] 03/16/2021 04:21:00 PM EDT [facility] ([facility] Name Value Range Interpretation Code Description Data Mona rce(s) Supporting Document(s) Sed Rate 43 mm/hr 0-30 Above high normal [facility] ([facility] Sed Rate Reenter 43 [facility] ([facility] ID Date Data Source [id number] 03/16/2021 04:21:00 PM EDT [facility] ([facility] Name Value Range Interpretation Code Description Data Mona rce(s) Supporting Document(s) CBC W/Automated Diff Laboratory test result [facility] ([facility] COMPLETE BLOOD COUNT WBC 6.2 10^3/uL 4.2-11.0 [facility] ([facility] RBC 4.12 10^6/uL 4.20-5.40 Below low normal [facility] ([facility] Hemoglobin 13.2 g/dL 12.0-16.0 [facility] ([facility] Hematocrit 38.9 % 37.0-47.0 [facility] ([facility] MCV 94.4 fL 81.0-101 [facility] ([facility] RDW 12.1 % 11.5-14.5 [facility] ([facility] MCH 32.0 pg 27.0-34.0 [facility] ([facility] MCHC 33.9 g/dL 31.0-36.0 [facility] ([facility] MPV 12.0 fL 7.4-10.4 Above high normal [facility] ([facility] Platelets 159 10^3/uL 150-450 [facility] Lymph 36.0 % 25.0-40.0 [facility] Neut 51.3 % 37.0-80.0 [facility] Baso 1.1 % 0.0-2.5 [facility] Reynolds 9.3 % 3.0-8.0 Above high normal [facility] ([facility] Eos 2.1 % 0.0-7.0 [facility] ([facility] %NRBC 0.0 % 0.0-0.0 [facility] %Ig 0.2 % 0.0-0.0 Above high normal [facility] ([facility] #Neut 3.20 10^3/uL 2.00-6.90 [facility] ([facility] #Reynolds 0.58 10^3/uL 0.00-0.90 [facility] ([facility] [...] Diff Laboratory test result M JUAN C ([facility] RBC Morph Laboratory test result ME DORY ([facility] ID Date Data Source [id number] 03/17/2021 01:00:00 PM EDT [facility] Name Value Range Interpretation Code Description Data Mona rce(s) Supporting Document(s) C reactive protein [Mass/volume] in Serum or Plasma by High sensitivity method 0.26 MG/L 1.00 - 3.00 L [facility]/S HS-CRP CUT-OFF: RELATIVE RISK: <1.0 mg/L Low 1.0 - 3.0 mg/L Average >3.0 mg/L High Optimally, the average of HS-CRP results repeated two weeks apart should be used for risk assessment. ID Date Data Source [id number] 03/17/2021 12:56:00 PM EDT [facility] Name Value Range Interpretation Code Description Data Mona rce(s) Supporting Document(s) Erythrocyte sedimentation rate by Westergren method 43 mm/hr 0 - 30 H [facility] SED RATE REENTER 43 [facility] ID Date Data Source [id number] 03/17/2021 12:25:00 PM EDT [facility] Name Value Range Interpretation Code Description Data Mona rce(s) Supporting Document(s) CBC W/AUTOMATED DIFF [facility] COMPLETE BLOOD COUNT Leukocytes [#/volume] in Blood by Automated count 6.2 10^3/uL 4.2 - 1 1.0 [facility] Erythrocytes [#/volume] in Blood by Automated count 4.12 10^6/uL 4. 20 - 5.40 L [facility] Hemoglobin [Mass/volume] in Blood 13.2 g/dL 12.0 - 16.0 [facility] Hematocrit [Volume Fraction] of Blood by Automated count 38.9 % 3 7.0 - 47.0 [facility] Erythrocyte mean corpuscular volume [Entitic volume] by Auto mated count 94.4 fL 81.0 - 101 [facility] Erythrocyte mean corpuscular hemoglobin [Entitic mass] by Automated count 32.0 pg 27.0 - 34.0 [facility] Erythrocyte mean corpuscular hemoglobin concentration [Mass/volume] by Automated count 33.9 g/dL 31.0 - 36.0 [facility] Erythrocyte distribution width [Ratio] by Automated count 12.1 % 11.5 - 14.5 [facility] Platelets [#/volume] in Blood by Automated count 159 10^3/uL 150 - 45 0 [facility] Platelet mean volume [Entitic volume] in Blood by Automated count 12.0 fL 7.4 - 10.4 H [facility] Neutrophils/100 leukocytes in Blood by Automated count 51.3 % 37. 0 - 80.0 [facility] Lymphocytes/100 leukocytes in Blood by Manual count 36.0 % 25.0 - 40.0 [facility] Monocytes/100 leukocytes in Blood by Automated count 9.3 % 3.0 - 8.0 H [facility] Eosinophils/100 leukocytes in Blood by Automated count 2.1 % 0.0 - 7.0 [facility] Basophils/100 leukocytes in Blood by Automated count 1.1 % 0.0 - 2.5 [facility] %IG 0.2 % 0.0 - 0.0 H [facility] %NRBC 0.0 % 0.0 - 0.0 [facility] al Neutrophils [#/volume] in Blood by Automated count 3.20 10^3/uL 2.00 - 6.90 [facility] Lymphocytes [#/volume] in Blood by Automated count 2.24 10^3/uL 0.60 - 3.40 [facility] Monocytes [#/volume] in Blood by Automated count 0.58 10^3/uL 0.00 - 0.90 [facility] Eosinophils [#/volume] in Blood by Automated count 0.13 10^3/uL 0.00 - 0.70 [facility] Basophils [#/volume] in Blood by Automated count 0.07 10^3/uL 0.00 - 0.20 [facility] #IG 0.01 10^3/uL 0.00 - 0.10 [facility] ospital #NRBC 0.00 10^3/uL 0.00 - 0.00 [facility] ospital MANUAL DIFF NOT INDICATED [facility] RBC MORPH NOT INDICATED [facility] spital ID Date Data Source [id number] 03/16/2021 04:21:00 PM EDT [facility] ([facility] Name Value Range Interpretation Code Description Data Mona rce(s) Supporting Document(s) Erythrocyte sedimentation rate by Westergren method Laboratory test result [facility] ([facility] C reactive protein [Mass/volume] in Serum or Plasma Laboratory test result [facility] ([facility] ID Date Data Source [id number] 03/07/2021 11:20:00 AM EDT [facility] ([facility] Name Value Range Interpretation Code Description Data Mona rce(s) Supporting Document(s) Creatine kinase [Enzymatic activity/volume] in Serum or Plasma 96 U /L 30-170 [facility] ([facility] Is patient fasting? Y ID Date Data Source [id number] 03/07/2021 11:20:00 AM EDT [facility] ([facility] Name Value Range Interpretation Code Description Data Mona rce(s) Supporting Document(s) Comprehensive Metabo Laboratory test result [facility] ([facility] Is patient fasting? Y Sodium 140 meq/L 134-153 [facility] Is patient fasting? Y Potassium 4.3 meq/L 3.6-5.0 [facility] Is patient fasting? Y Glucose 99 mg/dL 70-99 [facility] Is patient fasting? Y Co2 28 meq/L 22-30 [facility] ([facility] Is patient fasting? Y Chloride 103 meq/L 98-107 [facility] Is patient fasting? Y Creatinine 0.6 mg/dL 0.7-1.5 Below low normal [facility] ( [facility] Is patient fasting? Y BUN 13 mg/dL 7-21 [facility] Is patient fasting? Y Total Protein 8.3 g/dL 6.3-8.2 Above high normal MEDE NT ([facility] Is patient fasting? Y Albumin 4.6 g/dL 3.9-5.0 [facility] Is patient fasting? Y BUN/Creat 22 8-27 [facility] ([facility] Is patient fasting? Y A/G Ratio 1.2 0.8-2.0 [facility] ([facility] Is patient fasting? Y Calcium 10.0 mg/dL 8.4-10.2 [facility] ([facility] Is patient fasting? Y Globulin 3.7 GM/DL 2.4-3.2 Above high normal [facility] ([facility] Is patient fasting? Y Alkaline Phos 105 U/L 38-126 [facility] Is patient fasting? Y Sgot/Ast 82 U/L 5-40 Above high normal [facility] ([facility] Is patient fasting? Y Total Bili Laboratory test result 0.2-1.3 ME CONNORS ([facility] Is patient fasting? Y SGPT/Alt 94 U/L 7-56 Above high normal [facility] ([facility] Is patient fasting? Y Anion Gap 9.0 mmol/L 8.0-16.0 [facility] ([facility] Is patient fasting? Y Age 60 yrs [facility] ([facility] Is patient fasting? Y Non-Aa GFR Laboratory test result ME DENT ([facility] Is patient fasting? Y Afr Amer GFR Laboratory test result [facility] ([facility] Is patient fasting? Y ID Date Data Source [id number] 03/07/2021 11:20:00 AM EDT [facility] ([facility] Name Value Range Interpretation Code Description Data Mona rce(s) Supporting Document(s) CBC W/Automated Diff Laboratory test result [facility] ([facility] Is patient fasting? Y WBC 5.6 10^3/uL 4.2-11.0 [facility] Is patient fasting? Y RBC 4.38 10^6/uL 4.20-5.40 [facility] ([facility] Is patient fasting? Y Hemoglobin 14.0 g/dL 12.0-16.0 [facility] ([facility] Is patient fasting? Y Hematocrit 41.9 % 37.0-47.0 [facility] ([facility] Is patient fasting? Y MCV 95.7 fL 81.0-101 [facility] Is patient fasting? Y MCH 32.0 pg 27.0-34.0 [facility] Is patient fasting? Y MCHC 33.4 g/dL 31.0-36.0 [facility] ([facility] Is patient fasting? Y RDW 12.6 % 11.5-14.5 [facility] Is patient fasting? Y MPV 12.6 fL 7.4-10.4 Above high normal [facility] ([facility] Is patient fasting? Y Neut 60.7 % 37.0-80.0 [facility] ([facility] Is patient fasting? Y Platelets 83 10^3/uL 150-450 Below low normal [facility] ( [facility] Is patient fasting? Y Reynolds 10.4 % 3.0-8.0 Above high normal [facility] ([facility] Is patient fasting? Y Eos 0.9 % 0.0-7.0 [facility] Is patient fasting? Y Lymph 26.9 % 25.0-40.0 [facility] Is patient fasting? Y Baso 0.9 % 0.0-2.5 [facility] ([facility] Is patient fasting? Y %Ig 0.2 % 0.0-0.0 Above high normal [facility] ([facility] Is patient fasting? Y #Neut 3.39 10^3/uL 2.00-6.90 [facility] Is patient fasting? Y #Lymph 1.50 10^3/uL 0.60-3.40 [facility] Is patient fasting? Y %NRBC 0.0 % 0.0-0.0 [facility] ([facility] Is patient fasting? Y #Eos 0.05 10^3/uL 0.00-0.70 [facility] ([facility] Is patient fasting? Y #Reynolds 0.58 10^3/uL 0.00-0.90 [facility] ([facility] Is patient fasting? Y #Baso 0.05 10^3/uL 0.00-0.20 [facility] ([facility] Is patient fasting? Y #NRBC 0.00 10^3/uL 0.00-0.00 [facility] ([facility] Is patient fasting? Y #Ig 0.01 10^3/uL 0.00-0.10 [facility] Is patient fasting? Y Manual Diff Laboratory test result M EDENT ([facility] Is patient fasting? Y RBC Morph Laboratory test result ME DENT ([facility] Is patient fasting? Y ID Date Data Source [id number] 03/07/2021 06:45:00 PM EDT [facility] Name Value Range Interpretation Code Description Data Mona rce(s) Supporting Document(s) COMPREHENSIVE METABOLIC PANEL [facility] COMPREHENSIVE METABOLIC PANEL Sodium [Moles/volume] in Serum or Plasma 140 mEq/L 134 - 153 [facility] Potassium [Moles/volume] in Serum or Plasma 4.3 mEq/L 3.6 - 5.0 [facility] Chloride [Moles/volume] in Serum or Plasma 103 mEq/L 98 - 107 [facility] Carbon dioxide, total [Moles/volume] in Serum or Plasma 28 MEQ/L 22 - 30 [facility] Glucose [Mass/volume] in Serum or Plasma 99 MG/DL 70 - 99 [facility] BUN 13 MG/DL 7 - 21 [facility] Creatinine [Mass/volume] in Serum or Plasma 0.6 MG/DL 0.7 - 1.5 L [facility] BUN/CREAT 22 8 - 27 [facility] al Protein [Mass/volume] in Serum or Plasma 8.3 G/DL 6.3 - 8.2 H [facility] Albumin [Mass/volume] in Serum or Plasma 4.6 G/DL 3.9 - 5.0 [facility] Globulin [Mass/volume] in Serum by calculation 3.7 GM/DL 2.4 - 3.2 H [facility] A/G RATIO 1.2 0.8 - 2.0 [facility] Calcium [Mass/volume] in Serum or Plasma 10.0 MG/DL 8.4 - 10.2 [facility] Bilirubin.total [Mass/volume] in Serum or Plasma <0.7 MG/DL 0.2 - 1.3 [facility] Alkaline phosphatase [Enzymatic activity/volume] in Serum or Plasma 105 U/L 38 - 126 [facility] Aspartate aminotransferase [Enzymatic activity/volume] in Serum or Plasma 82 U/L 5 - 40 H [facility] Alanine aminotransferase [Enzymatic activity/volume] in Seru m or Plasma 94 U/L 7 - 56 H [facility] Anion gap 3 in Serum or Plasma 9.0 mmol/L 8.0 - 16.0 [facility] AGE 60 yrs [facility] al NON-AA GFR >60 mL/min [facility] ital AFR AMER GFR >60 [facility] Male GFR In terprentation 20-49 [...] >32 mL/min Normal ID Date Data Source [id number] 03/07/2021 06:43:00 PM EDT [facility] Name Value Range Interpretation Code Description Data Mona rce(s) Supporting Document(s) CBC W/AUTOMATED DIFF [facility] COMPLETE BLOOD COUNT Leukocytes [#/volume] in Blood by Automated count 5.6 10^3/uL 4.2 - 1 1.0 [facility] Erythrocytes [#/volume] in Blood by Automated count 4.38 10^6/uL 4. 20 - 5.40 [facility] Hemoglobin [Mass/volume] in Blood 14.0 g/dL 12.0 - 16.0 [facility] Hematocrit [Volume Fraction] of Blood by Automated count 41.9 % 3 7.0 - 47.0 [facility] Erythrocyte mean corpuscular volume [Entitic volume] by Auto mated count 95.7 fL 81.0 - 101 [facility] Erythrocyte mean corpuscular hemoglobin [Entitic mass] by Automated count 32.0 pg 27.0 - 34.0 [facility] Erythrocyte mean corpuscular hemoglobin concentration [Mass/volume] by Automated count 33.4 g/dL 31.0 - 36.0 [facility] Erythrocyte distribution width [Ratio] by Automated count 12.6 % 11.5 - 14.5 [facility] Platelets [#/volume] in Blood by Automated count 83 10^3/uL 150 - 450 L [facility] Platelet mean volume [Entitic volume] in Blood by Automated count 12.6 fL 7.4 - 10.4 H [facility] Neutrophils/100 leukocytes in Blood by Automated count 60.7 % 37. 0 - 80.0 [facility] Lymphocytes/100 leukocytes in Blood by Manual count 26.9 % 25.0 - 40.0 [facility] Monocytes/100 leukocytes in Blood by Automated count 10.4 % 3.0 - 8.0 H [facility] Eosinophils/100 leukocytes in Blood by Automated count 0.9 % 0.0 - 7.0 [facility] Basophils/100 leukocytes in Blood by Automated count 0.9 % 0.0 - 2.5 [facility] %IG 0.2 % 0.0 - 0.0 [facility] %NRBC 0.0 % 0.0 - 0.0 [facility] al Neutrophils [#/volume] in Blood by Automated count 3.39 10^3/uL 2.00 - 6.90 [facility] Lymphocytes [#/volume] in Blood by Automated count 1.50 10^3/uL 0.60 - 3.40 [facility] Monocytes [#/volume] in Blood by Automated count 0.58 10^3/uL 0.00 - 0.90 [facility] Eosinophils [#/volume] in Blood by Automated count 0.05 10^3/uL 0.00 - 0.70 [facility] Basophils [#/volume] in Blood by Automated count 0.05 10^3/uL 0.00 - 0.20 [facility] #IG 0.01 10^3/uL 0.00 - 0.10 [facility] ospital #NRBC 0.00 10^3/uL 0.00 - 0.00 [facility] ospital MANUAL DIFF NOT INDICATED [facility] RBC MORPH NOT INDICATED [facility] spital ID Date Data Source [id number] 03/07/2021 06:38:00 PM EDT [facility] Name Value Range Interpretation Code Description Data Mona rce(s) Supporting Document(s) Creatine kinase [Enzymatic activity/volume] in Serum or Plasma 9 6 U/L 30 - 170 [facility] ID Date Data Source [id number] 12/14/2020 02:41:00 PM EST [facility] ([facility] Name Value Range Interpretation Code Description Data Mona rce(s) Supporting Document(s) Nuclear Ab [Titer] in Serum by Immunofluorescence Laboratory test res ult [facility] ([facility] <content>Negative <1:80</content>
<content>Borderline 1:80</content>
<content>Positive >1:80</content>
<content></content> C reactive protein [Mass/volume] in Serum or Plasma Laboratory t est result 0-10 [facility] ([facility] ID Date Data Source [id number] 12/14/2020 02:41:00 PM EST [facility] ([facility] Name Value Range Interpretation Code Description Data Mona rce(s) Supporting Document(s) Rheumatoid factor [Units/volume] in Serum or Plasma Laborato ry test result 0.0-13.9 [facility] ([facility] ID Date Data Source [id number] 12/14/2020 02:41:00 PM EST [facility] ([facility] Name Value Range Interpretation Code Description Data Mona rce(s) Supporting Document(s) Erythrocyte sedimentation rate by Westergren method 33 mm/hr 0-40 [facility] ([facility] ID Date Data Source [id number] 11/23/2020 09:13:00 [place] [address] PHONE: [phone] FAX: [phone] Name .................. : HOLGUIN ZOILA Valdes Acct Number.................. : [id number] ROOM. ................. : MR Number ................... : [id number] Stay type ............. : O/P Discharge Date......... ... : 11/22/20 Admit Date ......... : 11/22/20 Admit Phys .................... : ADIEL QUILES Date of ....... : 1960 Family Phys ................... : ADIEL QUILES Phone .................. : [phone] Age ................................ : 60 Film# .................. .:[id number] Sex ................................. : F Unsigned transcriptions are preliminary reports and do not represent a medical or legal document SHOULDER COMP-2 OR MORE [facility] L [id number] COMPLETE:11/22/20 11:43 2440 (REASON FOR PROCESS: PAIN [...] for: ADIEL NEGRON via fax Copy for: [address] [place] [address] REC Page 1 of 1 Name Value Range Interpretation Code Description Data Mona rce(s) Supporting Document(s) ID Date Data Source [id number] 11/23/2020 09:12:00 [place] [address] PHONE: [phone] FAX: [phone] Name .................. : GRIS Valdes Acct Number.................. : [id number] ROOM. ................. : MR Number ................... : [id number] Stay type ............. : O/P Discharge Date......... ... : 11/22/20 Admit Date ......... : 11/22/20 Admit Phys .................... : ADIEL QUILES Date of ....... : 1960 Family Phys ................... : DAIEL QUILES Phone . ................. : [phone] Age ................................ : 60 Film# .................. .:[id number] Sex ................................. : F Unsigned transcriptions are preliminary reports and do not represent a medical or legal document [facility] LT [id number] COMPLETE:11/22/20 11:43 2439 (REASON FOR PROCESS: PAIN [...] rce(s) Supporting Document(s) ID Date Data Source [id number] 11/22/2020 10:23:00 AM EST [facility] ([facility] Name Value Range [...] Serum or Plasma 0.4 mg/dL 0.0-1.2 [facility] ([facility] Bilirubin.conjugated [Mass/volume] in Serum or Plasma 0.13 mg/dL 0.00 -0.40 [facility] ([facility] Alanine aminotransferase [Enzymatic activity/volume] in Seru m or Plasma 58 IU/L 0-32 Above high normal [facility] ([facility] Aspartate aminotransferase [Enzymatic activity/volume] in Serum or Plasma 59 IU/L 0-40 Above high normal [facility] ([facility] ID Date Data Source [id number] 11/22/2020 10:23:00 AM EST [facility] ([facility] Name Value Range Interpretation Code Description Data Mona rce(s) Supporting Document(s) BUN 12 mg/dL 8-27 [facility] ([facility] Creatinine [Mass/volume] in Serum or Plasma 0.70 mg/dL 0.57-1.00 [facility] ([facility] Glucose [Mass/volume] in Serum or Plasma 110 mg/dL 65-99 Above high normal [facility] ([facility] eGFR If NonAfricn Am 94 mL/min/1.73 [facility] ([facility] eGFR If Africn Am 108 mL/min/1.73 ME DENT ([facility] Potassium [Moles/volume] in Serum or Plasma 3.9 mmol/L 3.5-5.2 [facility] ([facility] Urea nitrogen/Creatinine [Mass Ratio] in Serum or Plasma 17 1 2-28 [facility] ([facility] Sodium [Moles/volume] in Serum or Plasma 142 mmol/L 134-144 [facility] ([facility] Carbon dioxide, total [Moles/volume] in Serum or Plasma 22 mmol/L 20 -29 [facility] ([facility] Calcium [Mass/volume] in Serum or Plasma 9.4 mg/dL 8.7-10.3 [facility] ([facility] Chloride [Moles/volume] in Serum or Plasma 104 mmol/L 96-106 [facility] ([facility] ID Date Data Source [id number] 11/22/2020 10:23:00 AM EST [facility] ([facility] Name Value Range [...] Auto mated count 92 fL 79-97 [facility] ([facility] Erythrocyte mean corpuscular hemoglobin concentration [Mass/volume] by Automated count 33.7 g/dL 31.5-35.7 [facility] ([facility] Erythrocyte distribution width [Ratio] by Automated count 12.1 % 11.7-15.4 [facility] ([facility] Neutrophils 55 % [facility] ([facility] Lymphs 32 [...] Automated count 2.9 x10E3/uL 1.4-7 .0 [facility] ([facility] Immature cells [#/volume] in Blood Laboratory test result [facility] ([facility] Monocytes [#/volume] in Blood 0.7 x10E3/uL 0.1-0.9 [facility] ([facility] Lymphocytes [#/volume] in Blood 1.7 x10E3/uL 0.7-3.1 [facility] ([facility] Eosinophils [#/volume] in Blood by Automated count 0.0 x10E3/uL 0.0-0 .4 [facility] ([facility] Immature granulocytes/100 leukocytes in Blood by Automated count 0 % [facility] ([facility] Basophils [#/volume] in Blood by Automated count 0.1 x10E3/uL 0.0-0.2 [facility] ([facility] Immature granulocytes [#/volume] in Blood by Automated count 0.0 x10E3/uL 0.0-0.1 [facility] ([facility] Morphology [Interpretation] in Blood Narrative Laboratory test result [facility] ([facility] Nucleated erythrocytes/100 leukocytes [Ratio] in Blood by Automated count Laboratory test result [facility] ID Date Data Source [id number] 09/02/2020 12:28:00 PM EDT [facility] ([facility] Name Value Range Interpretation Code Description Data Mona rce(s) Supporting Document(s) Sodium 142 meq/L 134-153 [facility] Is patient fasting? N Comprehensive Metabo Laboratory test result [facility] ([facility] Is patient fasting? N Potassium 4.2 meq/L 3.6-5.0 [facility] Is patient fasting? N Chloride 104 meq/L 98-107 [facility] ([facility] Is patient fasting? N Co2 28 meq/L 22-30 [facility] ([facility] Is patient fasting? N Creatinine 0.7 mg/dL 0.7-1.5 [facility] ([facility] Is patient fasting? N BUN 11 mg/dL 7-21 [facility] ([facility] Is patient fasting? N Glucose 108 mg/dL 65-110 [facility] ([facility] Is patient fasting? N Total Protein 8.2 g/dL 6.3-8.2 [facility] ([facility] Is patient fasting? N Albumin 4.6 g/dL 3.9-5.0 [facility] ([facility] Is patient fasting? N BUN/Creat 16 8-27 [facility] ([facility] Is patient fasting? N Globulin 3.6 GM/DL 2.4-3.2 Above high normal [facility] ([facility] Is patient fasting? N Calcium 10.0 mg/dL 8.4-10.2 [facility] ([facility] Is patient fasting? N A/G Ratio 1.3 0.8-2.0 [facility] ([facility] Is patient fasting? N Alkaline Phos 96 U/L 38-126 [facility] ([facility] Is patient fasting? N Total Bili Laboratory test result 0.2-1.3 ME DENT ([facility] Is patient fasting? N SGPT/Alt 69 U/L 7-56 Above high normal [facility] ([facility] Is patient fasting? N Anion Gap 10.0 mmol/L 8.0-16.0 [facility] ([facility] Is patient fasting? N Sgot/Ast 79 U/L 5-40 Above high normal [facility] ([facility] Is patient fasting? N Age 60 yrs [facility] ([facility] Is patient fasting? N Afr Amer GFR Laboratory test result [facility] ([facility] Is patient fasting? N Non-Aa GFR Laboratory test result ME D[facility] ([facility] Is patient fasting? N ID Date Data Source [id number] 09/02/2020 12:28:00 PM EDT [facility] ([facility] Name Value Range Interpretation Code Description Data Mona rce(s) Supporting Document(s) WBC 5.6 10^3/uL 4.2-11.0 [facility] ([facility] Is patient fasting? N CBC W/Automated Diff Laboratory test result [facility] ([facility] Is patient fasting? N [...] 11.1 fL 7.4-10.4 Above high normal [facility] ([facility] Is patient fasting? N Reynolds 9.6 % 3.0-8.0 Above high normal [facility] ([facility] Is patient fasting? N Eos 2.8 % 0.0-7.0 [facility] ([facility] Is patient fasting? N Baso 0.9 % 0.0-2.5 [facility] ([facility] Is patient fasting? N #Neut 3.61 10^3/uL 2.00-6.90 [facility] ([facility] Is patient fasting? N %Ig 0.4 % 0.0-0.0 Above high normal [facility] ([facility] Is patient fasting? N %NRBC 0.0 % 0.0-0.0 [facility] ([facility] Is patient fasting? N #Reynolds 0.54 10^3/uL 0.00-0.90 [facility] ([facility] Pr actice [...] RBC Morph Laboratory test result ME DENT ([facility] Is patient fasting? N Manual Diff Laboratory test result M EDENT ([facility] Is patient fasting? N ID Date Data Source [id number] 09/02/2020 06:04:00 PM EDT [facility] Name Value Range Interpretation Code Description Data Mona rce(s) Supporting Document(s) COMPREHENSIVE METABOLIC PANEL [facility] COMPREHENSIVE METABOLIC PANEL Sodium [Moles/volume] in Serum or Plasma 142 mEq/L 134 - 153 [facility] Potassium [Moles/volume] in Serum or Plasma 4.2 mEq/L 3.6 - 5.0 [facility] Chloride [Moles/volume] in Serum or Plasma 104 mEq/L 98 - 107 [facility] Carbon dioxide, total [Moles/volume] in Serum or Plasma 28 MEQ/L 22 - 30 [facility] Glucose [Mass/volume] in Serum or Plasma 108 MG/DL 65 - 110 [facility] BUN 11 MG/DL 7 - 21 [facility] al Creatinine [Mass/volume] in Serum or Plasma 0.7 MG/DL 0.7 - 1.5 [facility] BUN/CREAT 16 8 - 27 [facility] Protein [Mass/volume] in Serum or Plasma 8.2 G/DL 6.3 - 8.2 [facility] Albumin [Mass/volume] in Serum or Plasma 4.6 G/DL 3.9 - 5.0 [facility] Globulin [Mass/volume] in Serum by calculation 3.6 GM/DL 2.4 - 3.2 H [facility] A/G RATIO 1.3 0.8 - 2.0 [facility] Calcium [Mass/volume] in Serum or Plasma 10.0 MG/DL 8.4 - 10.2 [facility] Bilirubin.total [Mass/volume] in Serum or Plasma <0.7 MG/DL 0.2 - 1.3 [facility] Alkaline phosphatase [Enzymatic activity/volume] in Serum or Plasma 96 U/L 38 - 126 [facility] Aspartate aminotransferase [Enzymatic activity/volume] in Serum or Plasma 79 U/L 5 - 40 H [facility] Alanine aminotransferase [Enzymatic activity/volume] in Seru m or Plasma 69 U/L 7 - 56 H [facility] Anion gap 3 in Serum or Plasma 10.0 mmol/L 8.0 - 16.0 [facility] 60 [facility] >60 mL/min [facility] ital AFR AMER GFR >60 [facility] Male GFR In terprentation 20-49 [...] >32 mL/min Normal ID Date Data Source [id number] 09/02/2020 05:28:00 PM EDT [facility] Name Value Range Interpretation Code Description Data Mona rce(s) Supporting Document(s) CBC W/AUTOMATED DIFF [facility] COMPLETE BLOOD COUNT Leukocytes [#/volume] in Blood by Automated count 5.6 10^3/uL 4.2 - 1 1.0 [facility] Erythrocytes [#/volume] in Blood by Automated count 4.39 10^6/uL 4. 20 - 5.40 [facility] Hemoglobin [Mass/volume] in Blood 13.9 g/dL 12.0 - 16.0 [facility] Hematocrit [Volume Fraction] of Blood by Automated count 42.5 % 3 7.0 - 47.0 [facility] Erythrocyte mean corpuscular volume [Entitic volume] by Auto mated count 96.8 fL 81.0 - 101 [facility] Erythrocyte mean corpuscular hemoglobin [Entitic mass] by Automated count 31.7 pg 27.0 - 34.0 [facility] Erythrocyte mean corpuscular hemoglobin concentration [Mass/volume] by Automated count 32.7 g/dL 31.0 - 36.0 [facility] Erythrocyte distribution width [Ratio] by Automated count 13.0 % 11.5 - 14.5 [facility] Platelets [#/volume] in Blood by Automated count 265 10^3/uL 150 - 45 0 [facility] Platelet mean volume [Entitic volume] in Blood by Automated count 11.1 fL 7.4 - 10.4 H [facility] Neutrophils/100 leukocytes in Blood by Automated count 64.2 % 37. 0 - 80.0 [facility] Lymphocytes/100 leukocytes in Blood by Manual count 22.1 % 25.0 - 40.0 L [facility] Monocytes/100 leukocytes in Blood by Automated count 9.6 % 3.0 - 8.0 H [facility] Eosinophils/100 leukocytes in Blood by Automated count 2.8 % 0.0 - 7.0 [facility] Basophils/100 leukocytes in Blood by Automated count 0.9 % 0.0 - 2.5 [facility] %IG 0.4 % 0.0 - 0.0 H [facility] %NRBC 0.0 % 0.0 - 0.0 [facility] al Neutrophils [#/volume] in Blood by Automated count 3.61 10^3/uL 2.00 - 6.90 [facility] Lymphocytes [#/volume] in Blood by Automated count 1.24 10^3/uL 0.60 - 3.40 [facility] Monocytes [#/volume] in Blood by Automated count 0.54 10^3/uL 0.00 - 0.90 [facility] Eosinophils [#/volume] in Blood by Automated count 0.16 10^3/uL 0.00 - 0.70 [facility] Basophils [#/volume] in Blood by Automated count 0.05 10^3/uL 0.00 - 0.20 [facility] #IG 0.02 10^3/uL 0.00 - 0.10 [facility] #NRBC 0.00 10^3/uL 0.00 - 0.00 [facility] MANUAL DIFF NOT INDICATED [facility] RBC MORPH NOT INDICATED [facility] ID Date Data Source [id number] 08/13/2020 10:23:00 PM EDT [facility] ([facility] Name Value Range Interpretation Code Description Data Mona rce(s) Supporting Document(s) CPK Creatine Phosphokinase 68 U/L 26-192 Yoli l (applies to non-numeric results) [facility] ([facility] ) CK-MB Value Mass 1.2 ng/mL Normal (applies to non-numeric results) [facility] ([facility] MB/CK Relative Index 1.76 Normal (applies to non-num arley results) [facility] ([facility] <content>DIAGNOSIS CRITERIA</content>
<content>MMB ng/ml Relative Index (RI)</content>
<content>NON-AMI < or = 5 N/A</content>
<content>DAILEY ZONE > 5 < or = 4</content>
<content>AMI > 5 > 4</content>
<content></content> Troponin I Laboratory test result Normal (applies to non-n umeric results) [facility] <content>Troponin I Reference Interval f or Siemens [place] LOCI:</content>
<content></content>
<content>99th Percentile= 0.00-0.045 ng/ml</content>
<content></content>
<content>Risk Stratification:</content>
<content><= 0.10 ng/ml Decreased Risk for Adverse Clinical</content>
<content>Events.</content>
<content>0.10-1.50 ng/ml Increased Risk for Adverse Clinical</content>
<content>Events. Evaluation of additional</content>
<content>criterion and/or repeat testing in 2-6</content>
<content>hours is suggested to rule out myocardial</content>
<content>damage.</content>
<content>>= 1.50 ng/ml Indicative of Myocardial Injury.</content>
<content></content> ID Date Data Source [id number] 08/13/2020 10:23:00 PM EDT [facility] ([facility] Name Value Range Interpretation Code Description Data Mona rce(s) Supporting Document(s) White Blood Count 11.8 10 4.0-10.0 Above high normal [facility] ( [facility] Red Blood Count 4.00 10 4.00-5.40 Normal (applies to non-numeric results) [facility] ([facility] Hemoglobin 12.3 g/dL 12.0-15.5 [...] Normal (applies to non-numeric resul ts) [facility] ([facility] Red Cell Distribution Width 12.6 % 11.5-14.5 Norm al (applies to non-numeric results) [facility] ([facility] Mean Corpuscular HGB Conc 32.5 g/dL 32.0-36.5 Normal (applies to non-numeric results) [facility] ([facility] ) Platelet Count, Automated 252 10 150-450 Normal (applies to non-numeric results) [facility] ([facility] Neutrophils % 58.1 % 36.0-66.0 Normal (applies to non-numeric re sults) [facility] ([facility] Lymph % 31.9 % 24.0-44.0 Normal (applies to non-numeric resul ts) [facility] ([facility] Reynolds % 8.5 % 0.0-5.0 Above high normal [...] Normal (applies to non-numeric resul ts) [facility] ([facility] Reynolds # 1.0 10 0.0-0.8 Above high normal [facility] ([facility] Neutrophils # 6.8 10 1.5-8.5 Normal (applies to non-numeric re sults) [facility] ([facility] Eos # 0.0 10 0.0-0.5 Normal (applies to non-numeric resul ts) [facility] ([facility] Baso # 0.1 10 0.0-0.2 Normal (applies to non-numeric resul ts) [facility] ([facility] ID Date Data Source [id number] 08/13/2020 10:23:00 PM EDT [facility] ([facility] Name Value Range Interpretation Code Description Data Mona rce(s) Supporting Document(s) Ast/Sgot 69 U/L 7-37 Above high normal [facility] ([facility] Alkaline Phosphatase 102 U/L 45-117 Normal (applies to non-num arley results) [facility] ([facility] Alt/SGPT 92 U/L 12-78 Above high normal [facility] ([facility] Bilirubin,Total 0.4 mg/dL 0.2-1.0 Normal (applies to non-numeric results) [facility] ([facility] Total Protein 7.2 GM/DL 6.4-8.2 Normal (applies to non-numeric re sults) [facility] ([facility] Bilirubin,Direct 0.2 mg/dL 0.0-0.2 Normal (applies to non-numeric results) [facility] ([facility] Albumin 3.3 GM/DL 3.2-5.2 Normal (applies to non-numeric resul ts) [facility] ([facility] Albumin/Globulin Ratio 0.8 1.2-2.2 Below low normal [facility] ([facility] ID Date Data Source [id number] 08/13/2020 10:23:00 PM EDT [facility] ([facility] Name Value Range Interpretation Code Description Data Mona rce(s) Supporting Document(s) Blood Urea Nitrogen 16 mg/dL 7-18 Normal (applies to non-nume jolly results) [facility] ([facility] Glucose, Fasting 101 mg/dL 70-100 Above high normal M ED[facility] ([facility] Sodium Level 138 meq/L 136-145 Normal (applies to non-numeric res ults) [facility] ([facility] Creatinine For GFR 1.00 mg/dL 0.55-1.30 Normal (applies to non -numeric results) [facility] ([facility] Glomerular Filtration Rate 60.0 Normal (applies to n on-numeric results) [facility] <content>Units are mL/min/1.73 m2</content>
<content></content>
<content>Chronic Kidney Disease Staging per NKF:</content>
<content></content>
<content>Stage I & II GFR >=60 Normal to Mildly Decreased</content>
<content>Stage III GFR 30- 59 Moderately Decreased</content>
<content>Stage IV GFR 15-29 Severely Decreased</content>
<content>Stage V GFR <15 Very Little GFR Left</content>
<content>ESRD GFR <15 on [employer] MACHINE [employer]PERATOR HELPER</content>
<content></content> Carbon Dioxide Level 30 meq/L 21-32 Normal (applies to non-num arley results) [facility] ([facility] Chloride Level 97 meq/L 98-107 Below low normal [facility] NT ([facility] Potassium Serum 3.4 meq/L 3.5-5.1 Below low normal MED [facility] ([facility] Anion Gap 11 meq/L 8-16 Normal (applies to non-numeric resul ts) [facility] ([facility] Calcium Level 8.0 mg/dL 8.8-10.2 Below low normal [facility] T ([facility] ID Date Data Source [id number] 08/13/2020 10:23:00 PM EDT [facility] ([facility]) Name Value Range Interpretation Code Description Data Mona rce(s) Supporting Document(s) Lipoprotein lipase [Enzymatic activity/volume] in Serum or P lasma 141 U/L 73-393 Normal (applies to non-numeric results) [facility] <content>note:<nlbl:demographic_changed> </content>
<content></content> ID Date Data Source [id number] 08/13/2020 01:55:00 [place] [address] PHONE: [phone] FAX: [phone] Name .................. : GRIS Valdes Acct Number.................. : [id number] ROOM. ................. : TR-03 MR Number ................... : [id number] Stay type ............. : E/R Discharge Date......... ... : 08/12/20 Admit Date .... ..... : 08/12/20 Admit Phys .................... : WARREN DAWOOD Date of ....... : 1960 Family Phys ................... : ADIEL QUILES Phone .................. : [phone] Age ................................ : 60 Film# .................. .:[id number] Sex ................................. : F Unsigned transcriptions are preliminary reports and do not represent a medical or legal document CT ABD & PELVIS W/ IV ONLY [id number] COMPLETE:08/12/20 13:24 MISSY [id number] Reason(s): abd pain CT OF THE ABDOMEN [...] 08/13/20 13:55, KGG Page 1 of [address] [place] [address] PHONE: [phone] FAX: [phone] Name .................. : GRIS Valdes Acct Number.................. : [id number] ROOM. ................. : TR-03 MR Number ................... : [id number] Stay type ............. : E/R Discharge Date......... ... : 08/12/20 Admit Date ......... : 08/12/20 Admit Phys .................... : WARREN DAWOOD Date of ....... : 1960 Family Phys ................... : ADIEL QUILES Phone .................. : [phone] Age ................................ : 60 Film# .................. .:[id number] Sex ................................. : F Unsigned transcriptions are preliminary reports and do not represent a medical or legal document CT ABD & PELVIS W/ IV ONLY [id number] COMPLETE:08/12/20 13:24 MISSY [id number] Reason(s): abd pain Transcribe Initials: JUVE , Transcribe Date: 08/12/20 22:38, Dictation Date: Copy for: MONISHA FLORES via fax Copy for: WARREN Mendoza via fax Copy for: ADIEL NEGRON via fax Copy for: EMERGENCY DEPT via mode Copy for: 710 MED REC DISCHARGED Page 2 of 2 Name Value Range Interpretation Code Description Data Mona rce(s) Supporting Document(s) ID Date Data Source [id number] 08/13/2020 01:53:00 PM EDT [facility] [address] [place] [address] PHONE: [phone] FAX: [phone] Name .................. : GRIS Valdes Acct Number.................. : [id number] ROOM. ................. : TR-03 MR Number ................... : [id number] Stay type ............. : E/R Discharge Date......... ... : 08/12/20 Admit Date .... ..... : 08/12/20 Admit Phys .................... : WARREN DAWOOD Date of ....... : 1960 Family Phys ................... : ADIEL QUILES Phone .................. : [phone] Age ................................ : 60 Film# .................. .:[id number] Sex ................................. : F Unsigned transcriptions are preliminary reports and do not represent a medical or legal document CT CTA CHEST NON-CORONARY W C 92560 COMPLETE:08/12/20 13:24 MISSY [id number] Reason(s): PENDING CMP: lower ch est pain [...] 08/13/20 13:53, KGG Page 1 of 2 [facility] [address] [place] [address] [place] [address] PHONE: [phone] FAX: [phone] Name .................. : GRIS Valdes Acct Number.................. : [id number] ROOM. ................. : TR-03 MR Number ................... : [id number] Stay type ............. : E/R Discharge Date......... ... : 08/12/20 Admit Date ......... : 08/12/20 Admit Phys .................... : WARREN DAWOOD Date of ....... : 1960 Family Phys ................... : ADIEL QUILES Phone .................. : [phone] Age ................................ : 60 Film# .................. .:[id number] Sex .......... ....................... : F Unsigned transcriptions are preliminary reports and do not represent a medical or legal document CT CTA CHEST NON-CORONARY W C 08467 COMPLETE:08/12/20 13:24 MISSY 28962 Reason(s): PENDING CMP: lower chest pain w/ [...] rce(s) Supporting Document(s) ID Date Data Source [id number] 08/13/2020 01:49:00 PM EDT [facility] [address] [place] [address] PHONE: [phone] FAX: [phone] Name .................. : GRIS CUMMINGS Keisha Acct Number.................. : [id number] ROOM. ................. : TR-03 MR Number ................... : [id number] Stay type ............. : E/R Discharge Date......... ... : Admit Date ......... : 1 Admit Phys .................... : WARREN DAWOOD Date of ....... : 1960 Family Phys ................... : ADIEL QUILES Phone .................. : [phone] Age ................................ : 60 Film# .................. .:[id number] Sex ................................. : F Unsigned transcriptions are preliminary reports and do not represent a medical or legal document CHEST PORTABLE 96313 COMPLETE:08/12/20 11:46 52861 Reason(s): Chest Pain PORTABLE CHEST X-RAY: INDICATION: [...] rce(s) Supporting Document(s) ID Date Data Source [id number] 08/13/2020 09:42:00 AM EDT [address] [place] [address] RESPIRATORY CARE REPORT ==== ---------NAME------- NUMBER SEX AGE ADMIT DISC. XRAY# F/C NIKOLE Valdes [id number] F 60 08/12/20 08/12/20 [id number] MBZ E/R DATE OF : 1960 M/R# [id number] PH#: [phone] TR-03 LOCATION: EMERGENCY DEPT EKG 00796 COMPLE TE:08/13/20 00:10 [place] [id number] PHYSICIAN: WARREN LINDSEY CH Name Value Range Interpretation Code Description Data Mona rce(s) Supporting Document(s) ID Date Data Source [id number] 08/12/2020 11:21:00 AM EDT [facility] 1 OrderSheet [facility] Emergency Department [address] [place] [address] Phone #: ext- [phone] 08/12/2020 11:19 Patient: [...] STAT 11:46 08/12/2020 11:54 Kian, 2 OrderSheet [facility] Emergency Department [address] [place] [address] Phone #: ext- [phone] 08/12/2020 11:19 Patient: [...] alerts: Benefits outweigh risks -- 11:46 08/12/2020 aJtin Palmer-[facility] Serum Qual STAT 11:47 08/12/2020 11:54 [...] Ga Iniguez R.N.INC PP P.A.-C; 3 OrderSheet [facility] Emergency Department [address] [place] [address] Phone #: swe- [phone] 08/12/2020 11:19 Patient: ZOILA HOLGUIN Sex: F [...] Palmer-CEKG 11:46 08/12/2020 11:54 Kian, Gretchen OrderSheet [facility] Emergency Department [address] [place] [address] Phone #: ext- [phone] 08/12/2020 11:19 Patient: [...] rce(s) Supporting Document(s) ID Date Data Source [id number] 08/12/2020 11:21:00 AM EDT [facility] 1 Medication Reconciliation Report [facility] Emergency Department [address] [place] [address] Phone #: ext- [phone] 08/12/2020 11:19 [...] 08/12/2020 11:57:00 AM 2 Medication Reconciliation Report [facility] Emergency Department [address] [place] [address] Phone #: ext- [phone] 08/12/2020 11:19 Patient: ZOILA HOLGUIN Sex: F : 1960 Age: 60yMaalox [PO] PO 30 mL, administered: 08/12/2020 2:41:00 PMThe following Medications were prescribed to the patient:Lasix 20 mg tablet Take 1 tablet once a day for 3 days -- Dispense 3 tablet. Refills: 0. Substitutionpermitted.Pharmacy - [facility] - [address] [place] [address] ; [place], [place] [id number]. . -- Jatin Lindsey P.A.-C Name Value Range Interpretation Code Description Data Mona rce(s) Supporting Document(s) ID Date Data Source [id number] 08/12/2020 11:21:00 AM EDT [facility] 1 Medication Administration Record [facility] Emergency Department [address] [place] [address] Phone #: ext- [phone] 08/12/2020 11:19 Patient: ZOILA HOLGUIN Sex: F : 1960 Age: 60yWeight: 55.6 kgHeight/Length: 65 inBMI: 20.4ALLERGIES: Codeine Sulfate, Valium, Seasonal Date/Time Medication Administered Medication OrderedGiven ASPIRIN CHEWABLE 81 MG [PO] Aspirin PO Chewable 81 mg 53530:57 08/12/2020 Dose: 324 mg Tablets PO mgSuly Gibbons R.N.Given NITROGLYCERIN [TOPICAL OINTMENT] NitroGLYCERIN Uxodeyk35:57 08/12/2020 Dose: 0.5 in. Ointment Topical Ointment [...] rce(s) Supporting Document(s) ID Date Data Source [id number] 08/12/2020 11:21:00 AM EDT [facility] 1 General Instructions [facility] Emergency Department [address] [place] [address] Phone #: ext- [phone] 08/12/2020 11:19 Patient: [...] Dispense 3 tablet. Refills: 0. Substitutionpermitted.Pharmacy - [facility] - [address] [facility] ; [place], [place] [id number]. .Follow-up:Return to the emergency department as needed. Follow up with your healthcare provider today. Followup with a rotor casting machine operator. Call for the next available appointment.AMA warnings: [...] know that I am welcome to return [facility] at any time to receive the recommended care or any other care that I may need at any time,regardless of my ability to pay for such care. 2 General Instructions [facility] Emergency Department [address] [place] [address] Phone #: ext- [phone] 08/12/2020 11:19 Patient: ZOILA HOLGUIN Sex: F [...] swelling of the large artery coming 3 [facility] Emergency Department [address] [place] [address] Phone #: ext- [phone] 08/12/2020 11:19 Patient: [...] better within 24 hours, or as advised.Call [phone] if any of these occur: A change [...] Swelling, pain or redness in one leg [id number] [employer]. [address] [place] [address]. All rights reserved. This information is not intended as asubstitute for professional medical care. Always follow your healthcare professional's instructions. You have been given the following additional information: Chest Pain, Uncertain Cause 4 General Instructions [facility] Emergency Department [address] [place] [address] Phone #: ext- [phone] 08/12/2020 11:19 Patient: ZOILA HOLGUIN Sex: F : 1960 Age: 60y(Electronically signed by Jatin Lindsey P.A.-C 08/12/2020 21:28) Name Value Range Interpretation Code Description Data Mona rce(s) Supporting Document(s) ID Date Data Source [id number] 08/12/2020 11:21:00 AM EDT [facility] 1 Clinical Report - Nurses [facility] Emergency Department [address] [place] [address] Phone #: ext- [phone] 08/12/2020 11:19 Patient: ZOILA HOLGUIN Sex: F : 1960 Age: 60yTRIAGEArrived by private vehicle. Historian: patient. ( c/o heart pain).Triage time: 11:22 08/12/2020. Acuity: LEVEL 3.Chief Complaint: CHEST PAIN.Alert. No acute distress.Onset. (4 days ago). 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 2 Clinical Report - Nurses [facility] Emergency Department [address] [place] [address] Phone #: ext- [phone] 08/12/2020 11:19 Patient: [...] impairments noted. 3 Clinical Report - Nurses [facility] Emergency Department [address] [place] [address] Phone #: ext- [phone] 08/12/2020 11:19 Patient: [...] To treatment room. --11:08/12/20 Freeman Clifton R.N.PHYSICAL OODTIVJEAD27:08/12/20. Ambulatory to room.GENERAL / NEURO / PSYCH: [...] 08/12/20 Hira Langston R.N.NURSING PROGRESS NOTES11:30 08/12/20. monitoring manager, NIBP monitor and pulse oximeter placed on [...] and described 4 Clinical Report - Nurses [facility] Emergency Department [address] [place] [address] Phone #: ext- [phone] 08/12/2020 11:19 Patient: ZOILA HOLGUIN Sex: F [...] Langston R.N. 5 Clinical Report - Nurses [facility] Emergency Department [address] [place] [address] Phone #: ext- [phone] 08/12/2020 11:19 Patient: ZOILA HOLGUIN [facility]#: [id number] Sex: F : 1960 Age: 60y 14:32 [...] have improved the patient feels better. Physician special event assistant notified. --15:51 08/12/20 Hira Langston R.N. Condition at departure: improved. No learning barriers present. Discharge instructions provided and reviewed with the patient. Reviewed warnings. Reviewed medication(s). Treatments reviewed. Reviewed referrals. Patient verbalized understanding. Written instructions provided in Georgian. The patient left the Emergency Department against [...] The patient was discharged by the physician special event assistant. She was discharged home. She left ambulatory [...] Langston R.N. 6 Clinical Report - Nurses [facility] Emergency Department [address] [place] [address] Phone #: ext- [phone] 08/12/2020 11:19 Patient: ZOILA HOLGUIN Sex: F : 1960 Age: 60yLoc ked/Released at 08/12/2020 15:57 by Hira Langston R.N. Name Value Range Interpretation Code Description Data Mona rce(s) Supporting Document(s) ID Date Data Source [id number] 08/12/2020 11:21:00 AM EDT [facility] 1 Clinical Report - Physicians/Mid Levels [facility] Emergency Department [address] [place] [address] Phone #: ext- [phone] 08/12/2020 11:19 Patient: [...] further eval. 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 Sts she ahd "fluid around heart" and discovered last year. Saw a rotor casting machine operator, but feels she was being treated wrong, [...] Disease. 2 Clinical Report - Physicians/Mid Levels [facility] Emergency Department [address] [place] [address] Phone #: ext- [phone] 08/12/2020 11:19 Patient: ZOILA HOLGUIN Sex: F [...] 2+. 3 Clinical Report - Physicians/Mid Levels [facility] Emergency Department [address] [place] [address] Phone #: ext- [phone] 08/12/2020 11:19 Patient: ZOILA HOLGUIN Sex: F [...] Beta-HCG, Qual Serum: (ANUP: 08/12/2020 11:43) ( [facility] 08/12/[facility] 12:22) Final results Test Result Flag Units (Reference) HCG SERUM QUAL NEGATIVE (NORMAL: NEGAT HCG SERUM QL REENTER NEGATIVE (NORMAL: NEGAT { KIT LOT # [id number] ){ KIT EXP DATE 08.10.21 ){ PROCEDURAL CONTROL VALID ) CBC w Diff: (ANUP: 08/12/2020 11:43) ( [facility] 08/12/2020 12:05) Final results Test Result Flag [...] 40.0) 4 Clinical Report - Physicians/Mid Levels [facility] Emergency Department [address] [place] [address] Phone #: ext- [phone] 08/12/2020 11:19 Patient: [...] Male GFR Interprentation 20-49 yrs >60 mL/min Kzgbea70-53 yrs >56 mL/min Normal 60-69 yrs >49 mL/min Normal 70-79yrs>42 mL/min Normal 80 and above >35 mL/min Normal Female GFRInterpretation 20-39 yrs >60 mL/min Normal 40-49 yrs >58 mL/minNormal 50-59 yrs >51 mL/min Normal 60-69 yrs >45 mL/min Qpzrrv69-59 yrs >39 mL/min Normal 80 and above >32 mL/min NormalLipase: (ANUP: 08/12/2020 11:43) ( [facility] 08/12/2020 12:38) Final results Test Result Flag Units (Reference) LIPASE 35 U/L (13 - 60)PT/PTT: (ANUP: 08/12/2020 11:43) ( [facility] 08/12/2020 12:19) Final results Test Result Flag Units (Reference) PROTIME 11.9 SECONDS (11.0 - 15.5) INR 0.87 L (0.93 - 1.23) PTT 25.8 SECONDS (24.8 - 36.7) \\BLDo\\INR INTERPRETATION\\BLDx\\ Therapeutic range for Coumadin and 5 Clinical Report - Physicians/Mid Levels [facility] Emergency Department [address] [place] [address] Phone #: ext- [phone] 08/12/2020 11:19 Patient: ZOILA HOLGUIN Sex: F : 1960 Age: 60y related oral anticoagulants. -International Normalized Ratio (INR): 2.0 - 3.0 for Venous Thrombosis, Pulmonary Embolus, Tissue heart valves, Acute [place] Atrial Fibrillation, Valvular heart dis ease and recurrent Systemic Embolism. -International Normalized Ratio (INR): 2.5 - 3.5 for Mechanical Prosthetic valve. Troponin-T: (ANUP: 08/12/2020 11:43) ( [facility] 08/12/2020 12:24) Final results Test Result Flag Units (Reference) TROPONIN T <0.01 NG/ML (0.00 - 0.10) TROPONIN T0.1 ng/ml Recommended as the clinical threshold value forTroponin T. BNP: (ANUP: 08/12/2020 11:43) ( [facility] 08/12/2020 12:43) Final results Test Result Flag Units (Reference) BNP 285 H PG/ML (0 - 125) Magnesium: (ANUP: 08/12/2020 11:43) ( [facility] 08/12/2020 12:38) Final results Test Result Flag Units (Reference) MAGNESIUM 2.1 MG/DL (1.7 - 2.2) TSH: (ANUP: 08/12/2020 11:43) ( [facility] 08/12/2020 12:38) Final results Test Result Flag Units (Reference) TSH 1.40 uIU/mL (0.47 - 5.01) Lactic Acid: (ANUP: 08/12/2020 11:43) ( [facility] 08/12/2020 12:04) Final results Test Result Flag Units (Reference) LACTIC ACID 1.6 MMOL/L (0.2 - 2.2) D-Dimer: (ANUP: 08/12/2020 11:43) ( [facility] 08/12/2020 12:19) Final results Test Result Flag [...] complaints. 6 Clinical Report - Physicians/Mid Levels [facility] Emergency Department [address] [place] [address] Phone #: ext- [phone] 08/12/2020 11:19 Patient: [...] but due to COVID not seen new rotor casting machine operator. Pt wishes to leave and not be [...] tablet. Refills: 0. Substitution permitted. Pharmacy - [facility] - [address] [facility] ; [place], [place] [phone]. . Follow-up: Return to the emergency department as needed. Follow up with your healthcare provider today. Follow up with a rotor casting machine operator. Call for the next available appointment. 7 Clinical Report - Physicians/Mid Levels [facility] Emergency Department [address] [place] [address] Phone #: ext- [phone] 08/12/2020 11:19 Patient: ZOILA HOLGUIN Sex: F [...] rce(s) Supporting Document(s) ID Date Data Source [id number] 08/12/2020 02:46:00 PM EDT [facility] ([facility] Name Value Range Interpretation Code Description Data Mona rce(s) Supporting Document(s) Troponin T.cardiac [Mass/volume] in Serum or Plasma Laborato ry test result 0.00-0.10 [facility] CMTS: 3hr REPEAT ID Date Data Source [id number] 08/12/2020 03:17:00 PM EDT [facility] Name Value Range Interpretation Code Description Data Mona rce(s) Supporting Document(s) TROPONIN T <0.01 NG/ML 0.00 - 0.10 [facility] TROPONIN T0.1 ng/ml Recommended as the c linical threshold value forTroponin T. ID Date Data Source [id number] 08/12/2020 11:43:00 AM EDT [facility] ([facility] Name Value Range Interpretation Code Description Data Mona rce(s) Supporting Document(s) Natriuretic peptide.B prohormone N-Terminal [Mass/volu me] in Serum or Plasma 285 pg/mL 0-125 Above high normal [facility] ([facility] ID Date Data Source [id number] 08/12/2020 11:43:00 AM EDT [facility] ([facility] Name Value Range Interpretation Code Description Data Mona rce(s) Supporting Document(s) Sodium 140 meq/L 134-153 [facility] Comprehensive Metabo Laboratory test result [facility] ([facility] COMPREHENSIVE METABOLIC PANEL Potassium 3.8 meq/L 3.6-5.0 [facility] Chloride 101 meq/L 98-107 [facility] Co2 29 meq/L 22-30 [facility] BUN 16 mg/dL 7-21 [facility] ([facility] Glucose 145 mg/dL 65-110 Above high normal [facility] ([facility] Creatinine 0.6 mg/dL 0.7-1.5 Below low normal [facility] ( [facility] BUN/Creat 27 8-27 [facility] ([facility] Albumin 4.4 g/dL 3.9-5.0 [facility] ([facility] Total Protein 7.4 g/dL 6.3-8.2 [facility] ([facility] A/G Ratio 1.5 0.8-2.0 [facility] ([facility] Globulin 3.0 GM/DL 2.4-3.2 [facility] ([facility] Total Bili Laboratory test result 0.2-1.3 ME [facility] ([facility] Calcium 9.5 mg/dL 8.4-10.2 [facility] ([facility] Alkaline Phos 106 U/L 38-126 [facility] SGPT/Alt 72 U/L 7-56 Above high normal [facility] ([facility] Sgot/Ast 63 U/L 5-40 Above high normal [facility] ([facility] Anion Gap 10.0 mmol/L 8.0-16.0 [facility] ([facility] Age 60 yrs [facility] ([facility] Non-Aa GFR Laboratory test result [facility] ([facility] Afr Amer GFR Laboratory test result [facility] ([facility] Male GFR Interprentation 20-49 yrs [...] >32 mL/min Normal ID Date Data Source [id number] 08/12/2020 11:43:00 AM EDT [facility] ([facility] Name Value Range Interpretation Code Description Data Mona rce(s) Supporting Document(s) Troponin T.cardiac [Mass/volume] in Serum or Plasma Laborato ry test result 0.00-0.10 [facility] TROPONIN T 0.1 ng/ml Recommended as the clinical th reshold value for Troponin T. Lipoprotein lipase [Enzymatic activity/volume] in Serum or Plasm a 35 U/L 13-60 [facility] ([facility] ) Magnesium [Mass/volume] in Serum or Plasma 2.1 mg/dL 1.7-2.2 [facility] ([facility] Thyrotropin [Units/volume] in Serum or Plasma 1.40 uIU/mL 0.47-5.01 [facility] ([facility] ID Date Data Source [id number] 08/12/2020 11:43:00 AM EDT [facility] ([facility] Name Value Range Interpretation Code Description Data Mona rce(s) Supporting Document(s) HCG Serum Qual Laboratory test result [facility] ([facility] HCG Serum QL Reenter Laboratory test result [facility] ([facility] { KIT LOT # [id number] ) { KIT EXP DATE 08.10.21 ) { PROCEDURAL CONTROL VALID ) ID Date Data Source [id number] 08/12/2020 11:43:00 AM EDT [facility] ([facility] Name Value Range Interpretation Code Description Data Mona rce(s) Supporting Document(s) Fibrin D-dimer [Presence] in Platelet poor plasma 2.08 ug/mL 0.27-0.50 Above high normal [facility] ([facility] ) ID Date Data Source [id number] 08/12/2020 11:43:00 AM EDT [facility] Name Value Range Interpretation Code Description Data Mona rce(s) Supporting Document(s) Inr 0.87 0.93-1.23 Below low normal [facility] ( [facility] Protime 11.9 s 11.0-15.5 [facility] ([facility] PTT 25.8 s 24.8-36.7 [facility] ([facility] \\BLDo\\INR INTERPRETATION\\BLDx\\ Therapeutic range for Coumadin and related oral anticoagulants. -International Normalized Ratio (INR): 2 .0 - 3.0 for Venous Thrombosis, Pulmonary Embolus, Tissue heart valves, Acute [place] Atrial Fibrillation, Valvular heart disease and recurrent Systemic Embolism. -International Normalized Ratio (INR): 2 .5 - 3.5 for Mechanical Prosthetic valve. ID Date Data Source [id number] 08/12/2020 11:43:00 AM EDT [facility] ([facility] Name Value Range Interpretation Code Description Data Mona e(s) Supporting Document(s) CBC W/Automated Diff Laboratory test result [facility] ([facility] COMPLETE BLOOD COUNT RBC 4.07 10^6/uL 4.20-5.40 Below low normal [facility] ([facility] WBC 9.5 10^3/uL 4.2-11.0 [facility] ([facility] Hemoglobin 12.6 g/dL 12.0-16.0 [facility] ([facility] MCV 92.9 fL 81.0-101 [facility] ([facility] Hematocrit 37.8 % 37.0-47.0 [facility] MCH 31.0 pg 27.0-34.0 [facility] ([facility] MCHC 33.3 g/dL 31.0-36.0 [facility] ([facility] RDW 12.9 % 11.5-14.5 [facility] ([facility] Platelets 240 10^3/uL 150-450 [facility] MPV 9.8 fL 7.4-10.4 [facility] Neut 71.2 % 37.0-80.0 [facility] Reynolds 7.8 % 3.0-8.0 [facility] Lymph 19.8 % 25.0-40.0 Below low normal [facility] ( [facility] Eos 0.0 % 0.0-7.0 [facility] Baso 0.4 % 0.0-2.5 [facility] %Ig 0.8 % 0.0-0.0 Above high normal [facility] %NRBC 0.0 % 0.0-0.0 [facility] #Neut 6.78 10^3/uL 2.00-6.90 [facility] #Reynolds 0.74 10^3/uL 0.00-0.90 [facility] ([facility] [...] Manual Diff Laboratory test result M EDJADYN ([facility] RBC Morph Laboratory test result ME DORY ([facility] ID Date Data Source [id number] 08/12/2020 11:43:00 AM EDT MEDENT ([facility] Name Value Range Interpretation Code Description Data Mona rce(s) Supporting Document(s) Lactate [Mass/volume] in Serum or Plasma 1.6 mmol/L 0.2-2.2 [facility] ([facility] ID Date Data Source [id number] 08/12/2020 12:43:00 PM EDT [facility] Name Value Range Interpretation Code Description Data Mona rce(s) Supporting Document(s) BNP 285 PG/ML 0 - 125 H [facility] al ID Date Data Source [id number] 08/12/2020 12:43:00 PM EDT [facility] Name Value Range Interpretation Code Description Data Mona rce(s) Supporting Document(s) COMPREHENSIVE METABOLIC PANEL [facility] COMPREHENSIVE METABOLIC PANEL Sodium [Moles/volume] in Serum or Plasma 140 mEq/L 134 - 153 [facility] Potassium [Moles/volume] in Serum or Plasma 3.8 mEq/L 3.6 - 5.0 [facility] Chloride [Moles/volume] in Serum or Plasma 101 mEq/L 98 - 107 [facility] Carbon dioxide, total [Moles/volume] in Serum or Plasma 29 MEQ/L 22 - 30 [facility] Glucose [Mass/volume] in Serum or Plasma 145 MG/DL 65 - 110 H [facility] BUN 16 MG/DL 7 - 21 [facility] Creatinine [Mass/volume] in Serum or Plasma 0.6 MG/DL 0.7 - 1.5 L [facility] BUN/CREAT 27 8 - 27 [facility] Protein [Mass/volume] in Serum or Plasma 7.4 G/DL 6.3 - 8.2 [facility] Albumin [Mass/volume] in Serum or Plasma 4.4 G/DL 3.9 - 5.0 [facility] Globulin [Mass/volume] in Serum by calculation 3.0 GM/DL 2.4 - 3.2 [facility] A/G RATIO 1.5 0.8 - 2.0 [facility] Calcium [Mass/volume] in Serum or Plasma 9.5 MG/DL 8.4 - 10.2 [facility] Bilirubin.total [Mass/volume] in Serum or Plasma <0.7 MG/DL 0.2 - 1.3 [facility] Alkaline phosphatase [Enzymatic activity/volume] in Serum or Plasma 106 U/L 38 - 126 [facility] Aspartate aminotransferase [Enzymatic activity/volume] in Serum or Plasma 63 U/L 5 - 40 H [facility] Alanine aminotransferase [Enzymatic activity/volume] in Seru m or Plasma 72 U/L 7 - 56 H [facility] Anion gap 3 in Serum or Plasma 10.0 mmol/L 8.0 - 16.0 [facility] AGE 60 yrs [facility] NON-AA GFR >60 mL/min [facility] AFR AMER GFR >60 [facility] Male GFR In terprentation 20-49 [...] >32 mL/min Normal ID Date Data Source [id number] 08/12/2020 12:38:00 PM EDT [facility] Name Value Range Interpretation Code Description Data Mona rce(s) Supporting Document(s) Thyrotropin [Units/volume] in Serum or Plasma by Detec tion limit <= 0.05 mIU/L 1.40 uIU/mL 0.47 - 5.01 [facility] ID Date Data Source [id number] 08/12/2020 12:38:00 PM EDT [facility] Name Value Range Interpretation Code Description Data Mona rce(s) Supporting Document(s) Magnesium [Mass/volume] in Serum or Plasma 2.1 MG/DL 1.7 - 2.2 [facility] ID Date Data Source [id number] 08/12/2020 12:38:00 PM EDT [facility] Name Value Range Interpretation Code Description Data Mona rce(s) Supporting Document(s) Lipase [Enzymatic activity/volume] in Serum or Plasma 35 U/L 13 - 60 [facility] ID Date Data Source [id number] 08/12/2020 12:24:00 PM EDT [facility] Name Value Range Interpretation Code Description Data Mona rce(s) Supporting Document(s) TROPONIN T <0.01 NG/ML 0.00 - 0.10 [facility] TROPONIN T0.1 ng/ml Recommended as the c linical threshold value forTroponin T. ID Date Data Source [id number] 08/12/2020 12:22:00 PM EDT [facility] Name Value Range Interpretation Code Description Data Mona rce(s) Supporting Document(s) HCG SERUM QUAL NEGATIVE NORMAL: NEGATIVE [facility] HCG SERUM QL REENTER NEGATIVE NORMAL: NEGATIVE [facility] { KIT LOT # [id number] ){ KIT EXP DATE 08.10.21 ){ PROCEDURAL CONTROL VALID ) ID Date Data Source [id number] 08/12/2020 12:19:00 PM EDT [facility] Name Value Range Interpretation Code Description Data Mona rce(s) Supporting Document(s) Fibrin D-dimer FEU [Mass/volume] in Platelet poor plasma 2.08 ug /mL 0.27 - 0.50 H [facility] ID Date Data Source [id number] 08/12/2020 12:19:00 PM EDT [facility] Name Value Range Interpretation Code Description Data Mona rce(s) Supporting Document(s) Prothrombin time (PT) 11.9 SECONDS 11.0 - 15.5 [facility] INR in Platelet poor plasma by Coagulation assay 0.87 0.93 - 1. 23 L [facility] aPTT in Blood by Coagulation assay 25.8 SECONDS 24.8 - 36.7 [facility] \\BLDo\\INR INTERPRETATION\\BLDx\\ Therapeutic range for Coumadin and related oral anticoagulants. - International Normalized Ratio (INR): 2.0 - 3.0 for Venous Thrombosis, Pulmonary Embolus, Tissue heart valves, Acute [place] Atrial Fibrillation, Valvular heart disease and recurrent Systemic Embolism. - International Normalized Ratio (INR): 2.5 - 3.5 for Mechanical Prosthetic valve. ID Date Data Source [id number] 08/12/2020 12:05:00 PM EDT [facility] Name Value Range Interpretation Code Description Data Mona rce(s) Supporting Document(s) CBC W/AUTOMATED DIFF [facility] COMPLETE BLOOD COUNT Leukocytes [#/volume] in Blood by Automated count 9.5 10^3/uL 4.2 - 1 1.0 [facility] Erythrocytes [#/volume] in Blood by Automated count 4.07 10^6/uL 4. 20 - 5.40 L [facility] Hemoglobin [Mass/volume] in Blood 12.6 g/dL 12.0 - 16.0 [facility] Hematocrit [Volume Fraction] of Blood by Automated count 37.8 % 3 7.0 - 47.0 [facility] Erythrocyte mean corpuscular volume [Entitic volume] by Auto mated count 92.9 fL 81.0 - 101 [facility] Erythrocyte mean corpuscular hemoglobin [Entitic mass] by Automated count 31.0 pg 27.0 - 34.0 [facility] Erythrocyte mean corpuscular hemoglobin concentration [Mass/volume] by Automated count 33.3 g/dL 31.0 - 36.0 [facility] Erythrocyte distribution width [Ratio] by Automated count 12.9 % 11.5 - 14.5 [facility] Platelets [#/volume] in Blood by Automated count 240 10^3/uL 150 - 45 0 [facility] Platelet mean volume [Entitic volume] in Blood by Automated count 9.8 fL 7.4 - 10.4 [facility] Neutrophils/100 leukocytes in Blood by Automated count 71.2 % 37. 0 - 80.0 [facility] Lymphocytes/100 leukocytes in Blood by Manual count 19.8 % 25.0 - 40.0 L [facility] Monocytes/100 leukocytes in Blood by Automated count 7.8 % 3.0 - 8.0 [facility] Eosinophils/100 leukocytes in Blood by Automated count 0.0 % 0.0 - 7.0 [facility] Basophils/100 leukocytes in Blood by Automated count 0.4 % 0.0 - 2.5 [facility] %IG 0.8 % 0.0 - 0.0 H [facility] %NRBC 0.0 % 0.0 - 0.0 [facility] Neutrophils [#/volume] in Blood by Automated count 6.78 10^3/uL 2.00 - 6.90 [facility] Lymphocytes [#/volume] in Blood by Automated count 1.89 10^3/uL 0.60 - 3.40 [facility] Monocytes [#/volume] in Blood by Automated count 0.74 10^3/uL 0.00 - 0.90 [facility] Eosinophils [#/volume] in Blood by Automated count 0.00 10^3/uL 0.00 - 0.70 [facility] Basophils [#/volume] in Blood by Automated count 0.04 10^3/uL 0.00 - 0.20 [facility] #IG 0.08 10^3/uL 0.00 - 0.10 [facility] #NRBC 0.00 10^3/uL 0.00 - 0.00 [facility] MANUAL DIFF NOT INDICATED [facility] RBC MORPH NOT INDICATED [facility] ID Date Data Source [id number] 08/12/2020 12:04:00 PM EDT [facility] Name Value Range Interpretation Code Description Data Mona rce(s) Supporting Document(s) Lactate [Moles/volume] in Serum or Plasma 1.6 MMOL/L 0.2 - 2.2 [facility] ID Date Data Source [id number] 08/02/2020 12:00:00 AM EDT [facility] Name Value Range Interpretation Code Description Data Mona rce(s) Supporting Document(s) SARS coronavirus 2 RNA [facility] This lab was ordered by [facility] and rep orted by [facility]. ID Date Data Source [id number] 07/29/2020 02:00:38 PM EDT [facility] Vital SignsBlood Pressure: 142/89 Patient History Medical History:Surgical History:Family History:Social/Personal History: Current Problems: Dental caries (ICD-521.00) ([id number])Problem list reviewed during this update.Current Medications: PENICILLIN V POTASSIUM 500 MG TABS (PENICILLIN V POTASSIUM) Take 1 QID until gone; Route: ORALHYDROCODONE-ACETAMINOPHEN 5-325 MG ORAL TABLET (HYDROCODONE-ACETAMINOPHEN) 1 tab q8h prn; Route: ORALTRELEGY ELLIPTA AEROSOL POWDER BREATH ACTIVATED ([id number] [id number]) ALPRAZOLAM TABLET (ALPRAZOLAM TABS) CEPHALEXIN 500 MG ORAL TABLET (CEPHALEXIN) ; Route: ORALMedication list reviewed during this update.Current Allergies: * LISINOPRIL (Critical)Allergy list reviewed during this update. Dental Chart: Procedures:Type - CDT Code - Description B - (D0140) Limited oral evaluation - problem focused on Tooth # 6 (Performed by ELY Rasmussen, Manjinder) Chart Alert:[facility] in the file cabinetPANO taken 2017EW03/04/2019 Chart Notes:olya (Jul 29 2020 2:18PM): [facility](-)Limited exam on #6Exam with pt states [...] q6h until goneDisp - will attempt #11,12 nondenominational - if not restorable - will ext [...] completed Patient is a former smoker RAÚL ([facility] ) Smoking 02/15/2021 12:00:00 AM EDT Former Smoker completed Former Smoker eCW1 ([facility]) Smoking 02/15/2021 12:00:00 AM EDT Former Smoker completed Former Smoker eCW1 ([facility]) Smoking 02/10/2021 12:00:00 AM EDT Former Smoker completed Former Smoker eCW1 ([facility]) Vital Signs ID Date Data Source [...] height 66 [in_i] 66 [in_i] MEDENT ([facility] 5'6" Body weight 130.00 [lb_av] 130.00 [lb_av] MEDEN T ([facility] [place] body weight 130 [lb_av] 130 [lb_av] MEDEN T ([facility] Body mass index (BMI) [Ratio] 21.0 kg/m2 21.0 k g/m2 MEDENT ([facility] Oxygen saturation in Arterial blood by Pulse oximetry 96 % 96 % MEDENT ([facility] (AT Rest), (Room Air) Systolic blood pressure 110 mm[Hg] 110 mm[Hg] M EDENT ([facility] Diastolic blood pressure 60 mm[Hg] 60 mm[Hg] MEDENT ([facility] Body temperature 98.4 [degF] 98.4 [degF] MEDENT ([facility] Heart rate 92 /min 92 /min MEDENT ([facility] Respiratory rate 16 /min 16 /min MEDENT ( [facility] Body height 66 [in_i] 66 [in_i] MEDENT ([facility] 5'6" [place] body weight 130 [lb_av] 130 [lb_av] MEDEN T ([facility] Body mass index (BMI) [Ratio] 20.7 kg/m2 20.7 k g/m2 MEDENT ([facility] Oxygen saturation in Arterial blood by Pulse oximetry 96 % 96 % MEDENT ([facility] Body weight 128.00 [lb_av] 128.00 [lb_av] MEDEN T ([facility] Body temperature 98.8 [degF] 98.8 [degF] MEDENT ([facility] Respiratory rate 16 /min 16 /min MEDENT ( [facility] Heart rate 80 /min 80 /min MEDENT ([facility] Oxygen saturation in Arterial blood by Pulse oximetry 95 % 95 % MEDENT ([facility] Systolic blood pressure 126 mm[Hg] 126 mm[Hg] M EDENT ([facility] Diastolic blood pressure 76 mm[Hg] 76 mm[Hg] MEDENT ([facility] Body height 66 [in_i] 66 [in_i] MEDENT ([facility] 5'6" Body weight 133.00 [lb_av] 133.00 [lb_av] MEDEN T ([facility] [place] body weight 130 [lb_av] 130 [lb_av] MEDEN T ([facility] Body mass index (BMI) [Ratio] 21.5 kg/m2 21.5 k g/m2 MEDENT ([facility] Systolic blood pressure 150 mm[Hg] 150 mm[Hg] M EDENT ([facility] Diastolic blood pressure 90 mm[Hg] 90 mm[Hg] MEDENT ([facility] [place] body weight 130 [lb_av] 130 [lb_av] MEDEN T ([facility] Body mass index (BMI) [Ratio] 22.1 kg/m2 22.1 k g/m2 MEDENT ([facility] Oxygen saturation in Arterial blood by Pulse oximetry 92 % 92 % MEDENT ([facility] Body temperature 98.0 [degF] 98.0 [degF] MEDENT ([facility] Heart rate 108 /min 108 /min MEDENT ([facility] Respiratory rate 17 /min 17 /min MEDENT ( [facility] Body height 66 [in_i] 66 [in_i] MEDENT ([facility] 5'6" Body weight 137.00 [...] Body height 66 [in_i] 66 [in_i] MEDENT ([facility] 5'6" Body weight 133.00 [lb_av] 133.00 [lb_av] MEDEN T ([facility] [place] body weight 130 [lb_av] 130 [lb_av] MEDEN T ([facility] Systolic blood pressure 124 mm[Hg] 124 mm[Hg] e CW1 ([facility]) Diastolic blood pressure 76 mm[Hg] 76 mm[Hg] eCW1 ([facility]) Body weight 133.0 [lb_av] 133.0 [lb_av] eCW1 ([facility]) Body height 66 [in_i] 66 [in_i] eCW1 ([facility]) Body mass index (BMI) [Ratio] 21.46 kg/m2 21.46 kg/m2 W1 ([facility]) Body weight 134.0 [lb_av] 134.0 [lb_av] eCW1 ([facility]) Body height 66 [in_i] 66 [in_i] eCW1 ([facility]) Body mass index (BMI) [Ratio] 21.63 kg/m2 21.63 kg/m2 eCW1 ([facility]) Systolic blood pressure 122 mm[Hg] 122 mm[Hg] e CW1 ([facility]) Diastolic blood pressure 72 mm[Hg] 72 mm[Hg] eCW1 ([facility]) Systolic blood pressure 130 mm[Hg] 130 mm[Hg] M EDENT ([facility]) Diastolic blood pressure 96 mm[Hg] 96 mm[Hg] MEDENT ([facility]) Heart rate 87 /min 87 /min MEDENT ([facility]) Body temperature 98.3 [degF] 98.3 [degF] MEDENT ([facility]) Oxygen saturation in Arterial blood by Pulse oximetry 96 % 96 % MEDENT ([facility]) Body weight 134.00 [lb_av] 134.00 [lb_av] MEDEN T ([facility] [place] body weight 130 [lb_av] 130 [lb_av] MEDEN [...] Body height 66 [in_i] 66 [in_i] MEDENT ([facility] 5'6" Oxygen saturation in Arterial blood by Pulse oximetry 96 % 96 % MEDENT ([facility] Body temperature 97.1 [degF] 97.1 [degF] MEDENT ([facility]) Systolic blood pressure 140 mm[Hg] 140 mm[Hg] M EDENT ([facility] Diastolic blood pressure 80 mm[Hg] 80 mm[Hg] MEDENT ([facility] Body temperature 97.8 [degF] 97.8 [degF] MEDENT ([facility] Oxygen saturation in Arterial blood by Pulse oximetry 96 % 96 % [facility] ( [facility] Body height 66 [in_i] 66 [in_i] MEDENT ([facility] 5'6" Body weight 113.00 [lb_av] 113.00 [lb_av] MEDEN T ([facility] [place] body weight 130 [lb_av] 130 [lb_av] MEDEN T ([facility] Heart rate 90 /min 90 /min MEDENT ([facility] Respiratory rate 18 /min 18 /min MEDENT ( [facility] Body mass index (BMI) [Ratio] 18.2 kg/m2 18.2 k g/m2 MEDENT ([facility] [place] body weight 130 [lb_av] 130 [lb_av] MEDEN T ([facility] Body weight 125.00 [lb_av] 125.00 [lb_av] MEDEN T ([facility] Body mass index (BMI) [Ratio] 20.2 kg/m2 20.2 k g/m2 MEDENT ([facility] Systolic blood pressure 124 mm[Hg] 124 mm[Hg] M EDENT ([facility] Diastolic blood pressure 76 mm[Hg] 76 mm[Hg] MEDENT ([facility] Body temperature 97.7 [degF] 97.7 [degF] MEDENT ([facility] Heart rate 100 /min 100 /min MEDENT ([facility] Respiratory rate 16 /min 16 /min MEDENT ( [facility] Body height 66 [in_i] 66 [in_i] MEDENT ([facility] 5'6" Oxygen saturation in Arterial blood by Pulse oximetry 99 % 99 % RAÚL ([facility] (AT Rest), (Room Air) Systolic blood pressure 130 mm[Hg] 130 mm[Hg] M EDENT ([facility] Diastolic blood pressure 78 mm[Hg] 78 mm[Hg] MEDENT ([facility] Body temperature 97.6 [degF] 97.6 [degF] MEDENT ([facility] Heart rate 96 /min 96 /min MEDENT ([facility] Body weight 128.00 [lb_av] 128.00 [lb_av] MEDEN T ([facility] Body mass index (BMI) [Ratio] 20.7 kg/m2 20.7 k g/m2 MEDJADYN ([facility] Oxygen saturation in Arterial blood by Pulse oximetry 94 % 94 % RAÚL ([facility] Respiratory rate 18 /min 18 /min MEDENT ( [facility] Body height 66 [in_i] 66 [in_i] MEDENT ([facility] 5'6" [place] body weight 130 [lb_av] 130 [lb_av] MEDEN T ([facility] ID Date Data Source [id number] 01/31/2021 02:27:03 PM EDT [facility] Name Value Range Interpretation Code Description Data Source(s) WEIGHT RECORDED 127.00 pounds 127.00 pounds [facility] Height 66 Inches 066 Inches [facility] ID Date Data Source [id number] 01/04/2021 12:56:24 PM EST [facility] Name Value Range Interpretation Code Description Data Source(s) WEIGHT RECORDED 127.00 pounds 127.00 pounds [facility] Height 66 Inches 066 Inches [facility]
== END 2021-09-07 12:33 | disposition left against medical advice (07) ==
LOC: M ED 10:40
DX: Z53.21 Procedure and treatment not carried out due to patient leaving prior to being seen by health care provider (principal)

== ENCOUNTER → 2021-10-03 | Outpatient (CLI) | payer MEDICARE, MEDICAID ==
[~2021-10-03] MED LIST changes: +AMOX1SUS19; +E-Z-GAS II EFFERVESCENT PACKET (SODIUM BICARB./CITRIC ACID/SIMETHICONE) As Ordered ONE; +E-Z-HD 98% w/w 340GM SUSP BTL As Ordered ONE; +E-Z-PAQUE 96% w/w SUSP 176GM BTL As Ordered ONE; -OMEP-221 PO; +OMEP40CA5 PO; +TRAZ-252
== END ==
LOC: M RAD 08:08
PROVIDERS: ATTEND Otolaryngology
DX: R13.10 Dysphagia, unspecified (principal)

== ENCOUNTER 2022-06-20 23:08 | Emergency (ER) | payer MEDICARE, MEDICAID ==
[~2022-06-20 23:08] MED LIST changes: +ALBU2.5V10 INH; -ALBU83IN INH; -E-Z-GAS II EFFERVESCENT PACKET (SODIUM BICARB./CITRIC ACID/SIMETHICONE) As Ordered ONE; -E-Z-HD 98% w/w 340GM SUSP BTL As Ordered ONE; -E-Z-PAQUE 96% w/w SUSP 176GM BTL As Ordered ONE
[2022-06-20 23:45] VITALS: BP 120/72
[2022-06-21 00:19] LABS: BASO # 0.1 10^3/uL (0.0-0.2); BASO % 0.9 % (0.0-1.0); EOS % 0.2 % (0.0-3.0); HEMATOCRIT 39.7 % (36.0-47.0); HEMOGLOBIN 13.2 g/dl (12.0-15.5); LYMPH # 2.3 10^3/uL (1.5-5.0); MEAN CORPUSCULAR HEMOGLOBIN 30.8 pg (27.0-33.0); MEAN CORPUSCULAR HGB CONC 33.2 g/dl (32.0-36.5); MEAN CORPUSCULAR VOLUME 92.8 fl (80.0-96.0); MONO # 0.5 10^3/uL (0.0-0.8); MONO % 9.8 % (2.0-8.0); NEUTROPHILS # 2.4 10^3/uL (1.5-8.5); NEUTROPHILS % 44.7 % (36.0-66.0); PLATELET COUNT, AUTOMATED 154 10^3/uL (150-450); RED BLOOD COUNT 4.28 10^6/uL (4.00-5.40); WHITE BLOOD COUNT 5.3 10^3/uL (4.0-10.0)
[2022-06-21 00:50] LABS: ALBUMIN 3.6 GM/DL (3.2-5.2); ALT/SGPT 179 U/L (12-78); BILIRUBIN,DIRECT 0.3 MG/DL (0.0-0.2); BILIRUBIN,TOTAL 0.3 MG/DL (0.2-1.0); BLOOD UREA NITROGEN 11 MG/DL (7-18); CALCIUM LEVEL 8.6 MG/DL (8.8-10.2); CARBON DIOXIDE LEVEL 30 MEQ/L (21-32); CHLORIDE LEVEL 103 MEQ/L (98-107); CREATININE FOR GFR 0.61 MG/DL (0.55-1.30); GLOMERULAR FILTRATION RATE > 60.0 (>45); GLUCOSE, FASTING 84 MG/DL (70-100); POTASSIUM SERUM 3.8 MEQ/L (3.5-5.1); SODIUM LEVEL 138 MEQ/L (136-145)
[2022-06-21 00:51] LABS: ETHYL ALCOHOL (ETHANOL) 0.113 % (0.000-0.010); LIPASE 118 U/L (73-393)
[2022-06-21] MEDS ORDERED: ISOVUE-370 76% 100ML VIAL As Ordered ONE (01:06)
== END 2022-06-21 03:38 | disposition home or self-care (01) ==
LOC: M ED 23:08
DX: K76.0 Fatty (change of) liver, not elsewhere classified (principal); K83.8 Other specified diseases of biliary tract; K57.30 Diverticulosis of large intestine without perforation or abscess without bleeding; I10 Essential (primary) hypertension; F41.9 Anxiety disorder, unspecified; J44.9 Chronic obstructive pulmonary disease, unspecified; F90.9 Attention-deficit hyperactivity disorder, unspecified type; Z87.891 Personal history of nicotine dependence
CPT/HCPCS: 36415; 74021; 74177; 80048; 80076; 82077; 83690; 84484; 85025; 93005; 93041; 94760; 99284; Q9967

== ENCOUNTER 2024-08-16 15:04 | Emergency (ER) | payer MEDICARE, MEDICAID ==
[~2024-08-16] VITALS: Ht 165.1 cm; Wt 53.5 kg
[2024-08-16] MEDS ORDERED: ADV100INH INH (15:34)
[2024-08-16 16:51] LABS: BASO # 0.1 10^3/uL (0.0-0.2); BASO % 0.9 % (0.0-1.0); HEMATOCRIT 38.8 % (36.0-47.0); HEMOGLOBIN 12.6 g/dl (12.0-15.5); LYMPH # 2.6 10^3/uL (1.5-5.0); LYMPH % 29.9 % (24.0-44.0); MEAN CORPUSCULAR HEMOGLOBIN 29.6 pg (27.0-33.0); MEAN CORPUSCULAR HGB CONC 32.5 g/dl (32.0-36.5); MEAN CORPUSCULAR VOLUME 91.3 fl (80.0-96.0); MONO # 0.6 10^3/uL (0.0-0.8); MONO % 6.8 % (2.0-8.0); NEUTROPHILS # 5.4 10^3/uL (1.5-8.5); NEUTROPHILS % 62.2 % (36.0-66.0); PLATELET COUNT, AUTOMATED 200 10^3/uL (150-450); RED BLOOD COUNT 4.25 10^6/uL (4.00-5.40); WHITE BLOOD COUNT 8.7 10^3/uL (4.0-10.0)
[2024-08-16 16:57] LABS: Trichomonas vaginalis (AMP) NOT DETECTED (NEGATIVE)
[2024-08-16 17:10] LABS: LIPASE 28 U/L (12-53)
[2024-08-16 17:13] LABS: ALBUMIN 3.7 G/DL (3.2-5.2); ALKALINE PHOSPHATASE 77 U/L (46-116); ALT/SGPT 37 U/L (7.0-40); AST/SGOT 32 U/L (<34); BILIRUBIN,DIRECT 0.2 MG/DL (<0.4); BILIRUBIN,TOTAL 0.5 MG/DL (0.3-1.2); BLOOD UREA NITROGEN 11 MG/DL (9-23); CALCIUM LEVEL 9.9 MG/DL (8.3-10.6); CARBON DIOXIDE LEVEL 30 MMOL/L (20-31); CHLORIDE LEVEL 105 MMOL/L (98-107); CREATININE FOR GFR 0.64 MG/DL (0.55-1.30); GLOMERULAR FILTRATION RATE > 60.0 (>45); GLUCOSE, FASTING 103 MG/DL (74-106); POTASSIUM SERUM 3.9 MMOL/L (3.5-5.1); SODIUM LEVEL 139 MMOL/L (136-145); TOTAL PROTEIN 7.8 G/DL (5.7-8.2)
[2024-08-16 17:21] LABS: GC DNA AMPLIFICATION NEGATIVE (NEGATIVE)
[2024-08-16 18:43] VITALS: BP 145/93; TEMP 98.3; O2SAT 97
== END 2024-08-16 18:58 | disposition home or self-care (01) ==
LOC: M ED 15:04
DX: R36.9 Urethral discharge, unspecified (principal); I10 Essential (primary) hypertension; J44.9 Chronic obstructive pulmonary disease, unspecified; F90.9 Attention-deficit hyperactivity disorder, unspecified type; Z87.891 Personal history of nicotine dependence; Z88.8 Allergy status to other drugs, medicaments and biological substances; Z79.51 Long term (current) use of inhaled steroids; Z79.899 Other long term (current) drug therapy